=== PATIENT | male | born 1950 | race Caucasian/White ===

== ENCOUNTER 2017-09-30 07:44 | Emergency (ER) | payer SELFPAY ==
[2017-09-30 07:56] VITALS: BP 138/79
--- NOTE | 2017-09-30 07:58 | EDM.PDOC ---
ED HPI GENERAL MEDICAL PROBLEM - General Chief Complaint: Wound Recheck Stated Complaint: REMOVE STITCHES Time Seen by Provider: 09/30/17 07:52 - History of Present Illness INITIAL COMMENTS - FREE TEXT/NARRATIVE: HISTORY AND PHYSICAL: History of present illness: The patient is a 67-year-old male who presents for suture removal. Patient had sutures placed after a mold was removed by a physician in the office in [place] and that was done apparently 2 weeks ago. Patient cannot get back to [place] to get the stitches removed. He states he has no pain redness or problems with the area and according to the physician report called to him the lesion was benign. He was told by the physician's nurse that he can get the sutures removed locally. He has no systemic complaints. Review of systems: As per history of present illness and below otherwise all systems reviewed and negative. Past medical history: As per history of present illness and as reviewed below otherwise noncontributory. Surgical history: As per history of present illness and as reviewed below otherwise noncontributory. Social history: No reported history of drug or alcohol abuse. Family history: As per history of present illness and as reviewed below otherwise noncontributory. Physical exam: Gen.: Well-developed well-nourished man who is nontoxic and speaking clearly and easily in the ED HEENT: Atraumatic, normocephalic, negative for conjunctival pallor or scleral icterus, mucous membranes moist, throat clear, neck supple, nontender, trachea midline. Lungs: Clear to auscultation, breath sounds equal bilaterally, chest nontender. Heart: S1S2, regular rate and rhythm no overt murmurs Abdomen: Deferred Pelvis: Deferred Genitourinary: Deferred. Rectal: Deferred. Extremities: Deferred Neuro: Awake, alert, oriented. Gait intact in the ER Motor and sensory unremarkable throughout. Exam nonfocal. Skin: At the left lower back near the posterior iliac crest there is a well- healed incision with 2 sutures seen. There is no drainage swelling or erythema. Sutures are intact. Diagnostics: None Therapeutics: Suture removal per nursing Impression: Suture removal Definitive disposition and diagnosis as appropriate pending reevaluation and review of above - Related Data Allergies Allergy/AdvReac Type Severity Reaction Status Date / Time morphine Allergy Nausea and Verified 04/26/16 12:25 Vomiting Home Meds: Home Meds . [No Known Home Meds] 03/29/16 [History] Past Medical History HEENT History: Reports: Impaired Vision Cardiovascular History: Reports: Afib, High Cholesterol Respiratory History: Reports: None Gastrointestinal History: Reports: None Genitourinary History: Reports: Renal Calculus Musculoskeletal History: Reports: Other (See Below) Other Musculoskeletal History: rotator cuff repair Neurological History: Reports: Vertigo Psychiatric History: Reports: Anxiety, Depression Endocrine/Metabolic History: Reports: None Hematologic History: Reports: None Immunologic History: Reports: None Oncologic (Cancer) History: Reports: None Dermatologic History: Reports: None - Infectious Disease History Infectious Disease History: Reports: Chicken Pox, Influenza, Measles - Past Surgical History Musculoskeletal Surgical History: Reports: Arthroscopic Knee Social & Family History - Family History Family Medical History: Noncontributory HEENT: Reports: Impaired Vision OBGYN: Reports: Endocrine/Metabolic: Reports: Diabetes, type II Oncologic: Reports: Breast, Lung - Tobacco Use Smoking Status *Q: Never Smoker Second Hand Smoke Exposure: No - Alcohol Use Days Per Week of Alcohol Use: 0 - Recreational Drug Use Recreational Drug Use: No Drug Use in Last 12 Months: No Recreational Drug Type: Reports: Marijuana/Hashish Recreational Drug Use Frequency: Socially ED ROS GENERAL - Review of Systems Review Of Systems: ROS reveals no pertinent complaints other than HPI. ED EXAM, GENERAL - Physical Exam Exam: See Below (See dictation) Departure - Departure Time of Disposition: 07:58 Disposition: Home, Self-Care 01 Condition: Good Clinical Impression: Encounter for removal of sutures - Discharge Information Referrals: PCP,None [Primary Care Provider] - Additional Instructions: The following information is given to patients seen in the emergency department who are being discharged to home. This information is to outline your options for follow-up care. We provide all patients seen in our emergency department with a follow-up referral. The need for follow-up, as well as the timing and circumstances, are variable depending upon the specifics of your emergency department visit. If you don't have a primary care physician on staff, we will provide you with a referral. We always advise you to contact your personal physician following an emergency department visit to inform them of the circumstance of the visit and for follow-up with them and/or the need for any referrals to a consulting specialist. The emergency department will also refer you to a specialist when appropriate. This referral assures that you have the opportunity for followup care with a specialist. All of these measure are taken in an effort to provide you with optimal care, which includes your followup. Under all circumstances we always encourage you to contact your private physician who remains a resource for coordinating your care. When calling for followup care, please make the office aware that this follow-up is from your recent emergency room visit. If for any reason you are refused follow-up, please contact the [facility] emergency department at and ask to speak to the emergency department charge nurse. [facility] Primary care- Internal Medicine and Family [place] [phone] Please follow-up with your provider in the clinic as needed and return to ER as needed and as discussed
== END 2017-09-30 08:13 | disposition home or self-care (01) ==
LOC: MW.ED 07:44
DX: Z48.817 Encounter for surgical aftercare following surgery on the skin and subcutaneous tissue (principal); Z88.5 Allergy status to narcotic agent
CPT/HCPCS: 99281

== ENCOUNTER 2019-03-26 04:48 | Emergency (ER) | payer SELFPAY ==
[2019-03-26] MEDS ORDERED: Diltiazem 25 MG/5 ML SDV ONE (04:59)
[2019-03-26] MEDS ORDERED: Sodium Chloride 0.9% 1,000 ML IV ONE (05:04)
[2019-03-26] MEDS ORDERED: Aspirin 81 MG Tab.Chew PO ONE (05:04)
--- NOTE | 2019-03-26 05:07 | EDM.PDOC ---
ED HPI GENERAL MEDICAL PROBLEM - General Stated Complaint: HEART RACING Time Seen by Provider: 03/26/19 05:05 Source of Information: Reports: Patient - History of Present Illness INITIAL COMMENTS - FREE TEXT/NARRATIVE: HISTORY AND PHYSICAL: History of present illness: [Patient presents with chest pain and episode yesterday which awoke him from sleep at approximately 7 AM at which time he did have some diaphoresis and shortness of breath radiating to the neck, he did have intermittent pain throughout the day with activity and then another episode tonight which woke him from sleep prompting his visit to the ER Heart rate was noted in 180s on arrival Cardizem and fluids were provided stabilizing the heart rate currently sinus rhythm in the 70s No fever nausea vomiting chills sweats no current shortness of breath or diaphoresis no radiation he continues to have slight chest pressure Review of systems: As per history of present illness and below otherwise all systems reviewed and negative. Past medical history: As per history of present illness and as reviewed below otherwise noncontributory. Surgical history: As per history of present illness and as reviewed below otherwise noncontributory. Social history: No reported history of drug or alcohol abuse. Family history: As per history of present illness and as reviewed below otherwise noncontributory. Physical exam: HEENT: Atraumatic, normocephalic, pupils reactive, negative for conjunctival pallor or scleral icterus, mucous membranes moist, throat clear, neck supple, nontender, trachea midline. Lungs: Clear to auscultation, breath sounds equal bilaterally, chest nontender. Heart: S1S2, regular, negative for clicks, rubs, or JVD. Abdomen: Soft, nondistended, nontender. Negative for masses or hepatosplenomegaly. Negative for costovertebral tenderness. Pelvis: Stable nontender. Genitourinary: Deferred. Rectal: Deferred. Extremities: Atraumatic, negative for cords or calf pain. Neurovascular unremarkable. Neuro: Awake, alert, oriented. Cranial nerves II through XII unremarkable. Cerebellum unremarkable. Motor and sensory unremarkable throughout. Exam nonfocal. Diagnostics: [CBC CMP UA troponin INR and d-dimer EKG Chest 1 view ] Therapeutics: [ normal saline Cardizem 25 mg IV ] Impression: Acute coronary syndrome [ A. fib with RVR -resolved Elevated troponin Definitive disposition and diagnosis as appropriate pending reevaluation and review of above. chest discomfort Pain Score (Numeric/FACES): 2 - Related Data Allergies Allergy/AdvReac Type Severity Reaction Status Date / Time morphine Allergy Nausea and Verified 03/26/19 05:04 Vomiting Home Meds: Home Meds . [No Known Home Meds] 03/29/16 [History] Past Medical History HEENT History: Reports: Impaired Vision Cardiovascular History: Reports: Afib, High Cholesterol Respiratory History: Reports: None Gastrointestinal History: Reports: None Genitourinary History: Reports: Renal Calculus Musculoskeletal History: Reports: Other (See Below) Other Musculoskeletal History: rotator cuff repair Neurological History: Reports: Vertigo Psychiatric History: Reports: Anxiety, Depression Endocrine/Metabolic History: Reports: None Hematologic History: Reports: None Immunologic History: Reports: None Oncologic (Cancer) History: Reports: None Dermatologic History: Reports: None - Infectious Disease History Infectious Disease History: Reports: Chicken Pox, Influenza, Measles - Past Surgical History Head Surgeries/Procedures: Reports: None Musculoskeletal Surgical History: Reports: Arthroscopic Knee Social & Family History - Family History Family Medical History: Noncontributory HEENT: Reports: Impaired Vision OBGYN: Reports: Endocrine/Metabolic: Reports: Diabetes, type II Oncologic: Reports: Breast, Lung - Caffeine Use Caffeine Use: Reports: Coffee, Soda ED ROS GENERAL - Review of Systems Review Of Systems: See Below ED EXAM, GENERAL - Physical Exam Exam: See Below Course - Vital Signs Last Recorded V/S: Last Vital Signs Temp 97.5 F 03/26/19 04:50 Pulse 64 03/26/19 05:40 Resp 18 03/26/19 05:40 BP 110/72 03/26/19 05:40 Pulse Ox 96 03/26/19 05:40 - Orders/Labs/Meds Orders: Active Orders 24 hr Category Date Time Status EKG 12 Lead [EKG Documentation Completion] [RC] STAT Care 03/26/19 05:14 Active EKG Documentation Completion [RC] STAT Care 03/26/19 05:04 Active CPK [CREATINE KINASE,CK] [CHEM] Stat Lab 03/26/19 05:54 Ordered UA RFX PROSPER AND CULT IF INDIC [URIN] Stat Lab 03/26/19 05:04 Ordered Sodium Chloride 0.9% [Normal Saline] 1,000 ml Med 03/26/19 05:04 Active IV STAT Medication Orders Sodium Chloride (Normal Saline) 1,000 mls @ 999 mls/hr IV STAT ONE Stop: 03/26/19 06:04 Last Admin: 03/26/19 05:00 Dose: 999 mls/hr Labs: Laboratory Tests 03/26/19 03/26/19 03/26/19 Range/Units 04:15 04:15 04:15 WBC 14.36 H (4.0-11.0) K/uL RBC 5.38 (4.50-5.90) M/uL Hgb 14.8 (13.0-17.0) g/dL Hct 44.8 (38.0-50.0) % MCV 83.3 (80.0-98.0) fL MCH 27.5 (27.0-32.0) pg MCHC 33.0 (31.0-37.0) g/dL RDW Std Deviation 45.5 (28.0-62.0) fl RDW Coeff of Ashley 15 (11.0-15.0) % Plt Count 257 (150-400) K/uL MPV 11.20 (7.40-12.00) fL Neut % (Auto) 69.2 (48.0-80.0) % Lymph % (Auto) 17.5 (16.0-40.0) % [place] % (Auto) 11.7 (0.0-15.0) % Eos % (Auto) 1.3 (0.0-7.0) % Baso % (Auto) 0.3 (0.0-1.5) % Neut # (Auto) 9.9 H (1.4-5.7) K/uL Lymph # (Auto) 2.5 H (0.6-2.4) K/uL [place] # (Auto) 1.7 H (0.0-0.8) K/uL Eos # (Auto) 0.2 (0.0-0.7) K/uL Baso # (Auto) 0.1 (0.0-0.1) K/uL Nucleated RBC % 0.0 /100WBC Nucleated RBCs # 0 K/uL INR 0.96 D-Dimer, Quantitative 0.33 (0.0-0.50) mg/L FEU Sodium 144 (136-148) mmol/L Potassium 4.0 (3.5-5.1) mmol/L Chloride 108 H (98-107) mmol/L Carbon Dioxide 23.3 (21.0-32.0) mmol/L BUN 21 H (7.0-18.0) mg/dL Creatinine 1.2 (0.8-1.3) mg/dL Est Cr Clr Drug Dosing 49.11 mL/min Estimated GFR (MDRD) 59.7 ml/min Glucose 103 (74-106) mg/dL Calcium 8.9 (8.5-10.1) mg/dL Total Bilirubin 1.5 H (0.2-1.0) mg/dL AST 22 (15-37) IU/L ALT 28 (14-63) IU/L Alkaline Phosphatase 79 (46-116) U/L Troponin I 0.537 H* (0.000-0.056) ng/mL Total Protein 6.9 (6.4-8.2) g/dL Albumin 4.0 (3.4-5.0) g/dL Globulin 2.9 (2.6-4.0) g/dL Albumin/Globulin Ratio 1.4 (0.9-1.6) Lipase 114 (73-393) U/L Meds: Medications Generic Name Dose Route Start Last Admin Trade Name Freq PRN Reason Stop Dose Admin Sodium Chloride 1,000 mls @ 999 mls/hr 03/26/19 05:04 03/26/19 05:00 Normal Saline IV 03/26/19 06:04 999 mls/hr STAT ONE Administration Discontinued Medications Generic Name Dose Route Start Last Admin Trade Name Freq PRN Reason Stop Dose Admin Aspirin 324 mg 03/26/19 05:04 03/26/19 05:12 Aspirin PO 03/26/19 05:05 324 mg ONETIME ONE Administration Diltiazem HCl Confirm 03/26/19 04:59 03/26/19 05:21 Diltiazem Administered 03/26/19 05:00 Not Given Dose 25 mg .ROUTE .STK-MED ONE Diltiazem HCl 25 mg 03/26/19 05:09 03/26/19 05:00 Diltiazem IVPUSH 03/26/19 05:10 25 mg ONETIME ONE Administration Departure - Departure Time of Disposition: 05:58 Disposition: Home, Self-Care 01 Condition: Good Clinical Impression: Acute coronary syndrome, Atrial fibrillation with RVR, Elevated troponin - Discharge Information Referrals: PCP,None [Primary Care Provider] - - My Orders Last 24 Hours: My Active Orders 03/26/19 05:04 EKG Documentation Completion [RC] STAT UA RFX PROSPER AND CULT IF INDIC [URIN] Stat Sodium Chloride 0.9% [Normal Saline] 1,000 ml IV STAT 03/26/19 05:14 EKG 12 Lead [EKG Documentation Completion] [RC] STAT 03/26/19 05:54 CPK [CREATINE KINASE,CK] [CHEM] Stat - Assessment/Plan Last 24 Hours: My Active Orders 03/26/19 05:04 EKG Documentation Completion [RC] STAT UA RFX PROSPER AND CULT IF INDIC [URIN] Stat Sodium Chloride 0.9% [Normal Saline] 1,000 ml IV STAT 03/26/19 05:14 EKG 12 Lead [EKG Documentation Completion] [RC] STAT 03/26/19 05:54 CPK [CREATINE KINASE,CK] [CHEM] Stat
[2019-03-26] MEDS ORDERED: Diltiazem 25 MG/5 ML SDV IVPUSH ONE (05:09)
--- NOTE | 2019-03-26 05:42 | CR ---
Indication: Chest pain Technique: Chest 1 view Comparison: None Findings/Impression: Cardiovascular and mediastinum: Heart size and vasculature are normal in caliber and appearance. Mediastinum is within normal limits. Lungs and pleural space: Lungs are clear. No sign of infiltrate or mass. No sign of pleural effusion. No pneumothorax. Bones and soft tissues: No significant findings. Dictated by Kellee Philippe MD @ Mar 26 2019 5:40AM Signed by Dr. Kellee Philippe @ Mar 26 2019 5:41AM
[2019-03-26] MEDS ORDERED: Heparin Sodium 5,000 Units/ML Vial IVPUSH ONE (05:59)
[2019-03-26] MEDS ORDERED: Heparin Sod,Pork In 0.45% Nacl 25,000 UNIT/500 ML IV.SOLN IV ONE (06:09)
[2019-03-26] MEDS ORDERED: Heparin Sod,Pork In 0.45% Nacl 25,000 UNIT/500 ML IV.SOLN IV SCH (06:15)
[2019-03-26 07:36] VITALS: BP 100/55
== END 2019-03-26 07:15 ==
LOC: MW.ED 04:48
DX: I24.9 Acute ischemic heart disease, unspecified (principal); I48.91 Unspecified atrial fibrillation; R79.89 Other specified abnormal findings of blood chemistry; Z88.5 Allergy status to narcotic agent
CPT/HCPCS: 36415; 71045; 80053; 82550; 83690; 84484; 85025; 85379; 85610; 93005; 96361; 96365; 96375; 96376; 99285; A9270; J1644; J3490; J7040

== ENCOUNTER 2019-04-13 09:34 | Observation (INO) | payer OTHER ==
[2019-04-13] MEDS ORDERED: Sodium Chloride 0.9% 2.5 ML Syringe FLUSH PRN (09:58)
[2019-04-13] MEDS ORDERED: Sodium Chloride 0.9% 10 ML Syringe FLUSH PRN (09:58)
[2019-04-13] MEDS ORDERED: Sodium Chloride 0.9% 1,000 ML IV SCH (10:00)
--- NOTE | 2019-04-13 10:04 | EDM.PDOC ---
ED HPI GENERAL MEDICAL PROBLEM - General Chief Complaint: Back Pain or Injury Stated Complaint: BACK PAIN Time Seen by Provider: 04/13/19 09:52 - History of Present Illness INITIAL COMMENTS - FREE TEXT/NARRATIVE: HISTORY AND PHYSICAL: History of present illness: Patient is a 69-year-old white male presents with a concern of low back pain he states he felt this last night and took a hot bath went to sleep feeling better woke up went to work at [employer] and was just reaching up above and developed more significant low back pain he denies numbness weakness incontinence or bowel or bladder other complaints. He does have a history of coronary artery disease and is on Lipitor Coumadin and reports allergies to morphine in the form of nausea. Review of systems: As per history of present illness and below otherwise all systems reviewed and negative. Past medical history: As per history of present illness and as reviewed below otherwise noncontributory. Surgical history: As per history of present illness and as reviewed below otherwise noncontributory. Social history: No reported history of drug or alcohol abuse. Family history: As per history of present illness and as reviewed below otherwise noncontributory. Physical exam: HEENT: Atraumatic, normocephalic, pupils reactive, negative for conjunctival pallor or scleral icterus, mucous membranes moist, throat clear, neck supple, nontender, trachea midline. Lungs: Clear to auscultation, breath sounds equal bilaterally, chest nontender. Heart: S1S2, regular, negative for clicks, rubs, or JVD. Abdomen: Soft, nondistended, nontender. Negative for masses or hepatosplenomegaly. Negative for costovertebral tenderness. Pelvis: Stable nontender. Genitourinary: Deferred. Rectal: Deferred. Extremities: Atraumatic, negative for cords or calf pain. Neurovascular unremarkable. Neuro: Awake, alert, oriented. Cranial nerves II through XII unremarkable. Cerebellum unremarkable. Motor and sensory unremarkable throughout. Exam nonfocal. Back: Patient is tenderness in paravertebral region at the level of lumbar spine no vertebral body or point tenderness patient is able to stand on his toes and back on his heels. Motor sensory deep tendon reflexes are normal Diagnostics: CBC CMP UA PT/INR EKG CT abdomen and pelvis CT lumbar spine Therapeutics: Saline at 125 an hour Dilaudid 0.5 mg IV Zofran 4 mg IV Impression: #1 acute low back pain Definitive disposition and diagnosis as appropriate pending reevaluation and review of above. lower back Pain Score (Numeric/FACES): 10 - Related Data Allergies Allergy/AdvReac Type Severity Reaction Status Date / Time morphine Allergy Nausea and Verified 04/13/19 09:41 Vomiting Home Meds: Home Meds Amiodarone [Cordarone] 1 tab PO DAILY 04/13/19 [History] Aspirin [Halfprin] 81 mg PO DAILY 04/13/19 [History] Lisinopril [Prinivil] 2.5 mg PO DAILY 04/13/19 [History] Warfarin [Coumadin] 1 tab PO DAILY 04/13/19 [History] atorvaSTATin [Lipitor] 1 tab PO DAILY 04/13/19 [History] Past Medical History HEENT History: Reports: Impaired Vision Cardiovascular History: Reports: Afib, High Cholesterol Respiratory History: Reports: None Gastrointestinal History: Reports: None Genitourinary History: Reports: Renal Calculus Musculoskeletal History: Reports: Other (See Below) Other Musculoskeletal History: rotator cuff repair Neurological History: Reports: Vertigo Psychiatric History: Reports: Anxiety, Depression Endocrine/Metabolic History: Reports: None Hematologic History: Reports: None Immunologic History: Reports: None Oncologic (Cancer) History: Reports: None Dermatologic History: Reports: None - Infectious Disease History Infectious Disease History: Reports: Measles - Past Surgical History Head Surgeries/Procedures: Reports: None HEENT Surgical History: Reports: None Cardiovascular Surgical History: Reports: None Respiratory Surgical History: Reports: None GI Surgical History: Reports: None Male Surgical History: Reports: None Endocrine Surgical History: Reports: None Neurological Surgical History: Reports: None Musculoskeletal Surgical History: Reports: Arthroscopic Knee Oncologic Surgical History: Reports: None Dermatological Surgical History: Reports: None Social & Family History - Family History Family Medical History: Noncontributory HEENT: Reports: Impaired Vision OBGYN: Reports: Endocrine/Metabolic: Reports: Diabetes, type II Oncologic: Reports: Breast, Lung - Tobacco Use Smoking Status *Q: Never Smoker Second Hand Smoke Exposure: No - Caffeine Use Caffeine Use: Reports: None - Recreational Drug Use Recreational Drug Use: No ED ROS GENERAL - Review of Systems Review Of Systems: ROS reveals no pertinent complaints other than HPI. ED EXAM, GENERAL - Physical Exam Exam: See Below (dictation) Course - Vital Signs Last Recorded V/S: Last Vital Signs Temp 36.6 C 04/13/19 09:43 Pulse 57 L 04/13/19 09:43 Resp 16 04/13/19 09:43 BP 130/63 04/13/19 09:43 Pulse Ox 97 04/13/19 09:43 - Orders/Labs/Meds Orders: Active Orders 24 hr Category Date Time Status EKG Documentation Completion [RC] STAT Care 04/13/19 09:57 Active UA RFX PROSPER AND CULT IF INDIC [URIN] Stat Lab 04/13/19 09:58 Ordered Sodium Chloride 0.9% [Normal Saline] 1,000 ml Med 04/13/19 10:00 Active IV STAT Sodium Chloride 0.9% [Saline Flush] Med 04/13/19 09:58 Active 10 ml FLUSH ASDIRECTED PRN Sodium Chloride 0.9% [Saline Flush] Med 04/13/19 09:58 Active 2.5 ml FLUSH ASDIRECTED PRN Saline Lock Insert [OM.PC] Stat Oth 04/13/19 09:57 Ordered Medication Orders Sodium Chloride (Normal Saline) 1,000 mls @ 125 mls/hr IV STAT LUIS ANTONIO Last Admin: 04/13/19 10:51 Dose: 125 mls/hr Sodium Chloride (Saline Flush) 10 ml FLUSH ASDIRECTED PRN PRN Reason: Keep Vein Open Last Admin: 04/13/19 10:48 Dose: 10 ml Sodium Chloride (Saline Flush) 2.5 ml FLUSH ASDIRECTED PRN PRN Reason: Keep Vein Open Last Admin: 04/13/19 10:48 Dose: 2.5 ml Labs: Laboratory Tests 04/13/19 04/13/19 04/13/19 Range/Units 10:11 10:11 10:11 WBC 6.36 (4.0-11.0) K/uL RBC 5.01 (4.50-5.90) M/uL Hgb 13.5 (13.0-17.0) g/dL Hct 42.1 (38.0-50.0) % MCV 84.0 (80.0-98.0) fL MCH 26.9 L (27.0-32.0) pg MCHC 32.1 (31.0-37.0) g/dL RDW Std Deviation 45.7 (28.0-62.0) fl RDW Coeff of Ashley 15 (11.0-15.0) % Plt Count 244 (150-400) K/uL MPV 10.90 (7.40-12.00) fL Neut % (Auto) 62.2 (48.0-80.0) % Lymph % (Auto) 20.3 (16.0-40.0) % [place] % (Auto) 11.2 (0.0-15.0) % Eos % (Auto) 5.5 (0.0-7.0) % Baso % (Auto) 0.8 (0.0-1.5) % Neut # (Auto) 4.0 (1.4-5.7) K/uL Lymph # (Auto) 1.3 (0.6-2.4) K/uL [place] # (Auto) 0.7 (0.0-0.8) K/uL Eos # (Auto) 0.4 (0.0-0.7) K/uL Baso # (Auto) 0.1 (0.0-0.1) K/uL Nucleated RBC % 0.0 /100WBC Nucleated RBCs # 0 K/uL INR 6.97 Sodium 144 (136-148) mmol/L Potassium 3.7 (3.5-5.1) mmol/L Chloride 109 H (98-107) mmol/L Carbon Dioxide 26.3 (21.0-32.0) mmol/L BUN 24 H (7.0-18.0) mg/dL Creatinine 1.2 (0.8-1.3) mg/dL Est Cr Clr Drug Dosing 52.79 mL/min Estimated GFR (MDRD) 59.7 ml/min Glucose 132 H (74-106) mg/dL Calcium 8.9 (8.5-10.1) mg/dL Total Bilirubin 0.4 (0.2-1.0) mg/dL AST 14 L (15-37) IU/L ALT 18 (14-63) IU/L Alkaline Phosphatase 84 (46-116) U/L Total Protein 6.8 (6.4-8.2) g/dL Albumin 3.9 (3.4-5.0) g/dL Globulin 2.9 (2.6-4.0) g/dL Albumin/Globulin Ratio 1.3 (0.9-1.6) Meds: Medications Generic Name Dose Route Start Last Admin Trade Name Freq PRN Reason Stop Dose Admin Sodium Chloride 1,000 mls @ 125 mls/hr 04/13/19 10:00 04/13/19 10:51 Normal Saline IV 125 mls/hr STAT LUIS ANTONIO Administration Sodium Chloride 10 ml 04/13/19 09:58 04/13/19 10:48 Saline Flush FLUSH 10 ml ASDIRECTED PRN Administration Keep Vein Open Sodium Chloride 2.5 ml 04/13/19 09:58 04/13/19 10:48 Saline Flush FLUSH 2.5 ml ASDIRECTED PRN Administration Keep Vein Open Discontinued Medications Generic Name Dose Route Start Last Admin Trade Name Lokiq PRN Reason Stop Dose Admin Hydromorphone HCl 0.5 mg 04/13/19 10:06 04/13/19 10:48 Dilaudid IVPUSH 04/13/19 10:07 0.5 mg ONETIME ONE Administration Ondansetron HCl 4 mg 04/13/19 10:06 04/13/19 10:46 Zofran IVPUSH 04/13/19 10:07 4 mg ONETIME ONE Administration Departure - Departure Time of Disposition: 11:29 Disposition: Refer to Observation Condition: Good Clinical Impression: Back pain, Coumadin toxicity - Discharge Information Referrals: PCP,Unknown [Primary Care Provider] - Forms: ED Department Discharge - My Orders Last 24 Hours: My Active Orders 04/13/19 09:57 EKG Documentation Completion [RC] STAT Saline Lock Insert [OM.PC] Stat 04/13/19 09:58 UA RFX PROSPER AND CULT IF INDIC [URIN] Stat Sodium Chloride 0.9% [Saline Flush] 10 ml FLUSH ASDIRECTED PRN Sodium Chloride 0.9% [Saline Flush] 2.5 ml FLUSH ASDIRECTED PRN 04/13/19 10:00 Sodium Chloride 0.9% [Normal Saline] 1,000 ml IV STAT - Assessment/Plan Last 24 Hours: My Active Orders 04/13/19 09:57 EKG Documentation Completion [RC] STAT Saline Lock Insert [OM.PC] Stat 04/13/19 09:58 UA RFX PROSPER AND CULT IF INDIC [URIN] Stat Sodium Chloride 0.9% [Saline Flush] 10 ml FLUSH ASDIRECTED PRN Sodium Chloride 0.9% [Saline Flush] 2.5 ml FLUSH ASDIRECTED PRN 04/13/19 10:00 Sodium Chloride 0.9% [Normal Saline] 1,000 ml IV STAT
[2019-04-13] MEDS ORDERED: HYDROmorphone 2 MG/ML Syringe IVPUSH ONE (10:06)
[2019-04-13] MEDS ORDERED: Ondansetron 4 MG/2 ML SDV IVPUSH ONE (10:06)
--- NOTE | 2019-04-13 11:16 | CT ---
Indication: Low back pain for 2 days. Technique: Noncontrast axial CT of the lumbar spine with coronal and sagittal reformats are provided. Comparison: No prior studies are available for comparison at this institution. Findings: Lumbar lordosis is preserved. There is a superior endplate compression deformity at L5 with 10 percent loss of vertebral body height. No retropulsed fragments. There is an associated large Schmorl`s node in the L5 superior endplate. Prominent anterior ridging osteophyte at L1-2 and non ridging osteophyte at L2-3. Bridging syndesmophytes at T11-12, T12-L1 and L1-2 are also noted. There is bilateral ankylosis of the sacroiliac joints. T11-12: No spinal canal stenosis. No neural foramina narrowing. T12-L1: No spinal canal stenosis. No neural foramina narrowing. L1-2: No spinal canal stenosis. No neural foramina narrowing. L2-3: Mild disc bulge. No spinal canal stenosis or neural foramina narrowing. L3-4: Mild disc bulge. No spinal canal stenosis or neural foramina narrowing. L4-5: Mild disc bulge. No spinal canal stenosis or neural foramina narrowing. L5-S1: Mild disc bulge. No spinal canal stenosis or neural foramina narrowing. Impression: 1. Acute or subacute superior endplate compression fracture at L5 with 10 percent loss of vertebral body height. No retropulsed fragments or associated spinal canal narrowing. Large Schmorl`s node in the L5 superior endplate. 2. Multilevel bridging syndesmophytes and prominent bridging anterior osteophyte at L1-2. Bilateral ankylosis of the sacroiliac joints. Findings are consistent with ankylosing spondylosis. 3. Mild disc bulges at L2-3 through L5-S1 without spinal canal stenosis or neural from narrowing. Please note that all CT scans at this facility use dose modulation, iterative reconstruction, and/or weight-based dosing when appropriate to reduce radiation dose to as low as reasonably achievable. Dictated by Ketan Murphy MD @ Apr 13 2019 11:05AM Signed by Dr. Ketan Murphy @ Apr 13 2019 11:16AM
--- NOTE | 2019-04-13 11:23 | CT ---
INDICATION: Low back pain. TECHNIQUE: Noncontrast axial images were acquired through the abdomen and pelvis with sagittal and coronal reconstructions. COMPARISON: None. FINDINGS: Lower chest: Normal heart size. No pericardial effusion. Lung bases are clear. Abdomen and pelvis: The unenhanced liver spleen, pancreas, adrenal glands appear unremarkable. No calcified stones are seen in the gallbladder. No abnormal bile duct dilatation. There are a few low-density lesions seen in the kidneys, which are suboptimally assessed on this study but likely represent cysts. Along the lateral margin of the left kidney, there is an exophytic renal lesion which measures up to 3.2 cm. This is slightly more dense than simple fluid, although a benign cyst is favored. Due to its size, this could likely be further characterized with ultrasound. There are no urinary tract stones. No hydroureteronephrosis. Mild atherosclerotic changes. Normal caliber abdominal aorta. No abnormally dilated bowel is seen to suggest obstruction. Normal appendix. No free air or free fluid. There is no lymphadenopathy by size criteria. Urinary bladder and prostate appear unremarkable. Bones: There is an acute appearing mild superior endplate compression fracture of L5, superimposed on a Schmorl`s node deformity. There is minor vertebral body height loss. Ankylosing spondylitis is noted in the lower thoracic and upper lumbar spine, and sacroiliac joints. IMPRESSION: 1. Acute appearing mild superior endplate compression fracture involving L1 as described above. 2. Indeterminate left renal lesion. Recommend nonemergent ultrasound for further assessment. 3. Other findings as noted. Dictated by Kasi Hargrove MD @ 04/13/2019 11:21:34 AM Please note that all CT scans at this facility use dose modulation, iterative reconstruction, and/or weight-based dosing when appropriate to reduce radiation dose to as low as reasonably achievable. Dictated by: Kasi Hargrove MD @ 04/13/2019 11:22:14 (Electronically Signed)
[2019-04-13] MEDS ORDERED: HYDROmorphone 1 MG/ML Syringe IVPUSH PRN (13:31)
[2019-04-13] MEDS ORDERED: Temazepam 15 MG Cap PO PRN (13:31)
[2019-04-13] MEDS ORDERED: oxyCODONE 5 MG Tab PO PRN (13:31)
[2019-04-13] MEDS ORDERED: Acetaminophen 325 MG Tab PO PRN (13:31)
[2019-04-13] MEDS ORDERED: Docusate Sodium 100 MG Cap PO PRN (13:31)
[2019-04-13] MEDS ORDERED: Diazepam 2 MG Tab PO PRN (13:36)
--- NOTE | 2019-04-13 13:36 | PCM.HP ---
H&P History of Present Illness - General Date of Service: 04/13/19 Admit Problem/Dx: Admission Diagnosis/Problem Admission Diagnosis/Problem Back pain Source of Information: Patient History Limitations: Reports: No Limitations - History of Present Illness Initial Comments - Free Text/Narative: The patient is a 69-year-old gentleman who had presented to the emergency department with severe pain in his lower back. The patient has denied any trauma. He reports that he had been at work and try to bend over to pick something up off the floor and was unable to stand up. He been complaining of bilateral muscle spasms in his lower back. The patient has denied any radiculopathy. He has had no radiation of the pain. The patient also has denied any saddle-type anesthesia. The patient also has been taking warfarin for his atrial fibrillation. In the emergency department he was noted to have an INR of 6.9. The patient normally follows up with the [facility]. He also reports that he has had about a 30 pound weight loss over the past 5 months. Onset of Symptoms: Reports: Sudden Duration of Symptoms: Reports: Day(s):, Getting Worse Location: Reports: Back Quality: Reports: Ache, Stabbing, Throbbing Severity: Moderate Improves with: Reports: Medication, Rest Worsens with: Reports: Movement Context: Denies: Trauma Associated Symptoms: Reports: No Other Symptoms lower back Pain Score (Numeric/FACES): 9 - Related Data Allergies/Adverse Reactions: Allergies Allergy/AdvReac Type Severity Reaction Status Date / Time morphine Allergy Nausea and Verified 04/13/19 09:41 Vomiting Home Medications: Home Meds Amiodarone [Cordarone] 1 tab PO DAILY 04/13/19 [History] Aspirin [Halfprin] 81 mg PO DAILY 04/13/19 [History] Lisinopril [Prinivil] 2.5 mg PO DAILY 04/13/19 [History] Warfarin [Coumadin] 5 tab PO DAILY 04/13/19 [History] atorvaSTATin [Lipitor] 1 tab PO DAILY 04/13/19 [History] Past Medical History HEENT History: Reports: Impaired Vision Cardiovascular History: Reports: Afib, High Cholesterol Respiratory History: Reports: None Gastrointestinal History: Reports: None Genitourinary History: Reports: Renal Calculus Musculoskeletal History: Reports: Other (See Below) Other Musculoskeletal History: rotator cuff repair Neurological History: Reports: Vertigo Psychiatric History: Reports: Anxiety, Depression Endocrine/Metabolic History: Reports: None Hematologic History: Reports: None Immunologic History: Reports: None Oncologic (Cancer) History: Reports: None Dermatologic History: Reports: None - Infectious Disease History Infectious Disease History: Reports: Measles, Mumps - Past Surgical History Head Surgeries/Procedures: Reports: None HEENT Surgical History: Reports: None Cardiovascular Surgical History: Reports: None Respiratory Surgical History: Reports: None GI Surgical History: Reports: None Male Surgical History: Reports: None Endocrine Surgical History: Reports: None Neurological Surgical History: Reports: None Musculoskeletal Surgical History: Reports: Arthroscopic Knee Oncologic Surgical History: Reports: None Dermatological Surgical History: Reports: None Social & Family History - Family History Family Medical History: Noncontributory HEENT: Reports: Impaired Vision OBGYN: Reports: Endocrine/Metabolic: Reports: Diabetes, type II Oncologic: Reports: Breast, Lung - Tobacco Use Smoking Status *Q: Never Smoker Second Hand Smoke Exposure: Yes - Caffeine Use Caffeine Use: Reports: Tea - Alcohol Use Date of Last Drink: 04/06/19 - Recreational Drug Use Recreational Drug Use: No - Living Situation & Occupation Living situation: Reports: , with Family Occupation: Employed H&P Review of Systems - Review of Systems: Review Of Systems: See Below General: Reports: No Symptoms HEENT: Reports: No Symptoms Pulmonary: Reports: No Symptoms Cardiovascular: Reports: No Symptoms Gastrointestinal: Reports: No Symptoms Genitourinary: Reports: No Symptoms Musculoskeletal: Reports: Back Pain Skin: Reports: No Symptoms Psychiatric: Reports: No Symptoms Neurological: Reports: No Symptoms Hematologic/Lymphatic: Reports: No Symptoms Immunologic: Reports: No Symptoms Exam - Exam Exam: See Below - Vital Signs Vital Signs: Last Vital Signs Temp 36.2 C 04/13/19 12:30 Pulse 52 L 04/13/19 12:30 Resp 16 04/13/19 12:30 BP 129/72 04/13/19 12:30 Pulse Ox 98 04/13/19 12:30 Weight: 62.341 kg - Exam Quality Assessment: No: Supplemental Oxygen General: Alert, Oriented, Cooperative, Mild Distress HEENT: Conjunctiva Clear, EACs Clear, EOMI, Mucosa Moist & [place], Nares Patent, Pupils Equal, PERRLA Neck: Supple, Trachea Midline Lungs: Clear to Auscultation, Normal Respiratory Effort Cardiovascular: Regular Rate, Bradycardia GI/Abdominal Exam: Normal Bowel Sounds, Soft, Non-Tender, No Distention. No: Guarding, Rigid, Rebound Back Exam: Full Range of Motion, Muscle Spasm, Paraspinal Tenderness (Lumbar spine) Extremities: Normal Inspection, No Pedal Edema Skin: Warm, Dry, Intact Neurological: Cranial Nerves Intact, Reflexes Equal Bilateral, Strength Equal Bilateral Neuro Extensive - Mental Status: Alert, Oriented x3 Neuro Extensive - Motor, Sensory, Reflexes: CN II-XII Intact Psychiatric: Alert, Normal Affect, Normal Mood - Patient Data Lab Results Last 24 hrs: Laboratory Results - last 24 hr 04/13/19 04/13/19 04/13/19 Range/Units 10:11 10:11 10:11 WBC 6.36 (4.0-11.0) K/uL RBC 5.01 (4.50-5.90) M/uL Hgb 13.5 (13.0-17.0) g/dL Hct 42.1 (38.0-50.0) % MCV 84.0 (80.0-98.0) fL MCH 26.9 L (27.0-32.0) pg MCHC 32.1 (31.0-37.0) g/dL RDW Std Deviation 45.7 (28.0-62.0) fl RDW Coeff of Ashley 15 (11.0-15.0) % Plt Count 244 (150-400) K/uL MPV 10.90 (7.40-12.00) fL Neut % (Auto) 62.2 (48.0-80.0) % Lymph % (Auto) 20.3 (16.0-40.0) % [place] % (Auto) 11.2 (0.0-15.0) % Eos % (Auto) 5.5 (0.0-7.0) % Baso % (Auto) 0.8 (0.0-1.5) % Neut # (Auto) 4.0 (1.4-5.7) K/uL Lymph # (Auto) 1.3 (0.6-2.4) K/uL [place] # (Auto) 0.7 (0.0-0.8) K/uL Eos # (Auto) 0.4 (0.0-0.7) K/uL Baso # (Auto) 0.1 (0.0-0.1) K/uL Nucleated RBC % 0.0 /100WBC Nucleated RBCs # 0 K/uL INR 6.97 Sodium 144 (136-148) mmol/L Potassium 3.7 (3.5-5.1) mmol/L Chloride 109 H (98-107) mmol/L Carbon Dioxide 26.3 (21.0-32.0) mmol/L BUN 24 H (7.0-18.0) mg/dL Creatinine 1.2 (0.8-1.3) mg/dL Est Cr Clr Drug Dosing 52.79 mL/min Estimated GFR (MDRD) 59.7 ml/min Glucose 132 H (74-106) mg/dL Calcium 8.9 (8.5-10.1) mg/dL Total Bilirubin 0.4 (0.2-1.0) mg/dL AST 14 L (15-37) IU/L ALT 18 (14-63) IU/L Alkaline Phosphatase 84 (46-116) U/L Total Protein 6.8 (6.4-8.2) g/dL Albumin 3.9 (3.4-5.0) g/dL Globulin 2.9 (2.6-4.0) g/dL Albumin/Globulin Ratio 1.3 (0.9-1.6) Result Diagrams: 04/13/19 10:11 04/13/19 10:11 *Q Meaningful Use (ADM) - VTE *Q VTE Pharmacological Contraindications *Q: High INR Value - Problem List (1) Back pain SNOMED Code(s): 068255365 ICD Code: M54.9 - DORSALGIA, UNSPECIFIED Status: Acute Priority: High Current Visit: Yes Problem Details: Acute on chronic Qualifiers: Back pain location: low back pain Chronicity: unspecified Back pain laterality: bilateral Sciatica presence: without sciatica Qualified Code(s) : M54.5 - Low back pain (2) Coumadin toxicity SNOMED Code(s): 90983457 ICD Code: T45.511A - POISONING BY ANTICOAGULANTS, ACCIDENTAL, INIT Status: Acute Priority: High Current Visit: Yes Qualifiers: Encounter type: initial encounter Injury intent: accidental or unintentional Qualified Code(s): T45.511A - Poisoning by anticoagulants, accidental (unintentional), initial encounter (3) Acute coronary syndrome SNOMED Code(s): 138039101 ICD Code: I24.9 - ACUTE ISCHEMIC HEART DISEASE, UNSPECIFIED Status: Chronic Priority: High Current Visit: Yes (4) Bradycardia SNOMED Code(s): 69796915 ICD Code: R00.1 - BRADYCARDIA, UNSPECIFIED Status: Chronic Priority: High Current Visit: No Problem List Initiated/Reviewed/Updated: Yes Orders Last 24hrs: Active Orders 24 hr Category Date Time Status Patient Status [ADT] Stat ADT 04/13/19 11:31 Active Cardiac Monitoring [RC] CONTINUOUS Care 04/13/19 13:31 Ordered EKG Documentation Completion [RC] STAT Care 04/13/19 09:57 Active Oxygen Therapy [RC] PRN Care 04/13/19 13:31 Ordered Up ad Karen [RC] ASDIRECTED Care 04/13/19 13:31 Ordered VTE/DVT Education [RC] PER UNIT ROUTINE Care 04/13/19 13:31 Ordered Vital Signs [RC] Q4H Care 04/13/19 13:31 Ordered OT Evaluation and Treatment [CONS] Routine Cons 04/13/19 13:31 Ordered PT Evaluation and Treatment [CONS] Routine Cons 04/13/19 13:31 Ordered Heart Healthy Diet [DIET] Diet 04/13/19 Dinner Ordered CBC WITH AUTO DIFF [HEME] AM Lab 04/14/19 05:11 Ordered COMPREHENSIVE METABOLIC PN,CMP [CHEM] AM Lab 04/14/19 05:11 Ordered INR,PT,PROTHROMBIN TIME [COAG] DAILY Lab 04/14/19 05:11 Ordered INR,PT,PROTHROMBIN TIME [COAG] DAILY Lab 04/15/19 05:11 Ordered UA RFX PROSPER AND CULT IF INDIC [URIN] Stat Lab 04/13/19 09:58 Ordered Acetaminophen [Tylenol] Med 04/13/19 13:31 Ordered 650 mg PO Q4H PRN Amiodarone [Cordarone] Med 04/14/19 09:00 Active 200 mg PO DAILY Docusate Sodium [Colace] Med 04/13/19 13:31 Ordered 100 mg PO BID PRN HYDROmorphone [Dilaudid] Med 04/13/19 13:31 Ordered 0.5 mg IVPUSH Q2H PRN Lisinopril [Prinivil] Med 04/14/19 09:00 Active 2.5 mg PO DAILY Sodium Chloride 0.9% @ 125 MLS/HR (1000ml) Med 04/13/19 13:45 Ordered Sodium Chloride 0.9% [Normal Saline] 1,000 ml IV ASDIRECTED Sodium Chloride 0.9% [Normal Saline] 1,000 ml Med 04/13/19 10:00 Active IV STAT Sodium Chloride 0.9% [Saline Flush] Med 04/13/19 09:58 Active 10 ml FLUSH ASDIRECTED PRN Sodium Chloride 0.9% [Saline Flush] Med 04/13/19 09:58 Active 2.5 ml FLUSH ASDIRECTED PRN Temazepam [Restoril] Med 04/13/19 13:31 Ordered 15 mg PO BEDTIME PRN atorvaSTATin [Lipitor] Med 04/14/19 09:00 Active 20 mg PO DAILY oxyCODONE Med 04/13/19 13:31 Ordered 5 mg PO Q4H PRN Saline Lock Insert [OM.PC] Stat Ot 04/13/19 09:57 Ordered VTE Pharmacological Contraindications [AST] Per Unit Oth 04/13/19 13:31 Ordered Routine Resuscitation Status Routine Resus Stat 04/13/19 13:31 Ordered Medication Orders Amiodarone HCl (Cordarone) 200 mg PO DAILY LUIS ANTONIO Atorvastatin Calcium (Lipitor) 20 mg PO DAILY LIUS ANTONIO Sodium Chloride (Normal Saline) 1,000 mls @ 125 mls/hr IV STAT LUIS ANTONIO Last Admin: 04/13/19 10:51 Dose: 125 mls/hr Lisinopril (Prinivil) 2.5 mg PO DAILY LUIS ANTONIO Sodium Chloride (Saline Flush) 10 ml FLUSH ASDIRECTED PRN PRN Reason: Keep Vein Open Last Admin: 04/13/19 10:48 Dose: 10 ml Sodium Chloride (Saline Flush) 2.5 ml FLUSH ASDIRECTED PRN PRN Reason: Keep Vein Open Last Admin: 04/13/19 10:48 Dose: 2.5 ml Assessment/Plan Comment:: The patient is a 69-year-old gentleman who had presented to the emergency department with a complaint of severe lower back pain. The patient was also noted to be Coumadin toxic with his INR at 6.9. The patient's warfarin will be held for today and I will ordered repeat serial INR. The patient's Coumadin will be restarted when INR has normalized. He also will not have DVT prophylaxis secondary to his high INR level. I've also ordered Valium 2 mg by mouth twice a day to help with muscle spasms that have been noted in his lumbar area. 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 The patient does not have any history of trauma. I've ordered PTOT. Repeat laboratory testings have also been ordered. Secondary to the patient's history of acute ischemic heart disease he will be kept on telemetry. The patient will be kept on a heart healthy diet as tolerated. The patient should be appropriate for discharge in 1-2 days.
[2019-04-13] MEDS: Sodium Chloride 0.9% 1,000 ML IV SCH (18:28)
[2019-04-14] MEDS: Sodium Chloride 0.9% 1,000 ML IV SCH (02:24)
[2019-04-14 06:07] LABS: CHLORIDE,CL 108 mmol/L (98-107); SODIUM,NA 141 mmol/L (136-148)
[2019-04-14] MEDS: Amiodarone 200 MG Tab PO SCH (08:35)
[2019-04-14] MEDS: Lisinopril 5 MG Tab PO SCH (08:35)
[2019-04-14] MEDS: atorvaSTATin 20 MG Tab PO SCH (08:39)
--- NOTE | 2019-04-14 09:20 | US ---
EXAMINATION: Renal ultrasound HISTORY: Kidney lesion COMPARISON: CT dated 04/13/2019 TECHNIQUE: Grayscale and color Doppler imaging obtained. FINDINGS: The right kidney measures 9.3 cm and the left kidney measures 10.6 cm [id number] without evidence of hydronephrosis. Renal cortical echotexture is normal. Normal color Doppler flow bilaterally. Small renal cortical cysts noted bilaterally. There is a 3.2 cm cyst along the inferior pole of the left kidney correlating to the abnormal finding on the CT. IMPRESSION: 1. Several small renal cortical cysts are noted.
--- NOTE | 2019-04-14 09:39 | PCM.PN ---
<Conor Weinberg - Last Filed: 04/14/19 09:34> - General Info Date of Service: 04/14/19 Subjective Update: States that his back pain feels a lot better. He says his pain is a 2/10 when laying down, and about a 6/10 with movement. Supratherpeutic INR today on AM labs, thus PT has been unable to work with the patient. He has no other complaints. - Review of Systems General: Reports: Other (see hpi) - Patient Data Vitals - Most Recent: Last Vital Signs Temp 36.9 C 04/14/19 07:33 Pulse 46 L 04/14/19 07:33 Resp 16 04/14/19 07:33 BP 120/66 04/14/19 08:35 Pulse Ox 93 L 04/14/19 07:33 Weight - Most Recent: 62.341 kg I&O - Last 24 Hours: Intake & Output 04/13/19 04/14/19 04/14/19 22:59 06:59 14:59 Intake Total 568 3126 Output Total 0 200 Balance 568 2926 Lab Results Last 24 Hours: Laboratory Results - last 24 hr 04/13/19 04/13/19 04/13/19 Range/Units 10:11 10:11 10:11 WBC 6.36 (4.0-11.0) K/uL RBC 5.01 (4.50-5.90) M/uL Hgb 13.5 (13.0-17.0) g/dL Hct 42.1 (38.0-50.0) % MCV 84.0 (80.0-98.0) fL MCH 26.9 L (27.0-32.0) pg MCHC 32.1 (31.0-37.0) g/dL RDW Std Deviation 45.7 (28.0-62.0) fl RDW Coeff of Ashley 15 (11.0-15.0) % Plt Count 244 (150-400) K/uL MPV 10.90 (7.40-12.00) fL Neut % (Auto) 62.2 (48.0-80.0) % Lymph % (Auto) 20.3 (16.0-40.0) % Shelby % (Auto) 11.2 (0.0-15.0) % Eos % (Auto) 5.5 (0.0-7.0) % Baso % (Auto) 0.8 (0.0-1.5) % Neut # (Auto) 4.0 (1.4-5.7) K/uL Lymph # (Auto) 1.3 (0.6-2.4) K/uL Shelby # (Auto) 0.7 (0.0-0.8) K/uL Eos # (Auto) 0.4 (0.0-0.7) K/uL Baso # (Auto) 0.1 (0.0-0.1) K/uL Nucleated RBC % 0.0 /100WBC Nucleated RBCs # 0 K/uL INR 6.97 Sodium 144 (136-148) mmol/L Potassium 3.7 (3.5-5.1) mmol/L Chloride 109 H (98-107) mmol/L Carbon Dioxide 26.3 (21.0-32.0) mmol/L BUN 24 H (7.0-18.0) mg/dL Creatinine 1.2 (0.8-1.3) mg/dL Est Cr Clr Drug Dosing 52.79 mL/min Estimated GFR (MDRD) 59.7 ml/min Glucose 132 H (74-106) mg/dL Calcium 8.9 (8.5-10.1) mg/dL Total Bilirubin 0.4 (0.2-1.0) mg/dL AST 14 L (15-37) IU/L ALT 18 (14-63) IU/L Alkaline Phosphatase 84 (46-116) U/L Total Protein 6.8 (6.4-8.2) g/dL Albumin 3.9 (3.4-5.0) g/dL Globulin 2.9 (2.6-4.0) g/dL Albumin/Globulin Ratio 1.3 (0.9-1.6) Urine Color Urine Appearance Urine pH (5.0-8.0) Ur Specific [place] (1.001-1.035) Urine Protein (NEGATIVE) mg/dL Urine Glucose (UA) (NEGATIVE) mg/dL Urine Ketones (NEGATIVE) mg/dL Urine Occult Blood (NEGATIVE) Urine Nitrite (NEGATIVE) Urine Bilirubin (NEGATIVE) Urine Urobilinogen (<2.0) EU/dL Ur Leukocyte Esterase (NEGATIVE) Urine RBC (0-2/HPF) Urine WBC (0-5/HPF) Ur Epithelial Cells (NONE-FEW) Urine Bacteria (NEGATIVE) Urine Mucus (NONE-MOD) 04/13/19 04/14/19 04/14/19 Range/Units 21:05 05:20 05:20 WBC 8.08 (4.0-11.0) K/uL RBC 4.74 (4.50-5.90) M/uL Hgb 12.7 L (13.0-17.0) g/dL Hct 40.2 (38.0-50.0) % MCV 84.8 (80.0-98.0) fL MCH 26.8 L (27.0-32.0) pg MCHC 31.6 (31.0-37.0) g/dL RDW Std Deviation 46.7 (28.0-62.0) fl RDW Coeff of Ashley 15 (11.0-15.0) % Plt Count 231 (150-400) K/uL MPV 11.40 (7.40-12.00) fL Neut % (Auto) 61.1 (48.0-80.0) % Lymph % (Auto) 24.8 (16.0-40.0) % Shelby % (Auto) 9.4 (0.0-15.0) % Eos % (Auto) 4.1 (0.0-7.0) % Baso % (Auto) 0.6 (0.0-1.5) % Neut # (Auto) 4.9 (1.4-5.7) K/uL Lymph # (Auto) 2.0 (0.6-2.4) K/uL [place] # (Auto) 0.8 (0.0-0.8) K/uL Eos # (Auto) 0.3 (0.0-0.7) K/uL Baso # (Auto) 0.1 (0.0-0.1) K/uL Nucleated RBC % 0.0 /100WBC Nucleated RBCs # 0 K/uL INR 8.28 H* Sodium (136-148) mmol/L Potassium (3.5-5.1) mmol/L Chloride (98-107) mmol/L Carbon Dioxide (21.0-32.0) mmol/L BUN (7.0-18.0) mg/dL Creatinine (0.8-1.3) mg/dL Est Cr Clr Drug Dosing mL/min Estimated GFR (MDRD) ml/min Glucose (74-106) mg/dL Calcium (8.5-10.1) mg/dL Total Bilirubin (0.2-1.0) mg/dL AST (15-37) IU/L ALT (14-63) IU/L Alkaline Phosphatase (46-116) U/L Total Protein (6.4-8.2) g/dL Albumin (3.4-5.0) g/dL Globulin (2.6-4.0) g/dL Albumin/Globulin Ratio (0.9-1.6) Urine Color YELLOW Urine Appearance CLEAR Urine pH 7.0 (5.0-8.0) Ur Specific [place] 1.015 (1.001-1.035) Urine Protein NEGATIVE (NEGATIVE) mg/dL Urine Glucose (UA) NEGATIVE (NEGATIVE) mg/dL Urine Ketones NEGATIVE (NEGATIVE) mg/dL Urine Occult Blood TRACE-INTACT H (NEGATIVE) Urine Nitrite NEGATIVE (NEGATIVE) Urine Bilirubin NEGATIVE (NEGATIVE) Urine Urobilinogen 0.2 (<2.0) EU/dL Ur Leukocyte Esterase NEGATIVE (NEGATIVE) Urine RBC 5-7 (0-2/HPF) Urine WBC 0-1 (0-5/HPF) Ur Epithelial Cells RARE (NONE-FEW) Urine Bacteria RARE (NEGATIVE) Urine Mucus HEAVY (NONE-MOD) 04/14/19 Range/Units 05:20 WBC (4.0-11.0) K/uL RBC (4.50-5.90) M/uL Hgb (13.0-17.0) g/dL Hct (38.0-50.0) % MCV (80.0-98.0) fL MCH (27.0-32.0) pg MCHC (31.0-37.0) g/dL RDW Std Deviation (28.0-62.0) fl RDW Coeff of Ashley (11.0-15.0) % Plt Count (150-400) K/uL MPV (7.40-12.00) fL Neut % (Auto) (48.0-80.0) % Lymph % (Auto) (16.0-40.0) % [place] % (Auto) (0.0-15.0) % Eos % (Auto) (0.0-7.0) % Baso % (Auto) (0.0-1.5) % Neut # (Auto) (1.4-5.7) K/uL Lymph # (Auto) (0.6-2.4) K/uL [place] # (Auto) (0.0-0.8) K/uL Eos # (Auto) (0.0-0.7) K/uL Baso # (Auto) (0.0-0.1) K/uL Nucleated RBC % /100WBC Nucleated RBCs # K/uL INR Sodium 141 (136-148) mmol/L Potassium 4.2 (3.5-5.1) mmol/L Chloride 108 H (98-107) mmol/L Carbon Dioxide 24.4 (21.0-32.0) mmol/L BUN 18 (7.0-18.0) mg/dL Creatinine 1.0 (0.8-1.3) mg/dL Est Cr Clr Drug Dosing 59.74 mL/min Estimated GFR (MDRD) > 60.0 ml/min Glucose 76 (74-106) mg/dL Calcium 8.2 L (8.5-10.1) mg/dL Total Bilirubin 0.7 (0.2-1.0) mg/dL AST 15 (15-37) IU/L ALT 17 (14-63) IU/L Alkaline Phosphatase 69 (46-116) U/L Total Protein 6.1 L (6.4-8.2) g/dL Albumin 3.4 (3.4-5.0) g/dL Globulin 2.7 (2.6-4.0) g/dL Albumin/Globulin Ratio 1.3 (0.9-1.6) Urine Color Urine Appearance Urine pH (5.0-8.0) Ur Specific [place] (1.001-1.035) Urine Protein (NEGATIVE) mg/dL Urine Glucose (UA) (NEGATIVE) mg/dL Urine Ketones (NEGATIVE) mg/dL Urine Occult Blood (NEGATIVE) Urine Nitrite (NEGATIVE) Urine Bilirubin (NEGATIVE) Urine Urobilinogen (<2.0) EU/dL Ur Leukocyte Esterase (NEGATIVE) Urine RBC (0-2/HPF) Urine WBC (0-5/HPF) Ur Epithelial Cells (NONE-FEW) Urine Bacteria (NEGATIVE) Urine Mucus (NONE-MOD) Med Orders - Current: Current Medications Acetaminophen (Tylenol) 650 mg PO Q4H PRN PRN Reason: Pain (Mild 1-3)/fever Amiodarone HCl (Cordarone) 200 mg PO DAILY [facility] Last Admin: 04/14/19 08:35 Dose: Not Given Atorvastatin Calcium (Lipitor) 20 mg PO DAILY [facility] Last Admin: 04/14/19 08:39 Dose: 20 mg Calcitonin [place] (Miacalcin Nasal [place]) 1 ml JONI DAILY [facility] Diazepam (Valium) 2 mg PO BID PRN PRN Reason: Spasms Docusate Sodium (Colace) 100 mg PO BID PRN PRN Reason: Constipation Hydromorphone HCl (Dilaudid) 0.5 mg IVPUSH Q2H PRN PRN Reason: Pain (severe 7-10) Last Admin: 04/13/19 20:52 Dose: 0.5 mg Lisinopril (Prinivil) 2.5 mg PO DAILY [facility] Last Admin: 04/14/19 08:35 Dose: Not Given Oxycodone HCl (Oxycodone) 5 mg PO Q4H PRN PRN Reason: Pain (moderate 4-6) Sodium Chloride (Saline Flush) 10 ml FLUSH ASDIRECTED PRN PRN Reason: Keep Vein Open Last Admin: 04/13/19 10:48 Dose: 10 ml Sodium Chloride (Saline Flush) 2.5 ml FLUSH ASDIRECTED PRN PRN Reason: Keep Vein Open Last Admin: 04/13/19 10:48 Dose: 2.5 ml Temazepam (Restoril) 15 mg PO BEDTIME PRN PRN Reason: Sleep Discontinued Medications Hydromorphone HCl (Dilaudid) 0.5 mg IVPUSH ONETIME ONE Stop: 04/13/19 10:07 Last Admin: 04/13/19 10:48 Dose: 0.5 mg Sodium Chloride (Normal Saline) 1,000 mls @ 125 mls/hr IV STAT [facility] Last Admin: 04/13/19 10:51 Dose: 125 mls/hr Sodium Chloride (Normal Saline) 1,000 mls @ 125 mls/hr IV ASDIRECTED [facility] Last Admin: 04/14/19 02:24 Dose: 125 mls/hr Ondansetron HCl (Zofran) 4 mg IVPUSH ONETIME ONE Stop: 04/13/19 10:07 Last Admin: 04/13/19 10:46 Dose: 4 mg - Exam Quality Assessment: Supplemental Oxygen General: Alert, Oriented HEENT: Pupils Equal, Pupils Reactive, EOMI, Mucous Membr. Moist/Jamul Neck: Supple Lungs: Clear to Auscultation, Normal Respiratory Effort Cardiovascular: Regular Rate, Regular Rhythm GI/Abdominal Exam: Normal Bowel Sounds, Soft, Non-Tender, No Organomegaly, No Distention, No Abnormal Bruit, No Mass Back Exam: Other (lumbar spinal tenderness to palpation) Extremities: Normal Inspection, Normal Range of Motion, Non-Tender, No Pedal Edema, Normal Capillary Refill Peripheral Pulses: 2+: Dorsalis Pedis (L), Dorsalis Pedis (R) - Problem List Review Problem List Initiated/Reviewed/Updated: Yes - My Orders Last 24 Hours: My Active Orders 04/14/19 09:45 Calcitonin ([place]) [Miacalcin Nasal [place]] 1 ml JONI DAILY - Plan Plan:: Assessment: #1. Acute compression fracture at L5 with 10% loss of vertebral body height #2. Supratherapeutic INR #3. Trace hematuria #4. History of arrhythmia, hld, CAD Plan: #1. Repeat INR tomorrow AM #2. Work with PT once INR is no longer supratherapeutic #3. Intranasal calcitonin. Pain meds as ordered. DC fluids. #4. Will require continued work with PT and evaluation for osteoporosis management as an outpatient. Patient also complains of incomplete voiding but no gross hematuria. He was advised to talk to his PCP about potential PSA screening and work up. He agrees. <Saroj Morfin - Last Filed: 04/14/19 15:02> - General Info Admission Dx/Problem (Free Text): I have seen and examined to patient independently of medical record specialist, Conor Weinberg MD. I have discussed the case for care of this patient with him. I have reviewed and approve of the plan of care as outlined by medical record specialist.. Please see orders. - Patient Data Vitals - Most Recent: Last Vital Signs Temp 36.7 C 04/14/19 11:00 Pulse 54 L 04/14/19 11:00 Resp 18 04/14/19 11:00 BP 136/60 05/20/19 11:00 Pulse Ox 95 04/14/19 11:00 I&O - Last 24 Hours: Intake & Output 04/14/19 04/14/19 04/14/19 06:59 14:59 22:59 Intake Total 3126 220 Output Total 200 Balance 2926 220 Lab Results Last 24 Hours: Laboratory Results - last 24 hr 04/13/19 04/14/19 04/14/19 Range/Units 21:05 05:20 05:20 WBC 8.08 (4.0-11.0) K/uL RBC 4.74 (4.50-5.90) M/uL Hgb 12.7 L (13.0-17.0) g/dL Hct 40.2 (38.0-50.0) % MCV 84.8 (80.0-98.0) fL MCH 26.8 L (27.0-32.0) pg MCHC 31.6 (31.0-37.0) g/dL RDW Std Deviation 46.7 (28.0-62.0) fl RDW Coeff of Ashley 15 (11.0-15.0) % Plt Count 231 (150-400) K/uL MPV 11.40 (7.40-12.00) fL Neut % (Auto) 61.1 (48.0-80.0) % Lymph % (Auto) 24.8 (16.0-40.0) % [place] % (Auto) 9.4 (0.0-15.0) % Eos % (Auto) 4.1 (0.0-7.0) % Baso % (Auto) 0.6 (0.0-1.5) % Neut # (Auto) 4.9 (1.4-5.7) K/uL Lymph # (Auto) 2.0 (0.6-2.4) K/uL [place] # (Auto) 0.8 (0.0-0.8) K/uL Eos # (Auto) 0.3 (0.0-0.7) K/uL Baso # (Auto) 0.1 (0.0-0.1) K/uL Nucleated RBC % 0.0 /100WBC Nucleated RBCs # 0 K/uL INR 8.28 H* Sodium (136-148) mmol/L Potassium (3.5-5.1) mmol/L Chloride (98-107) mmol/L Carbon Dioxide (21.0-32.0) mmol/L BUN (7.0-18.0) mg/dL Creatinine (0.8-1.3) mg/dL Est Cr Clr Drug Dosing mL/min Estimated GFR (MDRD) ml/min Glucose (74-106) mg/dL Calcium (8.5-10.1) mg/dL Total Bilirubin (0.2-1.0) mg/dL AST (15-37) IU/L ALT (14-63) IU/L Alkaline Phosphatase (46-116) U/L Total Protein (6.4-8.2) g/dL Albumin (3.4-5.0) g/dL Globulin (2.6-4.0) g/dL Albumin/Globulin Ratio (0.9-1.6) Urine Color YELLOW Urine Appearance CLEAR Urine pH 7.0 (5.0-8.0) Ur Specific [place] 1.015 (1.001-1.035) Urine Protein NEGATIVE (NEGATIVE) mg/dL Urine Glucose (UA) NEGATIVE (NEGATIVE) mg/dL Urine Ketones NEGATIVE (NEGATIVE) mg/dL Urine Occult Blood TRACE-INTACT H (NEGATIVE) Urine Nitrite NEGATIVE (NEGATIVE) Urine Bilirubin NEGATIVE (NEGATIVE) Urine Urobilinogen 0.2 (<2.0) EU/dL Ur Leukocyte Esterase NEGATIVE (NEGATIVE) Urine RBC 5-7 (0-2/HPF) Urine WBC 0-1 (0-5/HPF) Ur Epithelial Cells RARE (NONE-FEW) Urine Bacteria RARE (NEGATIVE) Urine Mucus HEAVY (NONE-MOD) 04/14/19 Range/Units 05:20 WBC (4.0-11.0) K/uL RBC (4.50-5.90) M/uL Hgb (13.0-17.0) g/dL Hct (38.0-50.0) % MCV (80.0-98.0) fL MCH (27.0-32.0) pg MCHC (31.0-37.0) g/dL RDW Std Deviation (28.0-62.0) fl RDW Coeff of Ashley (11.0-15.0) % Plt Count (150-400) K/uL MPV (7.40-12.00) fL Neut % (Auto) (48.0-80.0) % Lymph % (Auto) (16.0-40.0) % [place] % (Auto) (0.0-15.0) % Eos % (Auto) (0.0-7.0) % Baso % (Auto) (0.0-1.5) % Neut # (Auto) (1.4-5.7) K/uL Lymph # (Auto) (0.6-2.4) K/uL [place] # (Auto) (0.0-0.8) K/uL Eos # (Auto) (0.0-0.7) K/uL Baso # (Auto) (0.0-0.1) K/uL Nucleated RBC % /100WBC Nucleated RBCs # K/uL INR Sodium 141 (136-148) mmol/L Potassium 4.2 (3.5-5.1) mmol/L Chloride 108 H (98-107) mmol/L Carbon Dioxide 24.4 (21.0-32.0) mmol/L BUN 18 (7.0-18.0) mg/dL Creatinine 1.0 (0.8-1.3) mg/dL Est Cr Clr Drug Dosing 59.74 mL/min Estimated GFR (MDRD) > 60.0 ml/min Glucose 76 (74-106) mg/dL Calcium 8.2 L (8.5-10.1) mg/dL Total Bilirubin 0.7 (0.2-1.0) mg/dL AST 15 (15-37) IU/L ALT 17 (14-63) IU/L Alkaline Phosphatase 69 (46-116) U/L Total Protein 6.1 L (6.4-8.2) g/dL Albumin 3.4 (3.4-5.0) g/dL Globulin 2.7 (2.6-4.0) g/dL Albumin/Globulin Ratio 1.3 (0.9-1.6) Urine Color Urine Appearance Urine pH (5.0-8.0) Ur Specific [place] (1.001-1.035) Urine Protein (NEGATIVE) mg/dL Urine Glucose (UA) (NEGATIVE) mg/dL Urine Ketones (NEGATIVE) mg/dL Urine Occult Blood (NEGATIVE) Urine Nitrite (NEGATIVE) Urine Bilirubin (NEGATIVE) Urine Urobilinogen (<2.0) EU/dL Ur Leukocyte Esterase (NEGATIVE) Urine RBC (0-2/HPF) Urine WBC (0-5/HPF) Ur Epithelial Cells (NONE-FEW) Urine Bacteria (NEGATIVE) Urine Mucus (NONE-MOD) Med Orders - Current: Current Medications Acetaminophen (Tylenol) 650 mg PO Q4H PRN PRN Reason: Pain (Mild 1-3)/fever Amiodarone HCl (Cordarone) 200 mg PO DAILY [facility] Last Admin: 04/14/19 08:35 Dose: Not Given Atorvastatin Calcium (Lipitor) 20 mg PO DAILY [facility] Last Admin: 04/14/19 08:39 Dose: 20 mg Calcitonin [place] (Miacalcin Nasal [place]) 1 ml JONI DAILY [facility] Last Admin: 04/14/19 10:41 Dose: 1 spray Diazepam (Valium) 2 mg PO BID PRN PRN Reason: Spasms Docusate Sodium (Colace) 100 mg PO BID PRN PRN Reason: Constipation Lisinopril (Prinivil) 2.5 mg PO DAILY [facility] Last Admin: 04/14/19 08:35 Dose: Not Given Oxycodone HCl (Oxycodone) 5 mg PO Q4H PRN PRN Reason: Pain (moderate 4-6) Sodium Chloride (Saline Flush) 10 ml FLUSH ASDIRECTED PRN PRN Reason: Keep Vein Open Last Admin: 04/13/19 10:48 Dose: 10 ml Sodium Chloride (Saline Flush) 2.5 ml FLUSH ASDIRECTED PRN PRN Reason: Keep Vein Open Last Admin: 04/13/19 10:48 Dose: 2.5 ml Temazepam (Restoril) 15 mg PO BEDTIME PRN PRN Reason: Sleep Tramadol HCl (Ultram) 50 mg PO Q8H PRN PRN Reason: Pain Discontinued Medications Hydromorphone HCl (Dilaudid) 0.5 mg IVPUSH ONETIME ONE Stop: 04/13/19 10:07 Last Admin: 04/13/19 10:48 Dose: 0.5 mg Hydromorphone HCl (Dilaudid) 0.5 mg IVPUSH Q2H PRN PRN Reason: Pain (severe 7-10) Last Admin: 04/13/19 20:52 Dose: 0.5 mg Sodium Chloride (Normal Saline) 1,000 mls @ 125 mls/hr IV STAT [facility] Last Admin: 04/13/19 10:51 Dose: 125 mls/hr Sodium Chloride (Normal Saline) 1,000 mls @ 125 mls/hr IV ASDIRECTED [facility] Last Admin: 04/14/19 02:24 Dose: 125 mls/hr Ondansetron HCl (Zofran) 4 mg IVPUSH ONETIME ONE Stop: 04/13/19 10:07 Last Admin: 04/13/19 10:46 Dose: 4 mg - Problem List & Annotations (1) Back pain SNOMED Code(s): 390786891 Code(s): M54.9 - DORSALGIA, UNSPECIFIED Status: Acute Priority: High Current Visit: Yes Qualifiers: Back pain location: low back pain Chronicity: unspecified Back pain laterality: bilateral Sciatica presence: without sciatica Qualified Code(s) : M54.5 - Low back pain Annotation/Comment:: Acute on chronic (2) Coumadin toxicity SNOMED Code(s): 19746621 Code(s): T45.511A - POISONING BY ANTICOAGULANTS, ACCIDENTAL, INIT Status: Acute Priority: High Current Visit: Yes Qualifiers: Encounter type: initial encounter Injury intent: accidental or unintentional Qualified Code(s): T45.511A - Poisoning by anticoagulants, accidental (unintentional), initial encounter (3) Acute coronary syndrome SNOMED Code(s): 685350513 Code(s): I24.9 - ACUTE ISCHEMIC HEART DISEASE, UNSPECIFIED Status: Chronic Priority: High Current Visit: Yes (4) Bradycardia SNOMED Code(s): 43196291 Code(s): R00.1 - BRADYCARDIA, UNSPECIFIED Status: Chronic Priority: High Current Visit: No - My Orders Last 24 Hours: My Active Orders 04/13/19 Dinner Heart Healthy Diet [DIET] 04/14/19 09:00 Amiodarone [Cordarone] 200 mg PO DAILY Lisinopril [Prinivil] 2.5 mg PO DAILY atorvaSTATin [Lipitor] 20 mg PO DAILY 04/15/19 05:11 INR,PT,PROTHROMBIN TIME [COAG] DAILY
[2019-04-14] MEDS ORDERED: traMADol 50 MG Tab PO PRN (09:40)
[2019-04-14] MEDS: Calcitonin (Salmon) Nasal Spray 3.7 ML Bottle NAS SCH (10:41)
[2019-04-15] MEDS: atorvaSTATin 20 MG Tab PO SCH (09:56)
[2019-04-15] MEDS: Calcitonin (Salmon) Nasal Spray 3.7 ML Bottle NAS SCH (09:57)
[2019-04-15] MEDS: Amiodarone 200 MG Tab PO SCH (09:58)
[2019-04-15] MEDS: Lisinopril 5 MG Tab PO SCH (09:58)
[2019-04-15 12:22] VITALS: BP 111/64
--- NOTE | 2019-04-15 17:50 | PCM.DCSUM1 ---
<Conor Weinberg - Last Filed: 04/15/19 17:43> Discharge Summary - Hospital Course Free Text/Narrative:: Admission date: 04/13/2019 Discharge date: 04/15/2019 Admission diagnosis: #1. Back pain #2. Bradycardia #3. Supratherapeutic INR #4. Trace hematuria #5. Left renal lesion #6. History of arryhthmia, chronic anticoagulation, HLD, HTN Discharge diagnosis: #1. L5 compression fracture with 10% vertebral body height loss #2. Supratherapeutic INR #3. Left renal cortical cyst #4. History of arrhythmia, chronic anticoagulation, HLD, HTN Hospital course: 69M admitted for acute low back pain w/o trauma. CT of the lumbar spine showed findings as listed above. He was admitted primarily for pain control and because of his supratherapeutic INR. This was rechecked and was 5 at the time of discharge. He was sent home with f/u with myself for INR recheck in 2days. He is to hold coumadin until then. He was given intranasal calcitonin, tramadol for his vertebral fx. He is to start PT. Moving forward, he is to f/u with his PCP, Dr. Puga at the [facility]. - Discharge Data Discharge Date: 04/15/19 Discharge Disposition: Home, Self-Care 01 Condition: Stable - Patient Summary/Data Consults: Consultations 04/13/19 13:31 OT Evaluation and Treatment [CONS] Routine PT Evaluation and Treatment [CONS] Routine - Patient Instructions Diet: Usual Diet as Tolerated Activity: As Tolerated Showering/Bathing: May Shower Notify Provider of: Fever, Increased Pain Other/Special Instructions: Hold coumadin for today and recheck INR tomorrow. Do not start warfarin until you check your INR. - Discharge Plan Prescriptions/Med Rec: Calcitonin ([place]) [Miacalcin Nasal [place]] 1 ml JONI DAILY #1 bottle traMADol [Ultram] 50 mg PO Q6H PRN #30 tab PRN Reason: Pain Home Medications: Home Meds Amiodarone [Cordarone] 1 tab PO DAILY 04/13/19 [History] Aspirin [Halfprin] 81 mg PO DAILY 04/13/19 [History] Lisinopril [Prinivil] 2.5 mg PO DAILY 04/13/19 [History] Warfarin [Coumadin] 5 tab PO DAILY 04/13/19 [History] atorvaSTATin [Lipitor] 1 tab PO DAILY 04/13/19 [History] Calcitonin ([place]) [Miacalcin Nasal [place]] 1 ml JONI DAILY #1 bottle 04/15/19 [ Rx] traMADol [Ultram] 50 mg PO Q6H PRN #30 tab 04/15/19 [Rx] Patient Handouts: Tramadol tablets, Calcitonin nasal spray Referrals: [facility] [Outside] Ketan Puga MD [Ordering Only Provider] - Conor Weinberg MD [Resident] - 04/17/19 3:00 pm - Discharge Summary/Plan Comment DC Time >30 min.: No - Patient Data Vitals - Most Recent: Last Vital Signs Temp 36.4 C 04/15/19 12:00 Pulse 56 L 04/15/19 12:00 Resp 18 04/15/19 12:00 BP 111/64 04/15/19 12:00 Pulse Ox 96 04/15/19 12:00 Weight - Most Recent: 62.341 kg I&O - Last 24 hours: Intake & Output 04/15/19 04/15/19 04/15/19 06:59 14:59 22:59 Intake Total 700 740 Output Total 700 0 Balance 0 740 Lab Results - Last 24 hrs: Laboratory Results - last 24 hr 04/15/19 Range/Units 06:05 INR 5.41 Med Orders - Current: Current Medications Discontinued Medications Acetaminophen (Tylenol) 650 mg PO Q4H PRN PRN Reason: Pain (Mild 1-3)/fever Amiodarone HCl (Cordarone) 200 mg PO DAILY [facility] Last Admin: 04/15/19 09:58 Dose: Not Given Atorvastatin Calcium (Lipitor) 20 mg PO DAILY [facility] Last Admin: 04/15/19 09:56 Dose: 20 mg Calcitonin [place] (Miacalcin Nasal [place]) 1 ml JONI DAILY [facility] Last Admin: 04/15/19 09:57 Dose: 1 spray Diazepam (Valium) 2 mg PO BID PRN PRN Reason: Spasms Docusate Sodium (Colace) 100 mg PO BID PRN PRN Reason: Constipation Hydromorphone HCl (Dilaudid) 0.5 mg IVPUSH ONETIME ONE Stop: 04/13/19 10:07 Last Admin: 04/13/19 10:48 Dose: 0.5 mg Hydromorphone HCl (Dilaudid) 0.5 mg IVPUSH Q2H PRN PRN Reason: Pain (severe 7-10) Last Admin: 04/13/19 20:52 Dose: 0.5 mg Sodium Chloride (Normal Saline) 1,000 mls @ 125 mls/hr IV STAT [facility] Last Admin: 04/13/19 10:51 Dose: 125 mls/hr Sodium Chloride (Normal Saline) 1,000 mls @ 125 mls/hr IV ASDIRECTED [facility] Last Admin: 04/14/19 02:24 Dose: 125 mls/hr Lisinopril (Prinivil) 2.5 mg PO DAILY [facility] Last Admin: 04/15/19 09:58 Dose: Not Given Ondansetron HCl (Zofran) 4 mg IVPUSH ONETIME ONE Stop: 04/13/19 10:07 Last Admin: 04/13/19 10:46 Dose: 4 mg Oxycodone HCl (Oxycodone) 5 mg PO Q4H PRN PRN Reason: Pain (moderate 4-6) Sodium Chloride (Saline Flush) 10 ml FLUSH ASDIRECTED PRN PRN Reason: Keep Vein Open Last Admin: 04/13/19 10:48 Dose: 10 ml Sodium Chloride (Saline Flush) 2.5 ml FLUSH ASDIRECTED PRN PRN Reason: Keep Vein Open Last Admin: 04/13/19 10:48 Dose: 2.5 ml Temazepam (Restoril) 15 mg PO BEDTIME PRN PRN Reason: Sleep Tramadol HCl (Ultram) 50 mg PO Q8H PRN PRN Reason: Pain Last Admin: 04/15/19 04:31 Dose: 50 mg *Q Meaningful Use (DIS) - VTE *Q VTE Pharmacological Contraindications *Q: High INR Value <Saroj Morfin M - Last Filed: 04/15/19 17:54> Discharge Summary - Hospital Course HPI Initial Comments: I have seen and examined to patient independently of medical assistant supervisor, Conor Weinberg MD. I have discussed the case for care of this patient with him. I have reviewed and approve of the plan of care as outlined by medical assistant supervisor.. Please see orders. - Discharge Diagnosis/Problem(s) (1) Back pain SNOMED Code(s): 136045456 ICD Code: M54.9 - DORSALGIA, UNSPECIFIED Status: Acute Priority: High Problem Details: Acute on chronic Qualifiers: Back pain location: low back pain Chronicity: unspecified Back pain laterality: bilateral Sciatica presence: without sciatica Qualified Code(s) : M54.5 - Low back pain (2) Coumadin toxicity SNOMED Code(s): 00867250 ICD Code: T45.511A - POISONING BY ANTICOAGULANTS, ACCIDENTAL, INIT Status: Acute Priority: High Qualifiers: Encounter type: initial encounter Injury intent: accidental or unintentional Qualified Code(s): T45.511A - Poisoning by anticoagulants, accidental (unintentional), initial encounter (3) Acute coronary syndrome SNOMED Code(s): 507514851 ICD Code: I24.9 - ACUTE ISCHEMIC HEART DISEASE, UNSPECIFIED Status: Chronic Priority: High (4) Bradycardia SNOMED Code(s): 36082753 ICD Code: R00.1 - BRADYCARDIA, UNSPECIFIED Status: Chronic Priority: High - Patient Summary/Data Consults: Consultations 04/13/19 13:31 OT Evaluation and Treatment [CONS] Routine PT Evaluation and Treatment [CONS] Routine - Patient Data Vitals - Most Recent: Last Vital Signs Temp 36.4 C 04/15/19 12:00 Pulse 56 L 04/15/19 12:00 Resp 18 04/15/19 12:00 BP 111/64 04/15/19 12:00 Pulse Ox 96 04/15/19 12:00 I&O - Last 24 hours: Intake & Output 04/15/19 04/15/19 04/15/19 06:59 14:59 22:59 Intake Total 700 740 Output Total 700 0 Balance 0 740 Lab Results - Last 24 hrs: Laboratory Results - last 24 hr 04/15/19 Range/Units 06:05 INR 5.41 Med Orders - Current: Current Medications Discontinued Medications Acetaminophen (Tylenol) 650 mg PO Q4H PRN PRN Reason: Pain (Mild 1-3)/fever Amiodarone HCl (Cordarone) 200 mg PO DAILY [facility] Last Admin: 04/15/19 09:58 Dose: Not Given Atorvastatin Calcium (Lipitor) 20 mg PO DAILY [facility] Last Admin: 04/15/19 09:56 Dose: 20 mg Calcitonin [place] (Miacalcin Nasal [place]) 1 ml JONI DAILY [facility] Last Admin: 04/15/19 09:57 Dose: 1 spray Diazepam (Valium) 2 mg PO BID PRN PRN Reason: Spasms Docusate Sodium (Colace) 100 mg PO BID PRN PRN Reason: Constipation Hydromorphone HCl (Dilaudid) 0.5 mg IVPUSH ONETIME ONE Stop: 04/13/19 10:07 Last Admin: 04/13/19 10:48 Dose: 0.5 mg Hydromorphone HCl (Dilaudid) 0.5 mg IVPUSH Q2H PRN PRN Reason: Pain (severe 7-10) Last Admin: 04/13/19 20:52 Dose: 0.5 mg Sodium Chloride (Normal Saline) 1,000 mls @ 125 mls/hr IV STAT [facility] Last Admin: 04/13/19 10:51 Dose: 125 mls/hr Sodium Chloride (Normal Saline) 1,000 mls @ 125 mls/hr IV ASDIRECTED [facility] Last Admin: 04/14/19 02:24 Dose: 125 mls/hr Lisinopril (Prinivil) 2.5 mg PO DAILY [facility] Last Admin: 04/15/19 09:58 Dose: Not Given Ondansetron HCl (Zofran) 4 mg IVPUSH ONETIME ONE Stop: 04/13/19 10:07 Last Admin: 04/13/19 10:46 Dose: 4 mg Oxycodone HCl (Oxycodone) 5 mg PO Q4H PRN PRN Reason: Pain (moderate 4-6) Sodium Chloride (Saline Flush) 10 ml FLUSH ASDIRECTED PRN PRN Reason: Keep Vein Open Last Admin: 04/13/19 10:48 Dose: 10 ml Sodium Chloride (Saline Flush) 2.5 ml FLUSH ASDIRECTED PRN PRN Reason: Keep Vein Open Last Admin: 04/13/19 10:48 Dose: 2.5 ml Temazepam (Restoril) 15 mg PO BEDTIME PRN PRN Reason: Sleep Tramadol HCl (Ultram) 50 mg PO Q8H PRN PRN Reason: Pain Last Admin: 04/15/19 04:31 Dose: 50 mg
== END 2019-04-15 12:50 | disposition home or self-care (01) ==
LOC: MW.ED 09:34 → MW.MS 11:39
PROVIDERS: ADMIT Internal Medicine; ATTEND Internal Medicine
DX: S32.058A Other fracture of fifth lumbar vertebra, initial encounter for closed fracture (principal); R00.1 Bradycardia, unspecified; N28.1 Cyst of kidney, acquired; T45.511A Poisoning by anticoagulants, accidental (unintentional), initial encounter; E78.5 Hyperlipidemia, unspecified; I10 Essential (primary) hypertension; I24.9 Acute ischemic heart disease, unspecified; Z86.79 Personal history of other diseases of the circulatory system; Z88.5 Allergy status to narcotic agent
CPT/HCPCS: 36415; 74176; 76775; 80053; 81001; 85025; 85610; 93005; 96361; 96374; 96375; 97161; 97165; 99285; A9270; J1170; J2405; J7040; 72131-26; 96376; G0378

== ENCOUNTER 2019-08-11 15:58 | Observation (INO) | payer OTHER ==
[2019-08-11] MEDS ORDERED: Sodium Chloride 0.9% 2.5 ML Syringe FLUSH PRN (16:11)
[2019-08-11] MEDS ORDERED: Sodium Chloride 0.9% 10 ML Syringe FLUSH PRN (16:11)
--- NOTE | 2019-08-11 16:12 | EDM.PDOC ---
ED HPI GENERAL MEDICAL PROBLEM - General Chief Complaint: Cardiovascular Problem Stated Complaint: SHORTNESS OF BREATH, DIZZY,CHEST PAIN Time Seen by Provider: 08/11/19 16:05 Source of Information: Reports: Patient History Limitations: Reports: No Limitations - History of Present Illness INITIAL COMMENTS - FREE TEXT/NARRATIVE: HISTORY AND PHYSICAL: History of present illness: patient is a 69-year-old male presenting to the emergency room for complaints of light headedness and chest pain. Patient states he is not currently having chest pain right now. Patient states he has struggled with lightheadedness today along with shortness of breath that comes and goes and chest tightness. He describes the chest tightness as "it feels like someone is pushing down on my sternum". He states that at work a couple of times he felt lightheaded and chest tightness and was informed to go sit down. He states after sitting down for a couple minutes he felt better however these changes events kept reoccurring, making him feel ready to pass out. He states that he thought he might have felt lightheaded because he didn't eat breakfast so he finally eat a meal at noon and felt somewhat better. However this afternoon he almost " blacked out" at work and then was able to get an appointment at the [facility]. He states at the [facility] when he was getting weighted he completely blacked out and the nurse helped him down. He was assisted down, did not hit his head. His blood pressure at the [facility] was 80/60. He states he is only drinking 1 glass of water today. He states that walking around aggravates his symptoms, however laying down alleviates it. He denies current pain in his chest, abdominal pain, nausea , or vomiting. He did inform me that he has tingling in his fingertips that started today when he was getting lightheaded. Patient denies any fever, chills , headache, change in vision, syncope or near syncope. Denies any back pain or cough. Has not noted any blood in urine or stool. Patient has been eating and drinking appropriately. Review of systems: As per history of present illness and below otherwise all systems reviewed and negative. Past medical history: As per history of present illness and as reviewed below otherwise noncontributory. Surgical history: As per history of present illness and as reviewed below otherwise noncontributory. Social history: See social history for further information Family history: As per history of present illness and as reviewed below otherwise noncontributory. Physical exam: General: Patient is a well-groomed and well-nourished 69-year-old male. Alert and oriented. Nontoxic in appearance. Vital signs are stable and have been reviewed by me. HEENT: Atraumatic, normocephalic, pupils equal and reactive bilaterally, negative for conjunctival pallor or scleral icterus, mucous membranes moist, TMs normal bilaterally, throat clear, neck supple, nontender, trachea midline. No drooling or trismus noted. No meningeal signs. No hot potato voice noted. Lungs: Clear to auscultation, breath sounds equal bilaterally, chest nontender. Heart: S1S2, regular rate and rhythm without overt murmur. Tenderness to palpation over the sternum and radiating to the right chest wall. Abdomen: Soft, nondistended, nontender. Negative for masses or hepatosplenomegaly. Negative for costovertebral tenderness. Skin: Intact, warm, dry. No lesions or rashes noted. Extremities: Atraumatic, moves all extremities per self without difficulty or deficits, negative for cords or calf pain. Neurovascular unremarkable. Neuro: Awake, alert, oriented. Cranial nerves II through XII unremarkable. Cerebellum unremarkable. Motor and sensory unremarkable throughout. Exam nonfocal. Notes: Lab work is unremarkable at this time. CXR was unremarkable. Patient continues to be pain-free. Dr. Degroot was consulted on this case and will admit for observation. Vital signs remain stable. We'll continue to monitor until he goes to the floor. Diagnostics: CXR, CBC, CMP, Troponin, EKG, Head CT, INR, Orthostatic Therapeutics: NS Impression: chest pain rule out Syncope Plan: observation admission to [facility] with telemetry Definitive disposition and diagnosis as appropriate pending reevaluation and review of above. Chest Pain Score (Numeric/FACES): 4 - Related Data Allergies Allergy/AdvReac Type Severity Reaction Status Date / Time morphine Allergy Nausea and Verified 04/13/19 09:41 Vomiting Home Meds: Home Meds Amiodarone [Cordarone] 1 tab PO DAILY 04/13/19 [History] Aspirin [Halfprin] 81 mg PO DAILY 04/13/19 [History] Lisinopril [Prinivil] 2.5 mg PO DAILY 04/13/19 [History] Warfarin [Coumadin] 5 tab PO DAILY 04/13/19 [History] atorvaSTATin [Lipitor] 1 tab PO DAILY 04/13/19 [History] Calcitonin ([place]) [Miacalcin Nasal [place]] 1 ml JONI DAILY #1 bottle 04/15/19 [ Rx] traMADol [Ultram] 50 mg PO Q6H PRN #30 tab 04/15/19 [Rx] Past Medical History HEENT History: Reports: Impaired Vision Cardiovascular History: Reports: Afib, High Cholesterol Respiratory History: Reports: None Gastrointestinal History: Reports: None Genitourinary History: Reports: Renal Calculus Musculoskeletal History: Reports: Other (See Below) Other Musculoskeletal History: rotator cuff repair Neurological History: Reports: Vertigo Psychiatric History: Reports: Anxiety, Depression Endocrine/Metabolic History: Reports: None Hematologic History: Reports: None Immunologic History: Reports: None Oncologic (Cancer) History: Reports: None Dermatologic History: Reports: None - Infectious Disease History Infectious Disease History: Reports: Measles, Mumps - Past Surgical History Head Surgeries/Procedures: Reports: None HEENT Surgical History: Reports: None Cardiovascular Surgical History: Reports: None Respiratory Surgical History: Reports: None GI Surgical History: Reports: None Male Surgical History: Reports: None Endocrine Surgical History: Reports: None Neurological Surgical History: Reports: None Musculoskeletal Surgical History: Reports: Arthroscopic Knee Oncologic Surgical History: Reports: None Dermatological Surgical History: Reports: None Social & Family History - Family History Family Medical History: Noncontributory HEENT: Reports: Impaired Vision OBGYN: Reports: Endocrine/Metabolic: Reports: Diabetes, type II Oncologic: Reports: Breast, Lung - Caffeine Use Caffeine Use: Reports: Tea - Living Situation & Occupation Living situation: Reports: , with Family Occupation: Employed ED ROS GENERAL - Review of Systems Review Of Systems: ROS reveals no pertinent complaints other than HPI. ED EXAM, GENERAL - Physical Exam Exam: See Below (See dictation) Course - Vital Signs Last Recorded V/S: Last Vital Signs Temp 97.7 F 08/11/19 16:10 Pulse 70 08/11/19 16:10 Resp 20 08/11/19 16:10 BP 126/83 08/11/19 16:10 Pulse Ox 97 08/11/19 16:10 - Orders/Labs/Meds Orders: Active Orders 24 hr Category Date Time Status Admission Status [Patient Status] [ADT] Stat ADT 08/11/19 17:00 Active EKG Documentation Completion [RC] STAT Care 08/11/19 16:11 Active Orthostatic Vital Signs [RC] ASDIRECTED Care 08/11/19 16:11 Active Head wo Cont [CT] Stat Exams 08/11/19 16:33 Taken Sodium Chloride 0.9% [Normal Saline] 1,000 ml Med 08/11/19 16:34 Active IV STAT Sodium Chloride 0.9% [Saline Flush] Med 08/11/19 16:11 Active 10 ml FLUSH ASDIRECTED PRN Sodium Chloride 0.9% [Saline Flush] Med 08/11/19 16:11 Active 2.5 ml FLUSH ASDIRECTED PRN Saline Lock Insert [OM.PC] Stat Oth 08/11/19 16:11 Ordered Medication Orders Sodium Chloride (Normal Saline) 1,000 mls @ 125 mls/hr IV STAT ONE Stop: 08/12/19 00:33 Sodium Chloride (Saline Flush) 10 ml FLUSH ASDIRECTED PRN PRN Reason: Keep Vein Open Sodium Chloride (Saline Flush) 2.5 ml FLUSH ASDIRECTED PRN PRN Reason: Keep Vein Open Labs: Laboratory Tests 08/11/19 08/11/19 08/11/19 Range/Units 16:00 16:00 16:00 WBC 10.24 (4.0-11.0) K/uL RBC 4.89 (4.50-5.90) M/uL Hgb 13.3 (13.0-17.0) g/dL Hct 41.3 (38.0-50.0) % MCV 84.5 (80.0-98.0) fL MCH 27.2 (27.0-32.0) pg MCHC 32.2 (31.0-37.0) g/dL RDW Std Deviation 43.7 (28.0-62.0) fl RDW Coeff of [place] 14 (11.0-15.0) % Plt Count 265 (150-400) K/uL MPV 10.80 (7.40-12.00) fL Neut % (Auto) 63.5 (48.0-80.0) % Lymph % (Auto) 19.9 (16.0-40.0) % [place] % (Auto) 11.1 (0.0-15.0) % Eos % (Auto) 4.8 (0.0-7.0) % Baso % (Auto) 0.7 (0.0-1.5) % Neut # (Auto) 6.5 H (1.4-5.7) K/uL Lymph # (Auto) 2.0 (0.6-2.4) K/uL [place] # (Auto) 1.1 H (0.0-0.8) K/uL Eos # (Auto) 0.5 (0.0-0.7) K/uL Baso # (Auto) 0.1 (0.0-0.1) K/uL Nucleated RBC % 0.0 /100WBC Nucleated RBCs # 0 K/uL INR 2.31 Sodium 145 (136-148) mmol/L Potassium 3.6 (3.5-5.1) mmol/L Chloride 110 H (98-107) mmol/L Carbon Dioxide 27.2 (21.0-32.0) mmol/L BUN 17 (7.0-18.0) mg/dL Creatinine 1.3 (0.8-1.3) mg/dL Est Cr Clr Drug Dosing TNP Estimated GFR (MDRD) 54.4 ml/min Glucose 102 (74-106) mg/dL Calcium 9.3 (8.5-10.1) mg/dL Total Bilirubin 0.6 (0.2-1.0) mg/dL AST 19 (15-37) IU/L ALT 15 (14-63) IU/L Alkaline Phosphatase 82 (46-116) U/L Troponin I < 0.050 (0.000-0.056) ng/mL Total Protein 6.6 (6.4-8.2) g/dL Albumin 3.6 (3.4-5.0) g/dL Globulin 3.0 (2.6-4.0) g/dL Albumin/Globulin Ratio 1.2 (0.9-1.6) Meds: Medications Generic Name Dose Route Start Last Admin Trade Name Freq PRN Reason Stop Dose Admin Sodium Chloride 1,000 mls @ 125 mls/hr 08/11/19 16:34 Normal Saline IV 08/12/19 00:33 STAT ONE Sodium Chloride 10 ml 08/11/19 16:11 Saline Flush FLUSH ASDIRECTED PRN Keep Vein Open Sodium Chloride 2.5 ml 08/11/19 16:11 Saline Flush FLUSH ASDIRECTED PRN Keep Vein Open Discontinued Medications Generic Name Dose Route Start Last Admin Trade Name Freq PRN Reason Stop Dose Admin Diltiazem HCl 20 mg 08/11/19 16:56 Diltiazem IVPUSH 08/11/19 16:57 ONETIME ONE Departure - Departure Time of Disposition: 17:13 Disposition: Refer to Observation Clinical Impression: Chest pain, rule out acute myocardial infarction Syncope Qualifiers: Syncope type: unspecified Qualified Code(s): R55 - Syncope and collapse Referrals: PCP,Unknown [Primary Care Provider] - Forms: ED Department Discharge - My Orders Last 24 Hours: My Active Orders 08/11/19 16:11 EKG Documentation Completion [RC] STAT Orthostatic Vital Signs [RC] ASDIRECTED Sodium Chloride 0.9% [Saline Flush] 10 ml FLUSH ASDIRECTED PRN Sodium Chloride 0.9% [Saline Flush] 2.5 ml FLUSH ASDIRECTED PRN Saline Lock Insert [OM.PC] Stat 08/11/19 16:33 Head wo Cont [CT] Stat 08/11/19 16:34 Sodium Chloride 0.9% [Normal Saline] 1,000 ml IV STAT 08/11/19 17:00 Admission Status [Patient Status] [ADT] Stat - Assessment/Plan Last 24 Hours: My Active Orders 08/11/19 16:11 EKG Documentation Completion [RC] STAT Orthostatic Vital Signs [RC] ASDIRECTED Sodium Chloride 0.9% [Saline Flush] 10 ml FLUSH ASDIRECTED PRN Sodium Chloride 0.9% [Saline Flush] 2.5 ml FLUSH ASDIRECTED PRN Saline Lock Insert [OM.PC] Stat 08/11/19 16:33 Head wo Cont [CT] Stat 08/11/19 16:34 Sodium Chloride 0.9% [Normal Saline] 1,000 ml IV STAT 08/11/19 17:00 Admission Status [Patient Status] [ADT] Stat
[2019-08-11] MEDS ORDERED: Sodium Chloride 0.9% 1,000 ML IV ONE (16:34)
[2019-08-11 16:40] LABS: BLOOD UREA NITROGEN,BUN 17 mg/dL (7.0-18.0); CARBON DIOXIDE,CO2 27.2 mmol/L (21.0-32.0); CHLORIDE,CL 110 mmol/L (98-107); GLUCOSE RANDOM 102 mg/dL (74-106); POTASSIUM,K 3.6 mmol/L (3.5-5.1); SODIUM,NA 145 mmol/L (136-148)
[2019-08-11] MEDS ORDERED: Diltiazem 25 MG/5 ML SDV IVPUSH ONE (16:56)
--- NOTE | 2019-08-11 16:58 | CR ---
Indication: Chest pain. Technique: Single AP portable view of the chest was obtained. Comparison: March 26, 2019. Findings: The heart is normal in size. The lungs are clear. No infiltrate, pleural effusion, or pneumothorax is identified. Impression: No acute cardiopulmonary process. Dictated by Vaishali Pereira MD @ Aug 11 2019 4:57PM Signed by Dr. Vaishali Pereira @ Aug 11 2019 4:57PM
--- NOTE | 2019-08-11 17:53 | CT ---
INDICATION: Dizziness. COMPARISON: 03/29/2016. TECHNIQUE: Noncontrast CT of the head. FINDINGS: Mild generalized volume loss. No acute intracranial hemorrhage, acute infarct, mass effect, or fracture. No midline shift. No abnormal ventricular dilatation. Normal calvarium and skull base. Visualized mastoid air cells are clear. Mucous retention cyst or polyp within the partially visualized left maxillary sinus. Visualized orbits are unremarkable. IMPRESSION: 1. No acute intracranial abnormality 2. Mild generalized cerebral volume loss Please note that all CT scans at this facility use dose modulation, iterative reconstruction, and/or weight-based dosing when appropriate to reduce radiation dose to as low as reasonably achievable. Dictated by Tab Gregory MD @ Aug 11 2019 5:51PM Signed by Dr. Tab Gregory @ Aug 11 2019 5:52PM
[2019-08-11] MEDS ORDERED: Docusate Sodium 100 MG Cap PO PRN (18:03)
[2019-08-11] MEDS ORDERED: Temazepam 15 MG Cap PO PRN (18:03)
[2019-08-11] MEDS ORDERED: Morphine 2 MG/ML Syringe SUBCUT PRN (18:04)
[2019-08-11] MEDS ORDERED: Nitroglycerin 0.4 MG Tab.SL SL PRN (18:05)
--- NOTE | 2019-08-11 18:13 | PCM.HP.2 ---
H&P History of Present Illness - General Date of Service: 08/11/19 Admit Problem/Dx: Admission Diagnosis/Problem Admission Diagnosis/Problem Chest pain, rule out acute myocardial infarction - History of Present Illness Initial Comments - Free Text/Narative: Patient is a 69-year-old male with a significant cardiac history, hypercholesterolemia; presenting today with chest pain, shortness of breath, and syncopal episode. Patient was at work today and noticed sensation of the room going dark; he endorses not eating any breakfast or lunch today; mentions the room going dark with some chest discomfort and shortness of breath; after sitting down and eating a meal he noticed similar sensation returning and proceeded to the HI. At the HI patient also had another episode causing him to have a full syncopal episode while he was getting weighted; however before he hit the floor or hit his head; patient was caught by the nurse. Blood pressure readings at that time was 80/60; patient was transferred to [facility] ED. On admission; patient still endorses some mild chest discomfort; denies dizziness or near syncopal feelings; denies any fevers, chills, body aches, shortness of breath or lower extremity swelling at bedside. States chest discomfort is not as bad as before but he can still feel it. Of note; patient 4 months ago developed chest pain with elevated troponin; [facility], was seen by Dr. Keene, catheterization yielded no blockages; patient was initiated on lisinopril, atorvastatin, and warfarin daily; patient has not checked his INR since discharge in March 2019 ( claims he was not instructed to do so) . Has had no other episodes in between then and now. Patient denies any trauma; or any other significant medical changes since d/c from [place]. Has not followed up with cardiology yet; scheduled for October 2019. Except for some recent stressors in his life ; denies anything else acute. Denies hx. of A-fib. Chest Pain Score (Numeric/FACES): 4 - Related Data Allergies/Adverse Reactions: Allergies Allergy/AdvReac Type Severity Reaction Status Date / Time morphine Allergy Nausea and Verified 08/11/19 18:12 Vomiting Home Medications: Home Meds Lisinopril [Prinivil] 1 mg PO DAILY 04/13/19 [History] atorvaSTATin [Lipitor] 1 tab PO DAILY 04/13/19 [History] Warfarin [Coumadin] 5 mg PO DAILY 08/11/19 [History] Past Medical History HEENT History: Reports: Impaired Vision Cardiovascular History: Reports: Afib, High Cholesterol Respiratory History: Reports: None Gastrointestinal History: Reports: None Genitourinary History: Reports: Renal Calculus Musculoskeletal History: Reports: Other (See Below) Other Musculoskeletal History: rotator cuff repair Neurological History: Reports: Vertigo Psychiatric History: Reports: Anxiety, Depression Endocrine/Metabolic History: Reports: None Hematologic History: Reports: None Immunologic History: Reports: None Oncologic (Cancer) History: Reports: None Dermatologic History: Reports: None - Infectious Disease History Infectious Disease History: Reports: Measles, Mumps - Past Surgical History Head Surgeries/Procedures: Reports: None HEENT Surgical History: Reports: None Cardiovascular Surgical History: Reports: None Respiratory Surgical History: Reports: None GI Surgical History: Reports: None Male Surgical History: Reports: None Endocrine Surgical History: Reports: None Neurological Surgical History: Reports: None Musculoskeletal Surgical History: Reports: Arthroscopic Knee Oncologic Surgical History: Reports: None Dermatological Surgical History: Reports: None Social & Family History - Family History Family Medical History: Noncontributory HEENT: Reports: Impaired Vision OBGYN: Reports: Endocrine/Metabolic: Reports: Diabetes, type II Oncologic: Reports: Breast, Lung - Tobacco Use Smoking Status *Q: Never Smoker - Caffeine Use Caffeine Use: Reports: Tea - Recreational Drug Use Recreational Drug Use: No - Living Situation & Occupation Living situation: Reports: , with Family Occupation: Employed H&P Review of Systems - Review of Systems: Review Of Systems: See Below General: Reports: No Symptoms. Denies: Fever, Chills, Malaise, Fatigue HEENT: Reports: No Symptoms Pulmonary: Reports: No Symptoms. Denies: Shortness of Breath, Pleuritic Chest Pain, Cough Cardiovascular: Reports: Other (mild chest pressure localaized to sternum ). Denies: Palpitations, Syncope Gastrointestinal: Reports: No Symptoms. Denies: Constipation, Diarrhea Genitourinary: Reports: No Symptoms Musculoskeletal: Reports: No Symptoms Psychiatric: Reports: No Symptoms. Denies: Confusion Neurological: Reports: No Symptoms. Denies: Confusion, Dizziness, Headache, Paresthesia Exam - Exam Exam: See Below - Vital Signs Vital Signs: Last Vital Signs Temp 97.7 F 08/11/19 16:10 Pulse 64 08/11/19 17:21 Resp 18 08/11/19 17:21 BP 107/74 08/11/19 17:21 Pulse Ox 98 08/11/19 17:21 Weight: 145 lb 8.081 oz - Exam Quality Assessment: No: Supplemental Oxygen General: Alert, Oriented, Cooperative HEENT: Conjunctiva Clear, EOMI, Mucosa Moist & [place] Neck: Supple, Trachea Midline Lungs: Clear to Auscultation, Normal Respiratory Effort Cardiovascular: Regular Rate, Regular Rhythm, Other (mild sternal chest tenderness; no acute deformity noticed. ) GI/Abdominal Exam: Soft, Non-Tender, No Organomegaly Back Exam: Normal Inspection, Full Range of Motion Extremities: Normal Inspection Skin: Warm, Dry, Intact Neurological: Cranial Nerves Intact Neuro Extensive - Mental Status: Alert, Oriented x3 Neuro Extensive - Motor, Sensory, Reflexes: CN II-XII Intact, Normal Gait Psychiatric: Alert, Normal Affect, Normal Mood - Patient Data Lab Results Last 24 hrs: Laboratory Results - last 24 hr 08/11/19 08/11/19 08/11/19 Range/Units 16:00 16:00 16:00 WBC 10.24 (4.0-11.0) K/uL RBC 4.89 (4.50-5.90) M/uL Hgb 13.3 (13.0-17.0) g/dL Hct 41.3 (38.0-50.0) % MCV 84.5 (80.0-98.0) fL MCH 27.2 (27.0-32.0) pg MCHC 32.2 (31.0-37.0) g/dL RDW Std Deviation 43.7 (28.0-62.0) fl RDW Coeff of Ashley 14 (11.0-15.0) % Plt Count 265 (150-400) K/uL MPV 10.80 (7.40-12.00) fL Neut % (Auto) 63.5 (48.0-80.0) % Lymph % (Auto) 19.9 (16.0-40.0) % [place] % (Auto) 11.1 (0.0-15.0) % Eos % (Auto) 4.8 (0.0-7.0) % Baso % (Auto) 0.7 (0.0-1.5) % Neut # (Auto) 6.5 H (1.4-5.7) K/uL Lymph # (Auto) 2.0 (0.6-2.4) K/uL [place] # (Auto) 1.1 H (0.0-0.8) K/uL Eos # (Auto) 0.5 (0.0-0.7) K/uL Baso # (Auto) 0.1 (0.0-0.1) K/uL Nucleated RBC % 0.0 /100WBC Nucleated RBCs # 0 K/uL INR 2.31 Sodium 145 (136-148) mmol/L Potassium 3.6 (3.5-5.1) mmol/L Chloride 110 H (98-107) mmol/L Carbon Dioxide 27.2 (21.0-32.0) mmol/L BUN 17 (7.0-18.0) mg/dL Creatinine 1.3 (0.8-1.3) mg/dL Est Cr Clr Drug Dosing TNP Estimated GFR (MDRD) 54.4 ml/min Glucose 102 (74-106) mg/dL Calcium 9.3 (8.5-10.1) mg/dL Total Bilirubin 0.6 (0.2-1.0) mg/dL AST 19 (15-37) IU/L ALT 15 (14-63) IU/L Alkaline Phosphatase 82 (46-116) U/L Troponin I < 0.050 (0.000-0.056) ng/mL Total Protein 6.6 (6.4-8.2) g/dL Albumin 3.6 (3.4-5.0) g/dL Globulin 3.0 (2.6-4.0) g/dL Albumin/Globulin Ratio 1.2 (0.9-1.6) Result Diagrams: 08/11/19 16:00 08/11/19 16:00 EKG INTERPRETATION Rhythm: NSR - Problem List (1) Chest pain, rule out acute myocardial infarction SNOMED Code(s): 75532625 ICD Code: R07.9 - CHEST PAIN, UNSPECIFIED Status: Acute Current Visit: Yes (2) Syncope SNOMED Code(s): 779312309 ICD Code: R55 - SYNCOPE AND COLLAPSE Status: Acute Current Visit: Yes Qualifiers: Syncope type: unspecified Qualified Code(s): R55 - Syncope and collapse Problem List Initiated/Reviewed/Updated: Yes Orders Last 24hrs: Active Orders 24 hr Category Date Time Status Admission Status [Patient Status] [ADT] Stat ADT 08/11/19 17:00 Active Activity as Tolerated [RC] .Routine Care 08/11/19 17:56 Ordered Intake and Output [RC] ASDIRECTED Care 08/11/19 17:54 Ordered Telemetry Monitoring [Cardiac Monitoring] [RC] . Care 08/11/19 17:57 Ordered DIRECTED Vital Signs [RC] PER UNIT ROUTINE Care 08/11/19 17:55 Ordered Heart Healthy Diet [DIET] Diet 08/12/19 Breakfast Ordered GLYCOSYLATED HEMOGLOBIN,HGBA1C [CHEM] Routine Lab 08/11/19 17:58 Ordered TROPONIN I [CHEM] Timed Lab 08/11/19 22:00 Ordered TROPONIN I [CHEM] Timed Lab 08/12/19 04:00 Ordered Docusate Sodium [Colace] Med 08/11/19 18:03 Active 100 mg PO DAILY PRN Morphine Med 08/11/19 18:04 Ordered 1 mg SUBCUT Q2H PRN Nitroglycerin [Nitrostat] Med 08/11/19 18:05 Ordered 0.4 mg SL Q5M PRN Pantoprazole [ProTONIX] Med 08/11/19 18:00 Active 40 mg PO DAILY Sodium Chloride 0.9% [Normal Saline] 1,000 ml Med 08/11/19 16:34 Active IV STAT Sodium Chloride 0.9% [Saline Flush] Med 08/11/19 16:11 Active 10 ml FLUSH ASDIRECTED PRN Sodium Chloride 0.9% [Saline Flush] Med 08/11/19 16:11 Active 2.5 ml FLUSH ASDIRECTED PRN Temazepam [Restoril] Med 08/11/19 18:03 Active 15 mg PO BEDTIME PRN Saline Lock Insert [OM.PC] Stat Oth 08/11/19 16:11 Ordered Medication Orders Docusate Sodium (Colace) 100 mg PO DAILY PRN PRN Reason: Constipation Sodium Chloride (Normal Saline) 1,000 mls @ 125 mls/hr IV STAT ONE Stop: 08/12/19 00:33 Last Admin: 08/11/19 17:19 Dose: 125 mls/hr Morphine Sulfate (Morphine) 1 mg SUBCUT Q2H PRN PRN Reason: Pain Nitroglycerin (Nitrostat) 0.4 mg SL Q5M PRN PRN Reason: Chest Pain Pantoprazole Sodium (Protonix) 40 mg PO DAILY LUIS ANTONIO Sodium Chloride (Saline Flush) 10 ml FLUSH ASDIRECTED PRN PRN Reason: Keep Vein Open Last Admin: 08/11/19 17:21 Dose: 10 ml Sodium Chloride (Saline Flush) 2.5 ml FLUSH ASDIRECTED PRN PRN Reason: Keep Vein Open Last Admin: 08/11/19 17:21 Dose: 2.5 ml Temazepam (Restoril) 15 mg PO BEDTIME PRN PRN Reason: Insomnia Assessment/Plan Comment:: Assessment: 1. Chest pain with ACS rule out 2. Witnessed syncopal episode. 3. Hypotension 4. Past medical history: Hypercholesterolemia, remote history of elevated troponin Plan Admit to observation. Full code. Intake/output per routine. Vitals per routine. Telemetry. DVT prophylaxis: On warfarin. GI prophylaxis: Pantoprazole 40 daily. Activity: Up ad alex. 1. Chest pain: Troponin every 6hrs3. Initial troponin negative. Continue telemetry. EKG: Sinus rhythm. Regular rate and rhythm. We will request records from [place] for echocardiogram, old EKG and cardiology notes. Orthostatic vitals ordered. 2. Syncope: Head CT scan: no acute intracranial pathology noted. Orthostatics ordered. Glycosylated A1c: Ordered. Repeat CBC, CMP in a.m.. 3. Past medical history: Continue medication atorvastatin, lisinopril and warfarin 5mg daily.
[2019-08-11 18:37] LABS: HEMOGLOBIN A1C 5.8 % (4.5-6.2)
[2019-08-11] MEDS ORDERED: Acetaminophen 325 MG Tab PO PRN (18:52)
[2019-08-11] MEDS: Pantoprazole 40 MG Tab.CR PO SCH (19:02)
[2019-08-12 00:08] VITALS: PULSE 58
[2019-08-12 04:45] LABS: BLOOD UREA NITROGEN,BUN 19 mg/dL (7.0-18.0); CARBON DIOXIDE,CO2 25.7 mmol/L (21.0-32.0); CHLORIDE,CL 111 mmol/L (98-107); GLUCOSE RANDOM 83 mg/dL (74-106); SODIUM,NA 145 mmol/L (136-148)
[2019-08-12] MEDS: Pantoprazole 40 MG Tab.CR PO SCH (08:27)
[2019-08-12 08:30] VITALS: BP 115/64
[2019-08-12] MEDS ORDERED: Warfarin 2.5 MG Tab PO SCH (09:00)
[2019-08-12] MEDS ORDERED: atorvaSTATin 20 MG Tab PO SCH (09:00)
[2019-08-12] MEDS ORDERED: Lisinopril 5 MG Tab PO SCH (09:00)
[2019-08-12] MEDS ORDERED: Warfarin 5 MG Tab PO SCH (14:00)
== END 2019-08-12 13:00 | disposition home or self-care (01) ==
LOC: MW.ED 15:58 → MW.MS 17:16
PROVIDERS: ADMIT Internal Medicine; ATTEND Internal Medicine
DX: R07.89 Other chest pain (principal); I95.9 Hypotension, unspecified; I48.91 Unspecified atrial fibrillation; E78.00 Pure hypercholesterolemia, unspecified; Z88.5 Allergy status to narcotic agent; Z79.01 Long term (current) use of anticoagulants; Z79.899 Other long term (current) drug therapy
CPT/HCPCS: 36415; 70450; 71045; 80053; 80061; 83036; 83735; 84484; 85025; 85610; 96360; 99285; A9270; J7040; 93005; 96361; G0378

== ENCOUNTER 2019-11-24 16:59 | Emergency (ER) | payer OTHER ==
--- NOTE | 2019-11-24 17:55 | EDM.PDOC ---
ED HPI GENERAL MEDICAL PROBLEM - General Chief Complaint: Skin Complaint Stated Complaint: GROWTH Time Seen by Provider: 11/24/19 17:02 - History of Present Illness INITIAL COMMENTS - FREE TEXT/NARRATIVE: HPI 69-year-old male presents for evaluation of 3+ days of pain on stooling, soft/ rubbery left anal verge mass, and pain on wiping with scant infrequent bright red blood while wiping. No history of Crohns disease or ulcerative colitis, no fevers, chills, or further symptoms. ROS with no recent constitutional symptoms. Exam HR 79, BP 127/79, RR 16, T 36.2C, SaO2 95% on room air. Gen: Pleasant, nontoxic-appearing, resting comfortably. HEENT: NC, AT, PEERL, EOMI. Resp: Unlabored respirations with a normal work of breathing. Card: Extremities warm and well perfused. GI: Non-distended. : left edge of anal verge with an approximately 1 x 2 cm fluctuant ( nonthrombosed) tender hemorrhoid, rectal exam otherwise visually normal, no fissures. Patient unable to tolerate JOSE. MSK: No visible deformities, strength and tone without visually appreciable deficit. Neuro: alert and oriented 3, no facial asymmetry, vision and hearing WNL. Heme/Lymph: Deferred Skin: Normal color with no visible lesions (other than noted above). Psych: Mood and affect appropriate. MDM Previous chart, nursing note, and vitals reviewed. A: 69-year-old male presents for evaluation of 3+ days of pain on stooling, soft /rubbery left anal verge mass, and pain on wiping with scant infrequent bright red blood while wiping. DDx & Evaluation: exam with a nonthrombosed external hemorrhoid, no evidence of anal fissure. No features on history to suggest prostatitis or abscess. Patient given conservative management instructions and discharged with PCP follow-up recommended. Impression: hemorrhoid. Rectal Pain Score (Numeric/FACES): 6 - Related Data Allergies Allergy/AdvReac Type Severity Reaction Status Date / Time morphine Allergy Nausea and Verified 11/24/19 17:10 Vomiting Home Meds: Home Meds atorvaSTATin [Lipitor] 1 tab PO DAILY 04/13/19 [History] lisinopriL [Prinivil] 1 mg PO DAILY 04/13/19 [History] Warfarin [Coumadin] 5 mg PO DAILY 08/11/19 [History] Acetaminophen [Tylenol] 650 mg PO Q4H PRN tablet 08/12/19 [Rx] Past Medical History HEENT History: Reports: Impaired Vision Cardiovascular History: Reports: Afib, High Cholesterol Respiratory History: Reports: None Gastrointestinal History: Reports: None Genitourinary History: Reports: Renal Calculus Musculoskeletal History: Reports: Other (See Below) Other Musculoskeletal History: rotator cuff repair Neurological History: Reports: Vertigo Psychiatric History: Reports: Anxiety, Depression Endocrine/Metabolic History: Reports: None Hematologic History: Reports: None Immunologic History: Reports: None Oncologic (Cancer) History: Reports: None Dermatologic History: Reports: None - Infectious Disease History Infectious Disease History: Reports: Measles - Past Surgical History Head Surgeries/Procedures: Reports: None HEENT Surgical History: Reports: None Cardiovascular Surgical History: Reports: None Respiratory Surgical History: Reports: None GI Surgical History: Reports: None Male Surgical History: Reports: None Endocrine Surgical History: Reports: None Neurological Surgical History: Reports: None Musculoskeletal Surgical History: Reports: Arthroscopic Knee Oncologic Surgical History: Reports: None Dermatological Surgical History: Reports: None Social & Family History - Family History Family Medical History: Noncontributory HEENT: Reports: Impaired Vision OBGYN: Reports: Endocrine/Metabolic: Reports: Diabetes, type II Oncologic: Reports: Breast, Lung - Tobacco Use Smoking Status *Q: Never Smoker Second Hand Smoke Exposure: No - Caffeine Use Caffeine Use: Reports: Coffee - Recreational Drug Use Recreational Drug Use: No - Living Situation & Occupation Living situation: Reports: , with Family Occupation: Employed ED ROS GENERAL - Review of Systems Review Of Systems: See Below ED EXAM, SKIN/RASH Exam: See Below Course - Vital Signs Last Recorded V/S: Last Vital Signs Temp 36.2 C 11/24/19 17:11 Pulse 79 11/24/19 17:11 Resp 16 11/24/19 17:11 BP 127/79 11/24/19 17:11 Pulse Ox 95 11/24/19 17:11 Departure - Departure Time of Disposition: 17:55 Disposition: Home, Self-Care 01 Clinical Impression: Hemorrhoid - Discharge Information [facility] - Additional Instructions: You were in seen in the [facility] Emergency Department for evaluation of a painful lesion on your anus, you were found have a hemorrhoid. Please purchase and use [id number] psyllium fiber as instructed on the package. You may also use Colace as a stool softener if you have ongoing symptoms. Please also follow-up your primary care physician in 3 days for repeat evaluation. Please read and follow all of the instructions below. When calling for follow-up care, please make the office aware that this follow- up is from your recent emergency room visit. If for any reason you are refused follow-up, please contact the [facility] Emergency Department at and asked to speak to the emergency department charge nurse. Your care today was limited to identifying and treating emergent medical problems only. Many people have subtle differences in their test results that require follow up with their outpatient physician(s) to correctly determine if this represents a normal variation or concerning abnormality with respect to your specific health. The care given to you today was limited to identifying and treating emergent medical problems - you need to request a copy of all of your medical records from today's visit and follow up with your outpatient physician(s) to review both today's visit and your overall health. If you have any new symptoms or if you are at all concerned about your health please return immediately to the emergency department. Prescriptions: If you are uninsured or have financial difficulties with filling your prescription(s), you may consider using a free pharmacy discount service such as [employer] (Bevii) or [employer] (Taptu). These services allow you to search for a medication on your phone (or computer) and obtain a coupon that usually has a significant discount from the list hoyt at a pharmacy. Your physician as well as [facility] does not have a financial relationship with either of these services. You may also wish to speak with your physician to determine if lower cost prescriptions are possible. Obtaining primary care: 1. [facility] provides pediatrics (children), family medicine (children, adults, and some obstetrical care), and internal medicine (adults). Further specialty care is also available. Same day appointments are available. They may be contacted at [phone] and are open Sunday through Sunday 8 AM to 5 PM. The [facility] are located at [facility], [address] [place], [place] [address]. 2. [facility] offers family medicine, internal medicine, womens health, and further specialty care. [facility] may be contacted at [phone]. [facility] is located at [address] [facility] [address]. 3. If you have health insurance, please also contact your insurer for a list of accepting providers under your policy, you may contact these providers for further health care. Occupational health: Work related injuries may consider following up with [facility], . Occupational health services are located at [address] [place] [address] and are open Sunday through Sunday from 7: 30 am to 5:00 pm. Obstetrical and Gynecological Care: [facility], , Sunday through Sunday 8 AM to [address] [place] [address]. Eyecare: If you have an eye injury you should follow up with your shoemaker apprentice or with [facility], at [phone] or [phone] , they are located at [address] [place] [address]. HEMORRHOIDS OVERVIEWHemorrhoids are enlarged or swollen veins in the lower rectum. The most common symptoms of hemorrhoids are rectal bleeding, itching, and pain. You may be able to see or feel hemorrhoids around the outside of the anus, or they may be hidden from view, inside the rectum (figure 1A-B). Hemorrhoids are common, occurring in both men and women. Although hemorrhoids do not usually cause serious health problems, they can be annoying and uncomfortable. Fortunately, treatments for hemorrhoids are available and can usually minimize the bothersome symptoms. More detailed information about hemorrhoids is available by subscription. (See "Hemorrhoids: Clinical manifestations and diagnosis"and"Home and office treatment of symptomatic hemorrhoids".) HEMORRHOID SYMPTOMSHemorrhoids are more common in people who are older and in those who have diarrhea, pelvic tumors, during or after , and in people who sit for prolonged periods of time and/or strain (push hard) to have a bowel movement. Symptoms of hemorrhoids can include the following: ?Painless rectal bleeding ?Anal itching or pain ?Tissue bulging around the anus ?Leakage of feces or difficulty cleaning after a bowel movement Rectal bleedingMany people with hemorrhoids notice bright red blood on the stool, in the toilet, or on the toilet tissue after a bowel movement. The amount of blood is usually small. However, even a small amount of blood in the toilet bowl can cause the water to appear bright red, which can be frightening. Less commonly, bleeding can be heavy. While hemorrhoids are one of the most common reasons for rectal bleeding, there are other, more serious causes. It is not possible to know what is causing rectal bleeding unless you are examined. If you see bleeding after a bowel movement, call your healthcare provider. (See"Patient education: Blood in the stool (rectal bleeding) in adults (Beyond the Basics)".) ItchingHemorrhoids commonly cause itching and irritation of skin around the anus. PainHemorrhoids can become painful. If you develop severe pain, call your healthcare provider immediately because this may be a sign of a serious problem. HEMORRHOID DIAGNOSISTo diagnose hemorrhoids, your clinician will examine your rectum and anus, and may insert a gloved finger into the rectum. If there is bleeding, testing should include a procedure that allows your healthcare provider to look inside the anus (called anoscopy) or colon (sigmoidoscopy or colonoscopy). (See"Patient education: Flexible sigmoidoscopy (Beyond the Basics )".) INITIAL HEMORRHOID TREATMENTThere are measures you can take at home to relieve hemorrhoid symptoms (table 1). One of the most important steps in treating hemorrhoids is avoiding constipation (hard or infrequent stools). Hard stools can lead to rectal bleeding and/or a tear in the anus, called an anal fissure. In addition, pushing and straining to move your bowels can worsen existing hemorrhoids and increase the risk of developing new hemorrhoids. (See"Patient education: Anal fissure (Beyond the Basics)".) Fiber supplementsIncreasing fiber in your diet is one of the best ways to soften your stools. Fiber is found in fruits and vegetables. The recommended amount of dietary fiber is 20 to 35 grams per day (table 2). (See"Patient education: High-fiber diet (Beyond the Basics)".) Several fiber supplements are available, including psyllium (sample brand names : Konsyl, Metamucil), methylcellulose (sample brand name: Citrucel), polycarbophil (sample brand name: FiberCon), and wheat dextrin (Benefiber). Start with a small amount and increase slowly to avoid side effects. LaxativesIf increasing fiber does not relieve your constipation, or if side effects of fiber are intolerable, you can try a laxative. Many people worry about taking laxatives regularly, fearing that they will not be able to have a bowel movement if the laxative is stopped. Laxatives are not "addictive" and using laxatives does not increase your risk of constipation in the future. Instead, using a laxative may actually prevent long-term problems with constipation. (See"Patient education: Constipation in adults (Beyond the Basics)".) Warm sitz bathsDuring a sitz bath, you soak the rectal area in warm water for 10 to 15 minutes two to three times daily. Sitz baths are available in most drugstores. It is also possible to use a bathtub and sit in 2 to 3 inches of warm water. Do not add soap, bubble bath, or other additives in the water. Sitz baths work by improving blood flow and relaxing the muscle around the anus, called the internal anal sphincter. Topical treatmentsVarious creams and suppositories are available to treat hemorrhoids, and many are available without a prescription. Pain-relieving creams and hydrocortisone rectal suppositories may help relieve pain, inflammation, and itching, at least temporarily. You should not use hemorrhoid creams and suppositories, particularly hydrocortisone, for longer than one week, unless your healthcare provider approves. MINIMALLY INVASIVE TREATMENTIf you have bothersome hemorrhoids after using conservative measures, you may want to consider a minimally invasive procedure. Most procedures are performed as a day surgery. The following procedures are intended for treatment ofinternalhemorrhoids. Rubber band ligationRubber band ligation is the most widely used procedure. It is successful in approximately 70 to 80 percent of patients. Rubber bands or rings are placed around the base of an internal hemorrhoid. As the blood supply is restricted, the hemorrhoid shrinks and degenerates over several days. Many patients report a sense of "tightness" after the procedure, which may improve with warm sitz baths. Patients are encouraged to use fiber supplements to avoid constipation. Delayed bleeding may occur when the rubber band falls off, usually two to four days after the procedure. In some cases, a raw and sore area develops five to seven days following the procedure. Other less common complications of rubber band ligation include severe pain, thrombosis of other hemorrhoids, and localized infection or pus formation (abscess). Rubber band ligation rarely causes serious complications. Laser, infrared, or bipolar coagulationThese methods involve the use of laser or infrared light or heat to destroy internal hemorrhoids. SclerotherapyDuring sclerotherapy, a chemical solution is injected into hemorrhoidal tissue, causing the tissue to break down and form a scar. Sclerotherapy may be less effective than rubber band ligation. HEMORRHOID SURGERYIf you continue to have symptoms from hemorrhoids (such as bleeding, pain, or prolapse) despite medical therapies or office-based procedures, you may require surgery. Options for surgical treatment for hemorrhoids include hemorrhoidectomy ( surgically removing excess hemorrhoidal tissues), which works for both internal and external hemorrhoids, and other procedures (eg, stapled hemorrhoidopexy and hemorrhoidal arterial ligation), which only work for internal hemorrhoids. If you need surgery, your doctor can help you figure out which procedure is best for you. Sepsis Event Note - Evaluation Sepsis Screening Result: No Definite Risk - Focused Exam Vital Signs: Vital Signs Temp Pulse Resp BP Pulse Ox 11/24/19 17:11 36.2 C 79 16 127/79 95 Date Exam was Performed: 11/24/19 Time Exam was Performed: 17:54
== END 2019-11-24 18:03 | disposition home or self-care (01) ==
LOC: MW.ED 16:59
CPT/HCPCS: 99282; 99283

== ENCOUNTER 2021-03-18 15:26 | Inpatient (IN) | payer OTHER ==
--- NOTE | 2021-03-18 15:49 | EDM.PDOC ---
ED HPI GENERAL MEDICAL PROBLEM - General Chief Complaint: Respiratory Problem Stated Complaint: BREATHING PROBLEMS Time Seen by Provider: 03/18/21 15:28 Source of Information: Reports: Patient, Family History Limitations: Reports: No Limitations - History of Present Illness INITIAL COMMENTS - FREE TEXT/NARRATIVE: HISTORY AND PHYSICAL: History of present illness: The patient is a 71-year-old male with a history of atrial fibrillation, who presents to the emergency department with complaints of shortness of breath that started 7 days ago. He has had nausea and vomiting for 3 days. He did treat the nausea with Zofran on Sunday but no further doses. He has diarrhea for 3 days which he has not treated. He reports he started getting dizzy with position change on Sunday. He reports he had a fever in the low 100s for 3 days last week but none this week. He has had a productive cough with yellow to green sputum. He states he has chest pain related to his cough. He reports that he has been waking up in the middle of the night for the last 3 nights with shortness of breath. He has never had COVID, to test for COVID or had any vaccinations for COVID. He reports that he is unsure when his last INR was drawn but he has been on the same dose of Coumadin for quite some time. His heart rate is 81 and his blood pressure is 100/68 in the emergency department. Review of systems: As per history of present illness and below otherwise all systems reviewed and negative. Past medical history: As per history of present illness and as reviewed below otherwise no ncontributory. Surgical history: As per history of present illness and as reviewed below otherwise noncontributory. Social history: See social history for further information Family history: As per history of present illness and as reviewed below otherwise noncontributory. Physical exam: General: Well developed and well nourished. Alert and orientated x 3. Nontoxic in appearance and in no acute distress. Vital signs are stable and have been reviewed by me. Nursing notes were reviewed. HEENT: Atraumatic, normocephalic, pupils equal and reactive bilaterally, negative for conjunctival pallor or scleral icterus, mucous membranes moist, neck supple, nontender, trachea midline. No drooling or trismus noted. No meningeal signs. No hot potato voice noted. Lungs: Clear to auscultation bilaterally. No wheezes, rales, or rhonchi. Chest tender to palpation. Normal work of breathing, no accessory muscles used. Heart: Rate irregular without overt murmur, gallops, or rubs. No JVD. No perip heral edema Abdomen: Soft, nondistended, nontender. Normoactive bowel sounds. Negative for masses or costovertebral tenderness. Skin: Intact, warm, dry. No lesions or rashes noted. Hematologic: No petechiae or purpra. Mucosa appropriate color and normal nail bed color and refill. Extremities: Atraumatic, moves all extremities per self without difficulty or deficits, negative for cords or calf pain. Neurovascular unremarkable. Neuro: Awake, alert, oriented. Cranial nerves II through XII unremarkable. Cerebellum unremarkable. Motor and sensory unremarkable throughout. Exam nonfocal. Psychiatric: Mood and affect are appropriate. Normal thought process. Answering questions appropriately. Notes: *This patient was seen and evaluated during the 2019 SARS-CoV-2 novel coronavirus pandemic period. Community viral transmission is ongoing at time of this encounter and the emergency department is operating under pandemic response procedures. After discussion and examination the patient is agreeable to lab work, COVID testing, chest x-ray, EKG, IV fluids, and Zofran. I will check his INR at this time due to his not testing for "some time". The CXR impression: No acute cardiopulmonary findings. The INR is 1 the patient reports that he has not taken his Coumadin for two days. The WBC is 7.15. The urine had high protein and occult blood. The patient was straight cath for the specimen. Troponin < 0.050, the patients chest pain is reproducible with palpation. The EKG A- fib. The COVID test is positive. Sodium 134, carbon dioxide 19.9, BUN 27, creatinine 1.5, glucose 119. The patient is more talkative after the IV fluids but remains weak and becomes very SOB with exertion. Dr. Degroot consulted due to weakness, + COVID, and renal insufficiency. Patient to be admitted as an inpatient. The patient is agreeable to the plan. Diagnostics: CBC, CMP, troponin, INR, CXR, EKG, COVID-19 Therapeutics: IV fluids, Zofran Impression: Hypoxemia related to COVID-19, Renal Insufficiency. Definitive disposition and diagnosis as appropriate pending reevaluation and review of above. abdominal Pain Score (Numeric/FACES): 6 - Related Data Allergies Allergy/AdvReac Type Severity Reaction Status Date / Time morphine Allergy Nausea and Verified 03/18/21 16:01 Vomiting Home Meds: Home Meds atorvaSTATin [Lipitor] 1 tab PO DAILY 04/13/19 [History] lisinopriL [Prinivil] 1 mg PO DAILY 04/13/19 [History] Warfarin [Coumadin] 10 mg PO DAILY 08/11/19 [History] Acetaminophen [Tylenol] 650 mg PO Q4H PRN tablet 08/12/19 [Rx] Past Medical History HEENT History: Reports: Impaired Vision Cardiovascular History: Reports: Afib, High Cholesterol Respiratory History: Reports: None Gastrointestinal History: Reports: None Genitourinary History: Reports: Renal Calculus Musculoskeletal History: Reports: Other (See Below) Other Musculoskeletal History: rotator cuff repair Neurological History: Reports: Vertigo Psychiatric History: Reports: Anxiety, Depression Endocrine/Metabolic History: Reports: None Hematologic History: Reports: None Immunologic History: Reports: None Oncologic (Cancer) History: Reports: None Dermatologic History: Reports: None - Infectious Disease History Infectious Disease History: Reports: Measles - Past Surgical History Head Surgeries/Procedures: Reports: None HEENT Surgical History: Reports: None Cardiovascular Surgical History: Reports: None Respiratory Surgical History: Reports: None GI Surgical History: Reports: None Male Surgical History: Reports: None Endocrine Surgical History: Reports: None Neurological Surgical History: Reports: None Musculoskeletal Surgical History: Reports: Arthroscopic Knee Oncologic Surgical History: Reports: None Dermatological Surgical History: Reports: None Social & Family History - Family History Family Medical History: No Pertinent Family History HEENT: Reports: Impaired Vision OBGYN: Reports: Endocrine/Metabolic: Reports: Diabetes, type II Oncologic: Reports: Breast, Lung - Caffeine Use Caffeine Use: Reports: Coffee - Living Situation & Occupation Living situation: Reports: , with Family Occupation: Employed ED ROS GENERAL - Review of Systems Review Of Systems: Comprehensive ROS is negative, except as noted in HPI. ED EXAM, GENERAL - Physical Exam Exam: See Below (see dictation) Course - Vital Signs Last Recorded V/S: Last Vital Signs Temp 98.7 F 03/18/21 15:58 Pulse 93 03/18/21 15:58 Resp 18 03/18/21 15:58 BP Pulse Ox 91 L 03/18/21 15:58 - Orders/Labs/Meds Orders: Active Orders 24 hr Category Date Time Status Admission Status [Patient Status] [ADT] Stat ADT 03/18/21 18:07 Active Antiembolic Devices [RC] PER UNIT ROUTINE Care 03/18/21 19:06 Ordered EKG Documentation Completion [RC] STAT Care 03/18/21 16:10 Active Oxygen Therapy [RC] PRN Care 03/18/21 19:05 Ordered Up ad Karen [RC] ASDIRECTED Care 03/18/21 19:05 Ordered VTE/DVT Education [RC] PER UNIT ROUTINE Care 03/18/21 19:05 Ordered Vital Signs [RC] Q4H Care 03/18/21 19:05 Ordered Regular Diet [DIET] Diet 03/18/21 Breakfast Ordered CBC WITH AUTO DIFF [HEME] AM Lab 03/19/21 05:11 Ordered COMPREHENSIVE METABOLIC PN,CMP [CHEM] AM Lab 03/19/21 05:11 Ordered INR,PT,PROTHROMBIN TIME [COAG] AM Lab 03/19/21 05:11 Ordered Acetaminophen [TylenoL] Med 03/18/21 19:04 Active 650 mg PO Q4H PRN Enoxaparin [Lovenox] Med 03/18/21 19:15 Ordered 40 mg SUBCUT Q24H Sodium Chloride 0.9% [Saline Flush] Med 03/18/21 16:10 Active 10 ml FLUSH ASDIRECTED PRN Sodium Chloride 0.9% [Saline Flush] Med 03/18/21 16:10 Active 2.5 ml FLUSH ASDIRECTED PRN Warfarin [Coumadin] Med 03/19/21 09:00 Active 10 mg PO DAILY atorvaSTATin [Lipitor] Med 03/19/21 09:00 Active 20 mg PO DAILY Saline Lock Insert [OM.PC] Stat Oth 03/18/21 16:10 Ordered Sequential Compression Device [OM.PC] Per Unit Routine Oth 03/18/21 19:06 Ordered Resuscitation Status Routine Resus Stat 03/18/21 19:05 Ordered Medication Orders Acetaminophen (Acetaminophen 325 Mg Tab) 650 mg PO Q4H PRN PRN Reason: Fever Atorvastatin Calcium (Atorvastatin 20 Mg Tab) 20 mg PO DAILY LUIS ANTONIO Sodium Chloride (Sodium Chloride 0.9% 10 Ml Syringe) 10 ml FLUSH ASDIRECTED PRN PRN Reason: Keep Vein Open Last Admin: 03/18/21 16:51 Dose: 10 ml Documented by: DOROTEO Sodium Chloride (Sodium Chloride 0.9% 2.5 Ml Syringe) 2.5 ml FLUSH ASDIRECTED PRN PRN Reason: Keep Vein Open Last Admin: 03/18/21 16:51 Dose: 2.5 ml Documented by: DOROTEO Warfarin Sodium (Warfarin 5 Mg Tab) 10 mg PO DAILY LUIS ANTONIO Labs: Laboratory Tests 03/18/21 03/18/21 03/18/21 Range/Units 16:40 16:40 16:40 WBC 7.15 (4.0-11.0) K/uL RBC 5.99 H (4.50-5.90) M/uL Hgb 16.4 (13.0-17.0) g/dL Hct 48.4 (38.0-50.0) % MCV 80.8 (80.0-98.0) fL MCH 27.4 (27.0-32.0) pg MCHC 33.9 (31.0-37.0) g/dL RDW Std Deviation 41.1 (28.0-62.0) fl RDW Coeff of Ashley 14 (11.0-15.0) % Plt Count 175 (150-400) K/uL MPV 10.90 (7.40-12.00) fL Neut % (Auto) 83.8 H (48.0-80.0) % Lymph % (Auto) 5.9 L (16.0-40.0) % [place] % (Auto) 10.2 (0.0-15.0) % Eos % (Auto) 0.0 (0.0-7.0) % Baso % (Auto) 0.1 (0.0-1.5) % Neut # (Auto) 6.0 H (1.4-5.7) K/uL Lymph # (Auto) 0.4 L (0.6-2.4) K/uL [place] # (Auto) 0.7 (0.0-0.8) K/uL Eos # (Auto) 0.0 (0.0-0.7) K/uL Baso # (Auto) 0.0 (0.0-0.1) K/uL Nucleated RBC % 0.0 /100WBC Nucleated RBCs # 0 K/uL INR 1.10 Sodium 134 L (136-148) mmol/L Potassium 4.4 (3.5-5.1) mmol/L Chloride 100 (98-107) mmol/L Carbon Dioxide 19.9 L (21.0-32.0) mmol/L BUN 27 H (7.0-18.0) mg/dL Creatinine 1.5 H (0.8-1.3) mg/dL Est Cr Clr Drug Dosing 39.58 mL/min Estimated GFR (MDRD) 45.9 ml/min Glucose 119 H (74-106) mg/dL Calcium 8.5 (8.5-10.1) mg/dL Total Bilirubin 0.7 (0.2-1.0) mg/dL AST 33 (15-37) IU/L ALT 22 (14-63) IU/L Alkaline Phosphatase 65 (46-116) U/L Troponin I < 0.050 (0.000-0.056) ng/mL Total Protein 7.4 (6.4-8.2) g/dL Albumin 3.2 L (3.4-5.0) g/dL Globulin 4.2 H (2.6-4.0) g/dL Albumin/Globulin Ratio 0.8 L (0.9-1.6) Urine Color Urine Appearance Urine pH (5.0-8.0) Ur Specific [place] (1.001-1.035) Urine Protein (NEGATIVE) mg/dL Urine Glucose (UA) (NEGATIVE) mg/dL Urine Ketones (NEGATIVE) mg/dL Urine Occult Blood (NEGATIVE) Urine Nitrite (NEGATIVE) Urine Bilirubin (NEGATIVE) Urine Urobilinogen (<2.0) EU/dL Ur Leukocyte Esterase (NEGATIVE) Urine RBC (0-2/HPF) Urine WBC (0-5/HPF) Ur Epithelial Cells (NONE-FEW) Urine Bacteria (NEGATIVE) SARS-CoV-2 RNA (YORDY) (NEGATIVE) 03/18/21 03/18/21 Range/Units 17:05 17:05 WBC (4.0-11.0) K/uL RBC (4.50-5.90) M/uL Hgb (13.0-17.0) g/dL Hct (38.0-50.0) % MCV (80.0-98.0) fL MCH (27.0-32.0) pg MCHC (31.0-37.0) g/dL RDW Std Deviation (28.0-62.0) fl RDW Coeff of Ashley (11.0-15.0) % Plt Count (150-400) K/uL MPV (7.40-12.00) fL Neut % (Auto) (48.0-80.0) % Lymph % (Auto) (16.0-40.0) % [place] % (Auto) (0.0-15.0) % Eos % (Auto) (0.0-7.0) % Baso % (Auto) (0.0-1.5) % Neut # (Auto) (1.4-5.7) K/uL Lymph # (Auto) (0.6-2.4) K/uL [place] # (Auto) (0.0-0.8) K/uL Eos # (Auto) (0.0-0.7) K/uL Baso # (Auto) (0.0-0.1) K/uL Nucleated RBC % /100WBC Nucleated RBCs # K/uL INR Sodium (136-148) mmol/L Potassium (3.5-5.1) mmol/L Chloride (98-107) mmol/L Carbon Dioxide (21.0-32.0) mmol/L BUN (7.0-18.0) mg/dL Creatinine (0.8-1.3) mg/dL Est Cr Clr Drug Dosing mL/min Estimated GFR (MDRD) ml/min Glucose (74-106) mg/dL Calcium (8.5-10.1) mg/dL Total Bilirubin (0.2-1.0) mg/dL AST (15-37) IU/L ALT (14-63) IU/L Alkaline Phosphatase (46-116) U/L Troponin I (0.000-0.056) ng/mL Total Protein (6.4-8.2) g/dL Albumin (3.4-5.0) g/dL Globulin (2.6-4.0) g/dL Albumin/Globulin Ratio (0.9-1.6) Urine Color YELLOW Urine Appearance CLEAR Urine pH 6.0 (5.0-8.0) Ur Specific [place] >= 1.030 (1.001-1.035) Urine Protein 100 H (NEGATIVE) mg/dL Urine Glucose (UA) NEGATIVE (NEGATIVE) mg/dL Urine Ketones NEGATIVE (NEGATIVE) mg/dL Urine Occult Blood MODERATE H (NEGATIVE) Urine Nitrite NEGATIVE (NEGATIVE) Urine Bilirubin NEGATIVE (NEGATIVE) Urine Urobilinogen 0.2 (<2.0) EU/dL Ur Leukocyte Esterase NEGATIVE (NEGATIVE) Urine RBC 5-10 (0-2/HPF) Urine WBC 0-2 (0-5/HPF) Ur Epithelial Cells RARE (NONE-FEW) Urine Bacteria FEW (NEGATIVE) SARS-CoV-2 RNA (YORDY) POSITIVE H (NEGATIVE) Meds: Medications Generic Name Dose Route Start Last Admin Trade Name Freq PRN Reason Stop Dose Admin Acetaminophen 650 mg 03/18/21 19:04 Acetaminophen 325 Mg Tab PO Q4H PRN Fever Atorvastatin Calcium 20 mg 03/19/21 09:00 Atorvastatin 20 Mg Tab PO DAILY LUIS ANTONIO Sodium Chloride 10 ml 03/18/21 16:10 03/18/21 16:51 Sodium Chloride 0.9% 10 Ml Syringe FLUSH 10 ml ASDIRECTED PRN Administration Keep Vein Open Sodium Chloride 2.5 ml 03/18/21 16:10 03/18/21 16:51 Sodium Chloride 0.9% 2.5 Ml Syringe FLUSH 2.5 ml ASDIRECTED PRN Administration Keep Vein Open Warfarin Sodium 10 mg 03/19/21 09:00 Warfarin 5 Mg Tab PO DAILY LUIS ANTONIO Discontinued Medications Generic Name Dose Route Start Last Admin Trade Name Freq PRN Reason Stop Dose Admin Sodium Chloride 1,000 mls @ 999 mls/hr 03/18/21 16:10 03/18/21 16:49 Normal Saline IV 03/18/21 17:10 999 mls/hr .BOLUS ONE Administration Ondansetron HCl 4 mg 03/18/21 16:10 03/18/21 16:52 Ondansetron 4 Mg/2 Ml Sdv IVPUSH 03/18/21 16:11 4 mg ONETIME ONE Administration Departure - Departure Time of Disposition: 19:08 Disposition: Admitted As Inpatient 64 Condition: Good Clinical Impression: Hypoxemia, COVID-19, Renal insufficiency - Discharge Information *PRESCRIPTION DRUG MONITORING PROGRAM REVIEWED*: Not Applicable *COPY OF PRESCRIPTION DRUG MONITORING REPORT IN PATIENT ELENA: Not Applicable Referrals: Keshav Esteban SIGN LANGUAGE INTERPRETER [Primary Care Provider] - Forms: ED Department Discharge Sepsis Event Note (ED) - Focused Exam Vital Signs: Vital Signs Temp Pulse Resp Pulse Ox 03/18/21 15:58 98.7 F 93 18 91 L - My Orders Last 24 Hours: My Active Orders 03/18/21 16:10 EKG Documentation Completion [RC] STAT Sodium Chloride 0.9% [Saline Flush] 10 ml FLUSH ASDIRECTED PRN Sodium Chloride 0.9% [Saline Flush] 2.5 ml FLUSH ASDIRECTED PRN Saline Lock Insert [OM.PC] Stat 03/18/21 18:07 Admission Status [Patient Status] [ADT] Stat - Assessment/Plan Last 24 Hours: My Active Orders 03/18/21 16:10 EKG Documentation Completion [RC] STAT Sodium Chloride 0.9% [Saline Flush] 10 ml FLUSH ASDIRECTED PRN Sodium Chloride 0.9% [Saline Flush] 2.5 ml FLUSH ASDIRECTED PRN Saline Lock Insert [OM.PC] Stat 03/18/21 18:07 Admission Status [Patient Status] [ADT] Stat
[2021-03-18] MEDS ORDERED: Ondansetron 4 MG/2 ML SDV IVPUSH ONE (16:10)
[2021-03-18] MEDS ORDERED: Sodium Chloride 0.9% 1,000 ML IV ONE (16:10)
[2021-03-18] MEDS: Sodium Chloride 0.9% 2.5 ML Syringe FLUSH PRN (16:51)
[2021-03-18] MEDS: Sodium Chloride 0.9% 10 ML Syringe FLUSH PRN (16:51)
--- NOTE | 2021-03-18 17:12 | CR ---
INDICATION: Shortness of breath. TECHNIQUE: Chest 1 view. COMPARISON: Chest radiograph 08/11/2019. FINDINGS: No focal consolidation, pleural effusion, or pneumothorax. Normal heart size and pulmonary vascularity. Mildly tortuous aorta. Mild right convex thoracic curve. IMPRESSION: No acute cardiopulmonary findings. Dictated by Lidia Purdy MD @ 03/18/2021 5:11:[address] Lidia Purdy @ Mar 18 2021 5:11PM
[2021-03-18 17:26] LABS: BLOOD UREA NITROGEN,BUN 27 mg/dL (7.0-18.0); CARBON DIOXIDE,CO2 19.9 mmol/L (21.0-32.0); CHLORIDE,CL 100 mmol/L (98-107); GLUCOSE RANDOM 119 mg/dL (74-106); POTASSIUM,K 4.4 mmol/L (3.5-5.1); SODIUM,NA 134 mmol/L (136-148)
[2021-03-18] MEDS ORDERED: Acetaminophen 325 MG Tab PO PRN (19:04)
--- NOTE | 2021-03-18 19:12 | PCM.HP.2 ---
H&P History of Present Illness - General Date of Service: 03/18/21 Admit Problem/Dx: Admission Diagnosis/Problem Admission Diagnosis/Problem Hypoxemia - History of Present Illness Initial Comments - Free Text/Narative: 71 yo male with pmh of atrial fibrillation who presents with three week history of not feeling well. Patient reports nausea, vomiting, and diarrhea. For the past several days he has been short of breath with cough. He reports generalized weakness and fatigue and does not think it is safe for him to go home. Laboratory values on admission are significant for creatinine of 1.5, INR of 1.1. Patient reports he has been too sick to take his coumadin. CXR showed no acute pathology. Patient is satting 91% on Room air. abdominal Pain Score (Numeric/FACES): 6 - Related Data Allergies/Adverse Reactions: Allergies Allergy/AdvReac Type Severity Reaction Status Date / Time morphine Allergy Nausea and Verified 03/18/21 16:01 Vomiting Home Medications: Home Meds atorvaSTATin [Lipitor] 1 tab PO DAILY 04/13/19 [History] lisinopriL [Prinivil] 1 mg PO DAILY 04/13/19 [History] Warfarin [Coumadin] 10 mg PO DAILY 08/11/19 [History] Acetaminophen [Tylenol] 650 mg PO Q4H PRN tablet 08/12/19 [Rx] Past Medical History HEENT History: Reports: Impaired Vision Cardiovascular History: Reports: Afib, High Cholesterol Respiratory History: Reports: None Gastrointestinal History: Reports: None Genitourinary History: Reports: Renal Calculus Musculoskeletal History: Reports: Other (See Below) Other Musculoskeletal History: rotator cuff repair Neurological History: Reports: Vertigo Psychiatric History: Reports: Anxiety, Depression Endocrine/Metabolic History: Reports: None Hematologic History: Reports: None Immunologic History: Reports: None Oncologic (Cancer) History: Reports: None Dermatologic History: Reports: None - Infectious Disease History Infectious Disease History: Reports: Measles - Past Surgical History Head Surgeries/Procedures: Reports: None HEENT Surgical History: Reports: None Cardiovascular Surgical History: Reports: None Respiratory Surgical History: Reports: None GI Surgical History: Reports: None Male Surgical History: Reports: None Endocrine Surgical History: Reports: None Neurological Surgical History: Reports: None Musculoskeletal Surgical History: Reports: Arthroscopic Knee Oncologic Surgical History: Reports: None Dermatological Surgical History: Reports: None Social & Family History - Family History Family Medical History: No Pertinent Family History HEENT: Reports: Impaired Vision OBGYN: Reports: Endocrine/Metabolic: Reports: Diabetes, type II Oncologic: Reports: Breast, Lung - Caffeine Use Caffeine Use: Reports: None - Recreational Drug Use Recreational Drug Use: No - Living Situation & Occupation Living situation: Reports: , with Family Occupation: Employed H&P Review of Systems - Review of Systems: Review Of Systems: Comprehensive ROS is negative, except as noted in HPI. Exam - Exam Exam: See Below - Vital Signs Vital Signs: Last Vital Signs Temp 37.1 C 03/18/21 15:58 Pulse 93 03/18/21 15:58 Resp 18 03/18/21 15:58 BP Pulse Ox 91 L 03/18/21 15:58 Weight: 68.039 kg - Exam General: Alert, Oriented HEENT: Mucosa Moist & [place] Lungs: Clear to Auscultation, Normal Respiratory Effort Cardiovascular: Regular Rate, Regular Rhythm GI/Abdominal Exam: Normal Bowel Sounds, Soft, Non-Tender Extremities: Non-Tender, No Pedal Edema Skin: Warm, Dry, Intact Neurological: Cranial Nerves Intact. No: Focal Deficit - Patient Data Lab Results Last 24 hrs: Laboratory Results - last 24 hr 03/18/21 03/18/21 03/18/21 Range/Units 16:40 16:40 16:40 WBC 7.15 (4.0-11.0) K/uL RBC 5.99 H (4.50-5.90) M/uL Hgb 16.4 (13.0-17.0) g/dL Hct 48.4 (38.0-50.0) % MCV 80.8 (80.0-98.0) fL MCH 27.4 (27.0-32.0) pg MCHC 33.9 (31.0-37.0) g/dL RDW Std Deviation 41.1 (28.0-62.0) fl RDW Coeff of Ashley 14 (11.0-15.0) % Plt Count 175 (150-400) K/uL MPV 10.90 (7.40-12.00) fL Neut % (Auto) 83.8 H (48.0-80.0) % Lymph % (Auto) 5.9 L (16.0-40.0) % [place] % (Auto) 10.2 (0.0-15.0) % Eos % (Auto) 0.0 (0.0-7.0) % Baso % (Auto) 0.1 (0.0-1.5) % Neut # (Auto) 6.0 H (1.4-5.7) K/uL Lymph # (Auto) 0.4 L (0.6-2.4) K/uL [place] # (Auto) 0.7 (0.0-0.8) K/uL Eos # (Auto) 0.0 (0.0-0.7) K/uL Baso # (Auto) 0.0 (0.0-0.1) K/uL Nucleated RBC % 0.0 /100WBC Nucleated RBCs # 0 K/uL INR 1.10 Sodium 134 L (136-148) mmol/L Potassium 4.4 (3.5-5.1) mmol/L Chloride 100 (98-107) mmol/L Carbon Dioxide 19.9 L (21.0-32.0) mmol/L BUN 27 H (7.0-18.0) mg/dL Creatinine 1.5 H (0.8-1.3) mg/dL Est Cr Clr Drug Dosing 39.58 mL/min Estimated GFR (MDRD) 45.9 ml/min Glucose 119 H (74-106) mg/dL Calcium 8.5 (8.5-10.1) mg/dL Total Bilirubin 0.7 (0.2-1.0) mg/dL AST 33 (15-37) IU/L ALT 22 (14-63) IU/L Alkaline Phosphatase 65 (46-116) U/L Troponin I < 0.050 (0.000-0.056) ng/mL Total Protein 7.4 (6.4-8.2) g/dL Albumin 3.2 L (3.4-5.0) g/dL Globulin 4.2 H (2.6-4.0) g/dL Albumin/Globulin Ratio 0.8 L (0.9-1.6) Urine Color Urine Appearance Urine pH (5.0-8.0) Ur Specific [place] (1.001-1.035) Urine Protein (NEGATIVE) mg/dL Urine Glucose (UA) (NEGATIVE) mg/dL Urine Ketones (NEGATIVE) mg/dL Urine Occult Blood (NEGATIVE) Urine Nitrite (NEGATIVE) Urine Bilirubin (NEGATIVE) Urine Urobilinogen (<2.0) EU/dL Ur Leukocyte Esterase (NEGATIVE) Urine RBC (0-2/HPF) Urine WBC (0-5/HPF) Ur Epithelial Cells (NONE-FEW) Urine Bacteria (NEGATIVE) SARS-CoV-2 RNA (YORDY) (NEGATIVE) 03/18/21 03/18/21 Range/Units 17:05 17:05 WBC (4.0-11.0) K/uL RBC (4.50-5.90) M/uL Hgb (13.0-17.0) g/dL Hct (38.0-50.0) % MCV (80.0-98.0) fL MCH (27.0-32.0) pg MCHC (31.0-37.0) g/dL RDW Std Deviation (28.0-62.0) fl RDW Coeff of Ashley (11.0-15.0) % Plt Count (150-400) K/uL MPV (7.40-12.00) fL Neut % (Auto) (48.0-80.0) % Lymph % (Auto) (16.0-40.0) % [place] % (Auto) (0.0-15.0) % Eos % (Auto) (0.0-7.0) % Baso % (Auto) (0.0-1.5) % Neut # (Auto) (1.4-5.7) K/uL Lymph # (Auto) (0.6-2.4) K/uL [place] # (Auto) (0.0-0.8) K/uL Eos # (Auto) (0.0-0.7) K/uL Baso # (Auto) (0.0-0.1) K/uL Nucleated RBC % /100WBC Nucleated RBCs # K/uL INR Sodium (136-148) mmol/L Potassium (3.5-5.1) mmol/L Chloride (98-107) mmol/L Carbon Dioxide (21.0-32.0) mmol/L BUN (7.0-18.0) mg/dL Creatinine (0.8-1.3) mg/dL Est Cr Clr Drug Dosing mL/min Estimated GFR (MDRD) ml/min Glucose (74-106) mg/dL Calcium (8.5-10.1) mg/dL Total Bilirubin (0.2-1.0) mg/dL AST (15-37) IU/L ALT (14-63) IU/L Alkaline Phosphatase (46-116) U/L Troponin I (0.000-0.056) ng/mL Total Protein (6.4-8.2) g/dL Albumin (3.4-5.0) g/dL Globulin (2.6-4.0) g/dL Albumin/Globulin Ratio (0.9-1.6) Urine Color YELLOW Urine Appearance CLEAR Urine pH 6.0 (5.0-8.0) Ur Specific [place] >= 1.030 (1.001-1.035) Urine Protein 100 H (NEGATIVE) mg/dL Urine Glucose (UA) NEGATIVE (NEGATIVE) mg/dL Urine Ketones NEGATIVE (NEGATIVE) mg/dL Urine Occult Blood MODERATE H (NEGATIVE) Urine Nitrite NEGATIVE (NEGATIVE) Urine Bilirubin NEGATIVE (NEGATIVE) Urine Urobilinogen 0.2 (<2.0) EU/dL Ur Leukocyte Esterase NEGATIVE (NEGATIVE) Urine RBC 5-10 (0-2/HPF) Urine WBC 0-2 (0-5/HPF) Ur Epithelial Cells RARE (NONE-FEW) Urine Bacteria FEW (NEGATIVE) SARS-CoV-2 RNA (YORDY) POSITIVE H (NEGATIVE) Result Diagrams: 03/18/21 16:40 03/18/21 16:40 Sepsis Event Note - Evaluation Sepsis Screening Result: No Definite Risk - Focused Exam Vital Signs: Vital Signs Temp Pulse Resp Pulse Ox 03/18/21 15:58 37.1 C 93 18 91 L Problem List Initiated/Reviewed/Updated: Yes Orders Last 24hrs: Active Orders 24 hr Category Date Time Status Admission Status [Patient Status] [ADT] Stat ADT 03/18/21 18:07 Active Antiembolic Devices [RC] PER UNIT ROUTINE Care 03/18/21 19:06 Ordered EKG Documentation Completion [RC] STAT Care 03/18/21 16:10 Active Oxygen Therapy [RC] PRN Care 03/18/21 19:05 Ordered Up ad Karen [RC] ASDIRECTED Care 03/18/21 19:05 Ordered VTE/DVT Education [RC] PER UNIT ROUTINE Care 03/18/21 19:05 Ordered Vital Signs [RC] Q4H Care 03/18/21 19:05 Ordered Regular Diet [DIET] Diet 03/18/21 Breakfast Ordered CBC WITH AUTO DIFF [HEME] AM Lab 03/19/21 05:11 Ordered COMPREHENSIVE METABOLIC PN,CMP [CHEM] AM Lab 03/19/21 05:11 Ordered INR,PT,PROTHROMBIN TIME [COAG] AM Lab 03/19/21 05:11 Ordered Acetaminophen [TylenoL] Med 03/18/21 19:04 Ordered 650 mg PO Q4H PRN Enoxaparin [Lovenox] Med 03/18/21 19:15 Ordered 40 mg SUBCUT Q24H Sodium Chloride 0.9% [Saline Flush] Med 03/18/21 16:10 Active 10 ml FLUSH ASDIRECTED PRN Sodium Chloride 0.9% [Saline Flush] Med 03/18/21 16:10 Active 2.5 ml FLUSH ASDIRECTED PRN Warfarin [Coumadin] Med 03/19/21 09:00 Ordered 10 mg PO DAILY atorvaSTATin [Lipitor] Med 03/19/21 09:00 Ordered 20 mg PO DAILY Saline Lock Insert [OM.PC] Stat Oth 03/18/21 16:10 Ordered Sequential Compression Device [OM.PC] Per Unit Routine Oth 03/18/21 19:06 Ordered Resuscitation Status Routine Resus Stat 03/18/21 19:05 Ordered Medication Orders Acetaminophen (Acetaminophen 325 Mg Tab) 650 mg PO Q4H PRN PRN Reason: Fever Atorvastatin Calcium (Atorvastatin 20 Mg Tab) 20 mg PO DAILY [facility] Sodium Chloride (Sodium Chloride 0.9% 10 Ml Syringe) 10 ml FLUSH ASDIRECTED PRN PRN Reason: Keep Vein Open Last Admin: 03/18/21 16:51 Dose: 10 ml Documented by: DOROTEO Sodium Chloride (Sodium Chloride 0.9% 2.5 Ml Syringe) 2.5 ml FLUSH ASDIRECTED PRN PRN Reason: Keep Vein Open Last Admin: 03/18/21 16:51 Dose: 2.5 ml Documented by: DOROTEO Warfarin Sodium (Warfarin 5 Mg Tab) 10 mg PO DAILY [facility] Assessment/Plan Comment:: 71 yo male with pmh of atrial fibrillation admitted with COVID and dehydration. Patient received a liter of fluid in the ED and is already feeling better. Patient is not requiring any oxygen. We will continue to monitor. We will place of prophylactic lovenox as INR is subtheraputic.
[2021-03-18] MEDS ORDERED: Sodium Chloride 0.9% 500 ML IV ONE (20:06)
[2021-03-18] MEDS: Enoxaparin 40 MG/0.4 ML Syringe SUBCUT SCH (20:34)
[2021-03-19] MEDS ORDERED: Sodium Chloride 0.9% 500 ML IV SCH (00:05)
[2021-03-19] MEDS ORDERED: REMDESIVIR 200 MG in Sodium Chloride 0.9% 250 ML IV ONE (01:03)
[2021-03-19] MEDS ORDERED: Dexamethasone 4 MG Tab PO ONE (01:11)
[2021-03-19 07:00] LABS: CARBON DIOXIDE,CO2 19.8 mmol/L (21.0-32.0); POTASSIUM,K 4.7 mmol/L (3.5-5.1)
[2021-03-19] MEDS: atorvaSTATin 20 MG Tab PO SCH (08:39)
[2021-03-19] MEDS: Sodium Chloride 0.9% 10 ML Syringe FLUSH PRN (08:41)
[2021-03-19] MEDS ORDERED: Dexamethasone 4 MG Tab PO SCH ×2 (09:00→12:00)
[2021-03-19] MEDS ORDERED: Warfarin 5 MG Tab PO SCH (09:00)
[2021-03-19] MEDS: Warfarin 10 MG Tab PO SCH (09:00)
--- NOTE | 2021-03-19 12:52 | PCM.PN ---
- General Info Date of Service: 03/19/21 Admission Dx/Problem (Free Text): Admission Diagnosis/Problem Admission Diagnosis/Problem Hypoxemia Subjective Update: seen at bedside, feesl weak, diarrhea is better but appetite is poor, Functional Status: Reports: Pain Controlled, Tolerating Diet, Ambulating, Urinating - Review of Systems General: Reports: Weakness, Fatigue. Denies: Fever Pulmonary: Reports: Shortness of Breath. Denies: Pleuritic Chest Pain, Cough Cardiovascular: Reports: Dyspnea on Exertion. Denies: Chest Pain, Palpitations Gastrointestinal: Reports: Decreased Appetite. Denies: Abdominal Pain, Constipation, Hematochezia, Melena Genitourinary: Denies: Dysuria, Frequency, Burning - Patient Data Vitals - Most Recent: Last Vital Signs Temp 36.2 C 03/19/21 12:00 Pulse 82 03/19/21 12:00 Resp 20 03/19/21 12:00 BP 94/60 03/19/21 12:00 Pulse Ox 94 L 03/19/21 12:00 Weight - Most Recent: 61.734 kg I&O - Last 24 Hours: Intake & Output 03/18/21 03/19/21 03/19/21 22:59 06:59 14:59 Intake Total 1450 Output Total 150 1 Balance 1300 -1 Lab Results Last 24 Hours: Laboratory Results - last 24 hr 03/18/21 03/18/21 03/18/21 Range/Units 16:40 16:40 16:40 WBC 7.15 (4.0-11.0) K/uL RBC 5.99 H (4.50-5.90) M/uL Hgb 16.4 (13.0-17.0) g/dL Hct 48.4 (38.0-50.0) % MCV 80.8 (80.0-98.0) fL MCH 27.4 (27.0-32.0) pg MCHC 33.9 (31.0-37.0) g/dL RDW Std Deviation 41.1 (28.0-62.0) fl RDW Coeff of Ashley 14 (11.0-15.0) % Plt Count 175 (150-400) K/uL MPV 10.90 (7.40-12.00) fL Neut % (Auto) 83.8 H (48.0-80.0) % Lymph % (Auto) 5.9 L (16.0-40.0) % Daniels % (Auto) 10.2 (0.0-15.0) % Eos % (Auto) 0.0 (0.0-7.0) % Baso % (Auto) 0.1 (0.0-1.5) % Neut # (Auto) 6.0 H (1.4-5.7) K/uL Lymph # (Auto) 0.4 L (0.6-2.4) K/uL Daniels # (Auto) 0.7 (0.0-0.8) K/uL Eos # (Auto) 0.0 (0.0-0.7) K/uL Baso # (Auto) 0.0 (0.0-0.1) K/uL Nucleated RBC % 0.0 /100WBC Nucleated RBCs # 0 K/uL INR 1.10 Sodium 134 L (136-148) mmol/L Potassium 4.4 (3.5-5.1) mmol/L Chloride 100 (98-107) mmol/L Carbon Dioxide 19.9 L (21.0-32.0) mmol/L BUN 27 H (7.0-18.0) mg/dL Creatinine 1.5 H (0.8-1.3) mg/dL Est Cr Clr Drug Dosing 39.58 mL/min Estimated GFR (MDRD) 45.9 ml/min Glucose 119 H (74-106) mg/dL Calcium 8.5 (8.5-10.1) mg/dL Total Bilirubin 0.7 (0.2-1.0) mg/dL Direct Bilirubin (0.0-0.5) mg/dL AST 33 (15-37) IU/L ALT 22 (14-63) IU/L Alkaline Phosphatase 65 (46-116) U/L Troponin I < 0.050 (0.000-0.056) ng/mL Total Protein 7.4 (6.4-8.2) g/dL Albumin 3.2 L (3.4-5.0) g/dL Globulin 4.2 H (2.6-4.0) g/dL Albumin/Globulin Ratio 0.8 L (0.9-1.6) Urine Color Urine Appearance Urine pH (5.0-8.0) Ur Specific [place] (1.001-1.035) Urine Protein (NEGATIVE) mg/dL Urine Glucose (UA) (NEGATIVE) mg/dL Urine Ketones (NEGATIVE) mg/dL Urine Occult Blood (NEGATIVE) Urine Nitrite (NEGATIVE) Urine Bilirubin (NEGATIVE) Urine Urobilinogen (<2.0) EU/dL Ur Leukocyte Esterase (NEGATIVE) Urine RBC (0-2/HPF) Urine WBC (0-5/HPF) Ur Epithelial Cells (NONE-FEW) Urine Bacteria (NEGATIVE) SARS-CoV-2 RNA (YORDY) (NEGATIVE) 03/18/21 03/18/21 03/19/21 Range/Units 17:05 17:05 06:20 WBC (4.0-11.0) K/uL RBC (4.50-5.90) M/uL Hgb (13.0-17.0) g/dL Hct (38.0-50.0) % MCV (80.0-98.0) fL MCH (27.0-32.0) pg MCHC (31.0-37.0) g/dL RDW Std Deviation (28.0-62.0) fl RDW Coeff of Ashley (11.0-15.0) % Plt Count (150-400) K/uL MPV (7.40-12.00) fL Neut % (Auto) (48.0-80.0) % Lymph % (Auto) (16.0-40.0) % Daniels % (Auto) (0.0-15.0) % Eos % (Auto) (0.0-7.0) % Baso % (Auto) (0.0-1.5) % Neut # (Auto) (1.4-5.7) K/uL Lymph # (Auto) (0.6-2.4) K/uL Daniels # (Auto) (0.0-0.8) K/uL Eos # (Auto) (0.0-0.7) K/uL Baso # (Auto) (0.0-0.1) K/uL Nucleated RBC % /100WBC Nucleated RBCs # K/uL INR 1.14 Sodium (136-148) mmol/L Potassium (3.5-5.1) mmol/L Chloride (98-107) mmol/L Carbon Dioxide (21.0-32.0) mmol/L BUN (7.0-18.0) mg/dL Creatinine (0.8-1.3) mg/dL Est Cr Clr Drug Dosing mL/min Estimated GFR (MDRD) ml/min Glucose (74-106) mg/dL Calcium (8.5-10.1) mg/dL Total Bilirubin (0.2-1.0) mg/dL Direct Bilirubin (0.0-0.5) mg/dL AST (15-37) IU/L ALT (14-63) IU/L Alkaline Phosphatase (46-116) U/L Troponin I (0.000-0.056) ng/mL Total Protein (6.4-8.2) g/dL Albumin (3.4-5.0) g/dL Globulin (2.6-4.0) g/dL Albumin/Globulin Ratio (0.9-1.6) Urine Color YELLOW Urine Appearance CLEAR Urine pH 6.0 (5.0-8.0) Ur Specific [place] >= 1.030 (1.001-1.035) Urine Protein 100 H (NEGATIVE) mg/dL Urine Glucose (UA) NEGATIVE (NEGATIVE) mg/dL Urine Ketones NEGATIVE (NEGATIVE) mg/dL Urine Occult Blood MODERATE H (NEGATIVE) Urine Nitrite NEGATIVE (NEGATIVE) Urine Bilirubin NEGATIVE (NEGATIVE) Urine Urobilinogen 0.2 (<2.0) EU/dL Ur Leukocyte Esterase NEGATIVE (NEGATIVE) Urine RBC 5-10 (0-2/HPF) Urine WBC 0-2 (0-5/HPF) Ur Epithelial Cells RARE (NONE-FEW) Urine Bacteria FEW (NEGATIVE) SARS-CoV-2 RNA (YORDY) POSITIVE H (NEGATIVE) 03/19/21 03/19/21 Range/Units 06:20 06:20 WBC 5.52 (4.0-11.0) K/uL RBC 5.63 (4.50-5.90) M/uL Hgb 15.1 (13.0-17.0) g/dL Hct 45.6 (38.0-50.0) % MCV 81.0 (80.0-98.0) fL MCH 26.8 L (27.0-32.0) pg MCHC 33.1 (31.0-37.0) g/dL RDW Std Deviation 41.6 (28.0-62.0) fl RDW Coeff of Ashley 14 (11.0-15.0) % Plt Count 163 (150-400) K/uL MPV 10.80 (7.40-12.00) fL Neut % (Auto) 90.2 H (48.0-80.0) % Lymph % (Auto) 4.9 L (16.0-40.0) % Daniels % (Auto) 4.9 (0.0-15.0) % Eos % (Auto) 0.0 (0.0-7.0) % Baso % (Auto) 0.0 (0.0-1.5) % Neut # (Auto) 5.0 (1.4-5.7) K/uL Lymph # (Auto) 0.3 L (0.6-2.4) K/uL Daniels # (Auto) 0.3 (0.0-0.8) K/uL Eos # (Auto) 0.0 (0.0-0.7) K/uL Baso # (Auto) 0.0 (0.0-0.1) K/uL Nucleated RBC % 0.0 /100WBC Nucleated RBCs # 0 K/uL INR Sodium 136 (136-148) mmol/L Potassium 4.7 (3.5-5.1) mmol/L Chloride 105 (98-107) mmol/L Carbon Dioxide 19.8 L (21.0-32.0) mmol/L BUN 23 H (7.0-18.0) mg/dL Creatinine 1.3 (0.8-1.3) mg/dL Est Cr Clr Drug Dosing 44.19 mL/min Estimated GFR (MDRD) 54.1 ml/min Glucose 111 H (74-106) mg/dL Calcium 7.8 L (8.5-10.1) mg/dL Total Bilirubin 0.6 (0.2-1.0) mg/dL Direct Bilirubin 0.20 (0.0-0.5) mg/dL AST 26 (15-37) IU/L ALT 15 (14-63) IU/L Alkaline Phosphatase 56 (46-116) U/L Troponin I (0.000-0.056) ng/mL Total Protein 6.3 L (6.4-8.2) g/dL Albumin 2.7 L (3.4-5.0) g/dL Globulin 3.6 (2.6-4.0) g/dL Albumin/Globulin Ratio 0.8 L (0.9-1.6) Urine Color Urine Appearance Urine pH (5.0-8.0) Ur Specific [place] (1.001-1.035) Urine Protein (NEGATIVE) mg/dL Urine Glucose (UA) (NEGATIVE) mg/dL Urine Ketones (NEGATIVE) mg/dL Urine Occult Blood (NEGATIVE) Urine Nitrite (NEGATIVE) Urine Bilirubin (NEGATIVE) Urine Urobilinogen (<2.0) EU/dL Ur Leukocyte Esterase (NEGATIVE) Urine RBC (0-2/HPF) Urine WBC (0-5/HPF) Ur Epithelial Cells (NONE-FEW) Urine Bacteria (NEGATIVE) SARS-CoV-2 RNA (YORDY) (NEGATIVE) Med Orders - Current: Current Medications Acetaminophen (Acetaminophen 325 Mg Tab) 650 mg PO Q4H PRN PRN Reason: Fever Atorvastatin Calcium (Atorvastatin 20 Mg Tab) 20 mg PO DAILY [facility] Last Admin: 03/19/21 08:39 Dose: 20 mg Documented by: Dexamethasone (Dexamethasone 4 Mg Tab) 6 mg PO DAILY [facility] Enoxaparin Sodium (Enoxaparin 40 Mg/0.4 Ml Syringe) 40 mg SUBCUT Q24H [facility] Last Admin: 03/18/21 20:34 Dose: 40 mg Documented by: Sodium Chloride (Normal Saline) 500 mls @ 125 mls/hr IV .BOLUS [facility] Last Admin: 03/19/21 00:36 Dose: 125 mls/hr Documented by: Remdesivir 100 mg/ Sodium (Chloride) 100 mls @ 100 mls/hr IV Q24H [facility] Stop: 03/22/21 21:59 Pneumococcal Polyvalent Vaccine (Pneumococcal Polyvalent-23 Vaccine 0.5 Ml Sdv) 0.5 ml IM .ONCE ONE Stop: 03/21/21 12:01 Sodium Chloride (Sodium Chloride 0.9% 10 Ml Syringe) 10 ml FLUSH ASDIRECTED PRN PRN Reason: Keep Vein Open Last Admin: 03/19/21 08:41 Dose: 10 ml Documented by: Sodium Chloride (Sodium Chloride 0.9% 2.5 Ml Syringe) 2.5 ml FLUSH ASDIRECTED PRN PRN Reason: Keep Vein Open Last Admin: 03/18/21 16:51 Dose: 2.5 ml Documented by: Warfarin Sodium (Warfarin 10 Mg Tab) 10 mg PO DAILY [facility] Last Admin: 03/19/21 09:00 Dose: 10 mg Documented by: Discontinued Medications Dexamethasone (Dexamethasone 4 Mg Tab) 6 mg PO ONETIME ONE Stop: 03/19/21 01:12 Last Admin: 03/19/21 02:04 Dose: 6 mg Documented by: Dexamethasone (Dexamethasone 4 Mg Tab) 6 mg PO DAILY [facility] Dexamethasone (Dexamethasone 4 Mg Tab) 6 mg PO DAILY@1200 [facility]IS ANTONIO Stop: 03/19/21 12:01 Last Admin: 03/19/21 12:18 Dose: 6 mg Documented by: Sodium Chloride (Normal Saline) 1,000 mls @ 999 mls/hr IV .BOLUS ONE Stop: 03/18/21 17:10 Last Admin: 03/18/21 16:49 Dose: 999 mls/hr Documented by: Sodium Chloride (Normal Saline) 500 mls @ 125 mls/hr IV ONETIME ONE Stop: 03/19/21 00:05 Last Admin: 03/18/21 20:35 Dose: 125 mls/hr Documented by: Remdesivir 200 mg/ Sodium (Chloride) 250 mls @ 250 mls/hr IV ONETIME ONE Stop: 03/19/21 01:04 Last Admin: 03/19/21 03:51 Dose: 250 mls/hr Documented by: Ondansetron HCl (Ondansetron 4 Mg/2 Ml Sdv) 4 mg IVPUSH ONETIME ONE Stop: 03/18/21 16:11 Last Admin: 03/18/21 16:52 Dose: 4 mg Documented by: Warfarin Sodium (Warfarin 5 Mg Tab) 10 mg PO DAILY [facility] Last Admin: 03/19/21 08:40 Dose: 10 mg Documented by: - Exam Quality Assessment: Supplemental Oxygen General: Alert, Oriented, Mild Distress Neck: Supple Lungs: Decreased Breath Sounds, Crackles Cardiovascular: Regular Rate, Regular Rhythm, No Murmurs - Patient Data Lab Results Last 24 hrs: Laboratory Results - last 24 hr 03/18/21 03/18/21 03/18/21 Range/Units 16:40 16:40 16:40 WBC 7.15 (4.0-11.0) K/uL RBC 5.99 H (4.50-5.90) M/uL Hgb 16.4 (13.0-17.0) g/dL Hct 48.4 (38.0-50.0) % MCV 80.8 (80.0-98.0) fL MCH 27.4 (27.0-32.0) pg MCHC 33.9 (31.0-37.0) g/dL RDW Std Deviation 41.1 (28.0-62.0) fl RDW Coeff of Ashley 14 (11.0-15.0) % Plt Count 175 (150-400) K/uL MPV 10.90 (7.40-12.00) fL Neut % (Auto) 83.8 H (48.0-80.0) % Lymph % (Auto) 5.9 L (16.0-40.0) % Daniels % (Auto) 10.2 (0.0-15.0) % Eos % (Auto) 0.0 (0.0-7.0) % Baso % (Auto) 0.1 (0.0-1.5) % Neut # (Auto) 6.0 H (1.4-5.7) K/uL Lymph # (Auto) 0.4 L (0.6-2.4) K/uL Daniels # (Auto) 0.7 (0.0-0.8) K/uL Eos # (Auto) 0.0 (0.0-0.7) K/uL Baso # (Auto) 0.0 (0.0-0.1) K/uL Nucleated RBC % 0.0 /100WBC Nucleated RBCs # 0 K/uL INR 1.10 Sodium 134 L (136-148) mmol/L Potassium 4.4 (3.5-5.1) mmol/L Chloride 100 (98-107) mmol/L Carbon Dioxide 19.9 L (21.0-32.0) mmol/L BUN 27 H (7.0-18.0) mg/dL Creatinine 1.5 H (0.8-1.3) mg/dL Est Cr Clr Drug Dosing 39.58 mL/min Estimated GFR (MDRD) 45.9 ml/min Glucose 119 H (74-106) mg/dL Calcium 8.5 (8.5-10.1) mg/dL Total Bilirubin 0.7 (0.2-1.0) mg/dL Direct Bilirubin (0.0-0.5) mg/dL AST 33 (15-37) IU/L ALT 22 (14-63) IU/L Alkaline Phosphatase 65 (46-116) U/L Troponin I < 0.050 (0.000-0.056) ng/mL Total Protein 7.4 (6.4-8.2) g/dL Albumin 3.2 L (3.4-5.0) g/dL Globulin 4.2 H (2.6-4.0) g/dL Albumin/Globulin Ratio 0.8 L (0.9-1.6) Urine Color Urine Appearance Urine pH (5.0-8.0) Ur Specific [place] (1.001-1.035) Urine Protein (NEGATIVE) mg/dL Urine Glucose (UA) (NEGATIVE) mg/dL Urine Ketones (NEGATIVE) mg/dL Urine Occult Blood (NEGATIVE) Urine Nitrite (NEGATIVE) Urine Bilirubin (NEGATIVE) Urine Urobilinogen (<2.0) EU/dL Ur Leukocyte Esterase (NEGATIVE) Urine RBC (0-2/HPF) Urine WBC (0-5/HPF) Ur Epithelial Cells (NONE-FEW) Urine Bacteria (NEGATIVE) SARS-CoV-2 RNA (YORDY) (NEGATIVE) 03/18/21 03/18/21 03/19/21 Range/Units 17:05 17:05 06:20 WBC (4.0-11.0) K/uL RBC (4.50-5.90) M/uL Hgb (13.0-17.0) g/dL Hct (38.0-50.0) % MCV (80.0-98.0) fL MCH (27.0-32.0) pg MCHC (31.0-37.0) g/dL RDW Std Deviation (28.0-62.0) fl RDW Coeff of Ashley (11.0-15.0) % Plt Count (150-400) K/uL MPV (7.40-12.00) fL Neut % (Auto) (48.0-80.0) % Lymph % (Auto) (16.0-40.0) % Daniels % (Auto) (0.0-15.0) % Eos % (Auto) (0.0-7.0) % Baso % (Auto) (0.0-1.5) % Neut # (Auto) (1.4-5.7) K/uL Lymph # (Auto) (0.6-2.4) K/uL Daniels # (Auto) (0.0-0.8) K/uL Eos # (Auto) (0.0-0.7) K/uL Baso # (Auto) (0.0-0.1) K/uL Nucleated RBC % /100WBC Nucleated RBCs # K/uL INR 1.14 Sodium (136-148) mmol/L Potassium (3.5-5.1) mmol/L Chloride (98-107) mmol/L Carbon Dioxide (21.0-32.0) mmol/L BUN (7.0-18.0) mg/dL Creatinine (0.8-1.3) mg/dL Est Cr Clr Drug Dosing mL/min Estimated GFR (MDRD) ml/min Glucose (74-106) mg/dL Calcium (8.5-10.1) mg/dL Total Bilirubin (0.2-1.0) mg/dL Direct Bilirubin (0.0-0.5) mg/dL AST (15-37) IU/L ALT (14-63) IU/L Alkaline Phosphatase (46-116) U/L Troponin I (0.000-0.056) ng/mL Total Protein (6.4-8.2) g/dL Albumin (3.4-5.0) g/dL Globulin (2.6-4.0) g/dL Albumin/Globulin Ratio (0.9-1.6) Urine Color YELLOW Urine Appearance CLEAR Urine pH 6.0 (5.0-8.0) Ur Specific [place] >= 1.030 (1.001-1.035) Urine Protein 100 H (NEGATIVE) mg/dL Urine Glucose (UA) NEGATIVE (NEGATIVE) mg/dL Urine Ketones NEGATIVE (NEGATIVE) mg/dL Urine Occult Blood MODERATE H (NEGATIVE) Urine Nitrite NEGATIVE (NEGATIVE) Urine Bilirubin NEGATIVE (NEGATIVE) Urine Urobilinogen 0.2 (<2.0) EU/dL Ur Leukocyte Esterase NEGATIVE (NEGATIVE) Urine RBC 5-10 (0-2/HPF) Urine WBC 0-2 (0-5/HPF) Ur Epithelial Cells RARE (NONE-FEW) Urine Bacteria FEW (NEGATIVE) SARS-CoV-2 RNA (YORDY) POSITIVE H (NEGATIVE) 03/19/21 03/19/21 Range/Units 06:20 06:20 WBC 5.52 (4.0-11.0) K/uL RBC 5.63 (4.50-5.90) M/uL Hgb 15.1 (13.0-17.0) g/dL Hct 45.6 (38.0-50.0) % MCV 81.0 (80.0-98.0) fL MCH 26.8 L (27.0-32.0) pg MCHC 33.1 (31.0-37.0) g/dL RDW Std Deviation 41.6 (28.0-62.0) fl RDW Coeff of Ashley 14 (11.0-15.0) % Plt Count 163 (150-400) K/uL MPV 10.80 (7.40-12.00) fL Neut % (Auto) 90.2 H (48.0-80.0) % Lymph % (Auto) 4.9 L (16.0-40.0) % Daniels % (Auto) 4.9 (0.0-15.0) % Eos % (Auto) 0.0 (0.0-7.0) % Baso % (Auto) 0.0 (0.0-1.5) % Neut # (Auto) 5.0 (1.4-5.7) K/uL Lymph # (Auto) 0.3 L (0.6-2.4) K/uL Daniels # (Auto) 0.3 (0.0-0.8) K/uL Eos # (Auto) 0.0 (0.0-0.7) K/uL Baso # (Auto) 0.0 (0.0-0.1) K/uL Nucleated RBC % 0.0 /100WBC Nucleated RBCs # 0 K/uL INR Sodium 136 (136-148) mmol/L Potassium 4.7 (3.5-5.1) mmol/L Chloride 105 (98-107) mmol/L Carbon Dioxide 19.8 L (21.0-32.0) mmol/L BUN 23 H (7.0-18.0) mg/dL Creatinine 1.3 (0.8-1.3) mg/dL Est Cr Clr Drug Dosing 44.19 mL/min Estimated GFR (MDRD) 54.1 ml/min Glucose 111 H (74-106) mg/dL Calcium 7.8 L (8.5-10.1) mg/dL Total Bilirubin 0.6 (0.2-1.0) mg/dL Direct Bilirubin 0.20 (0.0-0.5) mg/dL AST 26 (15-37) IU/L ALT 15 (14-63) IU/L Alkaline Phosphatase 56 (46-116) U/L Troponin I (0.000-0.056) ng/mL Total Protein 6.3 L (6.4-8.2) g/dL Albumin 2.7 L (3.4-5.0) g/dL Globulin 3.6 (2.6-4.0) g/dL Albumin/Globulin Ratio 0.8 L (0.9-1.6) Urine Color Urine Appearance Urine pH (5.0-8.0) Ur Specific [place] (1.001-1.035) Urine Protein (NEGATIVE) mg/dL Urine Glucose (UA) (NEGATIVE) mg/dL Urine Ketones (NEGATIVE) mg/dL Urine Occult Blood (NEGATIVE) Urine Nitrite (NEGATIVE) Urine Bilirubin (NEGATIVE) Urine Urobilinogen (<2.0) EU/dL Ur Leukocyte Esterase (NEGATIVE) Urine RBC (0-2/HPF) Urine WBC (0-5/HPF) Ur Epithelial Cells (NONE-FEW) Urine Bacteria (NEGATIVE) SARS-CoV-2 RNA (YORDY) (NEGATIVE) Result Diagrams: 03/19/21 06:20 03/19/21 06:20 Sepsis Event Note - Evaluation Sepsis Screening Result: No Definite Risk - Focused Exam Vital Signs: Vital Signs Temp Pulse Resp BP Pulse Ox 03/19/21 12:00 36.2 C 82 20 94/60 94 L 03/19/21 08:00 36.3 C 98 20 97/62 92 L 03/19/21 04:00 36.7 C 98 20 105/67 91 L - Problem List & Annotations (1) Afib SNOMED Code(s): 78580057 Code(s): I48.91 - UNSPECIFIED ATRIAL FIBRILLATION Status: Acute Current V isit: Yes (2) COVID-19 SNOMED Code(s): 591768613 Code(s): U07.1 - COVID-19 Status: Acute Current Visit: Yes (3) Hypoxemia SNOMED Code(s): 162169623 Code(s): R09.02 - HYPOXEMIA Status: Acute Current Visit: Yes - Problem List Review Problem List Initiated/Reviewed/Updated: Yes - My Orders Last 24 Hours: My Active Orders 03/19/21 00:05 Sodium Chloride 0.9% [Normal Saline] 500 ml IV .BOLUS 03/19/21 21:00 Remdesivir 100 mg Sodium Chloride 0.9% [Normal Saline] 100 ml IV Q24H 03/20/21 01:15 BILIRUBIN DIRECT [CHEM] DAILY COMPREHENSIVE METABOLIC PN,CMP [CHEM] DAILY 03/20/21 09:00 dexAMETHasone 6 mg PO DAILY 03/21/21 01:15 BILIRUBIN DIRECT [CHEM] DAILY COMPREHENSIVE METABOLIC PN,CMP [CHEM] DAILY 03/22/21 01:15 BILIRUBIN DIRECT [CHEM] DAILY COMPREHENSIVE METABOLIC PN,CMP [CHEM] DAILY 03/23/21 01:15 BILIRUBIN DIRECT [CHEM] DAILY COMPREHENSIVE METABOLIC PN,CMP [CHEM] DAILY - Plan Plan:: 71 yo male with pmh of atrial fibrillation admitted with COVID and dehydration. Patient received a liter of fluid in the ED Overnight became hypoxic, was started on Dexamethasone and Remdesivir cont Duonebs cont oxygenation via NC as needed on prophylactic lovenox as INR is subtherapeutic, cont Coumadin, daily INR
[2021-03-19] MEDS: Sodium Chloride 0.9% 2.5 ML Syringe FLUSH PRN (16:08)
[2021-03-19] MEDS: Enoxaparin 40 MG/0.4 ML Syringe SUBCUT SCH (19:58)
[2021-03-19] MEDS: REMDESIVIR 100 MG in Sodium Chloride 0.9% 100 ML IV SCH (20:00)
--- NOTE | 2021-03-19 21:18 | PCM.EKG ---
#1 Interpretation EKG Date: 03/18/21 Time: 16:09 Rhythm: A-Fib Rate (Beats/Min): 111 [place]: LAD-Left [place] Deviation P-Wave: Absent QRS: Normal ST-T: Normal (T wave inversion aVL) QT: Normal (Q wave in II,III, aVF, V2) Comparison: No Change (04/13/2019) EKG Interpretation Comments: Atrial Fibrillation with Inferior and Anterioseptal Q waves (likely old infarct)
[2021-03-20 06:52] LABS: CARBON DIOXIDE,CO2 19.9 mmol/L (21.0-32.0); POTASSIUM,K 4.1 mmol/L (3.5-5.1)
[2021-03-20] MEDS: Warfarin 10 MG Tab PO SCH (09:13)
[2021-03-20] MEDS: atorvaSTATin 20 MG Tab PO SCH (09:13)
[2021-03-20] MEDS: Dexamethasone 4 MG Tab PO SCH (09:14)
[2021-03-20] MEDS: Sodium Chloride 0.9% 10 ML Syringe FLUSH PRN (09:15)
[2021-03-20] MEDS ORDERED: Ondansetron 4 MG/2 ML SDV IVPUSH PRN (10:00)
[2021-03-20] MEDS: Pantoprazole 40 MG in Sodium Chloride 0.9% 10 ML IV SCH (10:56)
--- NOTE | 2021-03-20 12:31 | PCM.PN ---
- General Info Date of Service: 03/20/21 Admission Dx/Problem (Free Text): Admission Diagnosis/Problem Admission Diagnosis/Problem Hypoxemia Subjective Update: seen at bedside, feels weak, diarrhea is better , appetite is improved Functional Status: Reports: Tolerating Diet, Ambulating - Review of Systems General: Reports: Weakness, Fatigue, Malaise. Denies: Fever Pulmonary: Reports: Shortness of Breath, Pleuritic Chest Pain, Cough Cardiovascular: Denies: Chest Pain, Palpitations Gastrointestinal: Denies: Abdominal Pain, Constipation, Nausea, Vomiting Genitourinary: Denies: Dysuria, Frequency, Burning Musculoskeletal: Denies: Neck Pain, Shoulder Pain, Arm Pain - Patient Data Vitals - Most Recent: Last Vital Signs Temp 35.7 C L 03/20/21 07:40 Pulse 84 03/20/21 07:40 Resp 18 03/20/21 07:40 BP 93/53 L 03/20/21 07:40 Pulse Ox 92 L 03/20/21 07:40 Weight - Most Recent: 61.734 kg I&O - Last 24 Hours: Intake & Output 03/19/21 03/20/21 03/20/21 22:59 06:59 14:59 Intake Total 450 Output Total 400 Balance 50 Lab Results Last 24 Hours: Laboratory Results - last 24 hr 03/20/21 03/20/21 Range/Units 06:15 06:15 WBC 8.61 (4.0-11.0) K/uL RBC 6.16 H (4.50-5.90) M/uL Hgb 16.8 (13.0-17.0) g/dL Hct 49.7 (38.0-50.0) % MCV 80.7 (80.0-98.0) fL MCH 27.3 (27.0-32.0) pg MCHC 33.8 (31.0-37.0) g/dL RDW Std Deviation 41.5 (28.0-62.0) fl RDW Coeff of Ashley 14 (11.0-15.0) % Plt Count 229 (150-400) K/uL MPV 11.40 (7.40-12.00) fL Neut % (Auto) 82.6 H (48.0-80.0) % Lymph % (Auto) 7.5 L (16.0-40.0) % [place] % (Auto) 9.8 (0.0-15.0) % Eos % (Auto) 0.0 (0.0-7.0) % Baso % (Auto) 0.1 (0.0-1.5) % Neut # (Auto) 7.1 H (1.4-5.7) K/uL Lymph # (Auto) 0.7 (0.6-2.4) K/uL [place] # (Auto) 0.8 (0.0-0.8) K/uL Eos # (Auto) 0.0 (0.0-0.7) K/uL Baso # (Auto) 0.0 (0.0-0.1) K/uL Nucleated RBC % 0.0 /100WBC Nucleated RBCs # 0 K/uL Sodium 138 (136-148) mmol/L Potassium 4.1 (3.5-5.1) mmol/L Chloride 105 (98-107) mmol/L Carbon Dioxide 19.9 L (21.0-32.0) mmol/L BUN 29 H (7.0-18.0) mg/dL Creatinine 1.4 H (0.8-1.3) mg/dL Est Cr Clr Drug Dosing 41.03 mL/min Estimated GFR (MDRD) 49.7 ml/min Glucose 157 H (74-106) mg/dL Calcium 8.3 L (8.5-10.1) mg/dL Phosphorus 2.7 (2.6-4.7) mg/dL Magnesium 2.3 (1.8-2.4) mg/dL Total Bilirubin 0.5 (0.2-1.0) mg/dL AST 30 (15-37) IU/L ALT 21 (14-63) IU/L Alkaline Phosphatase 62 (46-116) U/L Total Protein 6.8 (6.4-8.2) g/dL Albumin 2.8 L (3.4-5.0) g/dL Globulin 4.0 (2.6-4.0) g/dL Albumin/Globulin Ratio 0.7 L (0.9-1.6) Med Orders - Current: Current Medications Acetaminophen (Acetaminophen 325 Mg Tab) 650 mg PO Q4H PRN PRN Reason: Fever Atorvastatin Calcium (Atorvastatin 20 Mg Tab) 20 mg PO DAILY [facility] Last Admin: 04/25/21 09:13 Dose: 20 mg Documented by: Dexamethasone (Dexamethasone 4 Mg Tab) 6 mg PO DAILY [facility] Last Admin: 03/20/21 09:14 Dose: 6 mg Documented by: Enoxaparin Sodium (Enoxaparin 40 Mg/0.4 Ml Syringe) 40 mg SUBCUT Q24H [facility] Last Admin: 03/19/21 19:58 Dose: 40 mg Documented by: Sodium Chloride (Normal Saline) 500 mls @ 125 mls/hr IV .BOLUS [facility] Last Admin: 03/19/21 00:36 Dose: 125 mls/hr Documented by: Remdesivir 100 mg/ Sodium (Chloride) 100 mls @ 100 mls/hr IV Q24H [facility] Stop: 03/22/21 21:59 Last Admin: 03/19/21 20:00 Dose: 100 mls/hr Documented by: Pantoprazole Sodium 40 mg/ (Sodium Chloride) 10 mls @ 300 mls/hr IV DAILY [facility] Last Admin: 03/20/21 10:56 Dose: 300 mls/hr Documented by: Ondansetron HCl (Ondansetron 4 Mg/2 Ml Sdv) 4 mg IVPUSH Q4H PRN PRN Reason: Nausea Last Admin: 03/20/21 10:57 Dose: 4 mg Documented by: Pneumococcal Polyvalent Vaccine (Pneumococcal Polyvalent-23 Vaccine 0.5 Ml Sdv) 0.5 ml IM .ONCE ONE Stop: 03/21/21 12:01 Sodium Chloride (Sodium Chloride 0.9% 10 Ml Syringe) 10 ml FLUSH ASDIRECTED PRN PRN Reason: Keep Vein Open Last Admin: 03/20/21 09:15 Dose: 10 ml Documented by: Sodium Chloride (Sodium Chloride 0.9% 2.5 Ml Syringe) 2.5 ml FLUSH ASDIRECTED PRN PRN Reason: Keep Vein Open Last Admin: 03/19/21 16:08 Dose: 2.5 ml Documented by: Warfarin Sodium (Warfarin 10 Mg Tab) 10 mg PO DAILY [facility] Last Admin: 03/20/21 09:13 Dose: 10 mg Documented by: Discontinued Medications Dexamethasone (Dexamethasone 4 Mg Tab) 6 mg PO ONETIME ONE Stop: 03/19/21 01:12 Last Admin: 03/19/21 02:04 Dose: 6 mg Documented by: Dexamethasone (Dexamethasone 4 Mg Tab) 6 mg PO DAILY [facility] Dexamethasone (Dexamethasone 4 Mg Tab) 6 mg PO DAILY@1200 [facility] Stop: 03/19/21 12:01 Last Admin: 03/19/21 12:18 Dose: 6 mg Documented by: Sodium Chloride (Normal Saline) 1,000 mls @ 999 mls/hr IV .BOLUS ONE Stop: 03/18/21 17:10 Last Admin: 03/18/21 16:49 Dose: 999 mls/hr Documented by: Sodium Chloride (Normal Saline) 500 mls @ 125 mls/hr IV ONETIME ONE Stop: 03/19/21 00:05 Last Admin: 03/18/21 20:35 Dose: 125 mls/hr Documented by: Remdesivir 200 mg/ Sodium (Chloride) 250 mls @ 250 mls/hr IV ONETIME ONE Stop: 03/19/21 01:04 Last Admin: 03/19/21 03:51 Dose: 250 mls/hr Documented by: Ondansetron HCl (Ondansetron 4 Mg/2 Ml Sdv) 4 mg IVPUSH ONETIME ONE Stop: 03/18/21 16:11 Last Admin: 03/18/21 16:52 Dose: 4 mg Documented by: Warfarin Sodium (Warfarin 5 Mg Tab) 10 mg PO DAILY [facility] Last Admin: 03/19/21 08:40 Dose: 10 mg Documented by: - Exam Quality Assessment: Supplemental Oxygen General: Alert, Oriented, Cooperative, Mild Distress Neck: Supple Lungs: Normal Respiratory Effort, Decreased Breath Sounds, Crackles. No: Clear to Auscultation Cardiovascular: Regular Rate, Regular Rhythm, No Murmurs GI/Abdominal Exam: Normal Bowel Sounds, Soft, Non-Tender - Patient Data Lab Results Last 24 hrs: Laboratory Results - last 24 hr 03/20/21 03/20/21 Range/Units 06:15 06:15 WBC 8.61 (4.0-11.0) K/uL RBC 6.16 H (4.50-5.90) M/uL Hgb 16.8 (13.0-17.0) g/dL Hct 49.7 (38.0-50.0) % MCV 80.7 (80.0-98.0) fL MCH 27.3 (27.0-32.0) pg MCHC 33.8 (31.0-37.0) g/dL RDW Std Deviation 41.5 (28.0-62.0) fl RDW Coeff of [place] 14 (11.0-15.0) % Plt Count 229 (150-400) K/uL MPV 11.40 (7.40-12.00) fL Neut % (Auto) 82.6 H (48.0-80.0) % Lymph % (Auto) 7.5 L (16.0-40.0) % [place] % (Auto) 9.8 (0.0-15.0) % Eos % (Auto) 0.0 (0.0-7.0) % Baso % (Auto) 0.1 (0.0-1.5) % Neut # (Auto) 7.1 H (1.4-5.7) K/uL Lymph # (Auto) 0.7 (0.6-2.4) K/uL [place] # (Auto) 0.8 (0.0-0.8) K/uL Eos # (Auto) 0.0 (0.0-0.7) K/uL Baso # (Auto) 0.0 (0.0-0.1) K/uL Nucleated RBC % 0.0 /100WBC Nucleated RBCs # 0 K/uL Sodium 138 (136-148) mmol/L Potassium 4.1 (3.5-5.1) mmol/L Chloride 105 (98-107) mmol/L Carbon Dioxide 19.9 L (21.0-32.0) mmol/L BUN 29 H (7.0-18.0) mg/dL Creatinine 1.4 H (0.8-1.3) mg/dL Est Cr Clr Drug Dosing 41.03 mL/min Estimated GFR (MDRD) 49.7 ml/min Glucose 157 H (74-106) mg/dL Calcium 8.3 L (8.5-10.1) mg/dL Phosphorus 2.7 (2.6-4.7) mg/dL Magnesium 2.3 (1.8-2.4) mg/dL Total Bilirubin 0.5 (0.2-1.0) mg/dL AST 30 (15-37) IU/L ALT 21 (14-63) IU/L Alkaline Phosphatase 62 (46-116) U/L Total Protein 6.8 (6.4-8.2) g/dL Albumin 2.8 L (3.4-5.0) g/dL Globulin 4.0 (2.6-4.0) g/dL Albumin/Globulin Ratio 0.7 L (0.9-1.6) Result Diagrams: 03/20/21 06:15 03/20/21 06:15 Sepsis Event Note - Evaluation Sepsis Screening Result: No Definite Risk - Focused Exam Vital Signs: Vital Signs Temp Pulse Resp BP BP Pulse Ox 03/20/21 07:40 35.7 C L 84 18 93/53 L 92 L 03/20/21 05:54 91 L 03/20/21 03:52 90 L 03/20/21 03:48 36.3 C 84 18 96/72 88 L - Problem List & Annotations (1) Afib SNOMED Code(s): 73602786 Code(s): I48.91 - UNSPECIFIED ATRIAL FIBRILLATION Status: Acute Current Visit: Yes (2) COVID-19 SNOMED Code(s): 405780430 Code(s): U07.1 - COVID-19 Status: Acute Current Visit: Yes (3) Hypoxemia SNOMED Code(s): 035049558 Code(s): R09.02 - HYPOXEMIA Status: Acute Current Visit: Yes - Problem List Review Problem List Initiated/Reviewed/Updated: Yes - My Orders Last 24 Hours: My Active Orders 03/19/21 21:00 Remdesivir 100 mg Sodium Chloride 0.9% [Normal Saline] 100 ml IV Q24H 03/20/21 09:00 dexAMETHasone 6 mg PO DAILY 03/20/21 10:00 Ondansetron [Zofran] 4 mg IVPUSH Q4H PRN 03/20/21 10:15 Pantoprazole [ProTONIX IV] 40 mg Sodium Chloride 0.9% [Normal Saline] 10 ml IV DAILY - Plan Plan:: 71 yo male with pmh of atrial fibrillation admitted with COVID and dehydration. Patient received a liter of fluid in the ED cont vDexamethasone and Remdesivir cont Duonebs cont oxygenation via NC as needed on prophylactic lovenox as INR is subtherapeutic, cont Coumadin, daily INR start iv fluids 1Lts today
[2021-03-20] MEDS: Lactated Ringers 1,000 ML IV SCH ×2 (14:12→23:24)
[2021-03-20] MEDS: Enoxaparin 40 MG/0.4 ML Syringe SUBCUT SCH (20:01)
[2021-03-20] MEDS: REMDESIVIR 100 MG in Sodium Chloride 0.9% 100 ML IV SCH (20:03)
[2021-03-20] MEDS ORDERED: Albuterol/Ipratropium 4 GM Inhalation Spray INH PRN (23:13)
[2021-03-21 06:54] LABS: BLOOD UREA NITROGEN,BUN 24 mg/dL (7.0-18.0); CARBON DIOXIDE,CO2 20.9 mmol/L (21.0-32.0); CHLORIDE,CL 107 mmol/L (98-107); GLUCOSE RANDOM 132 mg/dL (74-106); POTASSIUM,K 4.3 mmol/L (3.5-5.1); SODIUM,NA 140 mmol/L (136-148)
[2021-03-21] MEDS: Dexamethasone 4 MG Tab PO SCH (08:52)
[2021-03-21] MEDS: atorvaSTATin 20 MG Tab PO SCH (08:52)
[2021-03-21] MEDS: Pantoprazole 40 MG in Sodium Chloride 0.9% 10 ML IV SCH (08:54)
[2021-03-21] MEDS ORDERED: Albuterol/Ipratropium 4 GM Inhalation Spray INH PRN (10:00)
--- NOTE | 2021-03-21 12:24 | PCM.PN ---
- General Info Date of Service: 03/21/21 Admission Dx/Problem (Free Text): Admission Diagnosis/Problem Admission Diagnosis/Problem Hypoxemia Subjective Update: seen at bedside, feels weak, diarrhea is better , appetite is poor today Functional Status: Reports: Ambulating, Urinating - Review of Systems General: Reports: Weakness, Fatigue HEENT: Denies: Dysphasia, Ear Pain Pulmonary: Reports: Shortness of Breath, Cough. Denies: Pleuritic Chest Pain, Sputum Cardiovascular: Denies: Chest Pain, Palpitations, Dyspnea on Exertion, Lightheadedness Gastrointestinal: Denies: Abdominal Pain, Constipation Genitourinary: Reports: No Symptoms. Denies: Dysuria, Frequency, Burning Musculoskeletal: Reports: No Symptoms Skin: Reports: No Symptoms Neurological: Reports: No Symptoms - Patient Data Vitals - Most Recent: Last Vital Signs Temp 37.3 C 03/21/21 08:06 Pulse 91 03/21/21 08:06 Resp 20 03/21/21 08:06 BP 99/52 L 03/21/21 08:06 Pulse Ox 90 L 03/21/21 08:06 Weight - Most Recent: 61.734 kg I&O - Last 24 Hours: Intake & Output 03/20/21 03/21/21 03/21/21 22:59 06:59 14:59 Intake Total 1330 Output Total 450 Balance 880 Lab Results Last 24 Hours: Laboratory Results - last 24 hr 03/21/21 03/21/21 03/21/21 Range/Units 06:05 06:05 06:05 WBC 12.38 H (4.0-11.0) K/uL RBC 5.32 (4.50-5.90) M/uL Hgb 14.4 (13.0-17.0) g/dL Hct 42.4 (38.0-50.0) % MCV 79.7 L (80.0-98.0) fL MCH 27.1 (27.0-32.0) pg MCHC 34.0 (31.0-37.0) g/dL RDW Std Deviation 40.5 (28.0-62.0) fl RDW Coeff of Ashley 14 (11.0-15.0) % Plt Count 215 (150-400) K/uL MPV 11.10 (7.40-12.00) fL Neut % (Auto) 90.4 H (48.0-80.0) % Lymph % (Auto) 2.5 L (16.0-40.0) % [place] % (Auto) 7.1 (0.0-15.0) % Eos % (Auto) 0.0 (0.0-7.0) % Baso % (Auto) 0.0 (0.0-1.5) % Neut # (Auto) 11.2 H (1.4-5.7) K/uL Lymph # (Auto) 0.3 L (0.6-2.4) K/uL [place] # (Auto) 0.9 H (0.0-0.8) K/uL Eos # (Auto) 0.0 (0.0-0.7) K/uL Baso # (Auto) 0.0 (0.0-0.1) K/uL Nucleated RBC % 0.0 /100WBC Nucleated RBCs # 0 K/uL INR 4.98 Sodium 140 (136-148) mmol/L Potassium 4.3 (3.5-5.1) mmol/L Chloride 107 (98-107) mmol/L Carbon Dioxide 20.9 L (21.0-32.0) mmol/L BUN 24 H (7.0-18.0) mg/dL Creatinine 1.1 (0.8-1.3) mg/dL Est Cr Clr Drug Dosing 52.22 mL/min Estimated GFR (MDRD) > 60.0 ml/min Glucose 132 H (74-106) mg/dL Calcium 7.9 L (8.5-10.1) mg/dL Phosphorus 3.0 (2.6-4.7) mg/dL Magnesium 2.0 (1.8-2.4) mg/dL Total Bilirubin 0.4 (0.2-1.0) mg/dL AST 24 (15-37) IU/L ALT 19 (14-63) IU/L Alkaline Phosphatase 52 (46-116) U/L Total Protein 5.8 L (6.4-8.2) g/dL Albumin 2.5 L (3.4-5.0) g/dL Globulin 3.3 (2.6-4.0) g/dL Albumin/Globulin Ratio 0.8 L (0.9-1.6) Med Orders - Current: Current Medications Acetaminophen (Acetaminophen 325 Mg Tab) 650 mg PO Q4H PRN PRN Reason: Fever Albuterol/Ipratropium (Albuterol/Ipratropium 4 Gm Inhalation [place]) 0 gm INH QID [facility] Atorvastatin Calcium (Atorvastatin 20 Mg Tab) 20 mg PO DAILY [facility] Last Admin: 03/21/21 08:52 Dose: 20 mg Documented by: Dexamethasone (Dexamethasone 4 Mg Tab) 6 mg PO DAILY [facility] Last Admin: 03/21/21 08:52 Dose: 6 mg Documented by: Sodium Chloride (Normal Saline) 500 mls @ 125 mls/hr IV .BOLUS [facility] Last Admin: 03/19/21 00:36 Dose: 125 mls/hr Documented by: Remdesivir 100 mg/ Sodium (Chloride) 100 mls @ 100 mls/hr IV Q24H [facility] Stop: 03/22/21 21:59 Last Admin: 03/20/21 20:03 Dose: 100 mls/hr Documented by: Pantoprazole Sodium 40 mg/ (Sodium Chloride) 10 mls @ 300 mls/hr IV DAILY [facility] Last Admin: 03/21/21 08:54 Dose: 300 mls/hr Documented by: Ondansetron HCl (Ondansetron 4 Mg/2 Ml Sdv) 4 mg IVPUSH Q4H PRN PRN Reason: Nausea Last Admin: 03/20/21 10:57 Dose: 4 mg Documented by: Pneumococcal Polyvalent Vaccine (Pneumococcal Polyvalent-23 Vaccine 0.5 Ml Sdv) 0.5 ml IM .ONCE ONE Stop: 03/23/21 12:01 Sodium Chloride (Sodium Chloride 0.9% 10 Ml Syringe) 10 ml FLUSH ASDIRECTED PRN PRN Reason: Keep Vein Open Last Admin: 03/20/21 09:15 Dose: 10 ml Documented by: Sodium Chloride (Sodium Chloride 0.9% 2.5 Ml Syringe) 2.5 ml FLUSH ASDIRECTED PRN PRN Reason: Keep Vein Open Last Admin: 03/19/21 16:08 Dose: 2.5 ml Documented by: Warfarin Sodium (Warfarin Ask Dosing) 1 each PO DAILY@1400 [facility] Discontinued Medications Albuterol/Ipratropium (Albuterol/Ipratropium 4 Gm Inhalation [place]) 0 gm INH Q4H PRN PRN Reason: Dyspnea Last Admin: 03/21/21 06:02 Dose: 1 puff Documented by: Albuterol/Ipratropium (Albuterol/Ipratropium 4 Gm Inhalation [place]) 0 gm INH Q4HRRT PRN PRN Reason: Dyspnea Dexamethasone (Dexamethasone 4 Mg Tab) 6 mg PO ONETIME ONE Stop: 03/19/21 01:12 Last Admin: 03/19/21 02:04 Dose: 6 mg Documented by: Dexamethasone (Dexamethasone 4 Mg Tab) 6 mg PO DAILY [facility] Dexamethasone (Dexamethasone 4 Mg Tab) 6 mg PO DAILY@1200 [facility] Stop: 03/19/21 12:01 Last Admin: 03/19/21 12:18 Dose: 6 mg Documented by: Enoxaparin Sodium (Enoxaparin 40 Mg/0.4 Ml Syringe) 40 mg SUBCUT Q24H [facility] Last Admin: 03/20/21 20:01 Dose: 40 mg Documented by: Sodium Chloride (Normal Saline) 1,000 mls @ 999 mls/hr IV .BOLUS ONE Stop: 03/18/21 17:10 Last Admin: 03/18/21 16:49 Dose: 999 mls/hr Documented by: Sodium Chloride (Normal Saline) 500 mls @ 125 mls/hr IV ONETIME ONE Stop: 03/19/21 00:05 Last Admin: 03/18/21 20:35 Dose: 125 mls/hr Documented by: Remdesivir 200 mg/ Sodium (Chloride) 250 mls @ 250 mls/hr IV ONETIME ONE Stop: 03/19/21 01:04 Last Admin: 03/19/21 03:51 Dose: 250 mls/hr Documented by: Lactated Ringer's (Ringers, Lactated) 1,000 mls @ 100 mls/hr IV Q10H [facility] Stop: 03/20/21 23:59 Last Admin: 03/20/21 23:24 Dose: Not Given Documented by: Ondansetron HCl (Ondansetron 4 Mg/2 Ml Sdv) 4 mg IVPUSH ONETIME ONE Stop: 03/18/21 16:11 Last Admin: 03/18/21 16:52 Dose: 4 mg Documented by: Warfarin Sodium (Warfarin 5 Mg Tab) 10 mg PO DAILY [facility] Last Admin: 03/19/21 08:40 Dose: 10 mg Documented by: Warfarin Sodium (Warfarin 10 Mg Tab) 10 mg PO DAILY [facility] Last Admin: 03/20/21 09:13 Dose: 10 mg Documented by: - Exam Quality Assessment: Supplemental Oxygen General: Alert, Oriented, Cooperative, Mild Distress Neck: Supple Lungs: Clear to Auscultation, Decreased Breath Sounds, Crackles Cardiovascular: Regular Rate, Regular Rhythm GI/Abdominal Exam: Normal Bowel Sounds, Soft, Non-Tender - Patient Data Lab Results Last 24 hrs: Laboratory Results - last 24 hr 03/21/21 03/21/21 03/21/21 Range/Units 06:05 06:05 06:05 WBC 12.38 H (4.0-11.0) K/uL RBC 5.32 (4.50-5.90) M/uL Hgb 14.4 (13.0-17.0) g/dL Hct 42.4 (38.0-50.0) % MCV 79.7 L (80.0-98.0) fL MCH 27.1 (27.0-32.0) pg MCHC 34.0 (31.0-37.0) g/dL RDW Std Deviation 40.5 (28.0-62.0) fl RDW Coeff of [place] 14 (11.0-15.0) % Plt Count 215 (150-400) K/uL MPV 11.10 (7.40-12.00) fL Neut % (Auto) 90.4 H (48.0-80.0) % Lymph % (Auto) 2.5 L (16.0-40.0) % [place] % (Auto) 7.1 (0.0-15.0) % Eos % (Auto) 0.0 (0.0-7.0) % Baso % (Auto) 0.0 (0.0-1.5) % Neut # (Auto) 11.2 H (1.4-5.7) K/uL Lymph # (Auto) 0.3 L (0.6-2.4) K/uL [place] # (Auto) 0.9 H (0.0-0.8) K/uL Eos # (Auto) 0.0 (0.0-0.7) K/uL Baso # (Auto) 0.0 (0.0-0.1) K/uL Nucleated RBC % 0.0 /100WBC Nucleated RBCs # 0 K/uL INR 4.98 Sodium 140 (136-148) mmol/L Potassium 4.3 (3.5-5.1) mmol/L Chloride 107 (98-107) mmol/L Carbon Dioxide 20.9 L (21.0-32.0) mmol/L BUN 24 H (7.0-18.0) mg/dL Creatinine 1.1 (0.8-1.3) mg/dL Est Cr Clr Drug Dosing 52.22 mL/min Estimated GFR (MDRD) > 60.0 ml/min Glucose 132 H (74-106) mg/dL Calcium 7.9 L (8.5-10.1) mg/dL Phosphorus 3.0 (2.6-4.7) mg/dL Magnesium 2.0 (1.8-2.4) mg/dL Total Bilirubin 0.4 (0.2-1.0) mg/dL AST 24 (15-37) IU/L ALT 19 (14-63) IU/L Alkaline Phosphatase 52 (46-116) U/L Total Protein 5.8 L (6.4-8.2) g/dL Albumin 2.5 L (3.4-5.0) g/dL Globulin 3.3 (2.6-4.0) g/dL Albumin/Globulin Ratio 0.8 L (0.9-1.6) Result Diagrams: 03/21/21 06:05 03/21/21 06:05 Sepsis Event Note - Evaluation Sepsis Screening Result: No Definite Risk - Focused Exam Vital Signs: Vital Signs Temp Pulse Resp BP Pulse Ox 03/21/21 08:06 37.3 C 91 20 99/52 L 90 L 03/21/21 04:32 36.6 C 72 18 92/57 L 90 L - Problem List & Annotations (1) Afib SNOMED Code(s): 80284194 Code(s): I48.91 - UNSPECIFIED ATRIAL FIBRILLATION Status: Acute Current Visit: Yes (2) COVID-19 SNOMED Code(s): 640308935 Code(s): U07.1 - COVID-19 Status: Acute Current Visit: Yes (3) Hypoxemia SNOMED Code(s): 080274751 Code(s): R09.02 - HYPOXEMIA Status: Acute Current Visit: Yes - Problem List Review Problem List Initiated/Reviewed/Updated: Yes - My Orders Last 24 Hours: My Active Orders 03/20/21 23:15 RT Post Treatment Assessment [RC] Click to Edit RT Pre-Treatment Assessment [RC] Click to Edit - Plan Plan:: 71 yo male with pmh of atrial fibrillation admitted with COVID and dehydration. cont Dexamethasone and Remdesivir cont Duonebs cont oxygenation via NC as needed on prophylactic lovenox as INR is subtherapeutic, cont Coumadin, daily INR, supra-therapeutic , hold Coumadin today
[2021-03-21] MEDS: Albuterol/Ipratropium 4 GM Inhalation Spray INH SCH ×2 (14:16→18:33)
[2021-03-21] MEDS: REMDESIVIR 100 MG in Sodium Chloride 0.9% 100 ML IV SCH (20:54)
[2021-03-22] MEDS: Albuterol/Ipratropium 4 GM Inhalation Spray INH SCH ×4 (06:25→17:52)
[2021-03-22 06:36] LABS: CARBON DIOXIDE,CO2 23.5 mmol/L (21.0-32.0); POTASSIUM,K 4.5 mmol/L (3.5-5.1)
[2021-03-22] MEDS: Pantoprazole 40 MG in Sodium Chloride 0.9% 10 ML IV SCH (08:50)
[2021-03-22] MEDS: Dexamethasone 4 MG Tab PO SCH (08:51)
[2021-03-22] MEDS: atorvaSTATin 20 MG Tab PO SCH (08:51)
--- NOTE | 2021-03-22 13:32 | PCM.PN ---
- General Info Date of Service: 03/22/21 Admission Dx/Problem (Free Text): Admission Diagnosis/Problem Admission Diagnosis/Problem Hypoxemia Subjective Update: seen at bedside, feel slitlle better today, requesting something for dry nose - Review of Systems General: Reports: Weakness, Fatigue. Denies: Fever Pulmonary: Reports: Shortness of Breath, Pleuritic Chest Pain, Cough Cardiovascular: Denies: Chest Pain, Palpitations, Dyspnea on Exertion Gastrointestinal: Denies: Abdominal Pain Genitourinary: Denies: Dysuria, Frequency, Burning Musculoskeletal: Denies: Neck Pain, Shoulder Pain, Arm Pain - Patient Data Vitals - Most Recent: Last Vital Signs Temp 36.7 C 03/22/21 12:00 Pulse 82 03/22/21 12:00 Resp 17 03/22/21 12:00 BP 101/72 03/22/21 12:00 Pulse Ox 92 L 03/22/21 12:00 Weight - Most Recent: 61.734 kg I&O - Last 24 Hours: Intake & Output 03/21/21 03/22/21 03/22/21 22:59 06:59 14:59 Intake Total 600 400 Output Total 600 Balance 600 -200 Lab Results Last 24 Hours: Laboratory Results - last 24 hr 03/22/21 03/22/21 03/22/21 Range/Units 05:45 05:45 08:16 WBC 13.08 H (4.0-11.0) K/uL RBC 5.25 (4.50-5.90) M/uL Hgb 14.2 (13.0-17.0) g/dL Hct 42.4 (38.0-50.0) % MCV 80.8 (80.0-98.0) fL MCH 27.0 (27.0-32.0) pg MCHC 33.5 (31.0-37.0) g/dL RDW Std Deviation 41.4 (28.0-62.0) fl RDW Coeff of Ashley 14 (11.0-15.0) % Plt Count 235 (150-400) K/uL MPV 11.80 (7.40-12.00) fL Neut % (Auto) 88.1 H (48.0-80.0) % Lymph % (Auto) 5.0 L (16.0-40.0) % [place] % (Auto) 6.8 (0.0-15.0) % Eos % (Auto) 0.0 (0.0-7.0) % Baso % (Auto) 0.1 (0.0-1.5) % Neut # (Auto) 11.5 H (1.4-5.7) K/uL Lymph # (Auto) 0.7 (0.6-2.4) K/uL [place] # (Auto) 0.9 H (0.0-0.8) K/uL Eos # (Auto) 0.0 (0.0-0.7) K/uL Baso # (Auto) 0.0 (0.0-0.1) K/uL Nucleated RBC % 0.0 /100WBC Nucleated RBCs # 0 K/uL INR 4.45 Sodium 141 (136-148) mmol/L Potassium 4.5 (3.5-5.1) mmol/L Chloride 108 H (98-107) mmol/L Carbon Dioxide 23.5 (21.0-32.0) mmol/L BUN 25 H (7.0-18.0) mg/dL Creatinine 1.2 (0.8-1.3) mg/dL Est Cr Clr Drug Dosing 47.87 mL/min Estimated GFR (MDRD) 59.3 ml/min Glucose 174 H (74-106) mg/dL Calcium 7.9 L (8.5-10.1) mg/dL Phosphorus 3.3 (2.6-4.7) mg/dL Magnesium 2.1 (1.8-2.4) mg/dL Total Bilirubin 0.5 (0.2-1.0) mg/dL AST 20 (15-37) IU/L ALT 21 (14-63) IU/L Alkaline Phosphatase 58 (46-116) U/L Total Protein 5.5 L (6.4-8.2) g/dL Albumin 2.5 L (3.4-5.0) g/dL Globulin 3.0 (2.6-4.0) g/dL Albumin/Globulin Ratio 0.8 L (0.9-1.6) Med Orders - Current: Current Medications Acetaminophen (Acetaminophen 325 Mg Tab) 650 mg PO Q4H PRN PRN Reason: Fever Albuterol/Ipratropium (Albuterol/Ipratropium 4 Gm Inhalation [place]) 0 gm INH QID [facility] Last Admin: 03/22/21 12:03 Dose: 1 puff Documented by: Atorvastatin Calcium (Atorvastatin 20 Mg Tab) 20 mg PO DAILY [facility] Last Admin: 03/22/21 08:51 Dose: 20 mg Documented by: Dexamethasone (Dexamethasone 4 Mg Tab) 6 mg PO DAILY [facility] Last Admin: 03/22/21 08:51 Dose: 6 mg Documented by: Sodium Chloride (Normal Saline) 500 mls @ 125 mls/hr IV .BOLUS [facility] Last Admin: 03/19/21 00:36 Dose: 125 mls/hr Documented by: Remdesivir 100 mg/ Sodium (Chloride) 100 mls @ 100 mls/hr IV Q24H [facility] Stop: 03/22/21 21:59 Last Admin: 03/21/21 20:54 Dose: 100 mls/hr Documented by: Pantoprazole Sodium 40 mg/ (Sodium Chloride) 10 mls @ 300 mls/hr IV DAILY [facility] Last Admin: 03/22/21 08:50 Dose: 300 mls/hr Documented by: Ondansetron HCl (Ondansetron 4 Mg/2 Ml Sdv) 4 mg IVPUSH Q4H PRN PRN Reason: Nausea Last Admin: 03/20/21 10:57 Dose: 4 mg Documented by: Pneumococcal Polyvalent Vaccine (Pneumococcal Polyvalent-23 Vaccine 0.5 Ml Sdv) 0.5 ml IM .ONCE ONE Stop: 03/23/21 12:01 Sodium Chloride (Sodium Chloride 0.9% 10 Ml Syringe) 10 ml FLUSH ASDIRECTED PRN PRN Reason: Keep Vein Open Last Admin: 03/20/21 09:15 Dose: 10 ml Documented by: Sodium Chloride (Sodium Chloride 0.9% 2.5 Ml Syringe) 2.5 ml FLUSH ASDIRECTED PRN PRN Reason: Keep Vein Open Last Admin: 03/19/21 16:08 Dose: 2.5 ml Documented by: Warfarin Sodium (Warfarin Ask Dosing) 1 each PO DAILY@1400 [facility] Last Admin: 03/22/21 13:24 Dose: Not Given Documented by: Discontinued Medications Albuterol/Ipratropium (Albuterol/Ipratropium 4 Gm Inhalation [place]) 0 gm INH Q4H PRN PRN Reason: Dyspnea Last Admin: 03/21/21 06:02 Dose: 1 puff Documented by: Albuterol/Ipratropium (Albuterol/Ipratropium 4 Gm Inhalation [place]) 0 gm INH Q4HRRT PRN PRN Reason: Dyspnea Dexamethasone (Dexamethasone 4 Mg Tab) 6 mg PO ONETIME ONE Stop: 03/19/21 01:12 Last Admin: 03/19/21 02:04 Dose: 6 mg Documented by: Dexamethasone (Dexamethasone 4 Mg Tab) 6 mg PO DAILY [facility] Dexamethasone (Dexamethasone 4 Mg Tab) 6 mg PO DAILY@1200 [facility] Stop: 03/19/21 12:01 Last Admin: 03/19/21 12:18 Dose: 6 mg Documented by: Enoxaparin Sodium (Enoxaparin 40 Mg/0.4 Ml Syringe) 40 mg SUBCUT Q24H [facility] Last Admin: 03/20/21 20:01 Dose: 40 mg Documented by: Sodium Chloride (Normal Saline) 1,000 mls @ 999 mls/hr IV .BOLUS ONE Stop: 03/18/21 17:10 Last Admin: 03/18/21 16:49 Dose: 999 mls/hr Documented by: Sodium Chloride (Normal Saline) 500 mls @ 125 mls/hr IV ONETIME ONE Stop: 03/19/21 00:05 Last Admin: 03/18/21 20:35 Dose: 125 mls/hr Documented by: Remdesivir 200 mg/ Sodium (Chloride) 250 mls @ 250 mls/hr IV ONETIME ONE Stop: 03/19/21 01:04 Last Admin: 03/19/21 03:51 Dose: 250 mls/hr Documented by: Lactated Ringer's (Ringers, Lactated) 1,000 mls @ 100 mls/hr IV Q10H [facility] Stop: 03/20/21 23:59 Last Admin: 03/20/21 23:24 Dose: Not Given Documented by: Ondansetron HCl (Ondansetron 4 Mg/2 Ml Sdv) 4 mg IVPUSH ONETIME ONE Stop: 03/18/21 16:11 Last Admin: 03/18/21 16:52 Dose: 4 mg Documented by: Warfarin Sodium (Warfarin 5 Mg Tab) 10 mg PO DAILY [facility] Last Admin: 03/19/21 08:40 Dose: 10 mg Documented by: Warfarin Sodium (Warfarin 10 Mg Tab) 10 mg PO DAILY [facility] Last Admin: 03/20/21 09:13 Dose: 10 mg Documented by: - Exam Quality Assessment: Supplemental Oxygen General: Alert, Oriented, Cooperative, No Acute Distress Lungs: Decreased Breath Sounds, Crackles Cardiovascular: Regular Rate, Irregular Rhythm GI/Abdominal Exam: Normal Bowel Sounds, Soft, Non-Tender Extremities: Normal Inspection, Normal Range of Motion - Patient Data Lab Results Last 24 hrs: Laboratory Results - last 24 hr 03/22/21 03/22/21 03/22/21 Range/Units 05:45 05:45 08:16 WBC 13.08 H (4.0-11.0) K/uL RBC 5.25 (4.50-5.90) M/uL Hgb 14.2 (13.0-17.0) g/dL Hct 42.4 (38.0-50.0) % MCV 80.8 (80.0-98.0) fL MCH 27.0 (27.0-32.0) pg MCHC 33.5 (31.0-37.0) g/dL RDW Std Deviation 41.4 (28.0-62.0) fl RDW Coeff of Ashley 14 (11.0-15.0) % Plt Count 235 (150-400) K/uL MPV 11.80 (7.40-12.00) fL Neut % (Auto) 88.1 H (48.0-80.0) % Lymph % (Auto) 5.0 L (16.0-40.0) % [place] % (Auto) 6.8 (0.0-15.0) % Eos % (Auto) 0.0 (0.0-7.0) % Baso % (Auto) 0.1 (0.0-1.5) % Neut # (Auto) 11.5 H (1.4-5.7) K/uL Lymph # (Auto) 0.7 (0.6-2.4) K/uL [place] # (Auto) 0.9 H (0.0-0.8) K/uL Eos # (Auto) 0.0 (0.0-0.7) K/uL Baso # (Auto) 0.0 (0.0-0.1) K/uL Nucleated RBC % 0.0 /100WBC Nucleated RBCs # 0 K/uL INR 4.45 Sodium 141 (136-148) mmol/L Potassium 4.5 (3.5-5.1) mmol/L Chloride 108 H (98-107) mmol/L Carbon Dioxide 23.5 (21.0-32.0) mmol/L BUN 25 H (7.0-18.0) mg/dL Creatinine 1.2 (0.8-1.3) mg/dL Est Cr Clr Drug Dosing 47.87 mL/min Estimated GFR (MDRD) 59.3 ml/min Glucose 174 H (74-106) mg/dL Calcium 7.9 L (8.5-10.1) mg/dL Phosphorus 3.3 (2.6-4.7) mg/dL Magnesium 2.1 (1.8-2.4) mg/dL Total Bilirubin 0.5 (0.2-1.0) mg/dL AST 20 (15-37) IU/L ALT 21 (14-63) IU/L Alkaline Phosphatase 58 (46-116) U/L Total Protein 5.5 L (6.4-8.2) g/dL Albumin 2.5 L (3.4-5.0) g/dL Globulin 3.0 (2.6-4.0) g/dL Albumin/Globulin Ratio 0.8 L (0.9-1.6) Result Diagrams: 03/22/21 05:45 03/22/21 05:45 Sepsis Event Note - Evaluation Sepsis Screening Result: No Definite Risk - Focused Exam Vital Signs: Vital Signs Temp Pulse Resp BP Pulse Ox 03/22/21 12:00 36.7 C 82 17 101/72 92 L 03/22/21 08:00 36.7 C 85 20 105/75 90 L 03/22/21 04:09 36.2 C 85 20 96/61 91 L - Problem List & Annotations (1) Afib SNOMED Code(s): 23433769 Code(s): I48.91 - UNSPECIFIED ATRIAL FIBRILLATION Status: Acute Current Visit: Yes (2) COVID-19 SNOMED Code(s): 971671953 Code(s): U07.1 - COVID-19 Status: Acute Current Visit: Yes (3) Hypoxemia SNOMED Code(s): 534888346 Code(s): R09.02 - HYPOXEMIA Status: Acute Current Visit: Yes - Problem List Review Problem List Initiated/Reviewed/Updated: Yes - My Orders Last 24 Hours: My Active Orders 03/23/21 07:31 INR,PT,PROTHROMBIN TIME [COAG] DAILY 03/24/21 07:31 INR,PT,PROTHROMBIN TIME [COAG] DAILY 03/25/21 07:31 INR,PT,PROTHROMBIN TIME [COAG] DAILY 03/26/21 07:31 INR,PT,PROTHROMBIN TIME [COAG] DAILY - Plan Plan:: 71 yo male with pmh of atrial fibrillation admitted with COVID and dehydration. cont Dexamethasone and Remdesivir cont Duonebs cont oxygenation via NC as needed INR is subtherapeutic, cont Coumadin, daily INR, supra-therapeutic , hold Coumadin today
[2021-03-22] MEDS: Sodium Chloride 0.65% Nasal Spray 45 ML Bottle NAS SCH ×2 (14:35→20:00)
[2021-03-22] MEDS: REMDESIVIR 100 MG in Sodium Chloride 0.9% 100 ML IV SCH (20:55)
[2021-03-23] MEDS: Albuterol/Ipratropium 4 GM Inhalation Spray INH SCH ×4 (00:30→18:28)
[2021-03-23] MEDS: Sodium Chloride 0.65% Nasal Spray 45 ML Bottle NAS SCH ×3 (01:27→14:40)
[2021-03-23 06:24] LABS: CARBON DIOXIDE,CO2 25.8 mmol/L (21.0-32.0); POTASSIUM,K 4.5 mmol/L (3.5-5.1)
[2021-03-23] MEDS: Pantoprazole 40 MG Tab.CR PO SCH (09:07)
[2021-03-23] MEDS: atorvaSTATin 20 MG Tab PO SCH (09:07)
[2021-03-23] MEDS: Dexamethasone 4 MG Tab PO SCH (09:07)
[2021-03-23] MEDS ORDERED: Pneumococcal Polyvalent-23 Vaccine 0.5 ML SDV IM ONE (12:00)
[2021-03-23] MEDS ORDERED: Levofloxacin/Dextrose 5%-Water 750 MG in Premix Bag 1 BAG IV SCH (13:15)
--- NOTE | 2021-03-23 14:59 | PCM.PN ---
- General Info Date of Service: 03/23/21 Admission Dx/Problem (Free Text): Admission Diagnosis/Problem Admission Diagnosis/Problem Hypoxemia Subjective Update: seen at bedside, states he couldnt sleep well due to being woken up frequently overnight Functional Status: Reports: Pain Controlled, Tolerating Diet, Ambulating, Urinating - Review of Systems General: Reports: Weakness, Fatigue. Denies: Fever HEENT: Reports: Sore Throat Pulmonary: Reports: Shortness of Breath, Cough. Denies: Pleuritic Chest Pain Cardiovascular: Reports: Dyspnea on Exertion. Denies: Chest Pain, Palpitations, Orthopnea Gastrointestinal: Reports: Decreased Appetite. Denies: Abdominal Pain, Constipation, Diarrhea, Vomiting Genitourinary: Denies: Dysuria, Frequency, Burning Musculoskeletal: Denies: Neck Pain, Shoulder Pain Skin: Reports: Cyanosis, Jaundice. Denies: Mottled - Patient Data Vitals - Most Recent: Last Vital Signs Temp 36.2 C 03/23/21 11:53 Pulse 96 03/23/21 11:53 Resp 18 03/23/21 11:53 BP 107/75 03/23/21 11:53 Pulse Ox 94 L 03/23/21 11:53 Weight - Most Recent: 61.734 kg I&O - Last 24 Hours: Intake & Output 03/22/21 03/23/21 03/23/21 22:59 06:59 14:59 Intake Total 820 450 Output Total 825 500 Balance -5 -50 Lab Results Last 24 Hours: Laboratory Results - last 24 hr 03/23/21 03/23/21 03/23/21 Range/Units 05:41 05:41 05:41 WBC 15.07 H (4.0-11.0) K/uL RBC 5.56 (4.50-5.90) M/uL Hgb 15.1 (13.0-17.0) g/dL Hct 44.6 (38.0-50.0) % MCV 80.2 (80.0-98.0) fL MCH 27.2 (27.0-32.0) pg MCHC 33.9 (31.0-37.0) g/dL RDW Std Deviation 40.7 (28.0-62.0) fl RDW Coeff of Ashley 14 (11.0-15.0) % Plt Count 201 (150-400) K/uL MPV 11.80 (7.40-12.00) fL Neut % (Auto) 85.4 H (48.0-80.0) % Lymph % (Auto) 3.3 L (16.0-40.0) % [place] % (Auto) 11.1 (0.0-15.0) % Eos % (Auto) 0.1 (0.0-7.0) % Baso % (Auto) 0.1 (0.0-1.5) % Neut # (Auto) 12.9 H (1.4-5.7) K/uL Lymph # (Auto) 0.5 L (0.6-2.4) K/uL [place] # (Auto) 1.7 H (0.0-0.8) K/uL Eos # (Auto) 0.0 (0.0-0.7) K/uL Baso # (Auto) 0.0 (0.0-0.1) K/uL Nucleated RBC % 0.0 /100WBC Nucleated RBCs # 0 K/uL INR 4.13 Sodium 139 (136-148) mmol/L Potassium 4.5 (3.5-5.1) mmol/L Chloride 106 (98-107) mmol/L Carbon Dioxide 25.8 (21.0-32.0) mmol/L BUN 21 H (7.0-18.0) mg/dL Creatinine 1.2 (0.8-1.3) mg/dL Est Cr Clr Drug Dosing 47.87 mL/min Estimated GFR (MDRD) 59.3 ml/min Glucose 214 H (74-106) mg/dL Calcium 7.9 L (8.5-10.1) mg/dL Phosphorus 3.2 (2.6-4.7) mg/dL Magnesium 2.2 (1.8-2.4) mg/dL Total Bilirubin 0.6 (0.2-1.0) mg/dL AST 13 L (15-37) IU/L ALT 19 (14-63) IU/L Alkaline Phosphatase 66 (46-116) U/L Total Protein 5.9 L (6.4-8.2) g/dL Albumin 2.7 L (3.4-5.0) g/dL Globulin 3.2 (2.6-4.0) g/dL Albumin/Globulin Ratio 0.8 L (0.9-1.6) Med Orders - Current: Current Medications Acetaminophen (Acetaminophen 325 Mg Tab) 650 mg PO Q4H PRN PRN Reason: Fever Albuterol/Ipratropium (Albuterol/Ipratropium 4 Gm Inhalation [place]) 0 gm INH QID [facility] Last Admin: 03/23/21 11:51 Dose: 1 puff Documented by: Atorvastatin Calcium (Atorvastatin 20 Mg Tab) 20 mg PO DAILY [facility] Last Admin: 03/23/21 09:07 Dose: 20 mg Documented by: Dexamethasone (Dexamethasone 4 Mg Tab) 6 mg PO DAILY [facility] Last Admin: 03/23/21 09:07 Dose: 6 mg Documented by: Sodium Chloride (Normal Saline) 500 mls @ 125 mls/hr IV .BOLUS [facility] Last Admin: 03/19/21 00:36 Dose: 125 mls/hr Documented by: Levofloxacin/Dextrose 750 mg/ (Premix) 150 mls @ 100 mls/hr IV Q48H [facility] Last Admin: 03/23/21 14:00 Dose: 100 mls/hr Documented by: Ondansetron HCl (Ondansetron 4 Mg/2 Ml Sdv) 4 mg IVPUSH Q4H PRN PRN Reason: Nausea Last Admin: 03/20/21 10:57 Dose: 4 mg Documented by: Pantoprazole Sodium (Pantoprazole 40 Mg Tab.Cr) 40 mg PO DAILY [facility] Last Admin: 03/23/21 09:07 Dose: 40 mg Documented by: Sodium Chloride (Sodium Chloride 0.9% 10 Ml Syringe) 10 ml FLUSH ASDIRECTED PRN PRN Reason: Keep Vein Open Last Admin: 03/20/21 09:15 Dose: 10 ml Documented by: Sodium Chloride (Sodium Chloride 0.9% 2.5 Ml Syringe) 2.5 ml FLUSH ASDIRECTED PRN PRN Reason: Keep Vein Open Last Admin: 03/19/21 16:08 Dose: 2.5 ml Documented by: Sodium Chloride (Sodium Chloride 0.65% Nasal [place] 45 Ml Bottle) 0 ml JONI Q6H [facility] Last Admin: 03/23/21 14:40 Dose: 1 spray Documented by: Warfarin Sodium (Warfarin Ask Dosing) 1 each PO DAILY@1400 [facility] Last Admin: 03/23/21 14:43 Dose: Not Given Documented by: Discontinued Medications Albuterol/Ipratropium (Albuterol/Ipratropium 4 Gm Inhalation [place]) 0 gm INH Q4H PRN PRN Reason: Dyspnea Last Admin: 03/21/21 06:02 Dose: 1 puff Documented by: Albuterol/Ipratropium (Albuterol/Ipratropium 4 Gm Inhalation [place]) 0 gm INH Q4HRRT PRN PRN Reason: Dyspnea Dexamethasone (Dexamethasone 4 Mg Tab) 6 mg PO ONETIME ONE Stop: 03/19/21 01:12 Last Admin: 03/19/21 02:04 Dose: 6 mg Documented by: Dexamethasone (Dexamethasone 4 Mg Tab) 6 mg PO DAILY [facility] Dexamethasone (Dexamethasone 4 Mg Tab) 6 mg PO DAILY@1200 [facility] Stop: 03/19/21 12:01 Last Admin: 03/19/21 12:18 Dose: 6 mg Documented by: Enoxaparin Sodium (Enoxaparin 40 Mg/0.4 Ml Syringe) 40 mg SUBCUT Q24H [facility] Last Admin: 03/20/21 20:01 Dose: 40 mg Documented by: Sodium Chloride (Normal Saline) 1,000 mls @ 999 mls/hr IV .BOLUS ONE Stop: 03/18/21 17:10 Last Admin: 03/18/21 16:49 Dose: 999 mls/hr Documented by: Sodium Chloride (Normal Saline) 500 mls @ 125 mls/hr IV ONETIME ONE Stop: 03/19/21 00:05 Last Admin: 03/18/21 20:35 Dose: 125 mls/hr Documented by: Remdesivir 200 mg/ Sodium (Chloride) 250 mls @ 250 mls/hr IV ONETIME ONE Stop: 03/19/21 01:04 Last Admin: 03/19/21 03:51 Dose: 250 mls/hr Documented by: Remdesivir 100 mg/ Sodium (Chloride) 100 mls @ 100 mls/hr IV Q24H [facility] Stop: 03/22/21 21:59 Last Admin: 03/22/21 20:55 Dose: 100 mls/hr Documented by: Pantoprazole Sodium 40 mg/ (Sodium Chloride) 10 mls @ 300 mls/hr IV DAILY [facility] Last Admin: 03/22/21 08:50 Dose: 300 mls/hr Documented by: Lactated Ringer's (Ringers, Lactated) 1,000 mls @ 100 mls/hr IV Q10H [facility] Stop: 03/20/21 23:59 Last Admin: 03/20/21 23:24 Dose: Not Given Documented by: Ondansetron HCl (Ondansetron 4 Mg/2 Ml Sdv) 4 mg IVPUSH ONETIME ONE Stop: 03/18/21 16:11 Last Admin: 03/18/21 16:52 Dose: 4 mg Documented by: Pneumococcal Polyvalent Vaccine (Pneumococcal Polyvalent-23 Vaccine 0.5 Ml Sdv) 0.5 ml IM .ONCE ONE Stop: 03/23/21 12:01 Warfarin Sodium (Warfarin 5 Mg Tab) 10 mg PO DAILY [facility] Last Admin: 03/19/21 08:40 Dose: 10 mg Documented by: Warfarin Sodium (Warfarin 10 Mg Tab) 10 mg PO DAILY [facility] Last Admin: 03/20/21 09:13 Dose: 10 mg Documented by: - Exam Quality Assessment: Supplemental Oxygen General: Alert, Oriented Lungs: Normal Respiratory Effort, Decreased Breath Sounds, Crackles Cardiovascular: Regular Rate, Regular Rhythm - Patient Data Lab Results Last 24 hrs: Laboratory Results - last 24 hr 03/23/21 03/23/21 03/23/21 Range/Units 05:41 05:41 05:41 WBC 15.07 H (4.0-11.0) K/uL RBC 5.56 (4.50-5.90) M/uL Hgb 15.1 (13.0-17.0) g/dL Hct 44.6 (38.0-50.0) % MCV 80.2 (80.0-98.0) fL MCH 27.2 (27.0-32.0) pg MCHC 33.9 (31.0-37.0) g/dL RDW Std Deviation 40.7 (28.0-62.0) fl RDW Coeff of Ashley 14 (11.0-15.0) % Plt Count 201 (150-400) K/uL MPV 11.80 (7.40-12.00) fL Neut % (Auto) 85.4 H (48.0-80.0) % Lymph % (Auto) 3.3 L (16.0-40.0) % [place] % (Auto) 11.1 (0.0-15.0) % Eos % (Auto) 0.1 (0.0-7.0) % Baso % (Auto) 0.1 (0.0-1.5) % Neut # (Auto) 12.9 H (1.4-5.7) K/uL Lymph # (Auto) 0.5 L (0.6-2.4) K/uL [place] # (Auto) 1.7 H (0.0-0.8) K/uL Eos # (Auto) 0.0 (0.0-0.7) K/uL Baso # (Auto) 0.0 (0.0-0.1) K/uL Nucleated RBC % 0.0 /100WBC Nucleated RBCs # 0 K/uL INR 4.13 Sodium 139 (136-148) mmol/L Potassium 4.5 (3.5-5.1) mmol/L Chloride 106 (98-107) mmol/L Carbon Dioxide 25.8 (21.0-32.0) mmol/L BUN 21 H (7.0-18.0) mg/dL Creatinine 1.2 (0.8-1.3) mg/dL Est Cr Clr Drug Dosing 47.87 mL/min Estimated GFR (MDRD) 59.3 ml/min Glucose 214 H (74-106) mg/dL Calcium 7.9 L (8.5-10.1) mg/dL Phosphorus 3.2 (2.6-4.7) mg/dL Magnesium 2.2 (1.8-2.4) mg/dL Total Bilirubin 0.6 (0.2-1.0) mg/dL AST 13 L (15-37) IU/L ALT 19 (14-63) IU/L Alkaline Phosphatase 66 (46-116) U/L Total Protein 5.9 L (6.4-8.2) g/dL Albumin 2.7 L (3.4-5.0) g/dL Globulin 3.2 (2.6-4.0) g/dL Albumin/Globulin Ratio 0.8 L (0.9-1.6) Result Diagrams: 03/23/21 05:41 03/23/21 05:41 Sepsis Event Note - Evaluation Sepsis Screening Result: No Definite Risk - Focused Exam Vital Signs: Vital Signs Temp Pulse Resp BP Pulse Ox Pulse Ox 03/23/21 11:53 36.2 C 96 18 107/75 94 L 03/23/21 11:50 87 L 03/23/21 08:00 36.6 C 82 18 114/72 89 L 03/23/21 07:00 88 L 03/23/21 04:00 36.2 C 79 17 97/74 93 L - Problem List & Annotations (1) Afib SNOMED Code(s): 66783363 Code(s): I48.91 - UNSPECIFIED ATRIAL FIBRILLATION Status: Acute Current Visit: Yes (2) COVID-19 SNOMED Code(s): 727960496 Code(s): U07.1 - COVID-19 Status: Acute Current Visit: Yes (3) Hypoxemia SNOMED Code(s): 038233924 Code(s): R09.02 - HYPOXEMIA Status: Acute Current Visit: Yes - Problem List Review Problem List Initiated/Reviewed/Updated: Yes - My Orders Last 24 Hours: My Active Orders 03/23/21 09:00 Pantoprazole [ProTONIX] 40 mg PO DAILY 03/23/21 13:15 Levofloxacin/Dextrose 5%-Water [Levaquin in D5W 750 MG/150 ML] 750 mg Premix Bag 1 bag IV Q48H 03/24/21 07:31 INR,PT,PROTHROMBIN TIME [COAG] DAILY 03/25/21 07:31 INR,PT,PROTHROMBIN TIME [COAG] DAILY 03/26/21 07:31 INR,PT,PROTHROMBIN TIME [COAG] DAILY - Plan Plan:: 71 yo male with pmh of atrial fibrillation admitted with COVID and dehydration. cont Dexamethasone and Remdesivir cont Duonebs cont oxygenation via NC as needed srat IV antibiotics for possible superimposed PNA INR is subtherapeutic, cont Coumadin, daily INR, supra-therapeutic , hold Coumadin today
[2021-03-23] MEDS ORDERED: Sodium Chloride 0.65% Nasal Spray 45 ML Bottle NAS PRN (18:51)
[2021-03-23] MEDS ORDERED: Diphenhydramine/Lidocaine/Nystatin Suspension 237 ML Bottle PO SCH (19:00)
[2021-03-23] MEDS: Diphenhydramine/Lidocaine/Nystatin Suspension 237 ML Bottle PO SCH ×2 (21:23)
[2021-03-24] MEDS: Albuterol/Ipratropium 4 GM Inhalation Spray INH SCH ×4 (00:08→17:21)
[2021-03-24 06:44] LABS: BLOOD UREA NITROGEN,BUN 23 mg/dL (7.0-18.0); CARBON DIOXIDE,CO2 23.1 mmol/L (21.0-32.0); CHLORIDE,CL 103 mmol/L (98-107); GLUCOSE RANDOM 222 mg/dL (74-106); POTASSIUM,K 4.7 mmol/L (3.5-5.1); SODIUM,NA 136 mmol/L (136-148)
[2021-03-24] MEDS: Dexamethasone 4 MG Tab PO SCH (08:37)
[2021-03-24] MEDS: Pantoprazole 40 MG Tab.CR PO SCH (08:38)
[2021-03-24] MEDS: atorvaSTATin 20 MG Tab PO SCH (08:38)
[2021-03-24] MEDS: Diphenhydramine/Lidocaine/Nystatin Suspension 237 ML Bottle PO SCH ×3 (08:39→20:55)
--- NOTE | 2021-03-24 12:51 | PCM.PN ---
- General Info Date of Service: 03/24/21 Admission Dx/Problem (Free Text): Admission Diagnosis/Problem Admission Diagnosis/Problem Hypoxemia Subjective Update: seen at bedside, feeling better, eating better - Review of Systems General: Reports: Weakness, Malaise. Denies: Fever, Fatigue, Chills, Night Sweats Pulmonary: Reports: Shortness of Breath. Denies: Pleuritic Chest Pain, Cough Cardiovascular: Denies: Chest Pain, Palpitations Gastrointestinal: Denies: Abdominal Pain, Constipation, Decreased Appetite, Nausea, Vomiting Genitourinary: Denies: Dysuria, Frequency Musculoskeletal: Denies: Neck Pain, Shoulder Pain Skin: Denies: Cyanosis, Jaundice, Mottled - Patient Data Vitals - Most Recent: Last Vital Signs Temp 36.5 C 03/24/21 11:30 Pulse 92 03/24/21 11:30 Resp 20 03/24/21 11:30 BP 92/55 L 03/24/21 11:30 Pulse Ox 89 L 03/24/21 11:30 Weight - Most Recent: 61.734 kg I&O - Last 24 Hours: Intake & Output 03/23/21 03/24/21 03/24/21 22:59 06:59 14:59 Intake Total 900 100 Output Total 900 750 Balance 0 -650 Lab Results Last 24 Hours: Laboratory Results - last 24 hr 03/24/21 03/24/21 03/24/21 Range/Units 05:55 05:55 05:55 WBC 15.46 H (4.0-11.0) K/uL RBC 5.54 (4.50-5.90) M/uL Hgb 15.1 (13.0-17.0) g/dL Hct 43.7 (38.0-50.0) % MCV 78.9 L (80.0-98.0) fL MCH 27.3 (27.0-32.0) pg MCHC 34.6 (31.0-37.0) g/dL RDW Std Deviation 39.2 (28.0-62.0) fl RDW Coeff of Ashley 14 (11.0-15.0) % Plt Count 200 (150-400) K/uL MPV 11.90 (7.40-12.00) fL Neut % (Auto) 81.8 H (48.0-80.0) % Lymph % (Auto) 4.0 L (16.0-40.0) % Miner % (Auto) 13.9 (0.0-15.0) % Eos % (Auto) 0.2 (0.0-7.0) % Baso % (Auto) 0.1 (0.0-1.5) % Neut # (Auto) 12.7 H (1.4-5.7) K/uL Lymph # (Auto) 0.6 (0.6-2.4) K/uL Miner # (Auto) 2.2 H (0.0-0.8) K/uL Eos # (Auto) 0.0 (0.0-0.7) K/uL Baso # (Auto) 0.0 (0.0-0.1) K/uL Nucleated RBC % 0.0 /100WBC Nucleated RBCs # 0 K/uL INR 3.54 Sodium 136 (136-148) mmol/L Potassium 4.7 (3.5-5.1) mmol/L Chloride 103 (98-107) mmol/L Carbon Dioxide 23.1 (21.0-32.0) mmol/L BUN 23 H (7.0-18.0) mg/dL Creatinine 1.1 (0.8-1.3) mg/dL Est Cr Clr Drug Dosing 52.22 mL/min Estimated GFR (MDRD) > 60.0 ml/min Glucose 222 H (74-106) mg/dL Calcium 7.9 L (8.5-10.1) mg/dL Phosphorus 3.3 (2.6-4.7) mg/dL Magnesium 2.3 (1.8-2.4) mg/dL Total Bilirubin 0.9 (0.2-1.0) mg/dL AST 17 (15-37) IU/L ALT 20 (14-63) IU/L Alkaline Phosphatase 63 (46-116) U/L Total Protein 5.7 L (6.4-8.2) g/dL Albumin 2.6 L (3.4-5.0) g/dL Globulin 3.1 (2.6-4.0) g/dL Albumin/Globulin Ratio 0.8 L (0.9-1.6) Med Orders - Current: Current Medications Acetaminophen (Acetaminophen 325 Mg Tab) 650 mg PO Q4H PRN PRN Reason: Fever Albuterol/Ipratropium (Albuterol/Ipratropium 4 Gm Inhalation [place]) 0 gm INH QID COUNTS INCLUDE 234 BEDS AT THE [facility] Last Admin: 03/24/21 11:27 Dose: 1 puff Documented by: Atorvastatin Calcium (Atorvastatin 20 Mg Tab) 20 mg PO DAILY COUNTS INCLUDE 234 BEDS AT THE [facility] Last Admin: 03/24/21 08:38 Dose: 20 mg Documented by: Dexamethasone (Dexamethasone 4 Mg Tab) 6 mg PO DAILY COUNTS INCLUDE 234 BEDS AT THE [facility] Last Admin: 03/24/21 08:37 Dose: 6 mg Documented by: Diphenhydramine/Nystatin/Lidocaine (Diphenhydramine/Lidocaine/Nystatin Suspension 237 Ml Bottle) 5 ml PO BID COUNTS INCLUDE 234 BEDS AT THE [facility] Last Admin: 03/24/21 08:47 Dose: Not Given Documented by: Sodium Chloride (Normal Saline) 500 mls @ 125 mls/hr IV .BOLUS COUNTS INCLUDE 234 BEDS AT THE [facility] Last Admin: 03/19/21 00:36 Dose: 125 mls/hr Documented by: Levofloxacin/Dextrose 750 mg/ (Premix) 150 mls @ 100 mls/hr IV Q24H COUNTS INCLUDE 234 BEDS AT THE [facility] Ondansetron HCl (Ondansetron 4 Mg/2 Ml Sdv) 4 mg IVPUSH Q4H PRN PRN Reason: Nausea Last Admin: 03/20/21 10:57 Dose: 4 mg Documented by: Pantoprazole Sodium (Pantoprazole 40 Mg Tab.Cr) 40 mg PO DAILY COUNTS INCLUDE 234 BEDS AT THE [facility] Last Admin: 03/24/21 08:38 Dose: 40 mg Documented by: Sodium Chloride (Sodium Chloride 0.9% 10 Ml Syringe) 10 ml FLUSH ASDIRECTED PRN PRN Reason: Keep Vein Open Last Admin: 03/20/21 09:15 Dose: 10 ml Documented by: Sodium Chloride (Sodium Chloride 0.9% 2.5 Ml Syringe) 2.5 ml FLUSH ASDIRECTED PRN PRN Reason: Keep Vein Open Last Admin: 03/19/21 16:08 Dose: 2.5 ml Documented by: Sodium Chloride (Sodium Chloride 0.65% Nasal [place] 45 Ml Bottle) 0 ml JONI Q6H PRN PRN Reason: Nasal Dryness Warfarin Sodium (Warfarin Ask Dosing) 1 each PO DAILY@1400 COUNTS INCLUDE 234 BEDS AT THE [facility] Last Admin: 03/23/21 14:43 Dose: Not Given Documented by: Discontinued Medications Albuterol/Ipratropium (Albuterol/Ipratropium 4 Gm Inhalation [place]) 0 gm INH Q4H PRN PRN Reason: Dyspnea Last Admin: 03/21/21 06:02 Dose: 1 puff Documented by: Albuterol/Ipratropium (Albuterol/Ipratropium 4 Gm Inhalation [place]) 0 gm INH Q4HRRT PRN PRN Reason: Dyspnea Dexamethasone (Dexamethasone 4 Mg Tab) 6 mg PO ONETIME ONE Stop: 03/19/21 01:12 Last Admin: 03/19/21 02:04 Dose: 6 mg Documented by: Dexamethasone (Dexamethasone 4 Mg Tab) 6 mg PO DAILY COUNTS INCLUDE 234 BEDS AT THE [facility] Dexamethasone (Dexamethasone 4 Mg Tab) 6 mg PO DAILY@1200 COUNTS INCLUDE 234 BEDS AT THE [facility] Stop: 03/19/21 12:01 Last Admin: 03/19/21 12:18 Dose: 6 mg Documented by: Diphenhydramine/Nystatin/Lidocaine (Diphenhydramine/Lidocaine/Nystatin Suspension 237 Ml Bottle) 1 ml PO BID COUNTS INCLUDE 234 BEDS AT THE [facility] Last Admin: 03/23/21 20:31 Dose: Not Given Documented by: Diphenhydramine/Nystatin/Lidocaine (Diphenhydramine/Lidocaine/Nystatin Suspension 237 Ml Bottle) 0 ml PO BID COUNTS INCLUDE 234 BEDS AT THE [facility] Last Admin: 03/24/21 08:39 Dose: 5 ml Documented by: Enoxaparin Sodium (Enoxaparin 40 Mg/0.4 Ml Syringe) 40 mg SUBCUT Q24H COUNTS INCLUDE 234 BEDS AT THE [facility] Last Admin: 03/20/21 20:01 Dose: 40 mg Documented by: Sodium Chloride (Normal Saline) 1,000 mls @ 999 mls/hr IV .BOLUS ONE Stop: 03/18/21 17:10 Last Admin: 03/18/21 16:49 Dose: 999 mls/hr Documented by: Sodium Chloride (Normal Saline) 500 mls @ 125 mls/hr IV ONETIME ONE Stop: 03/19/21 00:05 Last Admin: 03/18/21 20:35 Dose: 125 mls/hr Documented by: Remdesivir 200 mg/ Sodium (Chloride) 250 mls @ 250 mls/hr IV ONETIME ONE Stop: 03/19/21 01:04 Last Admin: 03/19/21 03:51 Dose: 250 mls/hr Documented by: Remdesivir 100 mg/ Sodium (Chloride) 100 mls @ 100 mls/hr IV Q24H COUNTS INCLUDE 234 BEDS AT THE [facility] Stop: 03/22/21 21:59 Last Admin: 03/22/21 20:55 Dose: 100 mls/hr Documented by: Pantoprazole Sodium 40 mg/ (Sodium Chloride) 10 mls @ 300 mls/hr IV DAILY COUNTS INCLUDE 234 BEDS AT THE [facility] Last Admin: 03/22/21 08:50 Dose: 300 mls/hr Documented by: Lactated Ringer's (Ringers, Lactated) 1,000 mls @ 100 mls/hr IV Q10H COUNTS INCLUDE 234 BEDS AT THE [facility] Stop: 03/20/21 23:59 Last Admin: 03/20/21 23:24 Dose: Not Given Documented by: Levofloxacin/Dextrose 750 mg/ (Premix) 150 mls @ 100 mls/hr IV Q48H COUNTS INCLUDE 234 BEDS AT THE [facility] Last Admin: 03/23/21 14:00 Dose: 100 mls/hr Documented by: Ondansetron HCl (Ondansetron 4 Mg/2 Ml Sdv) 4 mg IVPUSH ONETIME ONE Stop: 03/18/21 16:11 Last Admin: 03/18/21 16:52 Dose: 4 mg Documented by: Pneumococcal Polyvalent Vaccine (Pneumococcal Polyvalent-23 Vaccine 0.5 Ml Sdv) 0.5 ml IM .ONCE ONE Stop: 03/23/21 12:01 Last Admin: 03/23/21 16:56 Dose: Not Given Documented by: Sodium Chloride (Sodium Chloride 0.65% Nasal [place] 45 Ml Bottle) 0 ml JONI Q6H COUNTS INCLUDE 234 BEDS AT THE [facility] Last Admin: 03/23/21 14:40 Dose: 1 spray Documented by: Warfarin Sodium (Warfarin 5 Mg Tab) 10 mg PO DAILY COUNTS INCLUDE 234 BEDS AT THE [facility] Last Admin: 03/19/21 08:40 Dose: 10 mg Documented by: Warfarin Sodium (Warfarin 10 Mg Tab) 10 mg PO DAILY COUNTS INCLUDE 234 BEDS AT THE [facility] Last Admin: 03/20/21 09:13 Dose: 10 mg Documented by: - Exam Quality Assessment: Supplemental Oxygen General: Alert, Oriented, Cooperative, No Acute Distress Neck: Supple Lungs: Decreased Breath Sounds, Crackles, Rales Cardiovascular: Regular Rate, Regular Rhythm GI/Abdominal Exam: Normal Bowel Sounds, Soft, Non-Tender Back Exam: Normal Inspection Extremities: Normal Inspection, Normal Range of Motion - Patient Data Lab Results Last 24 hrs: Laboratory Results - last 24 hr 03/24/21 03/24/21 03/24/21 Range/Units 05:55 05:55 05:55 WBC 15.46 H (4.0-11.0) K/uL RBC 5.54 (4.50-5.90) M/uL Hgb 15.1 (13.0-17.0) g/dL Hct 43.7 (38.0-50.0) % MCV 78.9 L (80.0-98.0) fL MCH 27.3 (27.0-32.0) pg MCHC 34.6 (31.0-37.0) g/dL RDW Std Deviation 39.2 (28.0-62.0) fl RDW Coeff of Ashley 14 (11.0-15.0) % Plt Count 200 (150-400) K/uL MPV 11.90 (7.40-12.00) fL Neut % (Auto) 81.8 H (48.0-80.0) % Lymph % (Auto) 4.0 L (16.0-40.0) % Miner % (Auto) 13.9 (0.0-15.0) % Eos % (Auto) 0.2 (0.0-7.0) % Baso % (Auto) 0.1 (0.0-1.5) % Neut # (Auto) 12.7 H (1.4-5.7) K/uL Lymph # (Auto) 0.6 (0.6-2.4) K/uL [place] # (Auto) 2.2 H (0.0-0.8) K/uL Eos # (Auto) 0.0 (0.0-0.7) K/uL Baso # (Auto) 0.0 (0.0-0.1) K/uL Nucleated RBC % 0.0 /100WBC Nucleated RBCs # 0 K/uL INR 3.54 Sodium 136 (136-148) mmol/L Potassium 4.7 (3.5-5.1) mmol/L Chloride 103 (98-107) mmol/L Carbon Dioxide 23.1 (21.0-32.0) mmol/L BUN 23 H (7.0-18.0) mg/dL Creatinine 1.1 (0.8-1.3) mg/dL Est Cr Clr Drug Dosing 52.22 mL/min Estimated GFR (MDRD) > 60.0 ml/min Glucose 222 H (74-106) mg/dL Calcium 7.9 L (8.5-10.1) mg/dL Phosphorus 3.3 (2.6-4.7) mg/dL Magnesium 2.3 (1.8-2.4) mg/dL Total Bilirubin 0.9 (0.2-1.0) mg/dL AST 17 (15-37) IU/L ALT 20 (14-63) IU/L Alkaline Phosphatase 63 (46-116) U/L Total Protein 5.7 L (6.4-8.2) g/dL Albumin 2.6 L (3.4-5.0) g/dL Globulin 3.1 (2.6-4.0) g/dL Albumin/Globulin Ratio 0.8 L (0.9-1.6) Result Diagrams: 03/24/21 05:55 03/24/21 05:55 Sepsis Event Note - Evaluation Sepsis Screening Result: No Definite Risk - Focused Exam Vital Signs: Vital Signs Temp Pulse Resp BP Pulse Ox 03/24/21 11:30 36.5 C 92 20 92/55 L 89 L 03/24/21 08:29 36.4 C 94 30 H 102/72 87 L 03/24/21 04:00 36.3 C 77 17 97/69 92 L - Problem List & Annotations (1) Afib SNOMED Code(s): 07403378 Code(s): I48.91 - UNSPECIFIED ATRIAL FIBRILLATION Status: Acute Current Visit: Yes (2) COVID-19 SNOMED Code(s): 720638963 Code(s): U07.1 - COVID-19 Status: Acute Current Visit: Yes (3) Hypoxemia SNOMED Code(s): 284567254 Code(s): R09.02 - HYPOXEMIA Status: Acute Current Visit: Yes - Problem List Review Problem List Initiated/Reviewed/Updated: Yes - My Orders Last 24 Hours: My Active Orders 03/23/21 18:51 Sodium Chloride 0.65% [[place] Nasal [place]] See Dose Instructions JONI Q6H PRN 03/23/21 18:52 Oral Care [OM.PC] Routine 03/24/21 09:00 Diphenhyd/Lidocaine/Nystatin [Magic Mouthwash] 5 ml PO BID 03/24/21 14:00 Levofloxacin/Dextrose 5%-Water [Levaquin in D5W 750 MG/150 ML] 750 mg Premix Bag 1 bag IV Q24H 03/25/21 07:31 INR,PT,PROTHROMBIN TIME [COAG] DAILY 03/26/21 07:31 INR,PT,PROTHROMBIN TIME [COAG] DAILY - Plan Plan:: 71 yo male with pmh of atrial fibrillation admitted with COVID and dehydration. cont Dexamethasone , Remdesivir course done cont Duonebs cont oxygenation via NC as needed cont IV antibiotics for possible superimposed PNA INR is subtherapeutic, , daily INR, supra-therapeutic , hold Coumadin
[2021-03-24] MEDS ORDERED: Levofloxacin/Dextrose 5%-Water 750 MG in Premix Bag 1 BAG IV SCH (14:00)
[2021-03-25] MEDS: Albuterol/Ipratropium 4 GM Inhalation Spray INH SCH ×4 (00:06→18:02)
[2021-03-25 06:40] LABS: CARBON DIOXIDE,CO2 21.4 mmol/L (21.0-32.0); POTASSIUM,K 4.6 mmol/L (3.5-5.1)
[2021-03-25] MEDS ORDERED: Glucagon,Human Recombinant 1 MG Vial IM PRN (08:24)
[2021-03-25] MEDS ORDERED: 50% Dextrose in Water 50 ML Syringe IV PRN (08:24)
[2021-03-25] MEDS: Pantoprazole 40 MG Tab.CR PO SCH (08:28)
[2021-03-25] MEDS: Dexamethasone 4 MG Tab PO SCH (08:29)
[2021-03-25] MEDS: atorvaSTATin 20 MG Tab PO SCH (08:29)
[2021-03-25] MEDS: Diphenhydramine/Lidocaine/Nystatin Suspension 237 ML Bottle PO SCH ×2 (08:30→22:07)
[2021-03-25] MEDS: Insulin Aspart 100 Units/ML 3 ML Pen SUBCUT SCH ×2 (11:28→16:44)
[2021-03-25] MEDS ORDERED: Warfarin 2.5 MG Tab PO SCH (11:30)
--- NOTE | 2021-03-25 13:06 | PCM.PN ---
- General Info Date of Service: 03/25/21 Admission Dx/Problem (Free Text): Admission Diagnosis/Problem Admission Diagnosis/Problem Hypoxemia Subjective Update: seen at bedside, feeling a bit weak, eating well today Functional Status: Reports: Tolerating Diet, Urinating - Review of Systems General: Reports: Weakness, Fatigue, Malaise Pulmonary: Denies: Shortness of Breath, Pleuritic Chest Pain, Cough Cardiovascular: Denies: Chest Pain, Palpitations Gastrointestinal: Denies: Abdominal Pain, Constipation, Decreased Appetite, Diarrhea Genitourinary: Denies: Dysuria, Frequency, Burning Musculoskeletal: Denies: Neck Pain, Shoulder Pain, Arm Pain Skin: Denies: Cyanosis, Jaundice, Mottled - Patient Data Vitals - Most Recent: Last Vital Signs Temp 36.4 C 03/25/21 11:33 Pulse 86 03/25/21 11:33 Resp 22 H 03/25/21 11:33 BP 101/78 03/25/21 11:33 Pulse Ox 96 03/25/21 11:33 Weight - Most Recent: 61.734 kg I&O - Last 24 Hours: Intake & Output 03/24/21 03/25/21 03/25/21 22:59 06:59 14:59 Intake Total 480 450 Output Total 750 700 Balance -270 -250 Lab Results Last 24 Hours: Laboratory Results - last 24 hr 03/25/21 03/25/21 03/25/21 Range/Units 05:57 05:57 05:57 WBC 14.90 H (4.0-11.0) K/uL RBC 5.72 (4.50-5.90) M/uL Hgb 15.7 (13.0-17.0) g/dL Hct 45.0 (38.0-50.0) % MCV 78.7 L (80.0-98.0) fL MCH 27.4 (27.0-32.0) pg MCHC 34.9 (31.0-37.0) g/dL RDW Std Deviation 39.3 (28.0-62.0) fl RDW Coeff of Ashley 14 (11.0-15.0) % Plt Count 213 (150-400) K/uL MPV 11.20 (7.40-12.00) fL Neut % (Auto) 81.5 H (48.0-80.0) % Lymph % (Auto) 8.5 L (16.0-40.0) % [place] % (Auto) 9.8 (0.0-15.0) % Eos % (Auto) 0.1 (0.0-7.0) % Baso % (Auto) 0.1 (0.0-1.5) % Neut # (Auto) 12.1 H (1.4-5.7) K/uL Lymph # (Auto) 1.3 (0.6-2.4) K/uL [place] # (Auto) 1.5 H (0.0-0.8) K/uL Eos # (Auto) 0.0 (0.0-0.7) K/uL Baso # (Auto) 0.0 (0.0-0.1) K/uL Nucleated RBC % 0.1 /100WBC Nucleated RBCs # 0 K/uL INR 3.12 Sodium 139 (136-148) mmol/L Potassium 4.6 (3.5-5.1) mmol/L Chloride 106 (98-107) mmol/L Carbon Dioxide 21.4 (21.0-32.0) mmol/L BUN 27 H (7.0-18.0) mg/dL Creatinine 1.2 (0.8-1.3) mg/dL Est Cr Clr Drug Dosing 47.87 mL/min Estimated GFR (MDRD) 59.3 ml/min Glucose 247 H (74-106) mg/dL POC Glucose (70-99) mg/dL Calcium 8.0 L (8.5-10.1) mg/dL Phosphorus 3.8 (2.6-4.7) mg/dL Magnesium 2.1 (1.8-2.4) mg/dL Total Bilirubin 0.9 (0.2-1.0) mg/dL AST 10 L (15-37) IU/L ALT 15 (14-63) IU/L Alkaline Phosphatase 67 (46-116) U/L Total Protein 5.8 L (6.4-8.2) g/dL Albumin 2.5 L (3.4-5.0) g/dL Globulin 3.3 (2.6-4.0) g/dL Albumin/Globulin Ratio 0.8 L (0.9-1.6) 03/25/21 Range/Units 11:28 WBC (4.0-11.0) K/uL RBC (4.50-5.90) M/uL Hgb (13.0-17.0) g/dL Hct (38.0-50.0) % MCV (80.0-98.0) fL MCH (27.0-32.0) pg MCHC (31.0-37.0) g/dL RDW Std Deviation (28.0-62.0) fl RDW Coeff of Ashley (11.0-15.0) % Plt Count (150-400) K/uL MPV (7.40-12.00) fL Neut % (Auto) (48.0-80.0) % Lymph % (Auto) (16.0-40.0) % [place] % (Auto) (0.0-15.0) % Eos % (Auto) (0.0-7.0) % Baso % (Auto) (0.0-1.5) % Neut # (Auto) (1.4-5.7) K/uL Lymph # (Auto) (0.6-2.4) K/uL [place] # (Auto) (0.0-0.8) K/uL Eos # (Auto) (0.0-0.7) K/uL Baso # (Auto) (0.0-0.1) K/uL Nucleated RBC % /100WBC Nucleated RBCs # K/uL INR Sodium (136-148) mmol/L Potassium (3.5-5.1) mmol/L Chloride (98-107) mmol/L Carbon Dioxide (21.0-32.0) mmol/L BUN (7.0-18.0) mg/dL Creatinine (0.8-1.3) mg/dL Est Cr Clr Drug Dosing mL/min Estimated GFR (MDRD) ml/min Glucose (74-106) mg/dL POC Glucose 174 H (70-99) mg/dL Calcium (8.5-10.1) mg/dL Phosphorus (2.6-4.7) mg/dL Magnesium (1.8-2.4) mg/dL Total Bilirubin (0.2-1.0) mg/dL AST (15-37) IU/L ALT (14-63) IU/L Alkaline Phosphatase (46-116) U/L Total Protein (6.4-8.2) g/dL Albumin (3.4-5.0) g/dL Globulin (2.6-4.0) g/dL Albumin/Globulin Ratio (0.9-1.6) Med Orders - Current: Current Medications Acetaminophen (Acetaminophen 325 Mg Tab) 650 mg PO Q4H PRN PRN Reason: Fever Albuterol/Ipratropium (Albuterol/Ipratropium 4 Gm Inhalation [place]) 0 gm INH QID [facility] Last Admin: 03/25/21 11:14 Dose: 1 puff Documented by: Atorvastatin Calcium (Atorvastatin 20 Mg Tab) 20 mg PO DAILY [facility] Last Admin: 03/25/21 08:29 Dose: 20 mg Documented by: Dexamethasone (Dexamethasone 4 Mg Tab) 6 mg PO DAILY [facility] Last Admin: 03/25/21 08:29 Dose: 6 mg Documented by: Dextrose/Water (50% Dextrose In Water 50 Ml Syringe) 50 ml IV ASDIRECTED PRN PRN Reason: Hypoglycemia Diphenhydramine/Nystatin/Lidocaine (Diphenhydramine/Lidocaine/Nystatin Suspension 237 Ml Bottle) 5 ml PO BID [facility] Last Admin: 03/25/21 08:30 Dose: 5 ml Documented by: Glucagon (Glucagon,Human Recombinant 1 Mg Vial) 1 mg IM ASDIRECTED PRN PRN Reason: Hypoglycemia Sodium Chloride (Normal Saline) 500 mls @ 125 mls/hr IV .BOLUS [facility] Last Admin: 03/19/21 00:36 Dose: 125 mls/hr Documented by: Levofloxacin/Dextrose 750 mg/ (Premix) 150 mls @ 100 mls/hr IV Q48H [facility] Insulin Aspart (Insulin Aspart 100 Units/Ml 3 Ml Pen) 0 unit SUBCUT TIDAC [facility]; Protocol Last Admin: 03/25/21 11:28 Dose: 1 unit Documented by: Ondansetron HCl (Ondansetron 4 Mg/2 Ml Sdv) 4 mg IVPUSH Q4H PRN PRN Reason: Nausea Last Admin: 03/20/21 10:57 Dose: 4 mg Documented by: Pantoprazole Sodium (Pantoprazole 40 Mg Tab.Cr) 40 mg PO DAILY [facility] Last Admin: 03/25/21 08:28 Dose: 40 mg Documented by: Sodium Chloride (Sodium Chloride 0.9% 10 Ml Syringe) 10 ml FLUSH ASDIRECTED PRN PRN Reason: Keep Vein Open Last Admin: 03/20/21 09:15 Dose: 10 ml Documented by: Sodium Chloride (Sodium Chloride 0.9% 2.5 Ml Syringe) 2.5 ml FLUSH ASDIRECTED PRN PRN Reason: Keep Vein Open Last Admin: 03/19/21 16:08 Dose: 2.5 ml Documented by: Sodium Chloride (Sodium Chloride 0.65% Nasal [place] 45 Ml Bottle) 0 ml JONI Q6H PRN PRN Reason: Nasal Dryness Warfarin Sodium (Warfarin Ask Dosing) 1 each PO DAILY@1400 [facility] Last Admin: 03/24/21 13:16 Dose: Not Given Documented by: Warfarin Sodium (Warfarin 2.5 Mg Tab) 2.5 mg PO 03/25/21@1130 [facility] Stop: 03/25/21 14:00 Last Admin: 03/25/21 11:26 Dose: 2.5 mg Documented by: Discontinued Medications Albuterol/Ipratropium (Albuterol/Ipratropium 4 Gm Inhalation [place]) 0 gm INH Q4H PRN PRN Reason: Dyspnea Last Admin: 03/21/21 06:02 Dose: 1 puff Documented by: Albuterol/Ipratropium (Albuterol/Ipratropium 4 Gm Inhalation [place]) 0 gm INH Q4HRRT PRN PRN Reason: Dyspnea Dexamethasone (Dexamethasone 4 Mg Tab) 6 mg PO ONETIME ONE Stop: 03/19/21 01:12 Last Admin: 03/19/21 02:04 Dose: 6 mg Documented by: Dexamethasone (Dexamethasone 4 Mg Tab) 6 mg PO DAILY [facility] Dexamethasone (Dexamethasone 4 Mg Tab) 6 mg PO DAILY@1200 [facility] Stop: 03/19/21 12:01 Last Admin: 03/19/21 12:18 Dose: 6 mg Documented by: Diphenhydramine/Nystatin/Lidocaine (Diphenhydramine/Lidocaine/Nystatin S uspension 237 Ml Bottle) 1 ml PO BID [facility] Last Admin: 03/23/21 20:31 Dose: Not Given Documented by: Diphenhydramine/Nystatin/Lidocaine (Diphenhydramine/Lidocaine/Nystatin Suspension 237 Ml Bottle) 0 ml PO BID [facility] Last Admin: 03/24/21 08:39 Dose: 5 ml Documented by: Enoxaparin Sodium (Enoxaparin 40 Mg/0.4 Ml Syringe) 40 mg SUBCUT Q24H [facility] Last Admin: 03/20/21 20:01 Dose: 40 mg Documented by: Sodium Chloride (Normal Saline) 1,000 mls @ 999 mls/hr IV .BOLUS ONE Stop: 03/18/21 17:10 Last Admin: 03/18/21 16:49 Dose: 999 mls/hr Documented by: Sodium Chloride (Normal Saline) 500 mls @ 125 mls/hr IV ONETIME ONE Stop: 03/19/21 00:05 Last Admin: 03/18/21 20:35 Dose: 125 mls/hr Documented by: Remdesivir 200 mg/ Sodium (Chloride) 250 mls @ 250 mls/hr IV ONETIME ONE Stop: 03/19/21 01:04 Last Admin: 03/19/21 03:51 Dose: 250 mls/hr Documented by: Remdesivir 100 mg/ Sodium (Chloride) 100 mls @ 100 mls/hr IV Q24H [facility] Stop: 03/22/21 21:59 Last Admin: 03/22/21 20:55 Dose: 100 mls/hr Documented by: Pantoprazole Sodium 40 mg/ (Sodium Chloride) 10 mls @ 300 mls/hr IV DAILY [facility] Last Admin: 03/22/21 08:50 Dose: 300 mls/hr Documented by: Lactated Ringer's (Ringers, Lactated) 1,000 mls @ 100 mls/hr IV Q10H [facility] Stop: 03/20/21 23:59 Last Admin: 03/20/21 23:24 Dose: Not Given Documented by: Levofloxacin/Dextrose 750 mg/ (Premix) 150 mls @ 100 mls/hr IV Q48H [facility] Last Admin: 03/23/21 14:00 Dose: 100 mls/hr Documented by: Levofloxacin/Dextrose 750 mg/ (Premix) 150 mls @ 100 mls/hr IV Q24H [facility] Last Admin: 03/24/21 14:05 Dose: 100 mls/hr Documented by: Ondansetron HCl (Ondansetron 4 Mg/2 Ml Sdv) 4 mg IVPUSH ONETIME ONE Stop: 03/18/21 16:11 Last Admin: 03/18/21 16:52 Dose: 4 mg Documented by: Pneumococcal Polyvalent Vaccine (Pneumococcal Polyvalent-23 Vaccine 0.5 Ml Sdv) 0.5 ml IM .ONCE ONE Stop: 03/23/21 12:01 Last Admin: 03/23/21 16:56 Dose: Not Given Documented by: Sodium Chloride (Sodium Chloride 0.65% Nasal [place] 45 Ml Bottle) 0 ml JONI Q6H [facility] Last Admin: 03/23/21 14:40 Dose: 1 spray Documented by: Warfarin Sodium (Warfarin 5 Mg Tab) 10 mg PO DAILY [facility] Last Admin: 03/19/21 08:40 Dose: 10 mg Documented by: Warfarin Sodium (Warfarin 10 Mg Tab) 10 mg PO DAILY [facility] Last Admin: 03/20/21 09:13 Dose: 10 mg Documented by: - Exam Quality Assessment: Supplemental Oxygen General: Alert, Oriented, Cooperative Neck: Supple, Trachea Midline Lungs: Normal Respiratory Effort, Crackles, Rales Cardiovascular: Regular Rate, Regular Rhythm GI/Abdominal Exam: Normal Bowel Sounds, Soft, Non-Tender - Patient Data Lab Results Last 24 hrs: Laboratory Results - last 24 hr 03/25/21 03/25/21 03/25/21 Range/Units 05:57 05:57 05:57 WBC 14.90 H (4.0-11.0) K/uL RBC 5.72 (4.50-5.90) M/uL Hgb 15.7 (13.0-17.0) g/dL Hct 45.0 (38.0-50.0) % MCV 78.7 L (80.0-98.0) fL MCH 27.4 (27.0-32.0) pg MCHC 34.9 (31.0-37.0) g/dL RDW Std Deviation 39.3 (28.0-62.0) fl RDW Coeff of [place] 14 (11.0-15.0) % Plt Count 213 (150-400) K/uL MPV 11.20 (7.40-12.00) fL Neut % (Auto) 81.5 H (48.0-80.0) % Lymph % (Auto) 8.5 L (16.0-40.0) % [place] % (Auto) 9.8 (0.0-15.0) % Eos % (Auto) 0.1 (0.0-7.0) % Baso % (Auto) 0.1 (0.0-1.5) % Neut # (Auto) 12.1 H (1.4-5.7) K/uL Lymph # (Auto) 1.3 (0.6-2.4) K/uL [place] # (Auto) 1.5 H (0.0-0.8) K/uL Eos # (Auto) 0.0 (0.0-0.7) K/uL Baso # (Auto) 0.0 (0.0-0.1) K/uL Nucleated RBC % 0.1 /100WBC Nucleated RBCs # 0 K/uL INR 3.12 Sodium 139 (136-148) mmol/L Potassium 4.6 (3.5-5.1) mmol/L Chloride 106 (98-107) mmol/L Carbon Dioxide 21.4 (21.0-32.0) mmol/L BUN 27 H (7.0-18.0) mg/dL Creatinine 1.2 (0.8-1.3) mg/dL Est Cr Clr Drug Dosing 47.87 mL/min Estimated GFR (MDRD) 59.3 ml/min Glucose 247 H (74-106) mg/dL POC Glucose (70-99) mg/dL Calcium 8.0 L (8.5-10.1) mg/dL Phosphorus 3.8 (2.6-4.7) mg/dL Magnesium 2.1 (1.8-2.4) mg/dL Total Bilirubin 0.9 (0.2-1.0) mg/dL AST 10 L (15-37) IU/L ALT 15 (14-63) IU/L Alkaline Phosphatase 67 (46-116) U/L Total Protein 5.8 L (6.4-8.2) g/dL Albumin 2.5 L (3.4-5.0) g/dL Globulin 3.3 (2.6-4.0) g/dL Albumin/Globulin Ratio 0.8 L (0.9-1.6) 03/25/21 Range/Units 11:28 WBC (4.0-11.0) K/uL RBC (4.50-5.90) M/uL Hgb (13.0-17.0) g/dL Hct (38.0-50.0) % MCV (80.0-98.0) fL MCH (27.0-32.0) pg MCHC (31.0-37.0) g/dL RDW Std Deviation (28.0-62.0) fl RDW Coeff of [place] (11.0-15.0) % Plt Count (150-400) K/uL MPV (7.40-12.00) fL Neut % (Auto) (48.0-80.0) % Lymph % (Auto) (16.0-40.0) % [place] % (Auto) (0.0-15.0) % Eos % (Auto) (0.0-7.0) % Baso % (Auto) (0.0-1.5) % Neut # (Auto) (1.4-5.7) K/uL Lymph # (Auto) (0.6-2.4) K/uL [place] # (Auto) (0.0-0.8) K/uL Eos # (Auto) (0.0-0.7) K/uL Baso # (Auto) (0.0-0.1) K/uL Nucleated RBC % /100WBC Nucleated RBCs # K/uL INR Sodium (136-148) mmol/L Potassium (3.5-5.1) mmol/L Chloride (98-107) mmol/L Carbon Dioxide (21.0-32.0) mmol/L BUN (7.0-18.0) mg/dL Creatinine (0.8-1.3) mg/dL Est Cr Clr Drug Dosing mL/min Estimated GFR (MDRD) ml/min Glucose (74-106) mg/dL POC Glucose 174 H (70-99) mg/dL Calcium (8.5-10.1) mg/dL Phosphorus (2.6-4.7) mg/dL Magnesium (1.8-2.4) mg/dL Total Bilirubin (0.2-1.0) mg/dL AST (15-37) IU/L ALT (14-63) IU/L Alkaline Phosphatase (46-116) U/L Total Protein (6.4-8.2) g/dL Albumin (3.4-5.0) g/dL Globulin (2.6-4.0) g/dL Albumin/Globulin Ratio (0.9-1.6) Result Diagrams: 03/25/21 05:57 03/25/21 05:57 Sepsis Event Note - Evaluation Sepsis Screening Result: No Definite Risk - Focused Exam Vital Signs: Vital Signs Temp Pulse Resp BP Pulse Ox 03/25/21 11:33 36.4 C 86 22 H 101/78 96 03/25/21 08:13 36.2 C 82 26 H 106/80 90 L 03/25/21 04:00 36.2 C 76 19 98/69 93 L - Problem List & Annotations (1) Afib SNOMED Code(s): 77303170 Code(s): I48.91 - UNSPECIFIED ATRIAL FIBRILLATION Status: Acute Current Visit: Yes (2) COVID-19 SNOMED Code(s): 128137215 Code(s): U07.1 - COVID-19 Status: Acute Current Visit: Yes (3) Hypoxemia SNOMED Code(s): 785537802 Code(s): R09.02 - HYPOXEMIA Status: Acute Current Visit: Yes - Problem List Review Problem List Initiated/Reviewed/Updated: Yes - My Orders Last 24 Hours: My Active Orders 03/25/21 11:30 Warfarin [Coumadin] 2.5 mg PO 03/25/21@1130 03/26/21 07:31 INR,PT,PROTHROMBIN TIME [COAG] DAILY 03/26/21 14:00 Levofloxacin/Dextrose 5%-Water [Levaquin in D5W 750 MG/150 ML] 750 mg Premix Bag 1 bag IV Q48H - Plan Plan:: 71 yo male with pmh of atrial fibrillation admitted with COVID and dehydration. cont Dexamethasone , Remdesivir course done cont Duonebs cont oxygenation via NC as needed, will give a trail of bipap and see if that helps wean off the oxygen cont IV antibiotics for possible superimposed PNA daily INR, supra-therapeutic , hold Coumadin
[2021-03-26] MEDS: Albuterol/Ipratropium 4 GM Inhalation Spray INH SCH ×4 (06:16→17:23)
[2021-03-26 06:40] LABS: CARBON DIOXIDE,CO2 22.3 mmol/L (21.0-32.0); POTASSIUM,K 5.1 mmol/L (3.5-5.1)
[2021-03-26] MEDS: Insulin Aspart 100 Units/ML 3 ML Pen SUBCUT SCH ×3 (10:01→17:55)
[2021-03-26] MEDS: Dexamethasone 4 MG Tab PO SCH (10:04)
[2021-03-26] MEDS: atorvaSTATin 20 MG Tab PO SCH (10:04)
[2021-03-26] MEDS: Diphenhydramine/Lidocaine/Nystatin Suspension 237 ML Bottle PO SCH ×2 (10:04→21:06)
[2021-03-26] MEDS: Pantoprazole 40 MG Tab.CR PO SCH (10:04)
[2021-03-26] MEDS: Sodium Chloride 0.9% 2.5 ML Syringe FLUSH PRN (10:05)
--- NOTE | 2021-03-26 12:57 | PCM.PN ---
- General Info Date of Service: 03/26/21 - Review of Systems Systems Review Comment:: feeling better, shortness of breath improving - Patient Data Vitals - Most Recent: Last Vital Signs Temp 36.3 C 03/26/21 11:13 Pulse 74 03/26/21 11:13 Resp 17 03/26/21 11:13 BP 113/62 03/26/21 11:13 Pulse Ox 94 L 03/26/21 11:13 Weight - Most Recent: 61.734 kg I&O - Last 24 Hours: Intake & Output 03/25/21 03/26/21 03/26/21 22:59 06:59 14:59 Intake Total 700 400 Output Total 750 450 Balance -50 -50 Lab Results Last 24 Hours: Laboratory Results - last 24 hr 03/25/21 03/26/21 03/26/21 Range/Units 16:42 06:05 06:05 WBC 17.59 H (4.0-11.0) K/uL RBC 5.83 (4.50-5.90) M/uL Hgb 16.0 (13.0-17.0) g/dL Hct 46.3 (38.0-50.0) % MCV 79.4 L (80.0-98.0) fL MCH 27.4 (27.0-32.0) pg MCHC 34.6 (31.0-37.0) g/dL RDW Std Deviation 40.2 (28.0-62.0) fl RDW Coeff of Ashley 14 (11.0-15.0) % Plt Count 247 (150-400) K/uL MPV 11.60 (7.40-12.00) fL Add Manual Diff YES Neutrophils % (Manual) 86 H (48.0-80.0) % Lymphocytes % (Manual) 4 L (16.0-40.0) % Monocytes % (Manual) 10 (0.0-15.0) % Nucleated RBC % 0.0 /100WBC Absolute Seg Neuts 15.1 H (1.4-5.7) Lymphocytes # (Manual) 0.7 (0.6-2.4) Monocytes # (Manual) 1.8 H (0.0-0.8) Nucleated RBCs # 0 K/uL INR 3.92 Sodium (136-148) mmol/L Potassium (3.5-5.1) mmol/L Chloride (98-107) mmol/L Carbon Dioxide (21.0-32.0) mmol/L BUN (7.0-18.0) mg/dL Creatinine (0.8-1.3) mg/dL Est Cr Clr Drug Dosing mL/min Estimated GFR (MDRD) ml/min Glucose (74-106) mg/dL POC Glucose 269 H (70-99) mg/dL Calcium (8.5-10.1) mg/dL Phosphorus (2.6-4.7) mg/dL Magnesium (1.8-2.4) mg/dL Total Bilirubin (0.2-1.0) mg/dL AST (15-37) IU/L ALT (14-63) IU/L Alkaline Phosphatase (46-116) U/L Total Protein (6.4-8.2) g/dL Albumin (3.4-5.0) g/dL Globulin (2.6-4.0) g/dL Albumin/Globulin Ratio (0.9-1.6) 03/26/21 03/26/21 Range/Units 06:05 08:26 WBC (4.0-11.0) K/uL RBC (4.50-5.90) M/uL Hgb (13.0-17.0) g/dL Hct (38.0-50.0) % MCV (80.0-98.0) fL MCH (27.0-32.0) pg MCHC (31.0-37.0) g/dL RDW Std Deviation (28.0-62.0) fl RDW Coeff of [place] (11.0-15.0) % Plt Count (150-400) K/uL MPV (7.40-12.00) fL Add Manual Diff Neutrophils % (Manual) (48.0-80.0) % Lymphocytes % (Manual) (16.0-40.0) % Monocytes % (Manual) (0.0-15.0) % Nucleated RBC % /100WBC Absolute Seg Neuts (1.4-5.7) Lymphocytes # (Manual) (0.6-2.4) Monocytes # (Manual) (0.0-0.8) Nucleated RBCs # K/uL INR Sodium 137 (136-148) mmol/L Potassium 5.1 (3.5-5.1) mmol/L Chloride 105 (98-107) mmol/L Carbon Dioxide 22.3 (21.0-32.0) mmol/L BUN 34 H (7.0-18.0) mg/dL Creatinine 1.3 (0.8-1.3) mg/dL Est Cr Clr Drug Dosing 44.19 mL/min Estimated GFR (MDRD) 54.1 ml/min Glucose 347 H (74-106) mg/dL POC Glucose 286 H (70-99) mg/dL Calcium 8.4 L (8.5-10.1) mg/dL Phosphorus 4.1 (2.6-4.7) mg/dL Magnesium 2.3 (1.8-2.4) mg/dL Total Bilirubin 0.8 (0.2-1.0) mg/dL AST 12 L (15-37) IU/L ALT 17 (14-63) IU/L Alkaline Phosphatase 69 (46-116) U/L Total Protein 5.9 L (6.4-8.2) g/dL Albumin 2.6 L (3.4-5.0) g/dL Globulin 3.3 (2.6-4.0) g/dL Albumin/Globulin Ratio 0.8 L (0.9-1.6) Med Orders - Current: Current Medications Acetaminophen (Acetaminophen 325 Mg Tab) 650 mg PO Q4H PRN PRN Reason: Fever Albuterol/Ipratropium (Albuterol/Ipratropium 4 Gm Inhalation [place]) 0 gm INH QID [facility] Last Admin: 03/26/21 06:16 Dose: 1 puff Documented by: Atorvastatin Calcium (Atorvastatin 20 Mg Tab) 20 mg PO DAILY [facility] Last Admin: 03/26/21 10:04 Dose: 20 mg Documented by: Dexamethasone (Dexamethasone 4 Mg Tab) 6 mg PO DAILY [facility] Last Admin: 03/26/21 10:04 Dose: 6 mg Documented by: Dextrose/Water (50% Dextrose In Water 50 Ml Syringe) 50 ml IV ASDIRECTED PRN PRN Reason: Hypoglycemia Diphenhydramine/Nystatin/Lidocaine (Diphenhydramine/Lidocaine/Nystatin Suspension 237 Ml Bottle) 5 ml PO BID [facility] Last Admin: 03/26/21 10:04 Dose: 5 ml Documented by: Glucagon (Glucagon,Human Recombinant 1 Mg Vial) 1 mg IM ASDIRECTED PRN PRN Reason: Hypoglycemia Sodium Chloride (Normal Saline) 500 mls @ 125 mls/hr IV .BOLUS [facility] Last Admin: 03/19/21 00:36 Dose: 125 mls/hr Documented by: Levofloxacin/Dextrose 750 mg/ (Premix) 150 mls @ 100 mls/hr IV Q48H [facility] Insulin Aspart (Insulin Aspart 100 Units/Ml 3 Ml Pen) 0 unit SUBCUT TIDAC [facility]; Protocol Last Admin: 03/26/21 10:01 Dose: 3 unit Documented by: Ondansetron HCl (Ondansetron 4 Mg/2 Ml Sdv) 4 mg IVPUSH Q4H PRN PRN Reason: Nausea Last Admin: 03/20/21 10:57 Dose: 4 mg Documented by: Pantoprazole Sodium (Pantoprazole 40 Mg Tab.Cr) 40 mg PO DAILY [facility] Last Admin: 03/26/21 10:04 Dose: 40 mg Documented by: Sodium Chloride (Sodium Chloride 0.9% 10 Ml Syringe) 10 ml FLUSH ASDIRECTED PRN PRN Reason: Keep Vein Open Last Admin: 03/20/21 09:15 Dose: 10 ml Documented by: Sodium Chloride (Sodium Chloride 0.9% 2.5 Ml Syringe) 2.5 ml FLUSH ASDIRECTED PRN PRN Reason: Keep Vein Open Last Admin: 03/26/21 10:05 Dose: 2.5 ml Documented by: Sodium Chloride (Sodium Chloride 0.65% Nasal [place] 45 Ml Bottle) 0 ml JONI Q6H PRN PRN Reason: Nasal Dryness Warfarin Sodium (Warfarin Ask Dosing) 1 each PO DAILY@1400 [facility] Last Admin: 03/25/21 14:43 Dose: Not Given Documented by: Discontinued Medications Albuterol/Ipratropium (Albuterol/Ipratropium 4 Gm Inhalation [place]) 0 gm INH Q4H PRN PRN Reason: Dyspnea Last Admin: 03/21/21 06:02 Dose: 1 puff Documented by: Albuterol/Ipratropium (Albuterol/Ipratropium 4 Gm Inhalation [place]) 0 gm INH Q4HRRT PRN PRN Reason: Dyspnea Dexamethasone (Dexamethasone 4 Mg Tab) 6 mg PO ONETIME ONE Stop: 03/19/21 01:12 Last Admin: 03/19/21 02:04 Dose: 6 mg Documented by: Dexamethasone (Dexamethasone 4 Mg Tab) 6 mg PO DAILY [facility] Dexamethasone (Dexamethasone 4 Mg Tab) 6 mg PO DAILY@1200 [facility] Stop: 03/19/21 12:01 Last Admin: 03/19/21 12:18 Dose: 6 mg Documented by: Diphenhydramine/Nystatin/Lidocaine (Diphenhydramine/Lidocaine/Nystatin Suspension 237 Ml Bottle) 1 ml PO BID [facility] Last Admin: 03/23/21 20:31 Dose: Not Given Documented by: Diphenhydramine/Nystatin/Lidocaine (Diphenhydramine/Lidocaine/Nystatin Suspension 237 Ml Bottle) 0 ml PO BID [facility] Last Admin: 03/24/21 08:39 Dose: 5 ml Documented by: Enoxaparin Sodium (Enoxaparin 40 Mg/0.4 Ml Syringe) 40 mg SUBCUT Q24H [facility] Last Admin: 03/20/21 20:01 Dose: 40 mg Documented by: Sodium Chloride (Normal Saline) 1,000 mls @ 999 mls/hr IV .BOLUS ONE Stop: 03/18/21 17:10 Last Admin: 03/18/21 16:49 Dose: 999 mls/hr Documented by: Sodium Chloride (Normal Saline) 500 mls @ 125 mls/hr IV ONETIME ONE Stop: 03/19/21 00:05 Last Admin: 03/18/21 20:35 Dose: 125 mls/hr Documented by: Remdesivir 200 mg/ Sodium (Chloride) 250 mls @ 250 mls/hr IV ONETIME ONE Stop: 03/19/21 01:04 Last Admin: 03/19/21 03:51 Dose: 250 mls/hr Documented by: Remdesivir 100 mg/ Sodium (Chloride) 100 mls @ 100 mls/hr IV Q24H [facility] Stop: 03/22/21 21:59 Last Admin: 03/22/21 20:55 Dose: 100 mls/hr Documented by: Pantoprazole Sodium 40 mg/ (Sodium Chloride) 10 mls @ 300 mls/hr IV DAILY [facility] Last Admin: 03/22/21 08:50 Dose: 300 mls/hr Documented by: Lactated Ringer's (Ringers, Lactated) 1,000 mls @ 100 mls/hr IV Q10H [facility] Stop: 03/20/21 23:59 Last Admin: 03/20/21 23:24 Dose: Not Given Documented by: Levofloxacin/Dextrose 750 mg/ (Premix) 150 mls @ 100 mls/hr IV Q48H [facility] Last Admin: 03/23/21 14:00 Dose: 100 mls/hr Documented by: Levofloxacin/Dextrose 750 mg/ (Premix) 150 mls @ 100 mls/hr IV Q24H [facility] Last Admin: 03/24/21 14:05 Dose: 100 mls/hr Documented by: Ondansetron HCl (Ondansetron 4 Mg/2 Ml Sdv) 4 mg IVPUSH ONETIME ONE Stop: 03/18/21 16:11 Last Admin: 03/18/21 16:52 Dose: 4 mg Documented by: Pneumococcal Polyvalent Vaccine (Pneumococcal Polyvalent-23 Vaccine 0.5 Ml Sdv) 0.5 ml IM .ONCE ONE Stop: 03/23/21 12:01 Last Admin: 03/23/21 16:56 Dose: Not Given Documented by: Sodium Chloride (Sodium Chloride 0.65% Nasal [place] 45 Ml Bottle) 0 ml JONI Q6H [facility] Last Admin: 03/23/21 14:40 Dose: 1 spray Documented by: Warfarin Sodium (Warfarin 5 Mg Tab) 10 mg PO DAILY [facility] Last Admin: 03/19/21 08:40 Dose: 10 mg Documented by: Warfarin Sodium (Warfarin 10 Mg Tab) 10 mg PO DAILY [facility] Last Admin: 03/20/21 09:13 Dose: 10 mg Documented by: Warfarin Sodium (Warfarin 2.5 Mg Tab) 2.5 mg PO 03/25/21@1130 [facility] Stop: 03/25/21 14:00 Last Admin: 03/25/21 11:26 Dose: 2.5 mg Documented by: - Exam General: Alert, Oriented Neck: Supple Lungs: Clear to Auscultation, Normal Respiratory Effort Cardiovascular: Regular Rate, Regular Rhythm GI/Abdominal Exam: Soft, Non-Tender, No Distention Extremities: Non-Tender, No Pedal Edema Skin: Warm, Dry, Intact Neurological: No New Focal Deficit - Patient Data Lab Results Last 24 hrs: Laboratory Results - last 24 hr 03/25/21 03/26/21 03/26/21 Range/Units 16:42 06:05 06:05 WBC 17.59 H (4.0-11.0) K/uL RBC 5.83 (4.50-5.90) M/uL Hgb 16.0 (13.0-17.0) g/dL Hct 46.3 (38.0-50.0) % MCV 79.4 L (80.0-98.0) fL MCH 27.4 (27.0-32.0) pg MCHC 34.6 (31.0-37.0) g/dL RDW Std Deviation 40.2 (28.0-62.0) fl RDW Coeff of [place] 14 (11.0-15.0) % Plt Count 247 (150-400) K/uL MPV 11.60 (7.40-12.00) fL Add Manual Diff YES Neutrophils % (Manual) 86 H (48.0-80.0) % Lymphocytes % (Manual) 4 L (16.0-40.0) % Monocytes % (Manual) 10 (0.0-15.0) % Nucleated RBC % 0.0 /100WBC Absolute Seg Neuts 15.1 H (1.4-5.7) Lymphocytes # (Manual) 0.7 (0.6-2.4) Monocytes # (Manual) 1.8 H (0.0-0.8) Nucleated RBCs # 0 K/uL INR 3.92 Sodium (136-148) mmol/L Potassium (3.5-5.1) mmol/L Chloride (98-107) mmol/L Carbon Dioxide (21.0-32.0) mmol/L BUN (7.0-18.0) mg/dL Creatinine (0.8-1.3) mg/dL Est Cr Clr Drug Dosing mL/min Estimated GFR (MDRD) ml/min Glucose (74-106) mg/dL POC Glucose 269 H (70-99) mg/dL Calcium (8.5-10.1) mg/dL Phosphorus (2.6-4.7) mg/dL Magnesium (1.8-2.4) mg/dL Total Bilirubin (0.2-1.0) mg/dL AST (15-37) IU/L ALT (14-63) IU/L Alkaline Phosphatase (46-116) U/L Total Protein (6.4-8.2) g/dL Albumin (3.4-5.0) g/dL Globulin (2.6-4.0) g/dL Albumin/Globulin Ratio (0.9-1.6) 03/26/21 03/26/21 Range/Units 06:05 08:26 WBC (4.0-11.0) K/uL RBC (4.50-5.90) M/uL Hgb (13.0-17.0) g/dL Hct (38.0-50.0) % MCV (80.0-98.0) fL MCH (27.0-32.0) pg MCHC (31.0-37.0) g/dL RDW Std Deviation (28.0-62.0) fl RDW Coeff of [place] (11.0-15.0) % Plt Count (150-400) K/uL MPV (7.40-12.00) fL Add Manual Diff Neutrophils % (Manual) (48.0-80.0) % Lymphocytes % (Manual) (16.0-40.0) % Monocytes % (Manual) (0.0-15.0) % Nucleated RBC % /100WBC Absolute Seg Neuts (1.4-5.7) Lymphocytes # (Manual) (0.6-2.4) Monocytes # (Manual) (0.0-0.8) Nucleated RBCs # K/uL INR Sodium 137 (136-148) mmol/L Potassium 5.1 (3.5-5.1) mmol/L Chloride 105 (98-107) mmol/L Carbon Dioxide 22.3 (21.0-32.0) mmol/L BUN 34 H (7.0-18.0) mg/dL Creatinine 1.3 (0.8-1.3) mg/dL Est Cr Clr Drug Dosing 44.19 mL/min Estimated GFR (MDRD) 54.1 ml/min Glucose 347 H (74-106) mg/dL POC Glucose 286 H (70-99) mg/dL Calcium 8.4 L (8.5-10.1) mg/dL Phosphorus 4.1 (2.6-4.7) mg/dL Magnesium 2.3 (1.8-2.4) mg/dL Total Bilirubin 0.8 (0.2-1.0) mg/dL AST 12 L (15-37) IU/L ALT 17 (14-63) IU/L Alkaline Phosphatase 69 (46-116) U/L Total Protein 5.9 L (6.4-8.2) g/dL Albumin 2.6 L (3.4-5.0) g/dL Globulin 3.3 (2.6-4.0) g/dL Albumin/Globulin Ratio 0.8 L (0.9-1.6) Result Diagrams: 03/26/21 06:05 03/26/21 06:05 Sepsis Event Note - Evaluation Sepsis Screening Result: No Definite Risk - Focused Exam Vital Signs: Vital Signs Temp Pulse Resp BP BP Pulse Ox 03/26/21 11:13 36.3 C 74 17 113/62 94 L 03/26/21 08:00 36.8 C 88 17 91/63 91 L 03/26/21 04:00 35.8 C L 83 19 109/74 92 L - Problem List Review Problem List Initiated/Reviewed/Updated: Yes - My Orders Last 24 Hours: My Active Orders 03/27/21 05:11 BASIC METABOLIC PANEL,BMP [CHEM] AM CBC WITH AUTO DIFF [HEME] AM INR,PT,PROTHROMBIN TIME [COAG] AM - Plan Plan:: 71 yo male with pmh of atrial fibrillation admitted with COVID and dehydration. cont Dexamethasone , Remdesivir course done cont Duonebs cont oxygenation via NC 2L wean as tolerated cont IV levaquin for possible superimposed PNA On Coumadin for a.fib, daily INR
[2021-03-26] MEDS ORDERED: Levofloxacin/Dextrose 5%-Water 750 MG in Premix Bag 1 BAG IV SCH (14:00)
[2021-03-27] MEDS: Albuterol/Ipratropium 4 GM Inhalation Spray INH SCH ×5 (00:38→17:23)
[2021-03-27 06:12] LABS: BLOOD UREA NITROGEN,BUN 32 mg/dL (7.0-18.0); CARBON DIOXIDE,CO2 22.3 mmol/L (21.0-32.0); CHLORIDE,CL 104 mmol/L (98-107); GLUCOSE RANDOM 275 mg/dL (74-106); POTASSIUM,K 4.9 mmol/L (3.5-5.1); SODIUM,NA 137 mmol/L (136-148)
[2021-03-27] MEDS: Insulin Aspart 100 Units/ML 3 ML Pen SUBCUT SCH ×3 (08:28→16:57)
[2021-03-27] MEDS: Pantoprazole 40 MG Tab.CR PO SCH (08:29)
[2021-03-27] MEDS: atorvaSTATin 20 MG Tab PO SCH (08:29)
[2021-03-27] MEDS: Dexamethasone 4 MG Tab PO SCH (08:29)
[2021-03-27] MEDS: Sodium Chloride 0.9% 2.5 ML Syringe FLUSH PRN (08:31)
[2021-03-27] MEDS: Diphenhydramine/Lidocaine/Nystatin Suspension 237 ML Bottle PO SCH ×2 (09:00→21:11)
--- NOTE | 2021-03-27 14:00 | PCM.PN ---
- General Info Date of Service: 03/27/21 - Review of Systems Systems Review Comment:: feeling better, shortness of breath improving, thinks he will be ready to go home tomorrow. - Patient Data Vitals - Most Recent: Last Vital Signs Temp 2.5 C L 03/27/21 11:32 Pulse 73 03/27/21 11:32 Resp 16 03/27/21 11:32 BP 93/67 03/27/21 11:32 Pulse Ox 92 L 03/27/21 11:32 Weight - Most Recent: 61.734 kg I&O - Last 24 Hours: Intake & Output 03/26/21 03/27/21 03/27/21 22:59 06:59 14:59 Intake Total 580 600 Output Total 800 Balance 580 -200 Lab Results Last 24 Hours: Laboratory Results - last 24 hr 03/26/21 03/27/21 03/27/21 Range/Units 17:52 05:45 05:45 WBC 16.33 H (4.0-11.0) K/uL RBC 5.77 (4.50-5.90) M/uL Hgb 15.8 (13.0-17.0) g/dL Hct 45.7 (38.0-50.0) % MCV 79.2 L (80.0-98.0) fL MCH 27.4 (27.0-32.0) pg MCHC 34.6 (31.0-37.0) g/dL RDW Std Deviation 39.4 (28.0-62.0) fl RDW Coeff of [place] 14 (11.0-15.0) % Plt Count 260 (150-400) K/uL MPV 11.70 (7.40-12.00) fL Neut % (Auto) 80.1 H (48.0-80.0) % Lymph % (Auto) 5.0 L (16.0-40.0) % [place] % (Auto) 14.7 (0.0-15.0) % Eos % (Auto) 0.1 (0.0-7.0) % Baso % (Auto) 0.1 (0.0-1.5) % Neut # (Auto) 13.1 H (1.4-5.7) K/uL Lymph # (Auto) 0.8 (0.6-2.4) K/uL [place] # (Auto) 2.4 H (0.0-0.8) K/uL Eos # (Auto) 0.0 (0.0-0.7) K/uL Baso # (Auto) 0.0 (0.0-0.1) K/uL Nucleated RBC % 0.0 /100WBC Nucleated RBCs # 0 K/uL INR 3.31 Sodium (136-148) mmol/L Potassium (3.5-5.1) mmol/L Chloride (98-107) mmol/L Carbon Dioxide (21.0-32.0) mmol/L BUN (7.0-18.0) mg/dL Creatinine (0.8-1.3) mg/dL Est Cr Clr Drug Dosing mL/min Estimated GFR (MDRD) ml/min Glucose (74-106) mg/dL POC Glucose 381 H (70-99) mg/dL Calcium (8.5-10.1) mg/dL 03/27/21 03/27/21 03/27/21 Range/Units 05:45 06:36 11:29 WBC (4.0-11.0) K/uL RBC (4.50-5.90) M/uL Hgb (13.0-17.0) g/dL Hct (38.0-50.0) % MCV (80.0-98.0) fL MCH (27.0-32.0) pg MCHC (31.0-37.0) g/dL RDW Std Deviation (28.0-62.0) fl RDW Coeff of [place] (11.0-15.0) % Plt Count (150-400) K/uL MPV (7.40-12.00) fL Neut % (Auto) (48.0-80.0) % Lymph % (Auto) (16.0-40.0) % [place] % (Auto) (0.0-15.0) % Eos % (Auto) (0.0-7.0) % Baso % (Auto) (0.0-1.5) % Neut # (Auto) (1.4-5.7) K/uL Lymph # (Auto) (0.6-2.4) K/uL [place] # (Auto) (0.0-0.8) K/uL Eos # (Auto) (0.0-0.7) K/uL Baso # (Auto) (0.0-0.1) K/uL Nucleated RBC % /100WBC Nucleated RBCs # K/uL INR Sodium 137 (136-148) mmol/L Potassium 4.9 (3.5-5.1) mmol/L Chloride 104 (98-107) mmol/L Carbon Dioxide 22.3 (21.0-32.0) mmol/L BUN 32 H (7.0-18.0) mg/dL Creatinine 1.1 (0.8-1.3) mg/dL Est Cr Clr Drug Dosing 52.22 mL/min Estimated GFR (MDRD) > 60.0 ml/min Glucose 275 H (74-106) mg/dL POC Glucose 252 H 238 H (70-99) mg/dL Calcium 8.1 L (8.5-10.1) mg/dL Med Orders - Current: Current Medications Acetaminophen (Acetaminophen 325 Mg Tab) 650 mg PO Q4H PRN PRN Reason: Fever Albuterol/Ipratropium (Albuterol/Ipratropium 4 Gm Inhalation [place]) 0 gm INH QID [facility] Last Admin: 03/27/21 11:37 Dose: 1 puff Documented by: Atorvastatin Calcium (Atorvastatin 20 Mg Tab) 20 mg PO DAILY [facility] Last Admin: 03/27/21 08:29 Dose: 20 mg Documented by: Dexamethasone (Dexamethasone 4 Mg Tab) 6 mg PO DAILY [facility] Last Admin: 03/27/21 08:29 Dose: 6 mg Documented by: Dextrose/Water (50% Dextrose In Water 50 Ml Syringe) 50 ml IV ASDIRECTED PRN PRN Reason: Hypoglycemia Diphenhydramine/Nystatin/Lidocaine (Diphenhydramine/Lidocaine/Nystatin Suspension 237 Ml Bottle) 5 ml PO BID [facility] Last Admin: 03/26/21 21:06 Dose: 5 ml Documented by: Glucagon (Glucagon,Human Recombinant 1 Mg Vial) 1 mg IM ASDIRECTED PRN PRN Reason: Hypoglycemia Sodium Chloride (Normal Saline) 500 mls @ 125 mls/hr IV .BOLUS [facility] Last Admin: 03/19/21 00:36 Dose: 125 mls/hr Documented by: Levofloxacin/Dextrose 750 mg/ (Premix) 150 mls @ 100 mls/hr IV Q48H [facility] Last Admin: 03/26/21 14:46 Dose: 100 mls/hr Documented by: Insulin Aspart (Insulin Aspart 100 Units/Ml 3 Ml Pen) 0 unit SUBCUT TIDAC [facility]; Protocol Last Admin: 03/27/21 12:42 Dose: 2 unit Documented by: Ondansetron HCl (Ondansetron 4 Mg/2 Ml Sdv) 4 mg IVPUSH Q4H PRN PRN Reason: Nausea Last Admin: 03/20/21 10:57 Dose: 4 mg Documented by: Pantoprazole Sodium (Pantoprazole 40 Mg Tab.Cr) 40 mg PO DAILY [facility] Last Admin: 03/27/21 08:29 Dose: 40 mg Documented by: Sodium Chloride (Sodium Chloride 0.9% 10 Ml Syringe) 10 ml FLUSH ASDIRECTED PRN PRN Reason: Keep Vein Open Last Admin: 03/20/21 09:15 Dose: 10 ml Documented by: Sodium Chloride (Sodium Chloride 0.9% 2.5 Ml Syringe) 2.5 ml FLUSH ASDIRECTED PRN PRN Reason: Keep Vein Open Last Admin: 03/27/21 08:31 Dose: 2.5 ml Documented by: Sodium Chloride (Sodium Chloride 0.65% Nasal [place] 45 Ml Bottle) 0 ml JONI Q6H PRN PRN Reason: Nasal Dryness Warfarin Sodium (Warfarin Ask Dosing) 1 each PO DAILY@1400 [facility] Last Admin: 03/26/21 17:40 Dose: Not Given Documented by: Discontinued Medications Albuterol/Ipratropium (Albuterol/Ipratropium 4 Gm Inhalation [place]) 0 gm INH Q4H PRN PRN Reason: Dyspnea Last Admin: 03/21/21 06:02 Dose: 1 puff Documented by: Albuterol/Ipratropium (Albuterol/Ipratropium 4 Gm Inhalation [place]) 0 gm INH Q4HRRT PRN PRN Reason: Dyspnea Dexamethasone (Dexamethasone 4 Mg Tab) 6 mg PO ONETIME ONE Stop: 03/19/21 01:12 Last Admin: 03/19/21 02:04 Dose: 6 mg Documented by: Dexamethasone (Dexamethasone 4 Mg Tab) 6 mg PO DAILY [facility] Dexamethasone (Dexamethasone 4 Mg Tab) 6 mg PO DAILY@1200 [facility] Stop: 03/19/21 12:01 Last Admin: 03/19/21 12:18 Dose: 6 mg Documented by: Diphenhydramine/Nystatin/Lidocaine (Diphenhydramine/Lidocaine/Nystatin Suspension 237 Ml Bottle) 1 ml PO BID [facility] Last Admin: 03/23/21 20:31 Dose: Not Given Documented by: Diphenhydramine/Nystatin/Lidocaine (Diphenhydramine/Lidocaine/Nystatin Suspension 237 Ml Bottle) 0 ml PO BID [facility] Last Admin: 03/24/21 08:39 Dose: 5 ml Documented by: Enoxaparin Sodium (Enoxaparin 40 Mg/0.4 Ml Syringe) 40 mg SUBCUT Q24H [facility] Last Admin: 03/20/21 20:01 Dose: 40 mg Documented by: Sodium Chloride (Normal Saline) 1,000 mls @ 999 mls/hr IV .BOLUS ONE Stop: 03/18/21 17:10 Last Admin: 03/18/21 16:49 Dose: 999 mls/hr Documented by: Sodium Chloride (Normal Saline) 500 mls @ 125 mls/hr IV ONETIME ONE Stop: 03/19/21 00:05 Last Admin: 03/18/21 20:35 Dose: 125 mls/hr Documented by: Remdesivir 200 mg/ Sodium (Chloride) 250 mls @ 250 mls/hr IV ONETIME ONE Stop: 03/19/21 01:04 Last Admin: 03/19/21 03:51 Dose: 250 mls/hr Documented by: Remdesivir 100 mg/ Sodium (Chloride) 100 mls @ 100 mls/hr IV Q24H [facility] Stop: 03/22/21 21:59 Last Admin: 03/22/21 20:55 Dose: 100 mls/hr Documented by: Pantoprazole Sodium 40 mg/ (Sodium Chloride) 10 mls @ 300 mls/hr IV DAILY [facility] Last Admin: 03/22/21 08:50 Dose: 300 mls/hr Documented by: Lactated Ringer's (Ringers, Lactated) 1,000 mls @ 100 mls/hr IV Q10H [facility] Stop: 03/20/21 23:59 Last Admin: 03/20/21 23:24 Dose: Not Given Documented by: Levofloxacin/Dextrose 750 mg/ (Premix) 150 mls @ 100 mls/hr IV Q48H [facility] Last Admin: 03/23/21 14:00 Dose: 100 mls/hr Documented by: Levofloxacin/Dextrose 750 mg/ (Premix) 150 mls @ 100 mls/hr IV Q24H [facility] Last Admin: 03/24/21 14:05 Dose: 100 mls/hr Documented by: Ondansetron HCl (Ondansetron 4 Mg/2 Ml Sdv) 4 mg IVPUSH ONETIME ONE Stop: 03/18/21 16:11 Last Admin: 03/18/21 16:52 Dose: 4 mg Documented by: Pneumococcal Polyvalent Vaccine (Pneumococcal Polyvalent-23 Vaccine 0.5 Ml Sdv) 0.5 ml IM .ONCE ONE Stop: 03/23/21 12:01 Last Admin: 03/23/21 16:56 Dose: Not Given Documented by: Sodium Chloride (Sodium Chloride 0.65% Nasal [place] 45 Ml Bottle) 0 ml JONI Q6H [facility] Last Admin: 03/23/21 14:40 Dose: 1 spray Documented by: Warfarin Sodium (Warfarin 5 Mg Tab) 10 mg PO DAILY [facility] Last Admin: 03/19/21 08:40 Dose: 10 mg Documented by: Warfarin Sodium (Warfarin 10 Mg Tab) 10 mg PO DAILY [facility] Last Admin: 03/20/21 09:13 Dose: 10 mg Documented by: Warfarin Sodium (Warfarin 2.5 Mg Tab) 2.5 mg PO 03/25/21@1130 [facility] Stop: 03/25/21 14:00 Last Admin: 03/25/21 11:26 Dose: 2.5 mg Documented by: - Exam General: Alert, Oriented Neck: Supple Lungs: Clear to Auscultation, Normal Respiratory Effort Cardiovascular: Regular Rate, Regular Rhythm GI/Abdominal Exam: Soft, Non-Tender, No Distention Extremities: Non-Tender, No Pedal Edema Skin: Warm, Dry, Intact Neurological: No New Focal Deficit - Patient Data Lab Results Last 24 hrs: Laboratory Results - last 24 hr 03/26/21 03/27/21 03/27/21 Range/Units 17:52 05:45 05:45 WBC 16.33 H (4.0-11.0) K/uL RBC 5.77 (4.50-5.90) M/uL Hgb 15.8 (13.0-17.0) g/dL Hct 45.7 (38.0-50.0) % MCV 79.2 L (80.0-98.0) fL MCH 27.4 (27.0-32.0) pg MCHC 34.6 (31.0-37.0) g/dL RDW Std Deviation 39.4 (28.0-62.0) fl RDW Coeff of [place] 14 (11.0-15.0) % Plt Count 260 (150-400) K/uL MPV 11.70 (7.40-12.00) fL Neut % (Auto) 80.1 H (48.0-80.0) % Lymph % (Auto) 5.0 L (16.0-40.0) % [place] % (Auto) 14.7 (0.0-15.0) % Eos % (Auto) 0.1 (0.0-7.0) % Baso % (Auto) 0.1 (0.0-1.5) % Neut # (Auto) 13.1 H (1.4-5.7) K/uL Lymph # (Auto) 0.8 (0.6-2.4) K/uL [place] # (Auto) 2.4 H (0.0-0.8) K/uL Eos # (Auto) 0.0 (0.0-0.7) K/uL Baso # (Auto) 0.0 (0.0-0.1) K/uL Nucleated RBC % 0.0 /100WBC Nucleated RBCs # 0 K/uL INR 3.31 Sodium (136-148) mmol/L Potassium (3.5-5.1) mmol/L Chloride (98-107) mmol/L Carbon Dioxide (21.0-32.0) mmol/L BUN (7.0-18.0) mg/dL Creatinine (0.8-1.3) mg/dL Est Cr Clr Drug Dosing mL/min Estimated GFR (MDRD) ml/min Glucose (74-106) mg/dL POC Glucose 381 H (70-99) mg/dL Calcium (8.5-10.1) mg/dL 03/27/21 03/27/21 03/27/21 Range/Units 05:45 06:36 11:29 WBC (4.0-11.0) K/uL RBC (4.50-5.90) M/uL Hgb (13.0-17.0) g/dL Hct (38.0-50.0) % MCV (80.0-98.0) fL MCH (27.0-32.0) pg MCHC (31.0-37.0) g/dL RDW Std Deviation (28.0-62.0) fl RDW Coeff of [place] (11.0-15.0) % Plt Count (150-400) K/uL MPV (7.40-12.00) fL Neut % (Auto) (48.0-80.0) % Lymph % (Auto) (16.0-40.0) % [place] % (Auto) (0.0-15.0) % Eos % (Auto) (0.0-7.0) % Baso % (Auto) (0.0-1.5) % Neut # (Auto) (1.4-5.7) K/uL Lymph # (Auto) (0.6-2.4) K/uL [place] # (Auto) (0.0-0.8) K/uL Eos # (Auto) (0.0-0.7) K/uL Baso # (Auto) (0.0-0.1) K/uL Nucleated RBC % /100WBC Nucleated RBCs # K/uL INR Sodium 137 (136-148) mmol/L Potassium 4.9 (3.5-5.1) mmol/L Chloride 104 (98-107) mmol/L Carbon Dioxide 22.3 (21.0-32.0) mmol/L BUN 32 H (7.0-18.0) mg/dL Creatinine 1.1 (0.8-1.3) mg/dL Est Cr Clr Drug Dosing 52.22 mL/min Estimated GFR (MDRD) > 60.0 ml/min Glucose 275 H (74-106) mg/dL POC Glucose 252 H 238 H (70-99) mg/dL Calcium 8.1 L (8.5-10.1) mg/dL Result Diagrams: 03/27/21 05:45 03/27/21 05:45 Sepsis Event Note - Evaluation Sepsis Screening Result: No Definite Risk - Focused Exam Vital Signs: Vital Signs Temp Pulse Resp BP BP Pulse Ox 03/27/21 11:32 2.5 C L 73 16 93/67 92 L 03/27/21 08:00 36.1 C 86 17 99/72 92 L 03/27/21 04:45 36.1 C 73 20 96/56 L 92 L - Problem List Review Problem List Initiated/Reviewed/Updated: Yes - Plan Plan:: 71 yo male with pmh of atrial fibrillation admitted with COVID and dehydration. cont Dexamethasone , Remdesivir course is done cont Duonebs cont oxygenation via NC 2L wean as tolerated cont IV levaquin for possible superimposed PNA On Coumadin for a.fib, daily INR dispo: plan on discharge home tomorrow.
[2021-03-27] MEDS: Sodium Chloride 0.9% 10 ML Syringe FLUSH PRN (17:02)
[2021-03-28] MEDS: Albuterol/Ipratropium 4 GM Inhalation Spray INH SCH ×3 (00:10→11:09)
[2021-03-28 06:09] LABS: CARBON DIOXIDE,CO2 23.6 mmol/L (21.0-32.0); POTASSIUM,K 4.5 mmol/L (3.5-5.1)
[2021-03-28] MEDS: Insulin Aspart 100 Units/ML 3 ML Pen SUBCUT SCH ×2 (07:49→12:11)
[2021-03-28] MEDS: Dexamethasone 4 MG Tab PO SCH (08:04)
[2021-03-28] MEDS: Pantoprazole 40 MG Tab.CR PO SCH (08:04)
[2021-03-28] MEDS: atorvaSTATin 20 MG Tab PO SCH (08:04)
[2021-03-28] MEDS: Diphenhydramine/Lidocaine/Nystatin Suspension 237 ML Bottle PO SCH (08:05)
[2021-03-28] MEDS ORDERED: Pneumococcal 13-Valent Conjugate Vaccine 0.5 ML Syringe IM ONE (10:41)
--- NOTE | 2021-03-28 10:48 | PCM.DCSUM1 ---
Discharge Summary - Hospital Course Brief History: 71 yo male with pmh of atrial fibrillation who presents with three week history of not feeling well. Patient reports nausea, vomiting, and diarrhea. For the past several days he has been short of breath with cough. He reports generalized weakness and fatigue and does not think it is safe for him to go home. Laboratory values on admission are significant for creatinine of 1.5, INR of 1.1. Patient reports he has been too sick to take his coumadin. CXR showed no acute pathology. Patient is satting 91% on Room air. - Discharge Data Discharge Date: 03/28/21 Discharge Disposition: Home, Self-Care 01 Condition: Stable - Referral to Home Health Primary Care Physician: Keshav Esteban NP - Patient Summary/Data Hospital Course: Admission diagnoses Covid Nausea vomiting Discharge diagnoses Acute hypoxic respiratory failure resolved COVID-19 Secondary pneumonia Other PMH Atrial fibrillation Anticoagulation Ketan was admitted secondary to nausea vomiting diarrhea along with being diagnosed with COVID-19. Initially he was satting 91% on room air within 1 day he had acute hypoxic respiratory failure with hypoxia. He was started on remdesivir. He was also started on dexamethasone Combivent and pulmonary to ileting. He slowly but steadily improved. He has received his full course of remdesivir. 10 days of dexamethasone and he has received 2 days of Levaquin for possible secondary pneumonia. Today he is feeling much better. On room air he is satting 93% at rest. With ambulation on room air he is satting 90 to 92%. He is eager to be discharged home today, he is to continue his home medications. He will have Levaquin 750 mg every 48 hours for 3 more doses. He was counseled to quarantine for another 1 week to equal 20 days since symptom onset. He will follow-up with PCP in 1 to 2 weeks. He is to return to the ER or clinic sooner if concerns should arise. - Patient Instructions Diet: Heart Healthy Diet Activity: No Strenuous Activities Showering/Bathing: May Shower Notify Provider of: Fever, Increased Pain, Swelling and Redness, Drainage, Nausea and/or Vomiting Other/Special Instructions: Continue to quarantine for another 7 days to complete total 20 days per CDC recommendations. Ends 04/01/2021. Continue to wear a mask and socially distance when you are off quarantine. - Discharge Plan *PRESCRIPTION DRUG MONITORING PROGRAM REVIEWED*: Not Applicable *COPY OF PRESCRIPTION DRUG MONITORING REPORT IN PATIENT ELENA: Not Applicable Prescriptions/Med Rec: Albuterol/Ipratropium [Combivent Respimat] 1 puff INH QID PRN #1 inhaler PRN Reason: COVID levoFLOXacin [Levaquin] 750 mg PO Q48H #3 tab Home Medications: Home Meds atorvaSTATin [Lipitor] 20 mg PO DAILY 04/13/19 [History] lisinopriL [Prinivil] 2.5 mg PO DAILY 04/13/19 [History] Warfarin [Coumadin] 5 mg PO DAILY 08/11/19 [History] Acetaminophen [Tylenol] 650 mg PO Q4H PRN tablet 08/12/19 [Rx] Albuterol/Ipratropium [Combivent Respimat] 1 puff INH QID PRN #1 inhaler 02/13 [Rx] levoFLOXacin [Levaquin] 750 mg PO Q48H #3 tab 03/28/21 [Rx] Oxygen Therapy Mode: Room Air Patient Handouts: Ipratropium; Albuterol Inhalation [place] (Combivent Respimat), COVID-19 Frequently Asked Questions, Hypoxemia, What You Should Know About COVID-19 to Protect Yourself and Others - CDC, COVID-19: How to Protect Yourself and Others - CDC, Levofloxacin tablets, Atrial Fibrillation, [id number], Prevent the Spread of COVID-19 if You Are Sick - [facility] Referrals: Keshav Estbean [employer] [Primary Care Provider] - 04/06/21 10:30 am - Discharge Summary/Plan Comment DC Time >30 min.: No - Patient Data Vitals - Most Recent: Last Vital Signs Temp 96.8 F L 03/28/21 07:54 Pulse 75 03/28/21 07:54 Resp 18 03/28/21 07:54 BP 98/65 03/28/21 07:54 Pulse Ox 91 L 03/28/21 07:54 Weight - Most Recent: 61.734 kg I&O - Last 24 hours: Intake & Output 03/27/21 03/28/21 03/28/21 22:59 06:59 14:59 Intake Total 300 560 Output Total 800 450 Balance -500 110 Lab Results - Last 24 hrs: Laboratory Results - last 24 hr 03/27/21 03/27/21 03/28/21 Range/Units 11:29 16:53 05:45 WBC 16.42 H (4.0-11.0) K/uL RBC 5.83 (4.50-5.90) M/uL Hgb 15.9 (13.0-17.0) g/dL Hct 46.2 (38.0-50.0) % MCV 79.2 L (80.0-98.0) fL MCH 27.3 (27.0-32.0) pg MCHC 34.4 (31.0-37.0) g/dL RDW Std Deviation 39.2 (28.0-62.0) fl RDW Coeff of [place] 14 (11.0-15.0) % Plt Count 254 (150-400) K/uL MPV 11.60 (7.40-12.00) fL Neut % (Auto) 80.9 H (48.0-80.0) % Lymph % (Auto) 6.8 L (16.0-40.0) % [place] % (Auto) 12.1 (0.0-15.0) % Eos % (Auto) 0.1 (0.0-7.0) % Baso % (Auto) 0.1 (0.0-1.5) % Neut # (Auto) 13.3 H (1.4-5.7) K/uL Lymph # (Auto) 1.1 (0.6-2.4) K/uL [place] # (Auto) 2.0 H (0.0-0.8) K/uL Eos # (Auto) 0.0 (0.0-0.7) K/uL Baso # (Auto) 0.0 (0.0-0.1) K/uL Nucleated RBC % 0.0 /100WBC Nucleated RBCs # 0 K/uL INR Sodium (136-148) mmol/L Potassium (3.5-5.1) mmol/L Chloride (98-107) mmol/L Carbon Dioxide (21.0-32.0) mmol/L BUN (7.0-18.0) mg/dL Creatinine (0.8-1.3) mg/dL Est Cr Clr Drug Dosing mL/min Estimated GFR (MDRD) ml/min Glucose (74-106) mg/dL POC Glucose 238 H 396 H (70-99) mg/dL Calcium (8.5-10.1) mg/dL 03/28/21 03/28/21 03/28/21 Range/Units 05:45 05:45 06:45 WBC (4.0-11.0) K/uL RBC (4.50-5.90) M/uL Hgb (13.0-17.0) g/dL Hct (38.0-50.0) % MCV (80.0-98.0) fL MCH (27.0-32.0) pg MCHC (31.0-37.0) g/dL RDW Std Deviation (28.0-62.0) fl RDW Coeff of [place] (11.0-15.0) % Plt Count (150-400) K/uL MPV (7.40-12.00) fL Neut % (Auto) (48.0-80.0) % Lymph % (Auto) (16.0-40.0) % [place] % (Auto) (0.0-15.0) % Eos % (Auto) (0.0-7.0) % Baso % (Auto) (0.0-1.5) % Neut # (Auto) (1.4-5.7) K/uL Lymph # (Auto) (0.6-2.4) K/uL [place] # (Auto) (0.0-0.8) K/uL Eos # (Auto) (0.0-0.7) K/uL Baso # (Auto) (0.0-0.1) K/uL Nucleated RBC % /100WBC Nucleated RBCs # K/uL INR 2.43 Sodium 138 (136-148) mmol/L Potassium 4.5 (3.5-5.1) mmol/L Chloride 105 (98-107) mmol/L Carbon Dioxide 23.6 (21.0-32.0) mmol/L BUN 32 H (7.0-18.0) mg/dL Creatinine 1.2 (0.8-1.3) mg/dL Est Cr Clr Drug Dosing 47.87 mL/min Estimated GFR (MDRD) 59.3 ml/min Glucose 310 H (74-106) mg/dL POC Glucose 245 H (70-99) mg/dL Calcium 8.3 L (8.5-10.1) mg/dL Med Orders - Current: Current Medications Acetaminophen (Acetaminophen 325 Mg Tab) 650 mg PO Q4H PRN PRN Reason: Fever Albuterol/Ipratropium (Albuterol/Ipratropium 4 Gm Inhalation [place]) 0 gm INH QID [facility] Last Admin: 03/28/21 05:50 Dose: 1 puff Documented by: Atorvastatin Calcium (Atorvastatin 20 Mg Tab) 20 mg PO DAILY [facility] Last Admin: 03/28/21 08:04 Dose: 20 mg Documented by: Dexamethasone (Dexamethasone 4 Mg Tab) 6 mg PO DAILY [facility] Last Admin: 03/28/21 08:04 Dose: 6 mg Documented by: Dextrose/Water (50% Dextrose In Water 50 Ml Syringe) 50 ml IV ASDIRECTED PRN PRN Reason: Hypoglycemia Diphenhydramine/Nystatin/Lidocaine (Diphenhydramine/Lidocaine/Nystatin Suspension 237 Ml Bottle) 5 ml PO BID [facility] Last Admin: 03/28/21 08:05 Dose: Not Given Documented by: Glucagon (Glucagon,Human Recombinant 1 Mg Vial) 1 mg IM ASDIRECTED PRN PRN Reason: Hypoglycemia Sodium Chloride (Normal Saline) 500 mls @ 125 mls/hr IV .BOLUS [facility] Last Admin: 03/19/21 00:36 Dose: 125 mls/hr Documented by: Insulin Aspart (Insulin Aspart 100 Units/Ml 3 Ml Pen) 0 unit SUBCUT TIDAC [facility]; Protocol Last Admin: 03/28/21 07:49 Dose: 2 unit Documented by: Levofloxacin (Levofloxacin 500 Mg Tab) 750 mg PO ONETIME ONE Stop: 03/28/21 10:45 Ondansetron HCl (Ondansetron 4 Mg/2 Ml Sdv) 4 mg IVPUSH Q4H PRN PRN Reason: Nausea Last Admin: 03/20/21 10:57 Dose: 4 mg Documented by: Pantoprazole Sodium (Pantoprazole 40 Mg Tab.Cr) 40 mg PO DAILY [facility] Last Admin: 03/28/21 08:04 Dose: 40 mg Documented by: Sodium Chloride (Sodium Chloride 0.9% 10 Ml Syringe) 10 ml FLUSH ASDIRECTED PRN PRN Reason: Keep Vein Open Last Admin: 03/27/21 17:02 Dose: 10 ml Documented by: Sodium Chloride (Sodium Chloride 0.9% 2.5 Ml Syringe) 2.5 ml FLUSH ASDIRECTED PRN PRN Reason: Keep Vein Open Last Admin: 03/27/21 08:31 Dose: 2.5 ml Documented by: Sodium Chloride (Sodium Chloride 0.65% Nasal [place] 45 Ml Bottle) 0 ml JONI Q6H PRN PRN Reason: Nasal Dryness Warfarin Sodium (Warfarin Ask Dosing) 1 each PO DAILY@1400 [facility] Last Admin: 03/27/21 14:12 Dose: Not Given Documented by: Discontinued Medications Albuterol/Ipratropium (Albuterol/Ipratropium 4 Gm Inhalation [place]) 0 gm INH Q4H PRN PRN Reason: Dyspnea Last Admin: 03/21/21 06:02 Dose: 1 puff Documented by: Albuterol/Ipratropium (Albuterol/Ipratropium 4 Gm Inhalation [place]) 0 gm INH Q4HRRT PRN PRN Reason: Dyspnea Dexamethasone (Dexamethasone 4 Mg Tab) 6 mg PO ONETIME ONE Stop: 03/19/21 01:12 Last Admin: 03/19/21 02:04 Dose: 6 mg Documented by: Dexamethasone (Dexamethasone 4 Mg Tab) 6 mg PO DAILY [facility] Dexamethasone (Dexamethasone 4 Mg Tab) 6 mg PO DAILY@1200 [facility] Stop: 03/19/21 12:01 Last Admin: 03/19/21 12:18 Dose: 6 mg Documented by: Diphenhydramine/Nystatin/Lidocaine (Diphenhydramine/Lidocaine/Nystatin Suspension 237 Ml Bottle) 1 ml PO BID [facility] Last Admin: 03/23/21 20:31 Dose: Not Given Documented by: Diphenhydramine/Nystatin/Lidocaine (Diphenhydramine/Lidocaine/Nystatin Suspension 237 Ml Bottle) 0 ml PO BID [facility] Last Admin: 03/24/21 08:39 Dose: 5 ml Documented by: Enoxaparin Sodium (Enoxaparin 40 Mg/0.4 Ml Syringe) 40 mg SUBCUT Q24H [facility] Last Admin: 03/20/21 20:01 Dose: 40 mg Documented by: Sodium Chloride (Normal Saline) 1,000 mls @ 999 mls/hr IV .BOLUS ONE Stop: 03/18/21 17:10 Last Admin: 03/18/21 16:49 Dose: 999 mls/hr Documented by: Sodium Chloride (Normal Saline) 500 mls @ 125 mls/hr IV ONETIME ONE Stop: 03/19/21 00:05 Last Admin: 03/18/21 20:35 Dose: 125 mls/hr Documented by: Remdesivir 200 mg/ Sodium (Chloride) 250 mls @ 250 mls/hr IV ONETIME ONE Stop: 03/19/21 01:04 Last Admin: 03/19/21 03:51 Dose: 250 mls/hr Documented by: Remdesivir 100 mg/ Sodium (Chloride) 100 mls @ 100 mls/hr IV Q24H [facility] Stop: 03/22/21 21:59 Last Admin: 03/22/21 20:55 Dose: 100 mls/hr Documented by: Pantoprazole Sodium 40 mg/ (Sodium Chloride) 10 mls @ 300 mls/hr IV DAILY [facility] Last Admin: 03/22/21 08:50 Dose: 300 mls/hr Documented by: Lactated Ringer's (Ringers, Lactated) 1,000 mls @ 100 mls/hr IV Q10H [facility] Stop: 03/20/21 23:59 Last Admin: 03/20/21 23:24 Dose: Not Given Documented by: Levofloxacin/Dextrose 750 mg/ (Premix) 150 mls @ 100 mls/hr IV Q48H [facility] Last Admin: 03/23/21 14:00 Dose: 100 mls/hr Documented by: Levofloxacin/Dextrose 750 mg/ (Premix) 150 mls @ 100 mls/hr IV Q24H [facility] Last Admin: 03/24/21 14:05 Dose: 100 mls/hr Documented by: Levofloxacin/Dextrose 750 mg/ (Premix) 150 mls @ 100 mls/hr IV Q48H [facility] Last Admin: 03/26/21 14:46 Dose: 100 mls/hr Documented by: Ondansetron HCl (Ondansetron 4 Mg/2 Ml Sdv) 4 mg IVPUSH ONETIME ONE Stop: 03/18/21 16:11 Last Admin: 03/18/21 16:52 Dose: 4 mg Documented by: Pneumococcal 13-Valent Conj Vacc (Pneumococcal 13-Valent Conjugate Vaccine 0.5 Ml Syringe) 0.5 ml IM .ONCE ONE Stop: 03/28/21 10:42 Pneumococcal Polyvalent Vaccine (Pneumococcal Polyvalent-23 Vaccine 0.5 Ml Sdv) 0.5 ml IM .ONCE ONE Stop: 03/23/21 12:01 Last Admin: 03/23/21 16:56 Dose: Not Given Documented by: Sodium Chloride (Sodium Chloride 0.65% Nasal [place] 45 Ml Bottle) 0 ml JONI Q6H [facility] Last Admin: 03/23/21 14:40 Dose: 1 spray Documented by: Warfarin Sodium (Warfarin 5 Mg Tab) 10 mg PO DAILY [facility] Last Admin: 03/19/21 08:40 Dose: 10 mg Documented by: Warfarin Sodium (Warfarin 10 Mg Tab) 10 mg PO DAILY [facility] Last Admin: 03/20/21 09:13 Dose: 10 mg Documented by: Warfarin Sodium (Warfarin 2.5 Mg Tab) 2.5 mg PO 03/25/21@1130 [facility] Stop: 03/25/21 14:00 Last Admin: 03/25/21 11:26 Dose: 2.5 mg Documented by:
[2021-03-28] MEDS ORDERED: Levofloxacin 250 MG Tab PO ONE (11:00)
[2021-03-28 12:32] VITALS: BP 95/67; PULSE 79
== END 2021-03-28 12:50 | disposition home or self-care (01) | DRG 177 ==
LOC: MW.ED 15:36 → MW.MS 18:07
PROVIDERS: ADMIT Internal Medicine; ATTEND Internal Medicine
PROC: XW033E5 Introduction of Remdesivir Anti-infective into Peripheral Vein, Percutaneous Approach, New Technology Group 5 (ICD-10-PCS; 2021-03-18)
PROC: 3E0234Z Introduction of Serum, Toxoid and Vaccine into Muscle, Percutaneous Approach (ICD-10-PCS; principal; 2021-03-28)
DX: U07.1 COVID-19 (principal); R09.02 Hypoxemia; J96.01 Acute respiratory failure with hypoxia; J18.9 Pneumonia, unspecified organism; H54.7 Unspecified visual loss; E78.00 Pure hypercholesterolemia, unspecified; F41.9 Anxiety disorder, unspecified; F32.9 Major depressive disorder, single episode, unspecified; E86.0 Dehydration; N28.9 Disorder of kidney and ureter, unspecified; I48.91 Unspecified atrial fibrillation; Z88.5 Allergy status to narcotic agent; Z88.8 Allergy status to other drugs, medicaments and biological substances; Z88.6 Allergy status to analgesic agent; Z23 Encounter for immunization; Z87.442 Personal history of urinary calculi; Z79.01 Long term (current) use of anticoagulants; Z79.899 Other long term (current) drug therapy
CPT/HCPCS: 36415; 71045; 71045-26; 80048; 80053; 81001; 82248; 82947; 83735; 84100; 84484; 85025; 85610; 90670; 93005; 94640; 94660; 96374; 99222; 99232; 99233; 99238; 99284; 99285-25; A9270-GY; C9113; G0009; J1650; J1815-GY; J1956; J2405; J7030; J7040; J7050; J7120; J8540; U0002

== ENCOUNTER 2021-04-08 13:48 | Observation (INO) | payer OTHER ==
--- NOTE | 2021-04-08 14:28 | EDM.PDOC ---
ED HPI GENERAL MEDICAL PROBLEM - General Chief Complaint: General Time Seen by Provider: 04/08/21 14:25 Source of Information: Reports: Patient History Limitations: Reports: No Limitations - History of Present Illness INITIAL COMMENTS - FREE TEXT/NARRATIVE: HISTORY AND PHYSICAL: History of present illness: Patient is a 71-year-old male who presents to the emergency room with complaints of weakness, near syncope, hematuria and bloody noses (since being swabbed for COVID 3 weeks ago - last bloody nose was 2 days ago). Patient was admitted about 3 weeks ago for hypoxia, + COVID-19 pneumonia and dehydration. He states after discharge he did feel improved. He cut back his Coumadin 2 weeks ago per direction of his [facility] provider, and completely stopped his Coumadin 2 days ago after in INR was 8.9. His daughter states that he has been very weak and dizzy. Today she was walking with him and had to help him sit to the a chair as he thought he was going to pass out. Patient denies any fever, chills, headache, change in vision, chest pain, back pain, shortness of breath or cough. Denies any abdominal pain, nausea, vomiting, diarrhea, constipation or dysuria. He states he thought he saw some blood in his stools about a week ago, "this cleared up over the past few days". States he has had blood in his urine over the past few days. His [facility] provider recommend he come to the ED for evaluation. Denies any injury, trauma or falls. Patient has been eating and drinking appropriately. Past medical history of atrial fibrillation, NSTEMI, degenerative joint disease, dyslipidemia, anxiety and depression. Non-smoker. Review of systems: As per history of present illness and below otherwise all systems reviewed and negative. Past medical history: As per history of present illness and as reviewed below otherwise noncontributory. Surgical history: As per history of present illness and as reviewed below otherwise noncontributory. Social history: See social history for further information Family history: As per history of present illness and as reviewed below otherwise noncontributory. Physical exam: General: Well developed and well nourished 71-year-old male. Alert and orientated x 3. Nontoxic in appearance and in no acute distress. Vital signs are stable and have been reviewed by me. Nursing notes were reviewed. HEENT: Atraumatic, normocephalic, pupils equal and reactive bilaterally, negative for conjunctival pallor or scleral icterus, mucous membranes moist, TMs normal bilaterally, throat clear, neck supple, nontender, trachea midline. No drooling or trismus noted. No meningeal signs. No hot potato voice noted. Lungs: Clear to auscultation bilaterally. No wheezes, rales, or rhonchi. Chest nontender. Normal work of breathing, no accessory muscles used. Heart: Irregular rate and rhythm without overt murmur, gallops, or rubs. History of a.fib. No JVD noted. No peripheral edema Abdomen: Soft, nondistended, nontender. Normoactive bowel sounds. Negative for masses or costovertebral tenderness. Pelvis: Stable nontender. Genitourinary/Rectal: This was done with consent and a electrical prospecting supervisor at the bedside. Good rectal tone. Trace/otherwise negative Hemoccult stool. Skin: Intact, warm, dry. No lesions or rashes noted. Hematologic: No petechiae or purpra. Mucosa appropriate color and normal nail bed color and refill. Extremities: Atraumatic, moves all extremities per self without difficulty or deficits, negative for cords or calf pain. Neurovascular unremarkable. Neuro: Awake, alert, oriented. Cranial nerves II through XII unremarkable. Cerebellum unremarkable. Motor and sensory unremarkable throughout. Exam nonfocal. Psychiatric: Mood and affect are appropriate. Normal thought process. Answering questions appropriately. Notes: *This patient was seen and evaluated during the 2019 SARS-CoV-2 novel coronavirus pandemic period. Community viral transmission is ongoing at time of this encounter and the emergency department is operating under pandemic response procedures. Negative noncontrast head CT. 2.5 cm left maxillary sinus retention cyst or polyp, as before. New small patchy infiltrates in both lungs, raising concern of COVID-19 pneumonia. He does not have a leukocytosis at this time. He does have a UTI with hematuria. No flank or suprapubic pain. I have talked with the patient about today's findings, in addition to providing specific details for plan of care. Reassessment at the time of disposition demonstrates that the patient is in no acute distress. Blood pressure remains soft 90's / 50's. IV fluids started. Spoke with Dr Saldaña, hospitalist on-call, about this patient. Will do a CT abd/pelvis to rule out active bleeding. Patient states he doesn't feel like he will do well at home, would like admission. As long as CT returns WNL, will admit patient for observation with telemetry. CT shows a new moderate sized areas of mild crazy paving peripheral infiltrates in both lower lobes suggestive of COVID-19 pneumonia. New mild bilateral nonobstructive nephrolithiasis with 2 calculi in the right kidney and 1 calculus in the left kidney. Increase in size of indeterminate density rounded structure arising from the lower pole of the left kidney, probably a proteinaceous cyst. Stable mild enlargement of the prostate. No sign of any abnormality of the urinary bladder to correlate with the history of hematuria. Stable minimal pr oximal sigmoid diverticulosis with no sign of diverticulitis. Multiple phleboliths again seen in the right inguinal canal raising the possibility of a right-sided varicocele. Stable appearance of ankylosing spondylitis and moderate superior L5 endplate fracture. Dr Saldaña was notified of findings. Diagnostics: CBC, CMP, Troponin, EKG, CXR, Head CT, INR, UA Therapeutics: IV fluids, Rocephin Impression: UTI Viral Pneumonia Hx of COVID-19 Weakness Plan: Observation admission with telemetry Definitive disposition and diagnosis as appropriate pending reevaluation and review of above. - Related Data Allergies Allergy/AdvReac Type Severity Reaction Status Date / Time morphine Allergy Nausea and Verified 04/08/21 14:49 Vomiting Home Meds: Home Meds atorvaSTATin [Lipitor] 20 mg PO DAILY 04/13/19 [History] lisinopriL [Prinivil] 2.5 mg PO DAILY 04/13/19 [History] Warfarin [Coumadin] 5 mg PO DAILY 08/11/19 [History] Acetaminophen [Tylenol] 650 mg PO Q4H PRN tablet 08/12/19 [Rx] Albuterol/Ipratropium [Combivent Respimat] 1 puff INH QID PRN #1 inhaler 03/28/21 [Rx] levoFLOXacin [Levaquin] 750 mg PO Q48H #3 tab 03/28/21 [Rx] Past Medical History HEENT History: Reports: Impaired Vision Cardiovascular History: Reports: Afib, High Cholesterol Respiratory History: Reports: None Gastrointestinal History: Reports: Other (See Below) Other Gastrointestinal History: Diarrhea at times the past 2-3 weeks Genitourinary History: Reports: Renal Calculus Musculoskeletal History: Reports: Other (See Below) Other Musculoskeletal History: rotator cuff repair Neurological History: Reports: Vertigo Psychiatric History: Reports: Anxiety, Depression Endocrine/Metabolic History: Reports: None Hematologic History: Reports: None Immunologic History: Reports: None Oncologic (Cancer) History: Reports: None Dermatologic History: Reports: None - Infectious Disease History Infectious Disease History: Reports: Measles - Past Surgical History Head Surgeries/Procedures: Reports: None HEENT Surgical History: Reports: None Cardiovascular Surgical History: Reports: None Respiratory Surgical History: Reports: None GI Surgical History: Reports: None Male Surgical History: Reports: None Endocrine Surgical History: Reports: None Neurological Surgical History: Reports: None Musculoskeletal Surgical History: Reports: Arthroscopic Knee Oncologic Surgical History: Reports: None Dermatological Surgical History: Reports: None Social & Family History - Family History Family Medical History: No Pertinent Family History HEENT: Reports: Impaired Vision OBGYN: Reports: Endocrine/Metabolic: Reports: Diabetes, Type I, Diabetes, type II Oncologic: Reports: Breast, Lung - Caffeine Use Caffeine Use: Reports: None - Living Situation & Occupation Living situation: Reports: , with Family Occupation: Employed ED ROS GENERAL - Review of Systems Review Of Systems: Comprehensive ROS is negative, except as noted in HPI. ED EXAM, GENERAL - Physical Exam Exam: See Below (See dictation) Course - Vital Signs Last Recorded V/S: Last Vital Signs Temp 97.5 F 04/08/21 18:41 Pulse 96 04/08/21 18:41 Resp 16 04/08/21 18:41 BP 119/67 04/08/21 18:41 Pulse Ox 96 04/08/21 18:41 Orthostatic Blood Pressure [ 97/71 Standing] Orthostatic Blood Pressure [ 92/71 Sitting] Orthostatic Blood Pressure [ 92/62 Supine] - Orders/Labs/Meds Orders: Active Orders 24 hr Category Date Time Status EKG Documentation Completion [RC] STAT Care 04/08/21 14:37 Active Orthostatic Vital Signs [RC] ASDIRECTED Care 04/08/21 14:37 Active CULTURE URINE [RM] Stat Lab 04/08/21 15:15 Received Sodium Chloride 0.9% [Saline Flush] Med 04/08/21 14:37 Active 10 ml FLUSH ASDIRECTED PRN Sodium Chloride 0.9% [Saline Flush] Med 04/08/21 14:37 Active 2.5 ml FLUSH ASDIRECTED PRN Saline Lock Insert [OM.PC] Stat Oth 04/08/21 14:37 Ordered Medication Orders Acetaminophen (Acetaminophen 325 Mg Tab) 650 mg PO Q4H PRN PRN Reason: Fever Albuterol/Ipratropium (Albuterol/Ipratropium 4 Gm Inhalation Amite) 0 gm INH QID LUIS ANTONIO Ceftriaxone Sodium/Dextrose 1 (gm/ Premix) 50 mls @ 100 mls/hr IV Q24H LUIS ANTONIO Sodium Chloride (Sodium Chloride 0.9% 10 Ml Syringe) 10 ml FLUSH ASDIRECTED PRN PRN Reason: Keep Vein Open Last Admin: 04/08/21 14:57 Dose: 10 ml Documented by: ADINA Sodium Chloride (Sodium Chloride 0.9% 2.5 Ml Syringe) 2.5 ml FLUSH ASDIRECTED PRN PRN Reason: Keep Vein Open Last Admin: 04/08/21 19:12 Dose: 2.5 ml Documented by: Admin: 04/08/21 14:57 Dose: 2.5 ml Documented by: ADINA Labs: Laboratory Tests 04/08/21 04/08/21 04/08/21 Range/Units 14:55 14:55 14:55 WBC 6.79 (4.0-11.0) K/uL RBC 5.09 (4.50-5.90) M/uL Hgb 13.7 (13.0-17.0) g/dL Hct 42.0 (38.0-50.0) % MCV 82.5 (80.0-98.0) fL MCH 26.9 L (27.0-32.0) pg MCHC 32.6 (31.0-37.0) g/dL RDW Std Deviation 44.5 (28.0-62.0) fl RDW Coeff of Ashley 15 (11.0-15.0) % Plt Count 170 (150-400) K/uL MPV 11.40 (7.40-12.00) fL Neut % (Auto) 65.2 (48.0-80.0) % Lymph % (Auto) 19.4 (16.0-40.0) % [place] % (Auto) 11.6 (0.0-15.0) % Eos % (Auto) 2.5 (0.0-7.0) % Baso % (Auto) 1.3 (0.0-1.5) % Neut # (Auto) 4.4 (1.4-5.7) K/uL Lymph # (Auto) 1.3 (0.6-2.4) K/uL [place] # (Auto) 0.8 (0.0-0.8) K/uL Eos # (Auto) 0.2 (0.0-0.7) K/uL Baso # (Auto) 0.1 (0.0-0.1) K/uL Nucleated RBC % 0.0 /100WBC Nucleated RBCs # 0 K/uL INR 4.24 Sodium 140 (136-148) mmol/L Potassium 4.5 (3.5-5.1) mmol/L Chloride 106 (98-107) mmol/L Carbon Dioxide 27.2 (21.0-32.0) mmol/L BUN 17 (7.0-18.0) mg/dL Creatinine 1.2 (0.8-1.3) mg/dL Est Cr Clr Drug Dosing 47.49 mL/min Estimated GFR (MDRD) 59.3 ml/min Glucose 96 (74-106) mg/dL Calcium 7.9 L (8.5-10.1) mg/dL Total Bilirubin 0.7 (0.2-1.0) mg/dL AST 27 (15-37) IU/L ALT 59 (14-63) IU/L Alkaline Phosphatase 92 (46-116) U/L Troponin I < 0.050 (0.000-0.056) ng/mL Total Protein 6.0 L (6.4-8.2) g/dL Albumin 2.5 L (3.4-5.0) g/dL Globulin 3.5 (2.6-4.0) g/dL Albumin/Globulin Ratio 0.7 L (0.9-1.6) Urine Color Urine Appearance Urine pH (5.0-8.0) Ur Specific [place] (1.001-1.035) Urine Protein (NEGATIVE) mg/dL Urine Glucose (UA) (NEGATIVE) mg/dL Urine Ketones (NEGATIVE) mg/dL Urine Occult Blood (NEGATIVE) Urine Nitrite (NEGATIVE) Urine Bilirubin (NEGATIVE) Urine Ictotest Urine Urobilinogen (<2.0) EU/dL Ur Leukocyte Esterase (NEGATIVE) Urine RBC (0-2/HPF) Urine WBC (0-5/HPF) Ur Epithelial Cells (NONE-FEW) Urine Bacteria (NEGATIVE) 04/08/21 Range/Units 15:15 WBC (4.0-11.0) K/uL RBC (4.50-5.90) M/uL Hgb (13.0-17.0) g/dL Hct (38.0-50.0) % MCV (80.0-98.0) fL MCH (27.0-32.0) pg MCHC (31.0-37.0) g/dL RDW Std Deviation (28.0-62.0) fl RDW Coeff of Ashley (11.0-15.0) % Plt Count (150-400) K/uL MPV (7.40-12.00) fL Neut % (Auto) (48.0-80.0) % Lymph % (Auto) (16.0-40.0) % [place] % (Auto) (0.0-15.0) % Eos % (Auto) (0.0-7.0) % Baso % (Auto) (0.0-1.5) % Neut # (Auto) (1.4-5.7) K/uL Lymph # (Auto) (0.6-2.4) K/uL [place] # (Auto) (0.0-0.8) K/uL Eos # (Auto) (0.0-0.7) K/uL Baso # (Auto) (0.0-0.1) K/uL Nucleated RBC % /100WBC Nucleated RBCs # K/uL INR Sodium (136-148) mmol/L Potassium (3.5-5.1) mmol/L Chloride (98-107) mmol/L Carbon Dioxide (21.0-32.0) mmol/L BUN (7.0-18.0) mg/dL Creatinine (0.8-1.3) mg/dL Est Cr Clr Drug Dosing mL/min Estimated GFR (MDRD) ml/min Glucose (74-106) mg/dL Calcium (8.5-10.1) mg/dL Total Bilirubin (0.2-1.0) mg/dL AST (15-37) IU/L ALT (14-63) IU/L Alkaline Phosphatase (46-116) U/L Troponin I (0.000-0.056) ng/mL Total Protein (6.4-8.2) g/dL Albumin (3.4-5.0) g/dL Globulin (2.6-4.0) g/dL Albumin/Globulin Ratio (0.9-1.6) Urine Color BROWN Urine Appearance CLOUDY Urine pH 7.0 (5.0-8.0) Ur Specific [place] 1.020 (1.001-1.035) Urine Protein 100 H (NEGATIVE) mg/dL Urine Glucose (UA) 100 H (NEGATIVE) mg/dL Urine Ketones TRACE H (NEGATIVE) mg/dL Urine Occult Blood LARGE H (NEGATIVE) Urine Nitrite POSITIVE H (NEGATIVE) Urine Bilirubin MODERATE H (NEGATIVE) Urine Ictotest NEGATIVE Urine Urobilinogen 1.0 (<2.0) EU/dL Ur Leukocyte Esterase TRACE H (NEGATIVE) Urine RBC TOO NUMEROUS TO CT (0-2/HPF) Urine WBC 0-4 (0-5/HPF) Ur Epithelial Cells RARE (NONE-FEW) Urine Bacteria FEW (NEGATIVE) Meds: Medications Generic Name Dose Route Start Last Admin Trade Name Freq PRN Reason Stop Dose Admin Acetaminophen 650 mg 04/08/21 18:18 Acetaminophen 325 Mg Tab PO Q4H PRN Fever Albuterol/Ipratropium 0 gm 04/09/21 00:00 Albuterol/Ipratropium 4 Gm Inhalation Amite INH QID LUIS ANTONIO Ceftriaxone Sodium/Dextrose 1 50 mls @ 100 mls/hr 04/09/21 18:00 gm/ Premix IV Q24H LUIS ANTONIO Sodium Chloride 10 ml 04/08/21 14:37 04/08/21 14:57 Sodium Chloride 0.9% 10 Ml Syringe FLUSH 10 ml ASDIRECTED PRN Administration Keep Vein Open Sodium Chloride 2.5 ml 04/08/21 14:37 04/08/21 19:12 Sodium Chloride 0.9% 2.5 Ml Syringe FLUSH 2.5 ml ASDIRECTED PRN Administration Keep Vein Open Discontinued Medications Generic Name Dose Route Start Last Admin Trade Name Freq PRN Reason Stop Dose Admin Albuterol/Ipratropium 0 gm 04/08/21 18:18 Albuterol/Ipratropium 4 Gm Inhalation Amite INH QID PRN COVID Albuterol/Ipratropium 0 gm 04/08/21 18:26 Albuterol/Ipratropium 4 Gm Inhalation Amite INH QID PRN Cough Diltiazem HCl 20 mg 04/08/21 18:42 04/08/21 19:06 Diltiazem 25 Mg/5 Ml Sdv IVPUSH 04/08/21 18:43 20 mg ONETIME ONE Administration Sodium Chloride 1,000 mls @ 999 mls/hr 04/08/21 16:00 04/08/21 16:04 Normal Saline IV 04/08/21 17:00 999 mls/hr STAT ONE Administration Ceftriaxone Sodium/Dextrose 1 50 mls @ 100 mls/hr 04/08/21 16:22 04/08/21 17:30 gm/ Premix IV 04/08/21 16:51 100 mls/hr ONETIME ONE Administration Lorazepam 0.5 mg 04/08/21 18:44 04/08/21 19:30 Lorazepam 2 Mg/Ml Sdv IVPUSH 04/08/21 18:45 0.5 mg ONETIME ONE Administration Departure - Departure Time of Disposition: 19:38 Disposition: Refer to Observation Clinical Impression: Viral pneumonia, UTI, Urinary tract infectious disease, Weakness - Discharge Information Sepsis Event Note (ED) - Focused Exam Vital Signs: Vital Signs Temp Pulse Resp BP Pulse Ox 04/08/21 17:30 100 17 102/61 97 04/08/21 14:46 98.5 F 82 93/68 96 - My Orders Last 24 Hours: My Active Orders 04/08/21 14:37 EKG Documentation Completion [RC] STAT Orthostatic Vital Signs [RC] ASDIRECTED Sodium Chloride 0.9% [Saline Flush] 10 ml FLUSH ASDIRECTED PRN Sodium Chloride 0.9% [Saline Flush] 2.5 ml FLUSH ASDIRECTED PRN Saline Lock Insert [OM.PC] Stat 04/08/21 15:15 CULTURE URINE [RM] Stat - Assessment/Plan Last 24 Hours: My Active Orders 04/08/21 14:37 EKG Documentation Completion [RC] STAT Orthostatic Vital Signs [RC] ASDIRECTED Sodium Chloride 0.9% [Saline Flush] 10 ml FLUSH ASDIRECTED PRN Sodium Chloride 0.9% [Saline Flush] 2.5 ml FLUSH ASDIRECTED PRN Saline Lock Insert [OM.PC] Stat 04/08/21 15:15 CULTURE URINE [RM] Stat
[2021-04-08] MEDS ORDERED: Sodium Chloride 0.9% 10 ML Syringe FLUSH PRN (14:37)
[2021-04-08] MEDS: Sodium Chloride 0.9% 2.5 ML Syringe FLUSH PRN ×2 (14:57→19:12)
--- NOTE | 2021-04-08 15:16 | PCM.EKG ---
#1 Interpretation EKG Date: 04/08/21 Time: 14:47 Rhythm: A-Fib Rate (Beats/Min): 99 [place]: LAD-Left [place] Deviation P-Wave: Absent QRS: Normal (W waves lead III, aVF, V1-V3 unchagned) ST-T: Normal QT: Normal Comparison: No Change (Atrial Fibrillation w/ old anteroseptal infarct)
[2021-04-08 15:29] LABS: BLOOD UREA NITROGEN,BUN 17 mg/dL (7.0-18.0); CARBON DIOXIDE,CO2 27.2 mmol/L (21.0-32.0); CHLORIDE,CL 106 mmol/L (98-107); GLUCOSE RANDOM 96 mg/dL (74-106); POTASSIUM,K 4.5 mmol/L (3.5-5.1); SODIUM,NA 140 mmol/L (136-148)
--- NOTE | 2021-04-08 15:54 | CR ---
INDICATION: Weakness. TECHNIQUE: Upright portable AP image of the chest. COMPARISON: 03/18/2021. FINDINGS: New small patchy infiltrates bilaterally. No pleural effusion. Heart size and pulmonary vasculature within normal limits. No significant bony abnormality. IMPRESSION: New small patchy infiltrates in both lungs, raising concern of COVID-19 pneumonia. Dictated by Serg Edwards MD @ 04/08/2021 3:53:[address] Serg Edwards @ Apr 08 2021 3:53PM
--- NOTE | 2021-04-08 15:59 | CT ---
INDICATION: Weakness. TECHNIQUE: Scanning of the head was performed without IV contrast material. Coronal and sagittal reconstructions were obtained. COMPARISON: Head CT of 08/11/2018. FINDINGS: No acute hemorrhage, parenchymal attenuation abnormality, or mass effect is demonstrated. Differentiation between the wilson matter and white matter is preserved. The ventricles and other subarachnoid spaces are within normal limits for the patient`s age. No calvarial abnormality is evident. A 2.5 cm left maxillary sinus retention cyst or polyp is again demonstrated. IMPRESSION: 1. Negative noncontrast head CT. 2. 2.5 cm left maxillary sinus retention cyst or polyp, as before. Please note that all CT scans at this facility use dose modulation, iterative reconstruction, and/or weight-based dosing when appropriate to reduce radiation dose to as low as reasonably achievable. Dictated by Serg Edwards MD @ 04/08/2021 3:58:[address] Serg Edwards @ Apr 08 2021 3:58PM
[2021-04-08] MEDS ORDERED: Sodium Chloride 0.9% 1,000 ML IV ONE (16:00)
[2021-04-08] MEDS ORDERED: cefTRIAXone 1 GM in Premix Bag 1 BAG IV ONE (16:22)
--- NOTE | 2021-04-08 17:25 | CT ---
INDICATION: Hematuria. COMPARISON: CT of the abdomen and pelvis without contrast from 04/13/2019 TECHNIQUE: CT examination of the abdomen and pelvis was performed without contrast enhancement using 2.5 mm thick axial sections from the lung bases through the pubic symphysis. Oral contrast was not administered. Please note that all CT scans at this facility use dose modulation, iterative reconstruction, and/or weight-based dosing when appropriate to reduce radiation dose to as low as reasonably achievable. FINDINGS: In the abdomen, the unenhanced liver, spleen, pancreas, and adrenals are normal in appearance. There has been a slight increase in size of the rounded, exophytic structure projecting anteriorly and laterally from the lower pole of the left kidney, now measuring 3.6 x 2.6 centimeters, previously 3.2 x 2.5 centimeters. Density remains the same at 28 Hounsfield units. This is probably a proteinaceous cyst, but I recommend correlation with ultrasound on a nonemergent basis to exclude a solid mass. The indeterminate density rounded structure in the upper pole of the right kidney has increased in size, now measuring 1.7 centimeters in diameter, with density 6 Hounsfield units, consistent with a cyst. There is a new nonobstructive 4 millimeter calculus in the posterior lower interpolar right kidney. There is a new nonobstructive 2 millimeter calculus in the upper pole of the right kidney. There is a new 2 millimeter nonobstructive calculus in the lower pole of the left kidney. The unenhanced kidneys are otherwise normal in appearance. The gallbladder is normal in appearance. The abdominal aorta is normal in caliber with no sign of dilatation. There is no sign of retroperitoneal mass or adenopathy. The stomach, loops of small bowel, and colon in the abdomen are normal in appearance. In the pelvis, the appendix is normal in appearance with no sign of inflammatory process. There is stable minimal proximal sigmoid diverticulosis without evidence of diverticulitis. The loops of small bowel and colon in the pelvis are otherwise normal in appearance. The prostate remains mildly enlarged and is otherwise normal in appearance. The urinary bladder is normal in appearance. There is no sign of pelvic or inguinal mass or adenopathy. Again seen are multiple phleboliths in the right inguinal canal, raising the possibility of a right-sided varicocele. There is no sign of free air or free fluid in the abdomen or pelvis. There are new moderate sized confluent areas mild crazy paving infiltrate peripherally distributed in the lower lungs, more prominent in the lower lobes. The findings are suggestive of COVID-19 pneumonia. Again seen is mild scoliosis of the inferior thoracic spine convex towards the right. Again seen is moderate depression of the superior L5 endplate consistent with a moderate old endplate fracture. Again seen are mild, gracile syndesmophytes in the inferior thoracic and upper lumbar spine resulting in fusion, suggesting ankylosing spondylitis. IMPRESSION: New moderate sized areas of mild crazy paving peripheral infiltrates in both lower lobes suggestive of COVID-[address] of the abdomen shows new mild bilateral nonobstructive nephrolithiasis with 2 calculi in the right kidney and 1 calculus in the left kidney. Increase in size of indeterminate density rounded structure arising from the lower pole of the left kidney, probably a proteinaceous cyst. Recommend correlation with ultrasound to exclude a solid mass. Slight increase in size of a small simple appearing cyst in the upper pole cortex of the right kidney. CT of the pelvis shows stable mild enlargement of the prostate. No sign of any abnormality of the urinary bladder to correlate with the history of hematuria. Stable minimal proximal sigmoid diverticulosis with no sign of diverticulitis. Multiple phleboliths again seen in the right inguinal canal raising the possibility of a right-sided varicocele. Stable appearance of ankylosing spondylitis and moderate superior L5 endplate fracture. Please note that all CT scans at this facility use dose modulation, iterative reconstruction, and/or weight-based dosing when appropriate to reduce radiation dose to as low as reasonably achievable. Dictated by Canelo Ramirez MD @ 04/08/2021 5:23:[address] Canelo Ramirez @ Apr 08 2021 5:23PM
[2021-04-08] MEDS ORDERED: Acetaminophen 325 MG Tab PO PRN (18:18)
[2021-04-08] MEDS ORDERED: Albuterol/Ipratropium 4 GM Inhalation Spray INH PRN ×2 (18:18→18:26)
--- NOTE | 2021-04-08 18:24 | PCM.HP.2 ---
H&P History of Present Illness - General Date of Service: 04/08/21 Admit Problem/Dx: Admission Diagnosis/Problem Admission Diagnosis/Problem UTI, Urinary tract infectious disease Source of Information: Patient History Limitations: Reports: No Limitations - History of Present Illness Initial Comments - Free Text/Narative: Patient is a 71-year-old male with a significant past medical history of atrial fibrillation on warfarin who presented to the ED with symptoms of weakness, near syncope hematuria and a bloody nose. Per ED notes patient had endorsed cutting back on his Coumadin 2 weeks prior as recommended by [facility] and completely stopped his Coumadin 2 days ago after his INR was found to be 8.90. Per daughter patient has been increasingly weak and dizzy. Also endorsed to ED provider having some bloody stools a week prior which "had cleared up" over the past few days; has noticed however blood in his urine prompting his [facility] provider to recommend patient proceed to the ED. ED course: Vitals: 93/68 pulse 75. Afebrile at 98.5. O2 sat 91% room air. Chest x-ray: New small patchy infiltrates bilaterally. No pleural effusion. Concerns for COVID-[address]: Negative noncontrast head. CT left maxillary sinus retention EKG: Atrial fibrillation. Left axis deviation. No ST elevation/depression. Old anteroseptal infarct Troponin x 1 negative Patient given 1 L NS bolus UA positive for nitrites/esterase. Ceftriaxone initiated. Bedside: Endorses similar story as above. Mentions weakness and fatigue x 2 days. Mentions completing his abx (Levofloxacin) at home but his daughter states he may still have one more pill Daughter also raised concerns regarding possibly taking both atorvastatin and Lipitor (double dosage) but is unsure. Will go home now and return with medications to ensure no discrepancy with home medication/dosages. Denies any dysuria, urgency/frequency. Prior colonoscopy (within last 10 years) WNL per patient. - Related Data Allergies/Adverse Reactions: Allergies Allergy/AdvReac Type Severity Reaction Status Date / Time morphine Allergy Nausea and Verified 04/08/21 14:49 Vomiting Home Medications: Home Meds atorvaSTATin [Lipitor] 20 mg PO DAILY 04/13/19 [History] lisinopriL [Prinivil] 2.5 mg PO DAILY 04/13/19 [History] Warfarin [Coumadin] 5 mg PO DAILY 08/11/19 [History] Acetaminophen [Tylenol] 650 mg PO Q4H PRN tablet 08/12/19 [Rx] Albuterol/Ipratropium [Combivent Respimat] 1 puff INH QID PRN #1 inhaler 03/28/21 [Rx] levoFLOXacin [Levaquin] 750 mg PO Q48H #3 tab 03/28/21 [Rx] Past Medical History HEENT History: Reports: Impaired Vision Cardiovascular History: Reports: Afib, High Cholesterol Respiratory History: Reports: None Gastrointestinal History: Reports: Other (See Below) Other Gastrointestinal History: Diarrhea at times the past 2-3 weeks Genitourinary History: Reports: Renal Calculus Musculoskeletal History: Reports: Other (See Below) Other Musculoskeletal History: rotator cuff repair Neurological History: Reports: Vertigo Psychiatric History: Reports: Anxiety, Depression Endocrine/Metabolic History: Reports: None Hematologic History: Reports: None Immunologic History: Reports: None Oncologic (Cancer) History: Reports: None Dermatologic History: Reports: None - Infectious Disease History Infectious Disease History: Reports: Measles - Past Surgical History Head Surgeries/Procedures: Reports: None HEENT Surgical History: Reports: None Cardiovascular Surgical History: Reports: None Respiratory Surgical History: Reports: None GI Surgical History: Reports: None Male Surgical History: Reports: None Endocrine Surgical History: Reports: None Neurological Surgical History: Reports: None Musculoskeletal Surgical History: Reports: Arthroscopic Knee Oncologic Surgical History: Reports: None Dermatological Surgical History: Reports: None Social & Family History - Family History Family Medical History: No Pertinent Family History HEENT: Reports: Impaired Vision OBGYN: Reports: Endocrine/Metabolic: Reports: Diabetes, Type I, Diabetes, type II Oncologic: Reports: Breast, Lung - Tobacco Use Tobacco Use Status *Q: Never Tobacco User - Caffeine Use Caffeine Use: Reports: None - Recreational Drug Use Recreational Drug Use: No - Living Situation & Occupation Living situation: Reports: , with Family Occupation: Employed H&P Review of Systems - Review of Systems: Review Of Systems: See Below General: Reports: Weakness, Fatigue. Denies: Fever, Chills HEENT: Reports: No Symptoms Pulmonary: Reports: No Symptoms Cardiovascular: Reports: No Symptoms Gastrointestinal: Denies: Abdominal Pain, Constipation, Diarrhea, Decreased Appetite, Nausea Genitourinary: Reports: Hematuria. Denies: Dysuria, Frequency, Burning, Urgency Musculoskeletal: Reports: No Symptoms Skin: Reports: No Symptoms Psychiatric: Reports: No Symptoms Neurological: Reports: No Symptoms Exam - Exam Exam: See Below - Vital Signs Vital Signs: Last Vital Signs Temp 98.5 F 04/08/21 14:46 Pulse 100 04/08/21 17:30 Resp 17 04/08/21 17:30 BP 102/61 04/08/21 17:30 Pulse Ox 97 04/08/21 17:30 Orthostatic Blood Pressure [ 97/71 Standing] Orthostatic Blood Pressure [ 92/71 Sitting] Orthostatic Blood Pressure [ 92/62 Supine] Weight: 61.235 kg - Exam Quality Assessment: No: Supplemental Oxygen General: Alert, Oriented, Cooperative HEENT: EOMI Neck: Supple, Trachea Midline Lungs: Other (mild rhonchi left > right ; moving air w.o wheeze) Cardiovascular: Regular Rate, Irregular Rhythm GI/Abdominal Exam: Soft, Non-Tender Extremities: Normal Inspection Skin: Warm Neurological: Cranial Nerves Intact Neuro Extensive - Mental Status: Alert, Oriented x3, Normal Mood/Affect - Patient Data Lab Results Last 24 hrs: Laboratory Results - last 24 hr 04/08/21 04/08/21 04/08/21 Range/Units 14:55 14:55 14:55 WBC 6.79 (4.0-11.0) K/uL RBC 5.09 (4.50-5.90) M/uL Hgb 13.7 (13.0-17.0) g/dL Hct 42.0 (38.0-50.0) % MCV 82.5 (80.0-98.0) fL MCH 26.9 L (27.0-32.0) pg MCHC 32.6 (31.0-37.0) g/dL RDW Std Deviation 44.5 (28.0-62.0) fl RDW Coeff of Ashley 15 (11.0-15.0) % Plt Count 170 (150-400) K/uL MPV 11.40 (7.40-12.00) fL Neut % (Auto) 65.2 (48.0-80.0) % Lymph % (Auto) 19.4 (16.0-40.0) % [place] % (Auto) 11.6 (0.0-15.0) % Eos % (Auto) 2.5 (0.0-7.0) % Baso % (Auto) 1.3 (0.0-1.5) % Neut # (Auto) 4.4 (1.4-5.7) K/uL Lymph # (Auto) 1.3 (0.6-2.4) K/uL [place] # (Auto) 0.8 (0.0-0.8) K/uL Eos # (Auto) 0.2 (0.0-0.7) K/uL Baso # (Auto) 0.1 (0.0-0.1) K/uL Nucleated RBC % 0.0 /100WBC Nucleated RBCs # 0 K/uL INR 4.24 Sodium 140 (136-148) mmol/L Potassium 4.5 (3.5-5.1) mmol/L Chloride 106 (98-107) mmol/L Carbon Dioxide 27.2 (21.0-32.0) mmol/L BUN 17 (7.0-18.0) mg/dL Creatinine 1.2 (0.8-1.3) mg/dL Est Cr Clr Drug Dosing 47.49 mL/min Estimated GFR (MDRD) 59.3 ml/min Glucose 96 (74-106) mg/dL Calcium 7.9 L (8.5-10.1) mg/dL Total Bilirubin 0.7 (0.2-1.0) mg/dL AST 27 (15-37) IU/L ALT 59 (14-63) IU/L Alkaline Phosphatase 92 (46-116) U/L Troponin I < 0.050 (0.000-0.056) ng/mL Total Protein 6.0 L (6.4-8.2) g/dL Albumin 2.5 L (3.4-5.0) g/dL Globulin 3.5 (2.6-4.0) g/dL Albumin/Globulin Ratio 0.7 L (0.9-1.6) Urine Color Urine Appearance Urine pH (5.0-8.0) Ur Specific [place] (1.001-1.035) Urine Protein (NEGATIVE) mg/dL Urine Glucose (UA) (NEGATIVE) mg/dL Urine Ketones (NEGATIVE) mg/dL Urine Occult Blood (NEGATIVE) Urine Nitrite (NEGATIVE) Urine Bilirubin (NEGATIVE) Urine Ictotest Urine Urobilinogen (<2.0) EU/dL Ur Leukocyte Esterase (NEGATIVE) Urine RBC (0-2/HPF) Urine WBC (0-5/HPF) Ur Epithelial Cells (NONE-FEW) Urine Bacteria (NEGATIVE) 04/08/21 Range/Units 15:15 WBC (4.0-11.0) K/uL RBC (4.50-5.90) M/uL Hgb (13.0-17.0) g/dL Hct (38.0-50.0) % MCV (80.0-98.0) fL MCH (27.0-32.0) pg MCHC (31.0-37.0) g/dL RDW Std Deviation (28.0-62.0) fl RDW Coeff of Ashley (11.0-15.0) % Plt Count (150-400) K/uL MPV (7.40-12.00) fL Neut % (Auto) (48.0-80.0) % Lymph % (Auto) (16.0-40.0) % [place] % (Auto) (0.0-15.0) % Eos % (Auto) (0.0-7.0) % Baso % (Auto) (0.0-1.5) % Neut # (Auto) (1.4-5.7) K/uL Lymph # (Auto) (0.6-2.4) K/uL [place] # (Auto) (0.0-0.8) K/uL Eos # (Auto) (0.0-0.7) K/uL Baso # (Auto) (0.0-0.1) K/uL Nucleated RBC % /100WBC Nucleated RBCs # K/uL INR Sodium (136-148) mmol/L Potassium (3.5-5.1) mmol/L Chloride (98-107) mmol/L Carbon Dioxide (21.0-32.0) mmol/L BUN (7.0-18.0) mg/dL Creatinine (0.8-1.3) mg/dL Est Cr Clr Drug Dosing mL/min Estimated GFR (MDRD) ml/min Glucose (74-106) mg/dL Calcium (8.5-10.1) mg/dL Total Bilirubin (0.2-1.0) mg/dL AST (15-37) IU/L ALT (14-63) IU/L Alkaline Phosphatase (46-116) U/L Troponin I (0.000-0.056) ng/mL Total Protein (6.4-8.2) g/dL Albumin (3.4-5.0) g/dL Globulin (2.6-4.0) g/dL Albumin/Globulin Ratio (0.9-1.6) Urine Color BROWN Urine Appearance CLOUDY Urine pH 7.0 (5.0-8.0) Ur Specific [place] 1.020 (1.001-1.035) Urine Protein 100 H (NEGATIVE) mg/dL Urine Glucose (UA) 100 H (NEGATIVE) mg/dL Urine Ketones TRACE H (NEGATIVE) mg/dL Urine Occult Blood LARGE H (NEGATIVE) Urine Nitrite POSITIVE H (NEGATIVE) Urine Bilirubin MODERATE H (NEGATIVE) Urine Ictotest NEGATIVE Urine Urobilinogen 1.0 (<2.0) EU/dL Ur Leukocyte Esterase TRACE H (NEGATIVE) Urine RBC TOO NUMEROUS TO CT (0-2/HPF) Urine WBC 0-4 (0-5/HPF) Ur Epithelial Cells RARE (NONE-FEW) Urine Bacteria FEW (NEGATIVE) Result Diagrams: 04/08/21 14:55 04/08/21 14:55 Sepsis Event Note - Evaluation Sepsis Screening Result: No Definite Risk - Focused Exam Vital Signs: Vital Signs Temp Pulse Resp BP Pulse Ox 04/08/21 17:30 100 17 102/61 97 04/08/21 14:46 98.5 F 82 93/68 96 - Problem List (1) UTI, Urinary tract infectious disease SNOMED Code(s): 61124263 ICD Code: N39.0 - URINARY TRACT INFECTION, SITE NOT SPECIFIED Status: Acute Current Visit: Yes (2) Afib SNOMED Code(s): 48423695 ICD Code: I48.91 - UNSPECIFIED ATRIAL FIBRILLATION Status: Acute Current Visit: No Problem List Initiated/Reviewed/Updated: Yes Orders Last 24hrs: Active Orders 24 hr Category Date Time Status Admission Status [Patient Status] [ADT] Stat ADT 04/08/21 17:38 Active Antiembolic Devices [RC] PER UNIT ROUTINE Care 04/08/21 18:18 Ordered EKG Documentation Completion [RC] STAT Care 04/08/21 14:37 Active Orthostatic Vital Signs [RC] ASDIRECTED Care 04/08/21 14:37 Active Oxygen Therapy [RC] PRN Care 04/08/21 18:17 Ordered RT Post Treatment Assessment [RC] Click to Edit Care 04/08/21 18:19 Ordered RT Pre-Treatment Assessment [RC] Click to Edit Care 04/08/21 18:19 Ordered Up With Assistance [RC] ASDIRECTED Care 04/08/21 18:17 Ordered VTE/DVT Education [RC] PER UNIT ROUTINE Care 04/08/21 18:17 Ordered Vital Signs [RC] Q4H Care 04/08/21 18:17 Ordered Heart Healthy Diet [DIET] Diet 04/08/21 Breakfast Ordered CULTURE URINE [RM] Stat Lab 04/08/21 15:15 Received Acetaminophen [TylenoL] Med 04/08/21 18:18 Ordered 650 mg PO Q4H PRN Albuterol/Ipratropium [Combivent Respimat] Med 04/08/21 18:18 Ordered 1 puff INH QID PRN Sodium Chloride 0.9% [Saline Flush] Med 04/08/21 14:37 Active 10 ml FLUSH ASDIRECTED PRN Sodium Chloride 0.9% [Saline Flush] Med 04/08/21 14:37 Active 2.5 ml FLUSH ASDIRECTED PRN Saline Lock Insert [OM.PC] Stat Oth 04/08/21 14:37 Ordered Sequential Compression Device [OM.PC] Per Unit Routine Oth 04/08/21 18:18 Ordered Resuscitation Status Routine Resus Stat 04/08/21 18:17 Ordered Medication Orders Acetaminophen (Acetaminophen 325 Mg Tab) 650 mg PO Q4H PRN PRN Reason: Fever Albuterol/Ipratropium (Albuterol/Ipratropium 4 Gm Inhalation [place]) gm INH QID PRN PRN Reason: COVID Sodium Chloride (Sodium Chloride 0.9% 10 Ml Syringe) 10 ml FLUSH ASDIRECTED PRN PRN Reason: Keep Vein Open Last Admin: 04/08/21 14:57 Dose: 10 ml Documented by: ADINA Sodium Chloride (Sodium Chloride 0.9% 2.5 Ml Syringe) 2.5 ml FLUSH ASDIRECTED PRN PRN Reason: Keep Vein Open Last Admin: 04/08/21 14:57 Dose: 2.5 ml Documented by: ADINA Assessment/Plan Comment:: Assessment: 1. Complicated UTI w. gross hematuria 2. Afib w RVR 3. Hx of Supratherapeutic INR 4. History of Covid pneumonia 5. Past medical history: Atrial fibrillation on Coumadin, hypertension, hyperlipidemia Plan: Admit to observation. Full code. I's and O's per routine vitals per routine Up with assistance. DVT prophylaxis: SCDs 1. Weakness/fatigue/near syncope in light of positive UA+gross hematuria: Ceftriaxone for UTI; continue antibiotics until culture returns:ordered and collected Hold all anticoagulation and proceed with SCD. Recheck INR in AM. Currently stable; INR at 4; does not require Vitamin K at this time. may consider restarting coumadin once etiology of hematuria is investigated; concerns for Levaquin/Coumadin interaction , medical non-compliance etc. Continue to monitor vitals, labs and continue telemetry. PT ordered for weakness/fatigue: possible post-COVID sequelae CT abdomen pelvis: Mild bilateral nonobstructive nephrolithiasis with 2 calculi in the right kidney 1 calculus in left kidney Indeterminate density rounded structure arising from the lower pole of left kidney probably a proteinaceous cyst Small simple appearing cyst in the right upper pole cortex of the right kidney. No sign of any abnormality of the urinary bladder correlate with history of bacteria Minimal proximal sigmoid diverticulosis with no signs of diverticulitis Stable ankylosing spondylitis. Was on Levaquin prior to admission; most likely completed course per patient ; not requiring o2 at this time; monitor for need if requiring supplemental o2 2. Afib w. RVR: noted w. rate of 120-140; no home rate controlling medication per patient ; given a one time dose of Diltiazem IV; monitor for response prior to initiating further doses/ PO medication. Currently denies any CP, palpitations, dizziness. Chest x-ray: New small patchy infiltrates bilaterally. No pleural effusion. Concerns for COVID-[address]: Negative noncontrast head. CT left maxillary sinus retention EKG: Atrial fibrillation. Left axis deviation. No ST elevation/depression. Old anteroseptal infarct 2. hx of COVID: saturating on RA, coarse BS noted on auscultation but no wheeze, crackles and moving air well otherwise. Will continue to monitor. Completed course of Remdesevir/Dexamethasone on recent admission. Scheduled Combivent for now due to caorse BS; recent dc for COVID CAP. 3. HLD: continue home medication once reconciled. Daughter will go home and return with medication due to concerns regarding actual home medication regimen .
[2021-04-08] MEDS ORDERED: Diltiazem 25 MG/5 ML SDV IVPUSH ONE (18:42)
[2021-04-08] MEDS ORDERED: LORazepam 2 MG/ML SDV IVPUSH ONE (18:44)
[2021-04-09] MEDS: Albuterol/Ipratropium 4 GM Inhalation Spray INH SCH ×4 (00:31→17:28)
[2021-04-09 06:50] LABS: BLOOD UREA NITROGEN,BUN 13 mg/dL (7.0-18.0); CARBON DIOXIDE,CO2 24.5 mmol/L (21.0-32.0); CHLORIDE,CL 109 mmol/L (98-107); GLUCOSE RANDOM 111 mg/dL (74-106); SODIUM,NA 143 mmol/L (136-148)
[2021-04-09] MEDS ORDERED: Diltiazem 25 MG/5 ML SDV IVPUSH ONE (07:57)
--- NOTE | 2021-04-09 11:24 | PCM.PN ---
- General Info Date of Service: 04/09/21 Subjective Update: Bedside: c.o fatigue and anxiety but in no acute pain/SOB. Denies any palpitations, CP, SOB, cough , congestion Mention urine is more clear . Denies dysuria, burning urgency/frequency Denies any dark stools Functional Status: Reports: Pain Controlled - Review of Systems General: Reports: Weakness, Fatigue HEENT: Reports: No Symptoms Pulmonary: Reports: No Symptoms Cardiovascular: Reports: No Symptoms Gastrointestinal: Reports: No Symptoms Genitourinary: Reports: Hematuria. Denies: Dysuria, Frequency, Burning, Pain, Urgency Musculoskeletal: Reports: No Symptoms Neurological: Reports: No Symptoms - Patient Data Vitals - Most Recent: Last Vital Signs Temp 99.1 F 04/09/21 07:33 Pulse 86 04/09/21 07:33 Resp 18 04/09/21 07:33 BP 116/74 04/09/21 07:33 Pulse Ox 93 L 04/09/21 07:33 Orthostatic Blood Pressure [ 97/71 Standing] Orthostatic Blood Pressure [ 92/71 Sitting] Orthostatic Blood Pressure [ 92/62 Supine] Weight - Most Recent: 61.689 kg I&O - Last 24 Hours: Intake & Output 04/08/21 04/09/21 04/09/21 22:59 06:59 14:59 Intake Total 400 Output Total 650 Balance -250 Lab Results Last 24 Hours: Laboratory Results - last 24 hr 04/08/21 04/08/21 04/08/21 Range/Units 14:55 14:55 14:55 WBC 6.79 (4.0-11.0) K/uL RBC 5.09 (4.50-5.90) M/uL Hgb 13.7 (13.0-17.0) g/dL Hct 42.0 (38.0-50.0) % MCV 82.5 (80.0-98.0) fL MCH 26.9 L (27.0-32.0) pg MCHC 32.6 (31.0-37.0) g/dL RDW Std Deviation 44.5 (28.0-62.0) fl RDW Coeff of Ashley 15 (11.0-15.0) % Plt Count 170 (150-400) K/uL MPV 11.40 (7.40-12.00) fL Neut % (Auto) 65.2 (48.0-80.0) % Lymph % (Auto) 19.4 (16.0-40.0) % Taylor % (Auto) 11.6 (0.0-15.0) % Eos % (Auto) 2.5 (0.0-7.0) % Baso % (Auto) 1.3 (0.0-1.5) % Neut # (Auto) 4.4 (1.4-5.7) K/uL Lymph # (Auto) 1.3 (0.6-2.4) K/uL Taylor # (Auto) 0.8 (0.0-0.8) K/uL Eos # (Auto) 0.2 (0.0-0.7) K/uL Baso # (Auto) 0.1 (0.0-0.1) K/uL Nucleated RBC % 0.0 /100WBC Nucleated RBCs # 0 K/uL INR 4.24 Sodium 140 (136-148) mmol/L Potassium 4.5 (3.5-5.1) mmol/L Chloride 106 (98-107) mmol/L Carbon Dioxide 27.2 (21.0-32.0) mmol/L BUN 17 (7.0-18.0) mg/dL Creatinine 1.2 (0.8-1.3) mg/dL Est Cr Clr Drug Dosing 47.49 mL/min Estimated GFR (MDRD) 59.3 ml/min Glucose 96 (74-106) mg/dL Calcium 7.9 L (8.5-10.1) mg/dL Total Bilirubin 0.7 (0.2-1.0) mg/dL AST 27 (15-37) IU/L ALT 59 (14-63) IU/L Alkaline Phosphatase 92 (46-116) U/L Troponin I < 0.050 (0.000-0.056) ng/mL Total Protein 6.0 L (6.4-8.2) g/dL Albumin 2.5 L (3.4-5.0) g/dL Globulin 3.5 (2.6-4.0) g/dL Albumin/Globulin Ratio 0.7 L (0.9-1.6) Urine Color Urine Appearance Urine pH (5.0-8.0) Ur Specific [place] (1.001-1.035) Urine Protein (NEGATIVE) mg/dL Urine Glucose (UA) (NEGATIVE) mg/dL Urine Ketones (NEGATIVE) mg/dL Urine Occult Blood (NEGATIVE) Urine Nitrite (NEGATIVE) Urine Bilirubin (NEGATIVE) Urine Ictotest Urine Urobilinogen (<2.0) EU/dL Ur Leukocyte Esterase (NEGATIVE) Urine RBC (0-2/HPF) Urine WBC (0-5/HPF) Ur Epithelial Cells (NONE-FEW) Urine Bacteria (NEGATIVE) 04/08/21 04/09/21 04/09/21 Range/Units 15:15 06:05 06:05 WBC 7.09 (4.0-11.0) K/uL RBC 4.80 (4.50-5.90) M/uL Hgb 13.0 (13.0-17.0) g/dL Hct 39.3 (38.0-50.0) % MCV 81.9 (80.0-98.0) fL MCH 27.1 (27.0-32.0) pg MCHC 33.1 (31.0-37.0) g/dL RDW Std Deviation 43.6 (28.0-62.0) fl RDW Coeff of Ashley 15 (11.0-15.0) % Plt Count 157 (150-400) K/uL MPV 10.90 (7.40-12.00) fL Neut % (Auto) 66.7 (48.0-80.0) % Lymph % (Auto) 16.1 (16.0-40.0) % Taylor % (Auto) 13.5 (0.0-15.0) % Eos % (Auto) 3.0 (0.0-7.0) % Baso % (Auto) 0.7 (0.0-1.5) % Neut # (Auto) 4.7 (1.4-5.7) K/uL Lymph # (Auto) 1.1 (0.6-2.4) K/uL Taylor # (Auto) 1.0 H (0.0-0.8) K/uL Eos # (Auto) 0.2 (0.0-0.7) K/uL Baso # (Auto) 0.1 (0.0-0.1) K/uL Nucleated RBC % 0.0 /100WBC Nucleated RBCs # 0 K/uL INR 3.36 Sodium (136-148) mmol/L Potassium (3.5-5.1) mmol/L Chloride (98-107) mmol/L Carbon Dioxide (21.0-32.0) mmol/L BUN (7.0-18.0) mg/dL Creatinine (0.8-1.3) mg/dL Est Cr Clr Drug Dosing mL/min Estimated GFR (MDRD) ml/min Glucose (74-106) mg/dL Calcium (8.5-10.1) mg/dL Total Bilirubin (0.2-1.0) mg/dL AST (15-37) IU/L ALT (14-63) IU/L Alkaline Phosphatase (46-116) U/L Troponin I (0.000-0.056) ng/mL Total Protein (6.4-8.2) g/dL Albumin (3.4-5.0) g/dL Globulin (2.6-4.0) g/dL Albumin/Globulin Ratio (0.9-1.6) Urine Color BROWN Urine Appearance CLOUDY Urine pH 7.0 (5.0-8.0) Ur Specific [place] 1.020 (1.001-1.035) Urine Protein 100 H (NEGATIVE) mg/dL Urine Glucose (UA) 100 H (NEGATIVE) mg/dL Urine Ketones TRACE H (NEGATIVE) mg/dL Urine Occult Blood LARGE H (NEGATIVE) Urine Nitrite POSITIVE H (NEGATIVE) Urine Bilirubin MODERATE H (NEGATIVE) Urine Ictotest NEGATIVE Urine Urobilinogen 1.0 (<2.0) EU/dL Ur Leukocyte Esterase TRACE H (NEGATIVE) Urine RBC TOO NUMEROUS TO CT (0-2/HPF) Urine WBC 0-4 (0-5/HPF) Ur Epithelial Cells RARE (NONE-FEW) Urine Bacteria FEW (NEGATIVE) 04/09/21 Range/Units 06:05 WBC (4.0-11.0) K/uL RBC (4.50-5.90) M/uL Hgb (13.0-17.0) g/dL Hct (38.0-50.0) % MCV (80.0-98.0) fL MCH (27.0-32.0) pg MCHC (31.0-37.0) g/dL RDW Std Deviation (28.0-62.0) fl RDW Coeff of Ashley (11.0-15.0) % Plt Count (150-400) K/uL MPV (7.40-12.00) fL Neut % (Auto) (48.0-80.0) % Lymph % (Auto) (16.0-40.0) % Taylor % (Auto) (0.0-15.0) % Eos % (Auto) (0.0-7.0) % Baso % (Auto) (0.0-1.5) % Neut # (Auto) (1.4-5.7) K/uL Lymph # (Auto) (0.6-2.4) K/uL Taylor # (Auto) (0.0-0.8) K/uL Eos # (Auto) (0.0-0.7) K/uL Baso # (Auto) (0.0-0.1) K/uL Nucleated RBC % /100WBC Nucleated RBCs # K/uL INR Sodium 143 (136-148) mmol/L Potassium 4.0 (3.5-5.1) mmol/L Chloride 109 H (98-107) mmol/L Carbon Dioxide 24.5 (21.0-32.0) mmol/L BUN 13 (7.0-18.0) mg/dL Creatinine 0.9 (0.8-1.3) mg/dL Est Cr Clr Drug Dosing 63.78 mL/min Estimated GFR (MDRD) > 60.0 ml/min Glucose 111 H (74-106) mg/dL Calcium 7.3 L (8.5-10.1) mg/dL Total Bilirubin 0.5 (0.2-1.0) mg/dL AST 19 (15-37) IU/L ALT 45 (14-63) IU/L Alkaline Phosphatase 80 (46-116) U/L Troponin I (0.000-0.056) ng/mL Total Protein 5.6 L (6.4-8.2) g/dL Albumin 2.2 L (3.4-5.0) g/dL Globulin 3.4 (2.6-4.0) g/dL Albumin/Globulin Ratio 0.7 L (0.9-1.6) Urine Color Urine Appearance Urine pH (5.0-8.0) Ur Specific [place] (1.001-1.035) Urine Protein (NEGATIVE) mg/dL Urine Glucose (UA) (NEGATIVE) mg/dL Urine Ketones (NEGATIVE) mg/dL Urine Occult Blood (NEGATIVE) Urine Nitrite (NEGATIVE) Urine Bilirubin (NEGATIVE) Urine Ictotest Urine Urobilinogen (<2.0) EU/dL Ur Leukocyte Esterase (NEGATIVE) Urine RBC (0-2/HPF) Urine WBC (0-5/HPF) Ur Epithelial Cells (NONE-FEW) Urine Bacteria (NEGATIVE) Med Orders - Current: Current Medications Acetaminophen (Acetaminophen 325 Mg Tab) 650 mg PO Q4H PRN PRN Reason: Fever Albuterol/Ipratropium (Albuterol/Ipratropium 4 Gm Inhalation Danielson) 0 gm INH QID LUIS ANTONIO Last Admin: 04/09/21 06:04 Dose: 1 puff Documented by: Diltiazem HCl (Diltiazem 120 Mg Cap.Cd) 120 mg PO DAILY [facility] Ceftriaxone Sodium/Dextrose 1 (gm/ Premix) 50 mls @ 100 mls/hr IV Q24H [facility] Sodium Chloride (Sodium Chloride 0.9% 10 Ml Syringe) 10 ml FLUSH ASDIRECTED PRN PRN Reason: Keep Vein Open Last Admin: 04/08/21 14:57 Dose: 10 ml Documented by: Sodium Chloride (Sodium Chloride 0.9% 2.5 Ml Syringe) 2.5 ml FLUSH ASDIRECTED PRN PRN Reason: Keep Vein Open Last Admin: 04/08/21 19:12 Dose: 2.5 ml Documented by: Discontinued Medications Albuterol/Ipratropium (Albuterol/Ipratropium 4 Gm Inhalation Danielson) 0 gm INH QID PRN PRN Reason: COVID Albuterol/Ipratropium (Albuterol/Ipratropium 4 Gm Inhalation Danielson) 0 gm INH QID PRN PRN Reason: Cough Diltiazem HCl (Diltiazem 25 Mg/5 Ml Sdv) 20 mg IVPUSH ONETIME ONE Stop: 04/08/21 18:43 Last Admin: 04/08/21 19:06 Dose: 20 mg Documented by: Diltiazem HCl (Diltiazem 25 Mg/5 Ml Sdv) 20 mg IVPUSH ONETIME ONE Stop: 04/09/21 07:58 Sodium Chloride (Normal Saline) 1,000 mls @ 999 mls/hr IV STAT ONE Stop: 04/08/21 17:00 Last Admin: 04/08/21 16:04 Dose: 999 mls/hr Documented by: Ceftriaxone Sodium/Dextrose 1 (gm/ Premix) 50 mls @ 100 mls/hr IV ONETIME ONE Stop: 04/08/21 16:51 Last Admin: 04/08/21 17:30 Dose: 100 mls/hr Documented by: Lorazepam (Lorazepam 2 Mg/Ml Sdv) 0.5 mg IVPUSH ONETIME ONE Stop: 04/08/21 18:45 Last Admin: 04/08/21 19:30 Dose: 0.5 mg Documented by: - Exam Quality Assessment: No: Supplemental Oxygen General: Alert, Oriented HEENT: EOMI Neck: Supple Lungs: Clear to Auscultation, Normal Respiratory Effort Cardiovascular: Irregular Rhythm, Tachycardia GI/Abdominal Exam: Soft, Non-Tender Extremities: Normal Inspection Neurological: No New Focal Deficit Psy/Mental Status: Alert, Normal Mood - Patient Data Lab Results Last 24 hrs: Laboratory Results - last 24 hr 04/08/21 04/08/21 04/08/21 Range/Units 14:55 14:55 14:55 WBC 6.79 (4.0-11.0) K/uL RBC 5.09 (4.50-5.90) M/uL Hgb 13.7 (13.0-17.0) g/dL Hct 42.0 (38.0-50.0) % MCV 82.5 (80.0-98.0) fL MCH 26.9 L (27.0-32.0) pg MCHC 32.6 (31.0-37.0) g/dL RDW Std Deviation 44.5 (28.0-62.0) fl RDW Coeff of Ashley 15 (11.0-15.0) % Plt Count 170 (150-400) K/uL MPV 11.40 (7.40-12.00) fL Neut % (Auto) 65.2 (48.0-80.0) % Lymph % (Auto) 19.4 (16.0-40.0) % Taylor % (Auto) 11.6 (0.0-15.0) % Eos % (Auto) 2.5 (0.0-7.0) % Baso % (Auto) 1.3 (0.0-1.5) % Neut # (Auto) 4.4 (1.4-5.7) K/uL Lymph # (Auto) 1.3 (0.6-2.4) K/uL Taylor # (Auto) 0.8 (0.0-0.8) K/uL Eos # (Auto) 0.2 (0.0-0.7) K/uL Baso # (Auto) 0.1 (0.0-0.1) K/uL Nucleated RBC % 0.0 /100WBC Nucleated RBCs # 0 K/uL INR 4.24 Sodium 140 (136-148) mmol/L Potassium 4.5 (3.5-5.1) mmol/L Chloride 106 (98-107) mmol/L Carbon Dioxide 27.2 (21.0-32.0) mmol/L BUN 17 (7.0-18.0) mg/dL Creatinine 1.2 (0.8-1.3) mg/dL Est Cr Clr Drug Dosing 47.49 mL/min Estimated GFR (MDRD) 59.3 ml/min Glucose 96 (74-106) mg/dL Calcium 7.9 L (8.5-10.1) mg/dL Total Bilirubin 0.7 (0.2-1.0) mg/dL AST 27 (15-37) IU/L ALT 59 (14-63) IU/L Alkaline Phosphatase 92 (46-116) U/L Troponin I < 0.050 (0.000-0.056) ng/mL Total Protein 6.0 L (6.4-8.2) g/dL Albumin 2.5 L (3.4-5.0) g/dL Globulin 3.5 (2.6-4.0) g/dL Albumin/Globulin Ratio 0.7 L (0.9-1.6) Urine Color Urine Appearance Urine pH (5.0-8.0) Ur Specific [place] (1.001-1.035) Urine Protein (NEGATIVE) mg/dL Urine Glucose (UA) (NEGATIVE) mg/dL Urine Ketones (NEGATIVE) mg/dL Urine Occult Blood (NEGATIVE) Urine Nitrite (NEGATIVE) Urine Bilirubin (NEGATIVE) Urine Ictotest Urine Urobilinogen (<2.0) EU/dL Ur Leukocyte Esterase (NEGATIVE) Urine RBC (0-2/HPF) Urine WBC (0-5/HPF) Ur Epithelial Cells (NONE-FEW) Urine Bacteria (NEGATIVE) 04/08/21 04/09/21 04/09/21 Range/Units 15:15 06:05 06:05 WBC 7.09 (4.0-11.0) K/uL RBC 4.80 (4.50-5.90) M/uL Hgb 13.0 (13.0-17.0) g/dL Hct 39.3 (38.0-50.0) % MCV 81.9 (80.0-98.0) fL MCH 27.1 (27.0-32.0) pg MCHC 33.1 (31.0-37.0) g/dL RDW Std Deviation 43.6 (28.0-62.0) fl RDW Coeff of Ashley 15 (11.0-15.0) % Plt Count 157 (150-400) K/uL MPV 10.90 (7.40-12.00) fL Neut % (Auto) 66.7 (48.0-80.0) % Lymph % (Auto) 16.1 (16.0-40.0) % Taylor % (Auto) 13.5 (0.0-15.0) % Eos % (Auto) 3.0 (0.0-7.0) % Baso % (Auto) 0.7 (0.0-1.5) % Neut # (Auto) 4.7 (1.4-5.7) K/uL Lymph # (Auto) 1.1 (0.6-2.4) K/uL Taylor # (Auto) 1.0 H (0.0-0.8) K/uL Eos # (Auto) 0.2 (0.0-0.7) K/uL Baso # (Auto) 0.1 (0.0-0.1) K/uL Nucleated RBC % 0.0 /100WBC Nucleated RBCs # 0 K/uL INR 3.36 Sodium (136-148) mmol/L Potassium (3.5-5.1) mmol/L Chloride (98-107) mmol/L Carbon Dioxide (21.0-32.0) mmol/L BUN (7.0-18.0) mg/dL Creatinine (0.8-1.3) mg/dL Est Cr Clr Drug Dosing mL/min Estimated GFR (MDRD) ml/min Glucose (74-106) mg/dL Calcium (8.5-10.1) mg/dL Total Bilirubin (0.2-1.0) mg/dL AST (15-37) IU/L ALT (14-63) IU/L Alkaline Phosphatase (46-116) U/L Troponin I (0.000-0.056) ng/mL Total Protein (6.4-8.2) g/dL Albumin (3.4-5.0) g/dL Globulin (2.6-4.0) g/dL Albumin/Globulin Ratio (0.9-1.6) Urine Color BROWN Urine Appearance CLOUDY Urine pH 7.0 (5.0-8.0) Ur Specific [place] 1.020 (1.001-1.035) Urine Protein 100 H (NEGATIVE) mg/dL Urine Glucose (UA) 100 H (NEGATIVE) mg/dL Urine Ketones TRACE H (NEGATIVE) mg/dL Urine Occult Blood LARGE H (NEGATIVE) Urine Nitrite POSITIVE H (NEGATIVE) Urine Bilirubin MODERATE H (NEGATIVE) Urine Ictotest NEGATIVE Urine Urobilinogen 1.0 (<2.0) EU/dL Ur Leukocyte Esterase TRACE H (NEGATIVE) Urine RBC TOO NUMEROUS TO CT (0-2/HPF) Urine WBC 0-4 (0-5/HPF) Ur Epithelial Cells RARE (NONE-FEW) Urine Bacteria FEW (NEGATIVE) 04/09/21 Range/Units 06:05 WBC (4.0-11.0) K/uL RBC (4.50-5.90) M/uL Hgb (13.0-17.0) g/dL Hct (38.0-50.0) % MCV (80.0-98.0) fL MCH (27.0-32.0) pg MCHC (31.0-37.0) g/dL RDW Std Deviation (28.0-62.0) fl RDW Coeff of Ashley (11.0-15.0) % Plt Count (150-400) K/uL MPV (7.40-12.00) fL Neut % (Auto) (48.0-80.0) % Lymph % (Auto) (16.0-40.0) % Taylor % (Auto) (0.0-15.0) % Eos % (Auto) (0.0-7.0) % Baso % (Auto) (0.0-1.5) % Neut # (Auto) (1.4-5.7) K/uL Lymph # (Auto) (0.6-2.4) K/uL Taylor # (Auto) (0.0-0.8) K/uL Eos # (Auto) (0.0-0.7) K/uL Baso # (Auto) (0.0-0.1) K/uL Nucleated RBC % /100WBC Nucleated RBCs # K/uL INR Sodium 143 (136-148) mmol/L Potassium 4.0 (3.5-5.1) mmol/L Chloride 109 H (98-107) mmol/L Carbon Dioxide 24.5 (21.0-32.0) mmol/L BUN 13 (7.0-18.0) mg/dL Creatinine 0.9 (0.8-1.3) mg/dL Est Cr Clr Drug Dosing 63.78 mL/min Estimated GFR (MDRD) > 60.0 ml/min Glucose 111 H (74-106) mg/dL Calcium 7.3 L (8.5-10.1) mg/dL Total Bilirubin 0.5 (0.2-1.0) mg/dL AST 19 (15-37) IU/L ALT 45 (14-63) IU/L Alkaline Phosphatase 80 (46-116) U/L Troponin I (0.000-0.056) ng/mL Total Protein 5.6 L (6.4-8.2) g/dL Albumin 2.2 L (3.4-5.0) g/dL Globulin 3.4 (2.6-4.0) g/dL Albumin/Globulin Ratio 0.7 L (0.9-1.6) Urine Color Urine Appearance Urine pH (5.0-8.0) Ur Specific [place] (1.001-1.035) Urine Protein (NEGATIVE) mg/dL Urine Glucose (UA) (NEGATIVE) mg/dL Urine Ketones (NEGATIVE) mg/dL Urine Occult Blood (NEGATIVE) Urine Nitrite (NEGATIVE) Urine Bilirubin (NEGATIVE) Urine Ictotest Urine Urobilinogen (<2.0) EU/dL Ur Leukocyte Esterase (NEGATIVE) Urine RBC (0-2/HPF) Urine WBC (0-5/HPF) Ur Epithelial Cells (NONE-FEW) Urine Bacteria (NEGATIVE) Result Diagrams: 04/09/21 06:05 04/09/21 06:05 Sepsis Event Note - Evaluation Sepsis Screening Result: No Definite Risk - Focused Exam Vital Signs: Vital Signs Temp Pulse Resp BP BP Pulse Ox 04/09/21 07:33 99.1 F 86 18 116/74 93 L 04/09/21 04:07 98.3 F 92 16 112/79 93 L 04/09/21 00:29 98.5 F 82 16 101/64 93 L - Problem List & Annotations (1) UTI, Urinary tract infectious disease SNOMED Code(s): 26390104 Code(s): N39.0 - URINARY TRACT INFECTION, SITE NOT SPECIFIED Status: Acute Current Visit: Yes (2) Afib SNOMED Code(s): 22918585 Code(s): I48.91 - UNSPECIFIED ATRIAL FIBRILLATION Status: Acute Current Visit: No - Problem List Review Problem List Initiated/Reviewed/Updated: Yes - My Orders Last 24 Hours: My Active Orders 04/08/21 18:17 Oxygen Therapy [RC] PRN Up With Assistance [RC] ASDIRECTED VTE/DVT Education [RC] PER UNIT ROUTINE Vital Signs [RC] Q4H Resuscitation Status Routine 04/08/21 18:18 Antiembolic Devices [RC] PER UNIT ROUTINE Acetaminophen [TylenoL] 650 mg PO Q4H PRN Sequential Compression Device [OM.PC] Per Unit Routine 04/08/21 18:19 RT Post Treatment Assessment [RC] Click to Edit RT Pre-Treatment Assessment [RC] Click to Edit 04/08/21 18:29 Telemetry Monitoring [Cardiac Monitoring] [RC] Q8H 04/08/21 18:45 Consult to Physical Therapy [PT Evaluation and Treatment] [CONS] Routine 04/09/21 00:00 Albuterol/Ipratropium [Combivent Respimat] See Dose Instructions INH QID 04/09/21 10:30 Diltiazem [Cardizem CD] 120 mg PO DAILY 04/09/21 18:00 cefTRIAXone [Rocephin in Dextrose,Iso-Osm 1 GM/50 ML] 1 gm Premix Bag 1 bag IV Q24H 04/10/21 05:11 CBC WITH AUTO DIFF [HEME] AM COMPREHENSIVE METABOLIC PN,CMP [CHEM] AM INR,PT,PROTHROMBIN TIME [COAG] AM 04/11/21 05:11 CBC WITH AUTO DIFF [HEME] AM COMPREHENSIVE METABOLIC PN,CMP [CHEM] AM INR,PT,PROTHROMBIN TIME [COAG] AM - Plan Plan:: Assessment: 1. Complicated UTI w. gross hematuria 2. Afib w RVR 3. Hx of Supratherapeutic INR 4. History of Covid pneumonia 5. Past medical history: Atrial fibrillation on Coumadin, hypertension, hyperlipidemia Plan: 1. Weakness/fatigue/near syncope in light of positive UA+gross hematuria: Ceftriaxone for UTI; continue antibiotics until culture returns:ordered and collected PT ordered for weakness/fatigue: possible post-COVID sequelae 2. Afib w. RVR: noted w. rate of 120-140; no home rate controlling medication per patient ; given additional one time dose of Diltiazem IV this AM due to HR of 140; started on PO cardizem 120 CD; continue to monitor on Telemetry ; Currently denies any CP, palpitations, dizziness. Hold Warfarin: still supratherapeutic+ hematuria; may consider restart of anticoagulation at discharge or with PCP Chest x-ray: New small patchy infiltrates bilaterally on admission. No pleural effusion. : however no acute signs of respiratory distress, o2 requirements ;: continue to monitor for need for additional abx. may consider Azithromycin if clinically necessary; most likely viral (COVID) CAP sequelae 2. hx of COVID: saturating on RA, coarse BS noted on auscultation but no wheeze, crackles and moving air well otherwise. Scheduled Combivent for now due to coarse BS; recent dc for COVID CAP.
[2021-04-09] MEDS: Diltiazem 120 MG Cap.CD PO SCH (12:34)
[2021-04-09] MEDS: Sodium Chloride 0.9% 2.5 ML Syringe FLUSH PRN ×2 (12:34→17:14)
[2021-04-09] MEDS ORDERED: Sodium Chloride 0.9% 250 ML IV ONE (17:00)
[2021-04-09] MEDS: cefTRIAXone 1 GM in Premix Bag 1 BAG IV SCH (17:29)
[2021-04-10] MEDS: Albuterol/Ipratropium 4 GM Inhalation Spray INH SCH ×5 (00:10→23:55)
[2021-04-10 06:17] LABS: BLOOD UREA NITROGEN,BUN 10 mg/dL (7.0-18.0); CARBON DIOXIDE,CO2 23.6 mmol/L (21.0-32.0); CHLORIDE,CL 105 mmol/L (98-107); GLUCOSE RANDOM 108 mg/dL (74-106); POTASSIUM,K 4.3 mmol/L (3.5-5.1); SODIUM,NA 140 mmol/L (136-148)
[2021-04-10] MEDS: atorvaSTATin 20 MG Tab PO SCH (09:04)
[2021-04-10] MEDS: Diltiazem 120 MG Cap.CD PO SCH (09:05)
--- NOTE | 2021-04-10 14:27 | PCM.PN ---
- General Info Date of Service: 04/10/21 - Review of Systems Systems Review Comment:: feeling stronger, no palpitations. - Patient Data Vitals - Most Recent: Last Vital Signs Temp 36.9 C 04/10/21 12:14 Pulse 87 04/10/21 12:14 Resp 16 04/10/21 12:14 BP 93/65 04/10/21 12:14 Pulse Ox 93 L 04/10/21 12:14 Orthostatic Blood Pressure [ 97/71 Standing] Orthostatic Blood Pressure [ 92/71 Sitting] Orthostatic Blood Pressure [ 92/62 Supine] Weight - Most Recent: 61.689 kg I&O - Last 24 Hours: Intake & Output 04/09/21 04/10/21 04/10/21 22:59 06:59 14:59 Intake Total 830 300 Output Total 400 1100 Balance 430 -800 Lab Results Last 24 Hours: Laboratory Results - last 24 hr 04/10/21 04/10/21 04/10/21 Range/Units 05:50 05:50 05:50 WBC 7.91 (4.0-11.0) K/uL RBC 4.98 (4.50-5.90) M/uL Hgb 13.6 (13.0-17.0) g/dL Hct 40.5 (38.0-50.0) % MCV 81.3 (80.0-98.0) fL MCH 27.3 (27.0-32.0) pg MCHC 33.6 (31.0-37.0) g/dL RDW Std Deviation 43.1 (28.0-62.0) fl RDW Coeff of Ashley 15 (11.0-15.0) % Plt Count 149 L (150-400) K/uL MPV 10.80 (7.40-12.00) fL Neut % (Auto) 64.7 (48.0-80.0) % Lymph % (Auto) 18.1 (16.0-40.0) % [place] % (Auto) 12.8 (0.0-15.0) % Eos % (Auto) 3.4 (0.0-7.0) % Baso % (Auto) 1.0 (0.0-1.5) % Neut # (Auto) 5.1 (1.4-5.7) K/uL Lymph # (Auto) 1.4 (0.6-2.4) K/uL [place] # (Auto) 1.0 H (0.0-0.8) K/uL Eos # (Auto) 0.3 (0.0-0.7) K/uL Baso # (Auto) 0.1 (0.0-0.1) K/uL Nucleated RBC % 0.0 /100WBC Nucleated RBCs # 0 K/uL INR 1.65 Sodium 140 (136-148) mmol/L Potassium 4.3 (3.5-5.1) mmol/L Chloride 105 (98-107) mmol/L Carbon Dioxide 23.6 (21.0-32.0) mmol/L BUN 10 (7.0-18.0) mg/dL Creatinine 0.9 (0.8-1.3) mg/dL Est Cr Clr Drug Dosing 63.78 mL/min Estimated GFR (MDRD) > 60.0 ml/min Glucose 108 H (74-106) mg/dL Calcium 7.9 L (8.5-10.1) mg/dL Total Bilirubin 0.7 (0.2-1.0) mg/dL AST 21 (15-37) IU/L ALT 46 (14-63) IU/L Alkaline Phosphatase 78 (46-116) U/L Total Protein 6.1 L (6.4-8.2) g/dL Albumin 2.4 L (3.4-5.0) g/dL Globulin 3.7 (2.6-4.0) g/dL Albumin/Globulin Ratio 0.7 L (0.9-1.6) Abdiel Results Last 24 Hours: Microbiology 04/08/21 15:15 Urine Culture - Final Urine, Clean Catch MIXED KEIRA 1,000-10,000 CFU/ML Med Orders - Current: Current Medications Acetaminophen (Acetaminophen 325 Mg Tab) 650 mg PO Q4H PRN PRN Reason: Fever Albuterol/Ipratropium (Albuterol/Ipratropium 4 Gm Inhalation [place]) 0 gm INH QID [facility] Last Admin: 04/10/21 12:18 Dose: 1 puff Documented by: Atorvastatin Calcium (Atorvastatin 20 Mg Tab) 20 mg PO DAILY [facility] Last Admin: 04/10/21 09:04 Dose: 20 mg Documented by: Diltiazem HCl (Diltiazem 120 Mg Cap.Cd) 120 mg PO DAILY [facility] Last Admin: 04/10/21 09:05 Dose: 120 mg Documented by: Ceftriaxone Sodium/Dextrose 1 (gm/ Premix) 50 mls @ 100 mls/hr IV Q24H [facility] Last Admin: 04/09/21 17:29 Dose: 100 mls/hr Documented by: Sodium Chloride (Sodium Chloride 0.9% 10 Ml Syringe) 10 ml FLUSH ASDIRECTED PRN PRN Reason: Keep Vein Open Last Admin: 04/08/21 14:57 Dose: 10 ml Documented by: Sodium Chloride (Sodium Chloride 0.9% 2.5 Ml Syringe) 2.5 ml FLUSH ASDIRECTED PRN PRN Reason: Keep Vein Open Last Admin: 04/09/21 17:14 Dose: 2.5 ml Documented by: Discontinued Medications Albuterol/Ipratropium (Albuterol/Ipratropium 4 Gm Inhalation [place]) 0 gm INH QID PRN PRN Reason: COVID Albuterol/Ipratropium (Albuterol/Ipratropium 4 Gm Inhalation [place]) 0 gm INH QID PRN PRN Reason: Cough Diltiazem HCl (Diltiazem 25 Mg/5 Ml Sdv) 20 mg IVPUSH ONETIME ONE Stop: 04/08/21 18:43 Last Admin: 04/08/21 19:06 Dose: 20 mg Documented by: Diltiazem HCl (Diltiazem 25 Mg/5 Ml Sdv) 20 mg IVPUSH ONETIME ONE Stop: 04/09/21 07:58 Last Admin: 04/09/21 07:57 Dose: 20 mg Documented by: Sodium Chloride (Normal Saline) 1,000 mls @ 999 mls/hr IV STAT ONE Stop: 04/08/21 17:00 Last Admin: 04/08/21 16:04 Dose: 999 mls/hr Documented by: Ceftriaxone Sodium/Dextrose 1 (gm/ Premix) 50 mls @ 100 mls/hr IV ONETIME ONE Stop: 04/08/21 16:51 Last Admin: 04/08/21 17:30 Dose: 100 mls/hr Documented by: Sodium Chloride (Normal Saline) 250 mls @ 999 mls/hr IV STAT ONE Stop: 04/09/21 17:15 Last Admin: 04/09/21 17:14 Dose: 999 mls/hr Documented by: Lorazepam (Lorazepam 2 Mg/Ml Sdv) 0.5 mg IVPUSH ONETIME ONE Stop: 04/08/21 18:45 Last Admin: 04/08/21 19:30 Dose: 0.5 mg Documented by: - Exam General: Alert, Oriented Lungs: Clear to Auscultation, Normal Respiratory Effort Cardiovascular: Regular Rate, Irregular Rhythm GI/Abdominal Exam: Soft, Non-Tender, No Distention Extremities: Non-Tender, No Pedal Edema Skin: Warm, Dry, Intact Neurological: No New Focal Deficit - Patient Data Lab Results Last 24 hrs: Laboratory Results - last 24 hr 04/10/21 04/10/21 04/10/21 Range/Units 05:50 05:50 05:50 WBC 7.91 (4.0-11.0) K/uL RBC 4.98 (4.50-5.90) M/uL Hgb 13.6 (13.0-17.0) g/dL Hct 40.5 (38.0-50.0) % MCV 81.3 (80.0-98.0) fL MCH 27.3 (27.0-32.0) pg MCHC 33.6 (31.0-37.0) g/dL RDW Std Deviation 43.1 (28.0-62.0) fl RDW Coeff of [place] 15 (11.0-15.0) % Plt Count 149 L (150-400) K/uL MPV 10.80 (7.40-12.00) fL Neut % (Auto) 64.7 (48.0-80.0) % Lymph % (Auto) 18.1 (16.0-40.0) % [place] % (Auto) 12.8 (0.0-15.0) % Eos % (Auto) 3.4 (0.0-7.0) % Baso % (Auto) 1.0 (0.0-1.5) % Neut # (Auto) 5.1 (1.4-5.7) K/uL Lymph # (Auto) 1.4 (0.6-2.4) K/uL [place] # (Auto) 1.0 H (0.0-0.8) K/uL Eos # (Auto) 0.3 (0.0-0.7) K/uL Baso # (Auto) 0.1 (0.0-0.1) K/uL Nucleated RBC % 0.0 /100WBC Nucleated RBCs # 0 K/uL INR 1.65 Sodium 140 (136-148) mmol/L Potassium 4.3 (3.5-5.1) mmol/L Chloride 105 (98-107) mmol/L Carbon Dioxide 23.6 (21.0-32.0) mmol/L BUN 10 (7.0-18.0) mg/dL Creatinine 0.9 (0.8-1.3) mg/dL Est Cr Clr Drug Dosing 63.78 mL/min Estimated GFR (MDRD) > 60.0 ml/min Glucose 108 H (74-106) mg/dL Calcium 7.9 L (8.5-10.1) mg/dL Total Bilirubin 0.7 (0.2-1.0) mg/dL AST 21 (15-37) IU/L ALT 46 (14-63) IU/L Alkaline Phosphatase 78 (46-116) U/L Total Protein 6.1 L (6.4-8.2) g/dL Albumin 2.4 L (3.4-5.0) g/dL Globulin 3.7 (2.6-4.0) g/dL Albumin/Globulin Ratio 0.7 L (0.9-1.6) Result Diagrams: 04/10/21 05:50 04/10/21 05:50 Abdiel Results Last 24 hrs: Microbiology 04/08/21 15:15 Urine Culture - Final Urine, Clean Catch MIXED [place] 1,000-10,000 CFU/ML Sepsis Event Note - Evaluation Sepsis Screening Result: No Definite Risk - Focused Exam Vital Signs: Vital Signs Temp Pulse Pulse Resp BP BP BP 04/10/21 12:14 36.9 C 87 16 93/65 04/10/21 11:07 36.8 C 04/10/21 09:05 86 96/63 04/10/21 07:50 37.4 C 83 16 98/56 L 04/10/21 05:44 36.6 C 72 18 95/51 L Pulse Ox 04/10/21 12:14 93 L 04/10/21 11:07 04/10/21 09:05 04/10/21 07:50 93 L 04/10/21 05:44 94 L - Problem List Review Problem List Initiated/Reviewed/Updated: Yes - My Orders Last 24 Hours: My Active Orders 04/10/21 14:14 Communication Order [RC] PER UNIT ROUTINE - Plan Plan:: Assessment: 71 yo male admitted for UTI w gross hematuria, a.fib with RVR 1. Complicated UTI w. gross hematuria 2. Afib w RVR 3. Hx of Supratherapeutic INR 4. History of Covid pneumonia 5. Past medical history: Atrial fibrillation on Coumadin, hypertension, hyperlipidemia Plan: 1. UTI:UA+gross hematuria: Ceftriaxone for UTI; hematuria resolving, holding Coumadin PT ordered for weakness/fatigue: possible post-COVID sequelae 2. A.fib: rate controlled, continue Cardizem Dispo: likely home tomorrow.
[2021-04-10] MEDS: cefTRIAXone 1 GM in Premix Bag 1 BAG IV SCH (18:03)
[2021-04-10] MEDS: Sodium Chloride 0.9% 2.5 ML Syringe FLUSH PRN (18:04)
[2021-04-11] MEDS: Albuterol/Ipratropium 4 GM Inhalation Spray INH SCH ×2 (05:38→12:24)
[2021-04-11 06:50] LABS: BLOOD UREA NITROGEN,BUN 14 mg/dL (7.0-18.0); CARBON DIOXIDE,CO2 23.5 mmol/L (21.0-32.0); CHLORIDE,CL 105 mmol/L (98-107); GLUCOSE RANDOM 100 mg/dL (74-106); POTASSIUM,K 4.2 mmol/L (3.5-5.1); SODIUM,NA 139 mmol/L (136-148)
[2021-04-11] MEDS: atorvaSTATin 20 MG Tab PO SCH (08:19)
[2021-04-11] MEDS: Diltiazem 120 MG Cap.CD PO SCH (08:19)
--- NOTE | 2021-04-11 15:53 | PCM.DCSUM1 ---
Discharge Summary - Hospital Course Free Text/Narrative:: Patient is a 71-year-old male with a significant past medical history of atrial fibrillation on warfarin who presented to the ED with symptoms of weakness, near syncope hematuria and a bloody nose. Per ED notes patient had endorsed cutting back on his Coumadin 2 weeks prior as recommended by [facility] and completely stopped his Coumadin 2 days ago after his INR was found to be 8.90. Per daughter patient has been increasingly weak and dizzy. Also endorsed to ED provider having some bloody stools a week prior which "had cleared up" over the past few days; has noticed however blood in his urine prompting his [facility] provider to recommend patient proceed to the ED. ED course: Vitals: 93/68 pulse 75. Afebrile at 98.5. O2 sat 91% room air. Chest x-ray: New small patchy infiltrates bilaterally. No pleural effusion. Concerns for COVID-[address]: Negative noncontrast head. CT left maxillary sinus retention EKG: Atrial fibrillation. Left axis deviation. No ST elevation/depression. Old anteroseptal infarct Troponin x 1 negative Patient given 1 L NS bolus UA positive for nitrites/esterase. Ceftriaxone initiated. Hospital course : Throughout stay patient was stable and in no acute distress. UTI was treated with ceftriaxone while awaiting cultures. Due to supratherapeutic INR and hematuria Coumadin was held and patient was advised to follow-up with outpatient PCP/[facility] provider for possible continuation versus alternative medication for anticoagulation. Rapid ventricular rate did occur and patient was started on a Cardizem with good response. Patient was not any rate controlling medications prior to admission. Cardizem 120 continuous dose sent home at discharge as patient tolerated dose in the hospital. PT : Patient is able to ambulate with walker and was not in any acute distress. Hematuria/UTI continue to improve throughout stay. Patient was discharged with cephalexin 500 mg p.o. twice daily as urine culture was resulted as mixed michael. Patient's vitals and labs otherwise were unremarkable at discharge. Patient was tolerating p.o. diet and urinating and stooling without any incidents. Patient requested discharge. Patient was discharged in stable condition. Primary care follow-up was established. Disposition: Home Follow-up: PCP. - Discharge Data Discharge Date: 04/11/21 Discharge Disposition: Home, Self-Care 01 Condition: Fair - Referral to Home Health Primary Care Physician: Keshav Esteban [employer] - Discharge Diagnosis/Problem(s) (1) UTI, Urinary tract infectious disease SNOMED Code(s): 76818223 ICD Code: N39.0 - URINARY TRACT INFECTION, SITE NOT SPECIFIED Status: Acute (2) Afib SNOMED Code(s): 71154261 ICD Code: I48.91 - UNSPECIFIED ATRIAL FIBRILLATION Status: Acute - Patient Summary/Data Consults: Consultations 04/08/21 18:45 Consult to Physical Therapy [PT Evaluation and Treatment] [CONS] Routine - Patient Instructions Diet: Heart Healthy Diet Notify Provider of: Fever, Nausea and/or Vomiting Other/Special Instructions: Follow up with your PCP. Discuss the need for restarting Warfarin (blood thinner). Hold this medication for now since there was some blood in your urine when you arrived to the hospital. A new medication for your heart rate is started. Follow up with your PCP to discuss further refills. Complete the course of antibiotics for your UTI. Drink plenty of fluids - Discharge Plan *PRESCRIPTION DRUG MONITORING PROGRAM REVIEWED*: No *COPY OF PRESCRIPTION DRUG MONITORING REPORT IN PATIENT ELENA: No Prescriptions/Med Rec: Diltiazem [Cardizem CD] 120 mg PO DAILY 14 Days #14 cap.cd cephALEXin [Keflex] 500 mg PO BID 5 Days #10 cap Home Medications: Home Meds atorvaSTATin [Lipitor] 20 mg PO DAILY 04/13/19 [History] lisinopriL [Prinivil] 2.5 mg PO DAILY 04/13/19 [History] Acetaminophen [Tylenol] 650 mg PO Q4H PRN tablet 08/12/19 [Rx] Albuterol/Ipratropium [Combivent Respimat] 1 puff INH QID PRN #1 inhaler 03/28/21 [Rx] Diltiazem [Cardizem CD] 120 mg PO DAILY 14 Days #14 cap.cd 04/11/21 [Rx] cephALEXin [Keflex] 500 mg PO BID 5 Days #10 cap 04/11/21 [Rx] Patient Handouts: COVID-19, Urinary Tract Infection, Adult, COVID-19: How to Protect Yourself and Others - CDC, Cephalexin Tablets or Capsules, Diltiazem Oral Tablets, Community-Acquired Pneumonia, Adult, [id number] Referrals: Keshav Esteban NP [Primary Care Provider] - 04/18/21 1:00 pm () - Discharge Summary/Plan Comment DC Time >30 min.: No - Patient Data Vitals - Most Recent: Last Vital Signs Temp 97.9 F 04/11/21 12:00 Pulse 85 04/11/21 12:00 Resp 18 04/11/21 12:00 BP 98/75 04/11/21 12:00 Pulse Ox 94 L 04/11/21 12:00 Orthostatic Blood Pressure [ 97/71 Standing] Orthostatic Blood Pressure [ 92/71 Sitting] Orthostatic Blood Pressure [ 92/62 Supine] Weight - Most Recent: 61.689 kg I&O - Last 24 hours: Intake & Output 04/11/21 04/11/21 04/11/21 06:59 14:59 22:59 Intake Total 900 Output Total 400 Balance 500 Lab Results - Last 24 hrs: Laboratory Results - last 24 hr 04/11/21 04/11/21 04/11/21 Range/Units 06:05 06:05 06:05 WBC 7.72 (4.0-11.0) K/uL RBC 5.13 (4.50-5.90) M/uL Hgb 13.7 (13.0-17.0) g/dL Hct 41.9 (38.0-50.0) % MCV 81.7 (80.0-98.0) fL MCH 26.7 L (27.0-32.0) pg MCHC 32.7 (31.0-37.0) g/dL RDW Std Deviation 42.9 (28.0-62.0) fl RDW Coeff of [place] 15 (11.0-15.0) % Plt Count 151 (150-400) K/uL MPV 10.80 (7.40-12.00) fL Neut % (Auto) 65.6 (48.0-80.0) % Lymph % (Auto) 17.5 (16.0-40.0) % [place] % (Auto) 12.0 (0.0-15.0) % Eos % (Auto) 3.9 (0.0-7.0) % Baso % (Auto) 1.0 (0.0-1.5) % Neut # (Auto) 5.1 (1.4-5.7) K/uL Lymph # (Auto) 1.4 (0.6-2.4) K/uL [place] # (Auto) 0.9 H (0.0-0.8) K/uL Eos # (Auto) 0.3 (0.0-0.7) K/uL Baso # (Auto) 0.1 (0.0-0.1) K/uL Nucleated RBC % 0.0 /100WBC Nucleated RBCs # 0 K/uL INR 1.20 Sodium 139 (136-148) mmol/L Potassium 4.2 (3.5-5.1) mmol/L Chloride 105 (98-107) mmol/L Carbon Dioxide 23.5 (21.0-32.0) mmol/L BUN 14 (7.0-18.0) mg/dL Creatinine 0.9 (0.8-1.3) mg/dL Est Cr Clr Drug Dosing 63.78 mL/min Estimated GFR (MDRD) > 60.0 ml/min Glucose 100 (74-106) mg/dL Calcium 7.9 L (8.5-10.1) mg/dL Total Bilirubin 0.7 (0.2-1.0) mg/dL AST 20 (15-37) IU/L ALT 49 (14-63) IU/L Alkaline Phosphatase 77 (46-116) U/L Total Protein 6.2 L (6.4-8.2) g/dL Albumin 2.4 L (3.4-5.0) g/dL Globulin 3.8 (2.6-4.0) g/dL Albumin/Globulin Ratio 0.6 L (0.9-1.6) Med Orders - Current: Current Medications Acetaminophen (Acetaminophen 325 Mg Tab) 650 mg PO Q4H PRN PRN Reason: Fever Albuterol/Ipratropium (Albuterol/Ipratropium 4 Gm Inhalation [place]) 0 gm INH QID [facility] Last Admin: 04/11/21 12:24 Dose: 1 puff Documented by: Atorvastatin Calcium (Atorvastatin 20 Mg Tab) 20 mg PO DAILY [facility] Last Admin: 04/11/21 08:19 Dose: 20 mg Documented by: Diltiazem HCl (Diltiazem 120 Mg Cap.Cd) 120 mg PO DAILY [facility] Last Admin: 04/11/21 08:19 Dose: 120 mg Documented by: Ceftriaxone Sodium/Dextrose 1 (gm/ Premix) 50 mls @ 100 mls/hr IV Q24H [facility] Last Admin: 04/10/21 18:03 Dose: 100 mls/hr Documented by: Sodium Chloride (Sodium Chloride 0.9% 10 Ml Syringe) 10 ml FLUSH ASDIRECTED PRN PRN Reason: Keep Vein Open Last Admin: 04/08/21 14:57 Dose: 10 ml Documented by: Sodium Chloride (Sodium Chloride 0.9% 2.5 Ml Syringe) 2.5 ml FLUSH ASDIRECTED PRN PRN Reason: Keep Vein Open Last Admin: 04/10/21 18:04 Dose: 2.5 ml Documented by: Discontinued Medications Albuterol/Ipratropium (Albuterol/Ipratropium 4 Gm Inhalation [place]) 0 gm INH QID PRN PRN Reason: COVID Albuterol/Ipratropium (Albuterol/Ipratropium 4 Gm Inhalation [place]) 0 gm INH QID PRN PRN Reason: Cough Diltiazem HCl (Diltiazem 25 Mg/5 Ml Sdv) 20 mg IVPUSH ONETIME ONE Stop: 04/08/21 18:43 Last Admin: 04/08/21 19:06 Dose: 20 mg Documented by: Diltiazem HCl (Diltiazem 25 Mg/5 Ml Sdv) 20 mg IVPUSH ONETIME ONE Stop: 04/09/21 07:58 Last Admin: 04/09/21 07:57 Dose: 20 mg Documented by: Sodium Chloride (Normal [place]) 1,000 mls @ 999 mls/hr IV STAT ONE Stop: 04/08/21 17:00 Last Admin: 04/08/21 16:04 Dose: 999 mls/hr Documented by: Ceftriaxone Sodium/Dextrose 1 (gm/ Premix) 50 mls @ 100 mls/hr IV ONETIME ONE Stop: 04/08/21 16:51 Last Admin: 04/08/21 17:30 Dose: 100 mls/hr Documented by: Sodium Chloride (Normal [place]) 250 mls @ 999 mls/hr IV STAT ONE Stop: 04/09/21 17:15 Last Admin: 04/09/21 17:14 Dose: 999 mls/hr Documented by: Lorazepam (Lorazepam 2 Mg/Ml Sdv) 0.5 mg IVPUSH ONETIME ONE Stop: 04/08/21 18:45 Last Admin: 04/08/21 19:30 Dose: 0.5 mg Documented by:
[2021-04-11 17:11] VITALS: BP 105/85; PULSE 67
== END 2021-04-11 16:30 | disposition home or self-care (01) ==
LOC: MW.ED 13:48 → MW.MS 17:38
PROVIDERS: ADMIT Student in an Organized Health Care Education/Training Program; ATTEND Student in an Organized Health Care Education/Training Program
DX: N39.0 Urinary tract infection, site not specified (principal); R55 Syncope and collapse; R31.0 Gross hematuria; R04.0 Epistaxis; I48.91 Unspecified atrial fibrillation; Z79.01 Long term (current) use of anticoagulants; Z88.5 Allergy status to narcotic agent; Z79.899 Other long term (current) drug therapy; E78.00 Pure hypercholesterolemia, unspecified; Z86.16 Personal history of COVID-19; I10 Essential (primary) hypertension; E78.5 Hyperlipidemia, unspecified
CPT/HCPCS: 36415; 70450; 71045; 74176; 80053; 81001; 84484; 85025; 85610; 87086; 93005; 96365; 96375; 96376; 99285; A9270; G0378; J0696; J2060; J3490; J7030; J7050; 93010; 99284

== ENCOUNTER 2021-11-02 09:02 | Emergency (ER) | payer OTHER ==
[2021-11-02] MEDS ORDERED: Sodium Chloride 0.9% 1,000 ML IV ONE (09:18)
[2021-11-02] MEDS ORDERED: Ketorolac 30 MG/ML SDV IVPUSH ONE (09:18)
[2021-11-02 10:16] LABS: POTASSIUM,K 3.9 mmol/L (3.5-5.1)
[2021-11-02] MEDS ORDERED: Iopamidol 755 MG/ML 500 ML Multipack Bottle IVPUSH STA (11:24)
--- NOTE | 2021-11-02 12:08 | EDM.PDOC ---
ED HPI GENERAL MEDICAL PROBLEM - General Chief Complaint: Abdominal Pain Stated Complaint: POSSIBLE APENDICITIS Time Seen by Provider: 11/02/21 09:10 Source of Information: Reports: Patient History Limitations: Reports: No Limitations - History of Present Illness INITIAL COMMENTS - FREE TEXT/NARRATIVE: Patient is a 71-year-old male [place] for complaints of right lower quadrant pain. States the pain started yesterday and has been constant in nature. The pain is made worse with palpation. He denies anything makes the pain better is not take any medicine for it at home. He does report some nausea or vomiting. Denies any urinary symptoms no fever chills or other complaints. Abdomen Pain Score (Numeric/FACES): 8 - Related Data Allergies Allergy/AdvReac Type Severity Reaction Status Date / Time morphine Allergy Nausea and Verified 11/02/21 09:27 Vomiting Home Meds: Home Meds atorvaSTATin [Lipitor] 20 mg PO DAILY 04/13/19 [History] lisinopriL [Prinivil] 2.5 mg PO DAILY 04/13/19 [History] Acetaminophen [Tylenol] 650 mg PO Q4H PRN tablet 08/12/19 [Rx] Albuterol/Ipratropium [Combivent Respimat] 1 puff INH QID PRN #1 inhaler 03/28/21 [Rx] Diltiazem [Cardizem CD] 120 mg PO DAILY 14 Days #14 cap.cd 04/11/21 [Rx] cephALEXin [Keflex] 500 mg PO BID 5 Days #10 cap 04/11/21 [Rx] Past Medical History HEENT History: Reports: Impaired Vision Cardiovascular History: Reports: Afib, High Cholesterol Respiratory History: Reports: None Gastrointestinal History: Reports: Other (See Below) Other Gastrointestinal History: Diarrhea at times the past 2-3 weeks Genitourinary History: Reports: Renal Calculus Musculoskeletal History: Reports: Other (See Below) Other Musculoskeletal History: Rotator cuff repair Neurological History: Reports: Vertigo Psychiatric History: Reports: Anxiety, Depression Endocrine/Metabolic History: Reports: None Hematologic History: Reports: None Immunologic History: Reports: None Oncologic (Cancer) History: Reports: None Dermatologic History: Reports: None - Infectious Disease History Infectious Disease History: Reports: Measles, Novel Coronavirus - Past Surgical History Head Surgeries/Procedures: Reports: None HEENT Surgical History: Reports: None Cardiovascular Surgical History: Reports: None Respiratory Surgical History: Reports: None GI Surgical History: Reports: None Male Surgical History: Reports: None Endocrine Surgical History: Reports: None Neurological Surgical History: Reports: None Musculoskeletal Surgical History: Reports: Arthroscopic Knee Oncologic Surgical History: Reports: None Dermatological Surgical History: Reports: None Social & Family History - Family History Family Medical History: No Pertinent Family History HEENT: Reports: Impaired Vision OBGYN: Reports: Endocrine/Metabolic: Reports: Diabetes, Type I, Diabetes, type II Oncologic: Reports: Breast, Lung - Tobacco Use Second Hand Smoke Exposure: No - Caffeine Use Caffeine Use: Reports: None - Recreational Drug Use Recreational Drug Use: No - Living Situation & Occupation Living situation: Reports: , with Family Occupation: Employed ED ROS GENERAL - Review of Systems Review Of Systems: See Below Constitutional: Reports: No Symptoms HEENT: Reports: No Symptoms Respiratory: Reports: No Symptoms Cardiovascular: Reports: No Symptoms Endocrine: Reports: No Symptoms GI/Abdominal: Reports: Abdominal Pain : Reports: No Symptoms Musculoskeletal: Reports: No Symptoms Skin: Reports: No Symptoms Neurological: Reports: No Symptoms Psychiatric: Reports: No Symptoms Hematologic/Lymphatic: Reports: No Symptoms Immunologic: Reports: No Symptoms ED EXAM, GI/ABD - Physical Exam Exam: See Below Exam Limited By: No Limitations General Appearance: Alert, WD/WN, No Apparent Distress Eyes: Bilateral: EOMI Respiratory/Chest: No Respiratory Distress, Lungs Clear, Normal Breath Sounds Cardiovascular: Normal Peripheral Pulses, Regular Rate, Rhythm GI/Abdominal Exam: Normal Bowel Sounds, Soft, Tender (LLQ) Neurological: Alert, Oriented, Normal Cognition, Normal Gait Course - Vital Signs Last Recorded V/S: Last Vital Signs Temp 98.1 F 11/02/21 09:25 Pulse 75 11/02/21 09:25 Resp 20 11/02/21 09:25 BP 139/89 11/02/21 09:25 Pulse Ox 98 11/02/21 09:25 - Orders/Labs/Meds Labs: Laboratory Tests 11/02/21 11/02/21 11/02/21 Range/Units 09:24 09:33 09:33 WBC 14.68 H (4.0-11.0) K/uL RBC 5.58 (4.50-5.90) M/uL Hgb 15.3 (13.0-17.0) g/dL Hct 46.2 (38.0-50.0) % MCV 82.8 (80.0-98.0) fL MCH 27.4 (27.0-32.0) pg MCHC 33.1 (31.0-37.0) g/dL RDW Std Deviation 44.5 (28.0-62.0) fl RDW Coeff of Ashley 15 (11.0-15.0) % Plt Count 247 (150-400) K/uL MPV 11.20 (7.40-12.00) fL Neut % (Auto) 84.8 H (48.0-80.0) % Lymph % (Auto) 7.2 L (16.0-40.0) % Spink % (Auto) 7.4 (0.0-15.0) % Eos % (Auto) 0.3 (0.0-7.0) % Baso % (Auto) 0.3 (0.0-1.5) % Neut # (Auto) 12.4 H (1.4-5.7) K/uL Lymph # (Auto) 1.1 (0.6-2.4) K/uL Spink # (Auto) 1.1 H (0.0-0.8) K/uL Eos # (Auto) 0.1 (0.0-0.7) K/uL Baso # (Auto) 0.1 (0.0-0.1) K/uL Nucleated RBC % 0.0 /100WBC Nucleated RBCs # 0 K/uL Sodium 145 (136-148) mmol/L Potassium 3.9 (3.5-5.1) mmol/L Chloride 106 (98-107) mmol/L Carbon Dioxide 26.0 (21.0-32.0) mmol/L BUN 19 H (7.0-18.0) mg/dL Creatinine 1.4 H (0.8-1.3) mg/dL Est Cr Clr Drug Dosing 45.46 mL/min Estimated GFR (MDRD) 49.7 ml/min Glucose 156 H (74-106) mg/dL Lactic Acid (0.4-2.0) mmol/L Calcium 8.9 (8.5-10.1) mg/dL Total Bilirubin 0.7 (0.2-1.0) mg/dL AST 20 (15-37) IU/L ALT 23 (14-63) IU/L Alkaline Phosphatase 102 (46-116) U/L Total Protein 7.4 (6.4-8.2) g/dL Albumin 3.8 (3.4-5.0) g/dL Globulin 3.6 (2.6-4.0) g/dL Albumin/Globulin Ratio 1.1 (0.9-1.6) Lipase 83 (73-393) U/L Urine Color YELLOW Urine Appearance CLOUDY Urine pH 6.0 (5.0-8.0) Ur Specific [place] >= 1.030 (1.001-1.035) Urine Protein TRACE H (NEGATIVE) mg/dL Urine Glucose (UA) NEGATIVE (NEGATIVE) mg/dL Urine Ketones NEGATIVE (NEGATIVE) mg/dL Urine Occult Blood LARGE H (NEGATIVE) Urine Nitrite POSITIVE H (NEGATIVE) Urine Bilirubin NEGATIVE (NEGATIVE) Urine Urobilinogen 0.2 (<2.0) EU/dL Ur Leukocyte Esterase NEGATIVE (NEGATIVE) Urine RBC 75-100 (0-2/HPF) Urine WBC 1-2 (0-5/HPF) Ur Epithelial Cells RARE (NONE-FEW) Urine Bacteria FEW (NEGATIVE) Urine Mucus LIGHT (NONE-MOD) 11/02/21 Range/Units 09:55 WBC (4.0-11.0) K/uL RBC (4.50-5.90) M/uL Hgb (13.0-17.0) g/dL Hct (38.0-50.0) % MCV (80.0-98.0) fL MCH (27.0-32.0) pg MCHC (31.0-37.0) g/dL RDW Std Deviation (28.0-62.0) fl RDW Coeff of Ashley (11.0-15.0) % Plt Count (150-400) K/uL MPV (7.40-12.00) fL Neut % (Auto) (48.0-80.0) % Lymph % (Auto) (16.0-40.0) % Spink % (Auto) (0.0-15.0) % Eos % (Auto) (0.0-7.0) % Baso % (Auto) (0.0-1.5) % Neut # (Auto) (1.4-5.7) K/uL Lymph # (Auto) (0.6-2.4) K/uL Spink # (Auto) (0.0-0.8) K/uL Eos # (Auto) (0.0-0.7) K/uL Baso # (Auto) (0.0-0.1) K/uL Nucleated RBC % /100WBC Nucleated RBCs # K/uL Sodium (136-148) mmol/L Potassium (3.5-5.1) mmol/L Chloride (98-107) mmol/L Carbon Dioxide (21.0-32.0) mmol/L BUN (7.0-18.0) mg/dL Creatinine (0.8-1.3) mg/dL Est Cr Clr Drug Dosing mL/min Estimated GFR (MDRD) ml/min Glucose (74-106) mg/dL Lactic Acid 1.9 (0.4-2.0) mmol/L Calcium (8.5-10.1) mg/dL Total Bilirubin (0.2-1.0) mg/dL AST (15-37) IU/L ALT (14-63) IU/L Alkaline Phosphatase (46-116) U/L Total Protein (6.4-8.2) g/dL Albumin (3.4-5.0) g/dL Globulin (2.6-4.0) g/dL Albumin/Globulin Ratio (0.9-1.6) Lipase (73-393) U/L Urine Color Urine Appearance Urine pH (5.0-8.0) Ur Specific [place] (1.001-1.035) Urine Protein (NEGATIVE) mg/dL Urine Glucose (UA) (NEGATIVE) mg/dL Urine Ketones (NEGATIVE) mg/dL Urine Occult Blood (NEGATIVE) Urine Nitrite (NEGATIVE) Urine Bilirubin (NEGATIVE) Urine Urobilinogen (<2.0) EU/dL Ur Leukocyte Esterase (NEGATIVE) Urine RBC (0-2/HPF) Urine WBC (0-5/HPF) Ur Epithelial Cells (NONE-FEW) Urine Bacteria (NEGATIVE) Urine Mucus (NONE-MOD) Meds: Medications Discontinued Medications Generic Name Dose Route Start Last Admin Trade Name Freq PRN Reason Stop Dose Admin Sodium Chloride 1,000 mls @ 1,000 mls/hr 11/02/21 09:18 11/02/21 09:35 Normal Saline IV 11/02/21 10:17 1,000 mls/hr .Bolus ONE Administration Iopamidol 100 ml 11/02/21 11:24 11/02/21 11:24 Iopamidol 755 Mg/Ml 500 Ml Multipack Bottle IVPUSH 11/02/21 11:25 100 ml ONETIME STA Administration Ketorolac Tromethamine 30 mg 11/02/21 09:18 11/02/21 09:34 Ketorolac 30 Mg/Ml Sdv IVPUSH 11/02/21 09:19 30 mg ONETIME ONE Administration - Re-Assessments/Exams Free Text/Narrative Re-Assessment/Exam: 11/02/21 12:[address] scan does not show any cause the patient pain he does have a piece of his bladder protruding the hernia but no signs of incarceration. Patient states his pain is improved will be discharged to follow-up with his PMD. Departure - Departure Time of Disposition: 12:58 Disposition: Home, Self-Care 01 Condition: Good Clinical Impression: Bladder prolapse - Discharge Information *PRESCRIPTION DRUG MONITORING PROGRAM REVIEWED*: Not Applicable *COPY OF PRESCRIPTION DRUG MONITORING REPORT IN PATIENT ELENA: Not Applicable Instructions: Abdominal Pain, Adult, [id number] Referrals: Keshav Esteban NP [Primary Care Provider] - Forms: ED Department Discharge Additional Instructions: You were seen today for abdominal pain. We did a CAT scan and it shows for your bladder is protruding to your hernia but is not stuck or incarcerated. We do no t have any identified cause of your abdominal pain. We recommend he follow with your primary care physician but if you have worsening symptoms please feel free to return to the ED. The following information is given to patients seen in the emergency department who are being discharged to home. This information is to outline your options for follow-up care. We provide all patients seen in our emergency department with a follow-up referral. The need for follow-up, as well as the timing and circumstances, are variable depending upon the specifics of your emergency department visit. If you don't have a primary care physician on staff, we will provide you with a referral. We always advise you to contact your personal physician following an emergency department visit to inform them of the circumstance of the visit and for follow-up with them and/or the need for any referrals to a consulting specialist. The emergency department will also refer you to a specialist when appropriate. This referral assures that you have the opportunity for follow-up care with a specialist. All of these measure are taken in an effort to provide you with optimal care, which includes your follow-up. Under all circumstances we always encourage you to contact your private physician who remains a resource for coordinating your care. When calling for follow-up care, please make the office aware that this follow-up is from your recent emergency room visit. If for any reason you are refused follow-up, please contact the [facility] Emergency Department at and asked to speak to the emergency department charge nurse. Please follow up with your primary care physician. If you do not have a primary care physician, see below: [facility] [address] [place] [id number] [facility] [address] [place] [id number] Sepsis Event Note (ED) - Evaluation Sepsis Screening Result: No Definite Risk - Focused Exam Vital Signs: Vital Signs Temp Pulse Resp BP Pulse Ox 11/02/21 09:25 98.1 F 75 20 139/89 98 - Assessment/Plan Plan: Patient 71-year-old male presents today for lower abdominal pain. Sent for in from the [place] to rule out appendicitis. Patient on exam has more tenderness in the left lower quadrant. Will obtain CT scan and reassess.
--- NOTE | 2021-11-02 12:53 | CT ---
INDICATION: Right lower quadrant pain. TECHNIQUE: CT of the abdomen and pelvis with 100 cc Isovue 370 IV contrast. Coronal and sagittal reconstructions. COMPARISON: CT of the abdomen and pelvis I [id number]. FINDINGS: Diffuse hepatic steatosis. Multiple tiny low-attenuation lesions scattered throughout the liver are too small to characterize but likely benign. The gallbladder, spleen, pancreas, and adrenal glands are negative. No biliary dilation. Hepatic and portal veins are patent. Symmetric enhancement of the kidneys. Bilateral renal cysts. A previously described high density lesion in the lower pole of the left kidney demonstrates no enhancement on today`s exam compatible with a cyst containing hemorrhagic or proteinaceous contents. Tiny nonobstructing right renal caliceal stones. No hydronephrosis or ureteral dilation. No obstructing urinary calculi identified. The bladder is normal in appearance. Enlarged prostate gland. No bowel dilation. Negative appendix. No intraperitoneal free air or fluid. A small portion of the right anterior bladder wall protrudes into a shallow right inguinal hernia without obvious complication. Small fat containing left inguinal hernia. No lymphadenopathy. Degenerative changes of the spine. Chronic L5 superior endplate compression fracture. Ankylosis of the sacroiliac joints. Resolution of previously seen bibasilar lung infiltrates with residual areas of scarring. Mild enlargement of the left atrium. IMPRESSION: 1. No acute findings in the abdomen or pelvis. 2. A small portion of the right anterior bladder wall protrudes into a shallow right inguinal hernia without obvious complication. 3. Enlarged prostate gland. 4. Diffuse hepatic steatosis. 5. Resolution of previously seen bibasilar lung infiltrates. Please note that all CT scans at this facility use dose modulation, iterative reconstruction, and/or weight-based dosing when appropriate to reduce radiation dose to as low as reasonably achievable. Dictated by Lidia Purdy MD @ 11/02/2021 12:52:08 PM (Electronically Signed)
[2021-11-02 13:47] VITALS: BP 125/80; PULSE 79
== END 2021-11-02 13:10 | disposition home or self-care (01) ==
LOC: MW.ED 09:02
DX: N32.89 Other specified disorders of bladder (principal); I48.91 Unspecified atrial fibrillation; E78.00 Pure hypercholesterolemia, unspecified; Z86.16 Personal history of COVID-19; Z88.5 Allergy status to narcotic agent; Z79.899 Other long term (current) drug therapy
CPT/HCPCS: 36415; 74177; 80053; 81001; 83605; 83690; 85025; 96374; 99284; J1885; J7030; Q9967

== ENCOUNTER 2022-07-21 06:17 | Day surgery (SDC) | payer OTHER ==
[~2022-07-21 06:17] MED LIST: Lactated Ringers 1,000 ML IV SCH
[2022-07-21] MEDS ORDERED: Propofol 200 MG/20 ML SDV ONE (07:12)
[2022-07-21] MEDS ORDERED: fentaNYL 100 MCG/2 ML SDV ONE (07:12)
[2022-07-21] MEDS ORDERED: Lidocaine 2% 5 ML SDV ONE (07:13)
[2022-07-21] MEDS ORDERED: Phenylephrine HCl In 0.9% NaCl 1 MG/10 ML Vial ONE (07:37)
[2022-07-21] MEDS ORDERED: ePHEDrine 50 MG/ML SDV ONE (07:39)
[2022-07-21] MEDS ORDERED: Lactated Ringers 1,000 ML IV SCH (08:45)
[2022-07-21 08:47] VITALS: BP 95/65
[2022-07-21 09:08] VITALS: PULSE 62
== END 2022-07-21 09:24 | disposition home or self-care (01) ==
LOC: MW.SDS 06:17
PROVIDERS: ATTEND Surgery
DX: R19.4 Change in bowel habit (principal); I48.91 Unspecified atrial fibrillation; E78.00 Pure hypercholesterolemia, unspecified; I10 Essential (primary) hypertension; K40.20 Bilateral inguinal hernia, without obstruction or gangrene, not specified as recurrent; Z80.0 Family history of malignant neoplasm of digestive organs; Z88.5 Allergy status to narcotic agent; Z79.899 Other long term (current) drug therapy; Z79.01 Long term (current) use of anticoagulants; Z98.890 Other specified postprocedural states
CPT/HCPCS: 45378; J2704; J3010; J7120; 00811; 99100

== ENCOUNTER 2022-07-24 06:12 | Day surgery (SDC) | payer OTHER ==
[~2022-07-24 06:12] MED LIST changes: +Albuterol 0.083% 2.5 MG/3 ML Neb Soln NEB PRN; +HYDROmorphone 1 MG/ML Syringe IVPUSH PRN; +Metoclopramide 10 MG/2 ML SDV IVPUSH PRN; +Morphine 4 MG/ML VIAL IVPUSH PRN; +Naloxone 0.4 MG/ML SDV IVPUSH PRN; +Ondansetron 4 MG/2 ML SDV IVPUSH PRN; +ceFAZolin 2 GM in Premix Bag 1 BAG IV SCH; +fentaNYL 50 MCG/ML SDV IVPUSH PRN
[2022-07-24] MEDS ORDERED: propofoL 50 ML ONE (07:00)
[2022-07-24] MEDS ORDERED: Ropivacaine 0.5% 5 MG/ML 30 ML SDV ONE ×2 (07:00→07:04)
[2022-07-24] MEDS ORDERED: Bupivacaine 0.5% 10 ML SDV ONE (07:04)
[2022-07-24] MEDS ORDERED: ePHEDrine 50 MG/ML SDV ONE (07:05)
[2022-07-24] MEDS ORDERED: Lidocaine 1% 5 ML VIAL ONE (07:05)
[2022-07-24] MEDS ORDERED: Dexamethasone 4 MG/ML 5 ML MDV ONE (07:05)
[2022-07-24] MEDS ORDERED: fentaNYL 100 MCG/2 ML SDV ONE (07:05)
[2022-07-24] MEDS ORDERED: Dexmedetomidine 200 MCG/2 ML SDV ONE (07:05)
[2022-07-24] MEDS ORDERED: Ondansetron 4 MG/2 ML SDV ONE (07:05)
[2022-07-24] MEDS ORDERED: Phenylephrine HCl In 0.9% NaCl 1 MG/10 ML Vial ONE ×2 (07:05→09:05)
[2022-07-24] MEDS ORDERED: Bupivacaine 0.25%/EPINEPHrine 1:200,000 10 ML SDV ONE (07:05)
[2022-07-24] MEDS ORDERED: Rocuronium Bromide 50 MG/5 ML Syringe ONE (07:05)
[2022-07-24] MEDS ORDERED: ceFAZolin 1 GM Vial ONE ×2 (07:06→07:34)
[2022-07-24] MEDS ORDERED: Water For Injection, Sterile 20 ML ONE (07:14)
[2022-07-24] MEDS ORDERED: Bupivacaine 0.5% 30 ML SDV ONE (07:34)
[2022-07-24] MEDS ORDERED: Propofol 200 MG/20 ML SDV ONE (08:51)
[2022-07-24] MEDS ORDERED: Magnesium Sulfate (4.06 MEQ/ML) 5 GM/10 ML SDV ONE (09:05)
[2022-07-24] MEDS ORDERED: Acetaminophen/HYDROcodone 325-5 MG Tab PO PRN (10:04)
[2022-07-24] MEDS ORDERED: Lactated Ringers 1,000 ML IV SCH (10:15)
[2022-07-24 11:52] VITALS: PULSE 64
[2022-07-24 13:27] VITALS: BP 112/64
== END 2022-07-24 14:45 | disposition home or self-care (01) ==
LOC: MW.SDS 06:12
PROVIDERS: ATTEND Surgery
DX: K40.20 Bilateral inguinal hernia, without obstruction or gangrene, not specified as recurrent (principal); I48.91 Unspecified atrial fibrillation; I10 Essential (primary) hypertension; E78.00 Pure hypercholesterolemia, unspecified; N40.0 Benign prostatic hyperplasia without lower urinary tract symptoms; Z98.890 Other specified postprocedural states; Z88.6 Allergy status to analgesic agent; Z79.51 Long term (current) use of inhaled steroids; Z79.899 Other long term (current) drug therapy; Z86.16 Personal history of COVID-19; Z79.83 Long term (current) use of bisphosphonates
CPT/HCPCS: 49505; J0131; J0690; J1100; J1170; J2405; J2704; J2795; J3010; J3475; J3490; J7120

== ENCOUNTER 2023-04-02 14:16 | Emergency (ER) | payer OTHER ==
[2023-04-02] MEDS ORDERED: Sodium Chloride 0.9% 2.5 ML Syringe FLUSH PRN (14:40)
[2023-04-02] MEDS ORDERED: Sodium Chloride 0.9% 10 ML Syringe FLUSH PRN (14:40)
[2023-04-02 14:48] LABS: BASOPHILS ABSOLUTE AUTO 0.1 K/uL (0.0-0.1); BASOPHILS PERCENT AUTO 0.8 % (0.0-1.5); EOSINOPHILS ABSOLUTE AUTO 0.1 K/uL (0.0-0.7); EOSINOPHILS PERCENT AUTO 1.6 % (0.0-7.0); HEMATOCRIT 44.2 % (38.0-50.0); HEMOGLOBIN 14.6 g/dL (13.0-17.0); LYMPHOCYTES ABSOLUTE AUTO 1.7 K/uL (0.6-2.4); MEAN CORPUSCULAR HEMOGLOBIN 26.8 pg (27.0-32.0); MEAN CORPUSCULAR VOLUME 81.1 fL (80.0-98.0); MONOCYTES ABSOLUTE AUTO 0.7 K/uL (0.0-0.8); MONOCYTES PERCENT AUTO 9.8 % (0.0-15.0); NEUTROPHILS ABSOLUTE AUTO 4.8 K/uL (1.4-5.7); NEUTROPHILS PERCENT AUTO 64.8 % (48.0-80.0); NRBC ABSOLUTE 0 K/uL; PLATELET COUNT,PLT 248 K/uL (150-400); RED BLOOD CELL COUNT 5.45 M/uL (4.50-5.90); WHITE BLOOD CELL COUNT,WBC 7.43 K/uL (4.0-11.0)
[2023-04-02 15:07] LABS: A/G RATIO 1.2 (0.9-1.6); ALBUMIN 3.7 g/dL (3.4-5.0); BILIRUBIN TOTAL 0.9 mg/dL (0.2-1.0); CALCIUM 8.6 mg/dL (8.5-10.1); CREATININE 1.3 mg/dL (0.8-1.3); EST CRCL DRUG DOSING (CG) 45.9 mL/min; POTASSIUM,K 3.9 mmol/L (3.5-5.1); PROTEIN TOTAL,TP 6.7 g/dL (6.4-8.2)
[2023-04-02] MEDS ORDERED: Iopamidol 755 MG/ML 500 ML Multipack Bottle IVPUSH ONE (15:42)
[2023-04-02 16:01] LABS: BILIRUBIN,URINE NEGATIVE (NEGATIVE); COLOR,URINE YELLOW; GLUCOSE,URINE NEGATIVE (NEGATIVE); KETONES,URINE NEGATIVE (NEGATIVE); LEUKOCYTE ESTERASE,URINE NEGATIVE (NEGATIVE); NITRITE,URINE NEGATIVE (NEGATIVE); OCCULT BLOOD,URINE MODERATE (NEGATIVE); PH,URINE 5.5 (5.0-8.0); PROTEIN,URINE NEGATIVE (NEGATIVE); UROBILINOGEN,URINE 0.2 EU/dL (<2.0)
[2023-04-02 16:20] LABS: APPEARANCE,URINE HAZY; EPITHELIAL CELLS,URINE RARE (NONE-FEW); WBC,URINE 0-1 (0-5/HPF)
[2023-04-02 16:21] LABS: BACTERIA,URINE RARE (NEGATIVE); CALCIUM OXALATE CRYSTALS,URINE FEW (NEGATIVE)
[2023-04-02 17:01] VITALS: BP 93/57; PULSE 66
== END 2023-04-02 17:00 | disposition home or self-care (01) ==
LOC: MW.ED 14:16
DX: K52.9 Noninfective gastroenteritis and colitis, unspecified (principal); R82.998 Other abnormal findings in urine; I48.91 Unspecified atrial fibrillation; I10 Essential (primary) hypertension; E78.00 Pure hypercholesterolemia, unspecified; Z86.16 Personal history of COVID-19; Z88.5 Allergy status to narcotic agent; Z79.899 Other long term (current) drug therapy; Z79.01 Long term (current) use of anticoagulants
CPT/HCPCS: 36415; 74177; 80053; 81001; 83690; 85025; 99284; J3490; Q9967

== ENCOUNTER 2023-04-13 14:46 | Emergency (ER) | payer OTHER ==
[2023-04-13 15:53] VITALS: BP 113/76; PULSE 99
[2023-04-13 16:09] LABS: APPEARANCE,URINE CLEAR; BILIRUBIN,URINE NEGATIVE (NEGATIVE); COLOR,URINE YELLOW; GLUCOSE,URINE NEGATIVE (NEGATIVE); KETONES,URINE NEGATIVE (NEGATIVE); LEUKOCYTE ESTERASE,URINE NEGATIVE (NEGATIVE); NITRITE,URINE NEGATIVE (NEGATIVE); OCCULT BLOOD,URINE TRACE-INTACT (NEGATIVE); PH,URINE 6.5 (5.0-8.0); PROTEIN,URINE NEGATIVE (NEGATIVE)
[2023-04-13 16:18] LABS: BACTERIA,URINE FEW (NEGATIVE); EPITHELIAL CELLS,URINE RARE (NONE-FEW); MUCUS,URINE LIGHT (NONE-MOD); RBC,URINE 0-2 (0-2/HPF); WBC,URINE 0-2 (0-5/HPF)
== END 2023-04-13 18:16 | disposition home or self-care (01) ==
LOC: MW.ED 14:46
DX: R10.31 Right lower quadrant pain (principal); I48.91 Unspecified atrial fibrillation; E78.00 Pure hypercholesterolemia, unspecified; Z71.1 Person with feared health complaint in whom no diagnosis is made; I10 Essential (primary) hypertension; Z88.5 Allergy status to narcotic agent; Z79.01 Long term (current) use of anticoagulants; Z79.899 Other long term (current) drug therapy; Z86.16 Personal history of COVID-19; Z98.890 Other specified postprocedural states
CPT/HCPCS: 81001; 99283; 99284

== ENCOUNTER 2023-06-06 11:40 | Inpatient (IN) | payer OTHER, MEDICARE ==
[~2023-06-06 11:40] MED LIST changes: -Albuterol 0.083% 2.5 MG/3 ML Neb Soln NEB PRN; +EPINEPHrine 1 MG/1 ML Amp ONE; +Famotidine 20 MG/2 ML SDV IVPUSH SCH; -HYDROmorphone 1 MG/ML Syringe IVPUSH PRN; -Metoclopramide 10 MG/2 ML SDV IVPUSH PRN; -Morphine 4 MG/ML VIAL IVPUSH PRN; -Naloxone 0.4 MG/ML SDV IVPUSH PRN; -Ondansetron 4 MG/2 ML SDV IVPUSH PRN; +Ropivacaine 49.25 ML, Ketorolac 30 MG, EPINEPHrine 0.5 MG, cloNIDine 80 MCG in Sodium C... INJECT SCH; +Tranexamic Acid 1,000 MG in Sodium Chloride 0.9% 100 ML IV SCH; -ceFAZolin 2 GM in Premix Bag 1 BAG IV SCH; +ceFAZolin 2 GM in Sodium Chloride 0.9% 50 ML IV ONE; +fentaNYL 100 MCG/2 ML SDV ONE; -fentaNYL 50 MCG/ML SDV IVPUSH PRN; +propofoL 50 ML ONE
[2023-06-06] MEDS ORDERED: Naloxone 0.4 MG/ML SDV IVPUSH PRN (12:42)
[2023-06-06] MEDS ORDERED: Ondansetron 4 MG/2 ML SDV IVPUSH PRN ×2 (12:42→17:21)
[2023-06-06] MEDS ORDERED: Morphine 2 MG/ML SYRINGE IVPUSH PRN (12:42)
[2023-06-06] MEDS ORDERED: fentaNYL 50 MCG/ML SDV IVPUSH PRN (12:42)
[2023-06-06] MEDS ORDERED: droPERidol 5 MG/2 ML SDV IVPUSH PRN (12:42)
[2023-06-06] MEDS ORDERED: Metoclopramide 10 MG/2 ML SDV IVPUSH PRN (12:42)
[2023-06-06] MEDS ORDERED: Albuterol 0.083% 2.5 MG/3 ML Neb Soln NEB PRN (12:42)
[2023-06-06] MEDS ORDERED: HYDROmorphone 1 MG/ML Syringe IVPUSH PRN ×2 (12:42→17:21)
[2023-06-06] MEDS ORDERED: Famotidine 20 MG/2 ML SDV ONE (13:01)
[2023-06-06] MEDS ORDERED: Ketamine 500 mg/10 ML MDV ONE (13:49)
[2023-06-06] MEDS ORDERED: Water For Injection, Sterile 20 ML ONE (13:51)
[2023-06-06] MEDS ORDERED: ePHEDrine 50 MG/ML SDV ONE ×2 (13:52→17:09)
[2023-06-06] MEDS ORDERED: Phenylephrine HCl 0.5 MG/5 ML AMP ONE ×2 (13:52→17:09)
[2023-06-06] MEDS ORDERED: Ondansetron 4 MG/2 ML SDV ONE (14:16)
[2023-06-06] MEDS ORDERED: Ropivacaine 0.5% 5 MG/ML 30 ML SDV ONE (14:28)
[2023-06-06] MEDS ORDERED: ceFAZolin 2 GM Vial ONE (15:28)
[2023-06-06] MEDS ORDERED: Tranexamic Acid 1,000 MG/10 ML Vial ONE (15:29)
[2023-06-06] MEDS ORDERED: diphenhydrAMINE 25 MG Cap PO PRN (17:21)
[2023-06-06] MEDS ORDERED: oxyCODONE 5 MG Tab PO PRN (17:21)
[2023-06-06] MEDS ORDERED: traMADol 50 MG Tab PO PRN (17:21)
[2023-06-06] MEDS ORDERED: Sodium Chloride 0.9% 2.5 ML Syringe FLUSH PRN (17:21)
[2023-06-06] MEDS ORDERED: Aluminum Hydroxide/Magnesium Hydroxide/Simethicone XS Susp 30 ML Cup PO PRN (17:21)
[2023-06-06] MEDS ORDERED: Sodium Chloride 0.9% 10 ML Syringe FLUSH PRN (17:21)
[2023-06-06] MEDS: Acetaminophen 325 MG Tab PO SCH (19:59)
[2023-06-06] MEDS: Docusate Sodium 100 MG Cap PO SCH (19:59)
[2023-06-06] MEDS ORDERED: Scopolamine 1.5 MG Transdermal Patch TRDERM PRN (20:19)
[2023-06-06] MEDS: ceFAZolin 2 GM in Sodium Chloride 0.9% 50 ML IV SCH (23:56)
[2023-06-07] MEDS: Acetaminophen 325 MG Tab PO SCH ×5 (00:03→17:35)
[2023-06-07 06:21] LABS: HEMATOCRIT 40.3 % (38.0-50.0)
[2023-06-07] MEDS: ceFAZolin 2 GM in Sodium Chloride 0.9% 50 ML IV SCH (06:24)
[2023-06-07] MEDS: Docusate Sodium 100 MG Cap PO SCH (08:29)
[2023-06-07] MEDS ORDERED: Diltiazem 120 MG Cap.CD PO SCH (09:00)
[2023-06-07] MEDS ORDERED: Polyethylene Glycol 3350 Powder 17 GM Packet PO SCH (09:00)
[2023-06-07] MEDS ORDERED: Famotidine 20 MG Tab PO SCH (09:00)
[2023-06-07] MEDS ORDERED: Lisinopril 5 MG Tab PO SCH (10:30)
[2023-06-07 15:37] VITALS: BP 114/36; PULSE 56
[2023-06-07] MEDS ORDERED: atorvaSTATin 20 MG Tab PO SCH (21:00)
[2023-06-07] MEDS ORDERED: Apixaban 5 MG Tab PO SCH (21:00)
== END 2023-06-07 18:20 | disposition home or self-care (01) | DRG 470 ==
LOC: MW.SDS 11:40 → MW.MS 18:04
PROVIDERS: ADMIT Orthopaedic Surgery; ATTEND Orthopaedic Surgery
PROC: 0SRD069 Replacement of Left Knee Joint with Oxidized Zirconium on Polyethylene Synthetic Substitute, Cemented, Open Approach (ICD-10-PCS; principal; 2023-06-06)
DX: M17.12 Unilateral primary osteoarthritis, left knee (principal); I48.91 Unspecified atrial fibrillation; M24.10 Other articular cartilage disorders, unspecified site; E78.5 Hyperlipidemia, unspecified; E78.00 Pure hypercholesterolemia, unspecified; Z98.890 Other specified postprocedural states; I10 Essential (primary) hypertension; Z87.442 Personal history of urinary calculi; N40.0 Benign prostatic hyperplasia without lower urinary tract symptoms; Z88.5 Allergy status to narcotic agent; Z79.01 Long term (current) use of anticoagulants; Z79.899 Other long term (current) drug therapy
CPT/HCPCS: 27447; 36415; 64447; 73560; 86850; 86900; 86901; C1713; C1776 ×3; J0131; J0171 ×2; J0690; J0735; J1885; J2370; J2405; J2704; J2795 ×2; J3010; J3490 ×4; J7120; 01402; 85014; 85018; 97163-GP; 97530-GP; 99100; 99222; 99232; A9270-GY